=== PATIENT | male | born 1935 | race Caucasian/White ===

== ENCOUNTER → 2016-06-27 | Outpatient (CLI) | payer MEDICARE ==
[2016-06-27 11:31] LABS: Basophils # (A) 0.1 k/uL (0-0.2); Basophils % (A) 1 %; CH 31.2; CHCM 30.1; Eosinophils # (A) 0.2 k/uL (0-0.7); Eosinophils % (A) 3 %; HCT 40.5 % (39.0-53.0); HDW 2.85; HGB 12.3 gm/dL (13.0-17.5); Hypochromasia Marked; Luc # (Auto) 0.21; Luc % (Auto) 4; Lymphocytes # (A) 0.8 k/uL (1.0-4.8); Lymphocytes % (A) 15 %; MCH 31.6 pg (25.0-35.0); MCHC 30.3 g/dL (31.0-37.0); MCV 104.2 fL (80.0-100.0); Macrocytosis Moderate; Mean Platelet Volume 9.4; Monocytes # (A) 0.4 k/uL (0-1.0); Monocytes % (A) 6 %; Neutrophils % (A) 71 %; RBC 3.89 m/uL (4.30-5.90); RDW 15.4 % (11.5-15.5); WBC 5.6 k/uL (3.8-10.6); WBC (Perox) 5.96
[2016-06-27 11:51] LABS: Anion Gap 9 mmol/L; Blood Urea Nitrogen 20 mg/dL (9-20); Calcium 9.3 mg/dL (8.4-10.2); Carbon Dioxide 35 mmol/L (22-30); Chloride 103 mmol/L (98-107); Glucose 165 mg/dL (74-99); Non-African American GFR(MDRD) >60 (>60 ml/min/1.73 sqM); Potassium 4.7 mmol/L (3.5-5.1); Sodium 147 mmol/L (137-145)
== END ==
LOC: LABPAT 11:10
PROVIDERS: ATTEND Urology
DX: Z01.818 Encounter for other preprocedural examination (principal); N47.1 Phimosis; E11.9 Type 2 diabetes mellitus without complications; I48.91 Unspecified atrial fibrillation
CPT/HCPCS: 80048; 85025

== ENCOUNTER 2016-07-02 09:03 | Day surgery (SDC) | payer MEDICARE ==
[2016-06-29 10:50] VITALS: BMI 34.9
[~2016-07-02 09:03] MED LIST: DEXAMETHASONE SOD PHOSPHATE 10 MG/ML 1 ML VIAL IV ONE; HYDROmorphone 1 MG/ML 1 ML SYRINGE IVP PRN; LACTATED RINGERS 1,000 ML IV SCH; ONDANSETRON 4 MG/2 ML VIAL IVP ONE; ceFAZolin 2 GM in SODIUM CHLORIDE 0.9% 100 ML IVPB ONE
[2016-07-02 09:48] LABS: Glucose,Whole Blood 74 mg/dL (75-99)
[2016-07-02] MEDS ORDERED: LIDOCAINE 1% 20 ML VIAL (10MG/ML) FOR IV START INTRADERMA ONE (09:49)
[2016-07-02] MEDS ORDERED: MIDAZOLAM 2 MG/2 ML VIAL ONE (10:06)
[2016-07-02] MEDS ORDERED: GLYCOPYRROLATE 0.2 MG/ML 2 ML VIAL ONE (10:06)
[2016-07-02] MEDS ORDERED: fentaNYL (PF) 50 MCG/ML 2 ML AMP ONE (10:06)
[2016-07-02] MEDS ORDERED: KETAMINE 10 MG/ML 20 ML VIAL ONE (10:06)
[2016-07-02] MEDS ORDERED: LIDOCAINE 2%-EPI 1:100,000 20 ML VIAL SQ ONE (10:36)
[2016-07-02] MEDS ORDERED: BUPIVACAINE (PF) 0.5% 30 ML VIAL SQ ONE (10:36)
--- NOTE | 2016-07-02 11:27 | P.OP ---
Date of Procedure: 07/02/16 Preoperative Diagnosis: Phimosis Postoperative Diagnosis: Same Procedure(s) Performed: Circumcision Anesthesia: KIKE SOTO Surgeon: Misael Avina Estimated Blood Loss (ml): 20 IV fluids (ml): 500 Pathology: none sent Condition: stable Disposition: PACU Indications for Procedure: He is a 80-year-old male with multiple medical conditions, including diabetes mellitus. He is uncircumcised and has developed phimosis. Lotrisone cream failed to help, and he continues to be bothered by postvoid dribbling as a result of urine pooling due to the fact that the phimosis impedes urine flow. He has thus elected to undergo a circumcision. Operative Findings: Phimosis Description of Procedure: The patient was taken to the operating room and placed in the supine position. The external genitalia was prepped and draped sterilely. A 50-50 mixture of 2% lidocaine and 0.25% Marcaine was injected circumferentially at the penile base for a penile block. Because of the phimosis, the penile foreskin could not be retracted. A hemostat was used to clamp the dorsal aspect of the phimotic ring for several minutes, and scissors were then used to incise this. This was done until the foreskin could be retracted. The glans penis was cleaned with Betadine solution at this time. The scalpel was used to make a circumferential skin incision 1 cm proximal to the glans abrams. A second, more proximal circumferential skin incision was then made. The redundant foreskin was excised. Subcutaneous bleeders were controlled with electrocautery. The skin edges were reapproximated using 3-0 chromic suture in a combination of simple interrupted and running fashion. An Adaptic dressing was placed over the incision, and the penis was then snugly wrapped using a 2 inch Nathan with care taken not to constrict the penis in any way. The patient tolerated the procedure well and was taken to the recovery room in stable condition. He will be discharged home postoperatively.
[2016-07-02 11:40] LABS: Glucose,Whole Blood 98 mg/dL (75-99)
[2016-07-02 11:42] VITALS: TEMP 97.1
[2016-07-02 12:24] VITALS: RESP 16
[2016-07-02 13:05] VITALS: BP 148/85; PULSE 74
== END 2016-07-02 13:25 | disposition home or self-care (01) ==
LOC: OR 09:03
PROVIDERS: ATTEND Urology
DX: N47.1 Phimosis (principal); E11.9 Type 2 diabetes mellitus without complications; Z79.4 Long term (current) use of insulin; J44.9 Chronic obstructive pulmonary disease, unspecified; J45.909 Unspecified asthma, uncomplicated; G47.33 Obstructive sleep apnea (adult) (pediatric); N28.9 Disorder of kidney and ureter, unspecified; G62.9 Polyneuropathy, unspecified; Z79.01 Long term (current) use of anticoagulants; Z79.82 Long term (current) use of aspirin; Z79.899 Other long term (current) drug therapy; Z88.1 Allergy status to other antibiotic agents; Z88.8 Allergy status to other drugs, medicaments and biological substances
CPT/HCPCS: 54150; J2250; J1100; J0690; J2405; J3010

== ENCOUNTER → 2016-08-22 | Outpatient (CLI) | payer MEDICARE ==
[2016-08-22 08:23] LABS: Basophils # (A) 0.1 k/uL (0-0.2); Basophils % (A) 1 %; CHCM 31.5; Eosinophils # (A) 0.2 k/uL (0-0.7); Eosinophils % (A) 3 %; HCT 41.7 % (39.0-53.0); HDW 2.88; HGB 13.2 gm/dL (13.0-17.5); Hypochromasia Slight; Luc # (Auto) 0.14; Luc % (Auto) 3; Lymphocytes # (A) 0.8 k/uL (1.0-4.8); Lymphocytes % (A) 17 %; MCH 31.4 pg (25.0-35.0); MCHC 31.8 g/dL (31.0-37.0); Monocytes # (A) 0.4 k/uL (0-1.0); Monocytes % (A) 8 %; Neutrophils # (A) 3.2 k/uL (1.3-7.7); Neutrophils % (A) 68 %; RBC 4.22 m/uL (4.30-5.90); RDW 14.6 % (11.5-15.5); WBC 4.8 k/uL (3.8-10.6); WBC (Perox) 4.77
[2016-08-22 08:38] LABS: MCV 98.9 fL (80.0-100.0)
[2016-08-22 10:42] LABS: ALT 30 U/L (21-72); AST 32 U/L (17-59); Alkaline Phosphatase 132 U/L (38-126); Anion Gap 11 mmol/L; Blood Urea Nitrogen 18 mg/dL (9-20); Carbon Dioxide 36 mmol/L (22-30); Chloride 101 mmol/L (98-107); Cholesterol 116 mg/dL (<200); Creatine Kinase 37 U/L (55-170); Glucose 103 mg/dL (74-99); HDL Cholesterol 46 mg/dL (40-60); Iron 57 ug/dL (49-181); Magnesium 1.7 mg/dL (1.6-2.3); Non-African American GFR(MDRD) >60 (>60 ml/min/1.73 sqM); Phosphorous 3.4 mg/dL (2.5-4.5); Potassium 3.6 mmol/L (3.5-5.1); Sodium 148 mmol/L (137-145); Total Bilirubin 0.9 mg/dL (0.2-1.3); Total Protein 7.4 g/dL (6.3-8.2); Triglycerides 68 mg/dL (<150); Uric Acid 4.3 mg/dL (3.5-8.5)
[2016-08-22 10:51] LABS: % Iron Saturation 17.7 % (20-50); Total Iron Binding Capacity 322 ug/dL (261-462)
[2016-08-22 13:40] LABS: Hemoglobin A1C 5.9 % (4.2-6.1)
== END | disposition home or self-care (01) ==
LOC: LABWHC1 07:48
PROVIDERS: ATTEND Internal Medicine
DX: I12.9 Hypertensive chronic kidney disease with stage 1 through stage 4 chronic kidney disease, or unspecified chronic kidney disease (principal); N18.2 Chronic kidney disease, stage 2 (mild); I25.10 Atherosclerotic heart disease of native coronary artery without angina pectoris; E78.4 Other hyperlipidemia; E11.9 Type 2 diabetes mellitus without complications
CPT/HCPCS: 36415; 80053; 80061; 82306; 82550; 82728; 83036; 83540; 83550; 83735; 84100; 84439; 84443; 84550; 85025

== ENCOUNTER 2016-10-24 11:21 | Inpatient (IN) | payer MEDICARE ==
[2016-10-24] MEDS ORDERED: ALBUTEROL NEBULIZED 2.5 MG/3 ML INHALATION STA (11:42)
[2016-10-24] MEDS ORDERED: IPRATROPIUM 0.5 MG/2.5 ML NEBU INHALATION STA (11:42)
[2016-10-24] MEDS ORDERED: methylPREDNISolone SOD SUCCI 125 MG/2 ML VIAL IV STA (11:42)
[2016-10-24 11:58] LABS: Basophils % (A) 1 %; CH 31.1; CHCM 30.6; Eosinophils # (A) 0.3 k/uL (0-0.7); Eosinophils % (A) 4 %; HDW 2.85; HGB 13.4 gm/dL (13.0-17.5); Hypochromasia Moderate; Luc # (Auto) 0.12; Luc % (Auto) 2; Lymphocytes # (A) 0.7 k/uL (1.0-4.8); Lymphocytes % (A) 12 %; MCH 32.5 pg (25.0-35.0); MCHC 31.8 g/dL (31.0-37.0); MCV 102.2 fL (80.0-100.0); Macrocytosis Slight; Mean Platelet Volume 8.5; Monocytes # (A) 0.3 k/uL (0-1.0); Monocytes % (A) 6 %; Neutrophils # (A) 4.5 k/uL (1.3-7.7); Neutrophils % (A) 76 %; RBC 4.11 m/uL (4.30-5.90); RDW 15.3 % (11.5-15.5); WBC (Perox) 6.31
--- NOTE | 2016-10-24 12:04 | ED ---
General Adult HPI - General Chief complaint: Shortness of Breath Stated complaint: low O2 Time Seen by Provider: 10/24/16 11:25 Source: patient, family, RN notes reviewed Mode of arrival: wheelchair Limitations: no limitations - History of Present Illness Initial comments: This is an 81-year-old male with past medical history significant for COPD oxygen dependent and congestive heart failure. Patient states she had difficulty breathing starting 3 days ago. Patient has gotten progressively worse. Patient states she is oxygen dependent 24 hours a day. Patient states he is normal oxygenation could be in the high 80s but today was dipping down to the low 80s. Increase his oxygen and he still was very short of breath. Patient denies any chest pain or palpitations. Patient denies any fever chills or cough. Patient denies any abdominal pain patient denies nausea vomiting or diarrhea. Patient denies headache patient denies numbness weakness patient denies any lightheadedness or dizziness. - Related Data Home Medications Medication Instructions Recorded Confirmed Aspirin 81 mg PO DAILY 02/18/14 10/24/16 Gabapentin [Neurontin] 300 mg PO TID 02/18/14 10/24/16 Insulin NPH Human Isophane 10 units SQ BID 02/18/14 10/24/16 [humuLIN N] cloNIDine HCL [Catapres] 0.1 mg PO DAILY PRN 02/18/14 10/24/16 INSULIN LISPRO (humaLOG) [humaLOG See Protocol SQ ACHS PRN 05/18/15 10/24/16 (formulary)] Ipratropium Nebulized [Atrovent 0.5 mg INHALATION RT-QID PRN 05/18/15 10/24/16 Nebulized] Levalbuterol Nebulized [Xopenex 1.25 mg INHALATION RT-QID PRN 05/18/15 10/24/16 Nebulized] Cholecalciferol [Vitamin D3] 1,000 unit PO DAILY 07/29/15 10/24/16 Ferrous Sulfate [Iron (65 MG 325 mg PO BID 07/29/15 10/24/16 Elemental)] Glucosamine Sulfate 500 mg PO DAILY 07/29/15 10/24/16 Multivitamins, Thera [Multivitamin 1 tab PO DAILY 07/29/15 10/24/16 (formulary)] Niacinamide [Niacin] 500 mg PO DAILY 07/29/15 10/24/16 [place]-3 Fatty Acids/Fish Oil [Fish 1 cap PO DAILY 07/29/15 10/24/16 Oil 1,000 mg Softgel] Atenolol [Tenormin] 100 mg PO BID 08/25/15 10/24/16 Acetaminophen/Diphenhydramine 1 tab PO HS PRN 06/30/16 10/24/16 [Tylenol PM 500-25mg] Furosemide [Lasix] 20 mg PO DAILY 10/24/16 10/24/16 Losartan [Cozaar] 25 mg PO DAILY 10/24/16 10/24/16 Pravastatin Sodium [Pravachol] 80 mg PO HS 10/24/16 10/24/16 Previous Rx's Medication Instructions Recorded Apixaban [Eliquis] 2.5 mg PO BID #0 09/06/15 HYDROcodone/APAP 5-325MG [[place] 1 tab PO Q8HR PRN #90 tab 09/06/15 5-325] Allergies Allergy/AdvReac Type Severity Reaction Status Date / Time celecoxib [From Celebrex] AdvReac "hard Verified 10/24/16 12:36 muscle" ibuprofen AdvReac "bloody Verified 10/24/16 12:36 urine" levofloxacin AdvReac Itching Verified 10/24/16 12:36 Review of Systems ROS Statement: Those systems with pertinent positive or pertinent negative responses have been documented in the HPI. ROS Other: All systems not noted in ROS Statement are negative. 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, diabetes mellitus, chronic atrial fibrillation, coronary artery disease, COPD, hyperlipidemia, hypertension, Last Myocardial Infarction Date:: 27 years ago History of Any Multi-Drug Resistant Organisms: None Reported Past Surgical History: Appendectomy, Back Surgery, Cholecystectomy, Orthopedic Surgery Additional Past Surgical History / Comment(s): pilonIDAL cyst, brain anuerysm 1 clipping, right knee replacement, right shoulder replacement, LT CATARACT, SKIN GRAFT FROM RT THIGH TO RT FINGER, RASHEED 10 years ago, PFO against ASD, last colonoscopy greater than 5 years, 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 Mother Family Medical History: Cancer, Myocardial Infarction ([place]) Additional Family Medical History / Comment(s): Mother at age 62 from rectal cancer. Brother(s) Additional Family Medical History / Comment(s): Patient had 3 brothers. One in a work related accident. One after having an [place] with history of renal problems. Sister(s) Additional Family Medical History / Comment(s): Patient has 2 sisters. One is alive. One has after gallbladder ruptured. Patient has 3 boys and one girl with no major medical problems. General Exam - General Exam Comments Initial Comments: GENERAL: Patient is well-developed and well-nourished. Patient is nontoxic and well- hydrated and is in mild distress. ENT: Neck is soft and supple. No significant lymphadenopathy is noted. Oropharynx is clear. Moist mucous membranes. Neck has full range of motion without eliciting any pain. EYES: The sclera were anicteric and conjunctiva were pink and moist. Extraocular movements were intact and pupils were equal round and reactive to light. Eyelids were unremarkable. PULMONARY: Patient has diminished breath sounds throughout CARDIOVASCULAR: Patient has been irregular heartbeat. ABDOMEN: Soft and nontender with normal bowel sounds. No palpable organomegaly was noted. There is no palpable pulsatile mass. SKIN: Skin is clear with no lesions or rashes and otherwise unremarkable. NEUROLOGIC: Patient is alert and oriented x3. Cranial nerves II through XII are grossly intact. Motor and sensory are also intact. Normal speech, volume and content. Symmetrical smile. MUSCULOSKELETAL: Normal extremities with adequate strength and full range of motion. LYMPHATICS: No significant lymphadenopathy is noted PSYCHIATRIC: Normal psychiatric evaluation. Normal interpersonal interactions appears functionally intact in deals appropriately with others. No signs of depression. No signs of anxiety. Limitations: no limitations Course Vital Signs 10/24/16 10/24/16 10/24/16 11:25 12:01 12:15 Temperature 98.7 F Pulse Rate 94 83 87 Respiratory 24 Rate Blood Pressure 176/89 O2 Sat by Pulse 95 Oximetry 10/24/16 10/24/16 10/24/16 12:28 12:34 13:00 Temperature Pulse Rate 87 89 82 Respiratory 22 25 H Rate Blood Pressure 148/69 170/78 O2 Sat by Pulse 97 93 L Oximetry 10/24/16 10/24/16 10/24/16 13:41 13:43 13:47 Temperature Pulse Rate 90 115 H 123 H Respiratory 25 H 25 H 25 H Rate Blood Pressure 187/93 210/103 209/108 O2 Sat by Pulse 94 L 88 L 91 L Oximetry 10/24/16 10/24/16 10/24/16 13:52 13:57 14:02 Temperature Pulse Rate 100 109 H 112 H Respiratory 25 H 25 H 20 Rate Blood Pressure 201/103 191/96 191/96 O2 Sat by Pulse 92 L 93 L 93 L Oximetry 10/24/16 14:10 Temperature Pulse Rate 103 H Respiratory 20 Rate Blood Pressure 184/104 O2 Sat by Pulse 97 Oximetry Procedures - Chest Tube Insertion Consent Obtained: written consent Time Out Performed: Yes Side of Procedure: right Indication: Pneumothorax Placed on monitor/pulse oximetry: Yes Site Prep: Chloroprep Insertion Site: Midaxillary Scalpel: #10 Open into Pleural Space Using: Trocar Tube Size (Serbian): 28 Returns: Air, Blood Sutured in Place: Yes Type of Suture: Vicryl Dressing Applied: Petroleum Gauze Attached to Suction: No Type of Suction: Pleuravac Repeat X-ray Results: Lung Inflated Patient Tolerated Procedure: well Complications: Bleeding Medical Decision Making - Medical Decision Making EKG shows atrial fibrillation at 90 bpm QRS is 158 QT interval 392 QTC is 479. Patient's EKG shows a right bundle zofia block. When I compared this EKG to an old EKG there are no acute changes noted. Chest x-ray showed a pneumothorax on the right. After the chest tube was placed at another chest x-ray which was portable showed good reinflation of the lung however the tube was not inserted as far as I would like psych tried to readjust the tube I will repeat the portable chest x -ray. Repeat x-ray showed good placement of the tube with complete reinflation. I spoke with Dr. felder on 3 occasions about this case. Patient will be admitted to the ICU. Spoke with Dr. Gonzalez he agreed to accept the patient. I admitted the patient and I continued breathing treatments steroids and repeated cardiac enzymes as well as gave Lasix around the clock - Lab Data Result diagrams: 10/24/16 11:48 10/24/16 11:48 Lab Results 10/24/16 10/24/16 10/24/16 Range/Units 11:48 11:48 11:48 WBC 6.0 (3.8-10.6) k/uL RBC 4.11 L (4.30-5.90) m/uL Hgb 13.4 (13.0-17.5) gm/dL Hct 42.0 (39.0-53.0) % MCV 102.2 H (80.0-100.0) fL MCH 32.5 (25.0-35.0) pg MCHC 31.8 (31.0-37.0) g/dL RDW 15.3 (11.5-15.5) % Plt Count 104 L (150-450) k/uL Neutrophils % 76 % Lymphocytes % 12 % Monocytes % 6 % Eosinophils % 4 % Basophils % 1 % Neutrophils # 4.5 (1.3-7.7) k/uL Lymphocytes # 0.7 L (1.0-4.8) k/uL Monocytes # 0.3 (0-1.0) k/uL Eosinophils # 0.3 (0-0.7) k/uL Basophils # 0.0 (0-0.2) k/uL Hypochromasia Moderate Macrocytosis Slight PT (9.0-12.0) sec INR (<1.1) APTT (22.0-30.0) sec Sodium 146 H (137-145) mmol/L Potassium 4.3 (3.5-5.1) mmol/L Chloride 104 (98-107) mmol/L Carbon Dioxide 32 H (22-30) mmol/L Anion Gap 10 mmol/L BUN 30 H (9-20) mg/dL Creatinine 0.83 (0.66-1.25) mg/dL Est GFR (MDRD) Af Amer >60 (>60 ml/min/1.73 sqM) Est GFR (MDRD) Non-Af >60 (>60 ml/min/1.73 sqM) Glucose 156 H (74-99) mg/dL Calcium 9.1 (8.4-10.2) mg/dL Magnesium 1.9 (1.6-2.3) mg/dL Total Bilirubin 1.0 (0.2-1.3) mg/dL AST 32 (17-59) U/L ALT 20 L (21-72) U/L Alkaline Phosphatase 146 H (38-126) U/L Total Creatine Kinase 34 L (55-170) U/L CK-MB (CK-2) 1.9 (0.0-2.4) ng/mL CK-MB (CK-2) Rel Index 5.6 Troponin I 0.023 (0.000-0.034) ng/mL NT-Pro-B Natriuret Pep pg/mL Total Protein 7.0 (6.3-8.2) g/dL Albumin 3.8 (3.5-5.0) g/dL 10/24/16 10/24/16 Range/Units 11:48 11:48 WBC (3.8-10.6) k/uL RBC (4.30-5.90) m/uL Hgb (13.0-17.5) gm/dL Hct (39.0-53.0) % MCV (80.0-100.0) fL MCH (25.0-35.0) pg MCHC (31.0-37.0) g/dL RDW (11.5-15.5) % Plt Count (150-450) k/uL Neutrophils % % Lymphocytes % % Monocytes % % Eosinophils % % Basophils % % Neutrophils # (1.3-7.7) k/uL Lymphocytes # (1.0-4.8) k/uL Monocytes # (0-1.0) k/uL Eosinophils # (0-0.7) k/uL Basophils # (0-0.2) k/uL Hypochromasia Macrocytosis PT 13.1 H (9.0-12.0) sec INR 1.3 (<1.1) APTT 26.3 (22.0-30.0) sec Sodium (137-145) mmol/L Potassium (3.5-5.1) mmol/L Chloride (98-107) mmol/L Carbon Dioxide (22-30) mmol/L Anion Gap mmol/L BUN (9-20) mg/dL Creatinine (0.66-1.25) mg/dL Est GFR (MDRD) Af Amer (>60 ml/min/1.73 sqM) Est GFR (MDRD) Non-Af (>60 ml/min/1.73 sqM) Glucose (74-99) mg/dL Calcium (8.4-10.2) mg/dL Magnesium (1.6-2.3) mg/dL Total Bilirubin (0.2-1.3) mg/dL AST (17-59) U/L ALT (21-72) U/L Alkaline Phosphatase (38-126) U/L Total Creatine Kinase (55-170) U/L CK-MB (CK-2) (0.0-2.4) ng/mL CK-MB (CK-2) Rel Index Troponin I (0.000-0.034) ng/mL NT-Pro-B Natriuret Pep 7550 pg/mL Total Protein (6.3-8.2) g/dL Albumin (3.5-5.0) g/dL Critical Care Time Critical Care Time: Yes Total Critical Care Time: 40 Disposition Clinical Impression: Pulmonary edema, Acute exacerbation of chronic obstructive airways disease, Pneumothorax Disposition: ADMITTED IP TO THIS HOSP Referrals: Divina Batista MD [Primary Care Provider] - 1-2 days Time of Disposition: 14:36
[2016-10-24 12:14] LABS: INR 1.3 (<1.1); Partial Thromboplastin Time 26.3 sec (22.0-30.0); Prothrombin Time 13.1 sec (9.0-12.0)
[2016-10-24 12:19] LABS: ALT 20 U/L (21-72); AST 32 U/L (17-59); Alkaline Phosphatase 146 U/L (38-126); Anion Gap 10 mmol/L; Blood Urea Nitrogen 30 mg/dL (9-20); Calcium 9.1 mg/dL (8.4-10.2); Carbon Dioxide 32 mmol/L (22-30); Chloride 104 mmol/L (98-107); Glucose 156 mg/dL (74-99); Magnesium 1.9 mg/dL (1.6-2.3); Non-African American GFR(MDRD) >60 (>60 ml/min/1.73 sqM); Potassium 4.3 mmol/L (3.5-5.1); Sodium 146 mmol/L (137-145)
[2016-10-24 12:35] LABS: Creatine Kinase MB 1.9 ng/mL (0.0-2.4); Troponin I 0.023 ng/mL (0.000-0.034)
[2016-10-24] MEDS ORDERED: FUROSEMIDE 10 MG/ML 4 ML VIAL IV STA (12:56)
--- NOTE | 2016-10-24 12:58 | XR ---
EXAMINATION TYPE: XR chest 2V DATE OF EXAM: 10/24/2016 COMPARISON: 09/01/2015 HISTORY: 81-year-old male difficulty breathing TECHNIQUE: AP and lateral views FINDINGS: Heart remains mildly enlarged. Diffuse interstitial prominence. Thickening of the minor fissure. Sugg estion of small effusions with patchy bibasilar opacities. There is a right apical and right lateral pneumothorax estimated at 20%. Partially visualized right shoulder arthroplasty. Multilevel spondylit ic change within the spine. IMPRESSION: 1. Small to moderate-sized right-sided pneumothorax estimated at 20% with apical and lateral componen ts. 2. Correlate for CHF with pulmonary vascular congestion. 3. Small effusions with adjacent atelectasis and/or consolidation. Findings called to Dr. Sewell in the ER at 12:55 PM.
[2016-10-24] MEDS ORDERED: LIDOCAINE 1%-EPI 1:100,000 20 ML VIAL SQ STA (13:32)
[2016-10-24] MEDS ORDERED: ETOMIDATE 2 MG/ML 10 ML VIAL IVP STA (13:32)
[2016-10-24] MEDS ORDERED: HYDROmorphone 1 MG/ML 1 ML SYRINGE IVP STA (13:56)
--- NOTE | 2016-10-24 14:19 | XR ---
EXAMINATION TYPE: XR chest 1V portable DATE OF EXAM: 10/24/2016 Comparison: Earlier today Clinical History: 81-year-old male with pain, right-sided chest tube Findings: Hypoventilatory changes with continued interstitial opacities and patchy bibasilar opacities with sma ll effusions. Interval placement of right-sided chest tube. The chest tube side hole is right at the lateral thoracic margin. Associated subcutaneous emphysema. A trace right apical pneumothorax remains estimated at less than 5%. Impression: 1. Right-sided chest tube. Note that the chest tube sidehole is at the thoracic sidewall margin. 2. Decreased right pneumothorax. A trace less than 5% apical pneumothorax remains. 3. Hypoventilatory changes. 4. Other findings suspected to represent [id number] CHF small effusions with adjacent atelectas is and/or consolidation.
--- NOTE | 2016-10-24 14:28 | XR ---
EXAMINATION TYPE: XR chest 1V portable DATE OF EXAM: 10/24/2016 Comparison: Earlier today Clinical History: 81-year-old male with pain, readjusted chest tube. Findings: Right-sided chest tube has been further advanced. The sidehole is now satisfactory. Similar residual, less than 5% right apical pneumothorax. The background pulmonary findings are relatively similar. Impression: 1. Satisfactory further advancement of the right chest tube. Trace less than 5% right apical pneumoth orax is stable. 2. Pulmonary findings are similar, possible [id number] CHF.
[2016-10-24 15:17] LABS: Glucose,Whole Blood 170 mg/dL (75-99)
[2016-10-24] MEDS: IPRATROPIUM-ALBUTEROL 3 ML NEB INHALATION PRN ×2 (15:23→20:08)
[2016-10-24] MEDS ORDERED: cloNIDine HCL 0.1 MG TAB PO PRN (16:45)
[2016-10-24] MEDS ORDERED: LEVALBUTEROL NEB 1.25 MG/3 ML AMP INHALATION PRN (16:45)
[2016-10-24] MEDS ORDERED: IPRATROPIUM 0.5 MG/2.5 ML NEBU INHALATION PRN (16:45)
[2016-10-24] MEDS ORDERED: ACETAMINOPHEN TAB 500 MG TAB PO PRN ×2 (16:45→17:11)
[2016-10-24] MEDS ORDERED: PANTOPRAZOLE 40 MG/10 ML VIAL IVP SCH (17:00)
[2016-10-24] MEDS ORDERED: diphenhydrAMINE 25 MG CAP PO PRN (17:10)
[2016-10-24 17:20] LABS: Glucose,Whole Blood 165 mg/dL (75-99)
[2016-10-24] MEDS: FUROSEMIDE 10 MG/ML 2 ML VIAL IV SCH (17:26)
[2016-10-24] MEDS: SODIUM CHLORIDE 0.9% 1,000 ML IV SCH (17:27)
[2016-10-24] MEDS: INSULIN LISPRO (humaLOG) 300 UNIT/3 ML VIAL SQ SCH ×2 (17:32→21:19)
[2016-10-24] MEDS ORDERED: methylPREDNISolone SOD SUCCI 125 MG/2 ML VIAL IV SCH (18:00)
[2016-10-24] MEDS ORDERED: AZITHROMYCIN 500 MG TAB PO SCH (18:45)
[2016-10-24] MEDS ORDERED: BUDESONIDE 0.5 MG/2 ML NEBU INHALATION SCH (20:00)
[2016-10-24 20:48] LABS: Glucose,Whole Blood 270 mg/dL (75-99)
[2016-10-24] MEDS: ATENOLOL 50 MG TAB PO SCH (20:48)
[2016-10-24] MEDS: APIXABAN 5 MG TAB PO SCH (20:48)
[2016-10-24] MEDS: FERROUS SULFATE 325 MG TAB PO SCH (20:49)
[2016-10-24] MEDS: PRAVASTATIN SODIUM 80 MG TAB PO SCH (20:49)
[2016-10-24] MEDS: INSULIN NPH 300 UNIT/3 ML VIAL SQ SCH (21:19)
[2016-10-24] MEDS: HYDROcodone/APAP 5-325MG 1 EACH TAB PO PRN (21:34)
[2016-10-24 22:28] LABS: Glucose,Whole Blood 271 mg/dL (75-99)
[2016-10-24] MEDS: GABAPENTIN 300 MG CAP PO SCH (22:38)
[2016-10-25] MEDS ORDERED: methylPREDNISolone SOD SUCCI 40 MG/ML 1 ML VIAL IV SCH
[2016-10-25] MEDS: FUROSEMIDE 10 MG/ML 2 ML VIAL IV SCH ×4 (00:26→21:58)
[2016-10-25 00:39] LABS: Hemoglobin A1C 5.5 % (4.2-6.1)
[2016-10-25 07:27] LABS: Glucose,Whole Blood 185 mg/dL (75-99)
--- NOTE | 2016-10-25 07:49 | P.HPIM ---
History of Present Illness H&P Date: 10/24/16 Chief Complaint: Severe dyspnea and shortness of breath, right-sided more thorax , COPD exace 81-year-old male one of Dr. Batista's patient who seen Dr. Alarcon in for advance COPD on home O2, who also has multiple medical problem seeing cardiology and nephrology for as well. Patient has been having slight increased shortness of breath the last few days but on 10/24/2016 developed to have much worsening symptoms require O2 up to 4 L from his to and half later. Patient used CPAP through the night the minute he took it off in the morning his O2 sat was low and patient require more oxygen. Later on in the day with his symptoms become much worse ended up coming to the emergency department at [facility] where was seen and evaluated. Surprisingly his chest x-ray reveals 20 percentile pneumothorax of the right side. Chest tube was inserted expanded along quite bed. Patient will be seen Dr. Valdez who is on-call for pulmonary service on the weekend will continue COPD exacerbation management as well for now including steroid IV. According to patient and his did not have or felt any sudden onset of chest pain in the right side consistent with his pneumothorax so no clear cut when this exactly happened with most likely within the last 24 hours. Admission. Review of Systems Constitutional: Reports chronic pain, Reports fatigue, Reports lethargy, Reports malaise, Reports weakness, Reports weight gain, Denies as per HPI, Denies anorexia, Denies chills, Denies chronic headaches, Denies daytime sleepiness, Denies fever, Denies night sweats, Denies poor appetite, Denies sweats, Denies weight loss Eyes: denies as per HPI Ears: bilateral: decreased hearing Ears, nose, mouth and throat: Reports ant. neck pain, Reports nasal congestion, Reports nasal discharge, Reports sinus pain, Reports sinus pressure, Denies as per HPI, Denies bleeding gums, Denies dental pain, Denies dysphagia, Denies epistaxis, Denies headache, Denies hoarseness, Denies mouth pain, Denies neck fullness/pressure, Denies neck lump, Denies nose pain, Denies odynophagia, Denies post-nasal drip, Denies swelling in mouth, Denies swelling in throat, Denies sore throat, Denies vertigo, Denies voice changes Cardiovascular: Reports chest pain, Reports decreased exercise tolerance, Reports edema, Reports high blood pressure, Reports leg edema, Reports lightheadedness, Reports palpitations, Reports paroxysmal nocturnal dyspnea, Reports shortness of breath, Denies as per HPI, Denies claudication, Denies dyspnea on exertion, Denies irregular heart beat, Denies orthopnea, Denies phlebitis, Denies rapid heart beat, Denies syncope Respiratory: Reports congestion, Reports dyspnea, Reports respiratory infections , Denies as per HPI, Denies cough, Denies cough with sputum, Denies excessive sputum, Denies hemoptysis, Denies home oxygen, Denies pain, Denies pain on inspiration, Denies pleurisy, Denies sleep apnea, Denies snoring, Denies wheezing Gastrointestinal: Reports abdominal pain, Reports bloating, Reports constipation , Reports dyspepsia, Reports heartburn, Reports loss of appetite, Reports nausea , Reports vomiting, Denies as per HPI, Denies belching, Denies BRBPR, Denies change in bowel habits, Denies coffee ground emesis, Denies diarrhea, Denies early satiety, Denies excessive gas, Denies hematemesis, Denies hematochezia, Denies indigestion, Denies jaundice, Denies lactose intolerance, Denies melena Genitourinary: Reports dysuria, Reports nocturia, Reports polyuria, Reports urinary frequency, Denies as per HPI, Denies decreased libido, Denies difficulties fathering child, Denies discharge, Denies erectile dysfunction, Denies flank pain, Denies genital pain, Denies genital sores, Denies hematuria, Denies impotence, Denies incontinence, Denies kidney stones, Denies testicular lump, Denies testicular pain, Denies urinary hesitancy, Denies urinary retention Musculoskeletal: Reports low back pain, Reports myalgias, Reports neck pain, Reports neck stiffness, Denies as per HPI, Denies arm numbness/tingling, Denies atrophy, Denies fractures, Denies frequent falls, Denies gait dysfunction, Denies hot joints, Denies leg numbness/tingling, Denies limitation of motion, Denies loss of height, Denies morning stiffness, Denies muscle cramps, Denies muscle weakness, Denies prior amputations, Denies redness of joints, Denies shooting arm pain, Denies shooting leg pain Integumentary: Reports rash, Denies as per HPI, Denies acne, Denies boils, Denies brittle nails, Denies change in hair/nails, Denies color changes, Denies darkening of skin, Denies depigmentation, Denies dryness, Denies foot/leg ulcers , Denies growths, Denies hirsutism, Denies lesions, Denies onychomycosis, Denies pruritus, Denies sores, Denies striae, Denies unusual bruising, Denies wounds Neurological: Reports headaches, Reports tingling, Denies as per HPI, Denies aphasia, Denies ataxia, Denies balance difficulties, Denies burning pain, Denies change in mentation, Denies change in smell/taste, Denies change in speech, Denies confusion, Denies convulsions, Denies double vision, Denies gait dysfunction, Denies head injury, Denies hearing difficulties, Denies lack of coordination, Denies loss of vision, Denies memory loss, Denies migraines, Denies motor disturbance, Denies numbness, Denies paralysis, Denies paresthesias , Denies seizures, Denies sensory deficit, Denies spasticity, Denies syncope, Denies tic, Denies transient paralysis, Denies tremors, Denies vertigo, Denies weakness, Denies visual changes Psychiatric: Reports memory loss, Reports sadness/tearfulness, Denies as per HPI , Denies anhedonia, Denies anxiety, Denies anxiety attacks, Denies change in appetite, Denies change in libido, Denies change in sleep habits, Denies confusion, Denies depression, Denies difficulty concentrating, Denies disorientation, Denies hallucinations, Denies hopelessness, Denies hypersomnia, Denies insomnia, Denies irritability, Denies mood swings, Denies paranoia, Denies sleep disturbances, Denies suicidal ideation Endocrine: Reports cold intolerance, Reports fatigue, Reports flushing, Denies as per HPI, Denies deepening of the voice, Denies excessive sweating, Denies excessive thirst, Denies heat intolerance, Denies high blood sugars, Denies increase in ring/shoe/hat size, Denies low blood sugars, Denies nocturia, Denies palpitations, Denies polydipsia, Denies polyphagia, Denies polyuria, Denies proptosis, Denies recent glucocorticoid use, Denies thyroid mass, Denies weight change Hematologic/Lymphatic: Reports easy bruising, Denies as per HPI, Denies easy bleeding, Denies lymphadenopathy, Denies lymphedema, Denies thrombophilia Allergic/Immunologic: Reports allergic rhinitis, Denies as per HPI, Denies anaphylaxis, Denies angioedema, Denies gluten intolerance, Denies persistent infections, Denies seasonal allergies, Denies urticaria, Denies wheezing 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, diabetes mellitus, chronic atrial fibrillation, coronary artery disease, COPD, hyperlipidemia, hypertension, Last Myocardial Infarction Date:: 27 years ago History of Any Multi-Drug Resistant Organisms: None Reported Past Surgical History: Appendectomy, Back Surgery, Cholecystectomy, Orthopedic Surgery Additional Past Surgical History / Comment(s): pilonIDAL cyst, brain anuerysm 1 clipping, right knee replacement, right shoulder replacement, LT CATARACT, SKIN GRAFT FROM RT THIGH TO RT FINGER, RASHEED 10 years ago, PFO against ASD, last colonoscopy greater than 5 years, 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 Mother Family Medical History: Cancer, Myocardial Infarction (NC) Additional Family Medical History / Comment(s): Mother at age 62 from rectal cancer. Brother(s) Additional Family Medical History / Comment(s): Patient had 3 brothers. One in a work related accident. One after having an NC with history of renal problems. Sister(s) Additional Family Medical History / Comment(s): Patient has 2 sisters. One is alive. One has after gallbladder ruptured. Patient has 3 boys and one girl with no major medical problems. Medications and Allergies Home Medications Medication Instructions Recorded Confirmed Type Aspirin 81 mg PO DAILY 02/18/14 10/24/16 History Gabapentin [Neurontin] 300 mg PO TID 02/18/14 10/24/16 History Insulin NPH Human Isophane 10 units SQ BID 02/18/14 10/24/16 History [humuLIN N] cloNIDine HCL [Catapres] 0.1 mg PO DAILY PRN 02/18/14 10/24/16 History INSULIN LISPRO (humaLOG) [humaLOG See Protocol SQ ACHS PRN 05/18/15 10/24/16 History (formulary)] Ipratropium Nebulized [Atrovent 0.5 mg INHALATION RT-QID PRN 05/18/15 10/24/16 History Nebulized] Levalbuterol Nebulized [Xopenex 1.25 mg INHALATION RT-QID PRN 05/18/15 10/24/16 History Nebulized] Cholecalciferol [Vitamin D3] 1,000 unit PO DAILY 07/29/15 10/24/16 History Ferrous Sulfate [Iron (65 MG 325 mg PO BID 07/29/15 10/24/16 History Elemental)] Glucosamine Sulfate 500 mg PO DAILY 07/29/15 10/24/16 History Multivitamins, Thera [Multivitamin 1 tab PO DAILY 07/29/15 10/24/16 History (formulary)] Niacinamide [Niacin] 500 mg PO DAILY 07/29/15 10/24/16 History [place]-3 Fatty Acids/Fish Oil [Fish 1 cap PO DAILY 07/29/15 10/24/16 History Oil 1,000 mg Softgel] Atenolol [Tenormin] 100 mg PO BID 08/25/15 10/24/16 History Acetaminophen/Diphenhydramine 1 tab PO HS PRN 06/30/16 10/24/16 History [Tylenol PM 500-25mg] Furosemide [Lasix] 20 mg PO DAILY 10/24/16 10/24/16 History Losartan [Cozaar] 25 mg PO DAILY 10/24/16 10/24/16 History Pravastatin Sodium [Pravachol] 80 mg PO HS 10/24/16 10/24/16 History Allergies Allergy/AdvReac Type Severity Reaction Status Date / Time celecoxib [From Celebrex] AdvReac "hard Verified 10/24/16 12:36 muscle" ibuprofen AdvReac "bloody Verified 10/24/16 12:36 urine" levofloxacin AdvReac Itching Verified 10/24/16 12:36 Physical Exam Vitals: Vital Signs Temp Pulse Pulse Resp BP BP Pulse Ox 10/25/16 06:00 85 15 120/64 99 10/25/16 05:30 74 17 135/74 98 10/25/16 05:00 76 19 120/81 97 10/25/16 04:30 74 20 136/78 91 L 10/25/16 04:00 98.5 F 80 21 127/63 96 10/25/16 03:30 89 21 128/71 95 10/25/16 03:00 84 19 124/67 94 L 10/25/16 02:30 83 16 127/67 94 L 10/25/16 02:00 75 15 121/59 95 10/25/16 01:30 83 14 119/67 95 10/25/16 01:00 84 18 140/67 96 10/25/16 00:30 81 16 119/54 97 10/25/16 00:00 98.5 F 93 15 131/66 98 10/24/16 23:30 88 16 124/64 96 10/24/16 23:00 103 H 14 132/77 91 L 10/24/16 22:30 108 H 18 155/80 95 10/24/16 22:06 94 16 151/85 97 10/24/16 22:00 100 15 151/85 97 10/24/16 21:30 149 H 68 H 164/81 95 10/24/16 21:00 107 H 39 H 150/78 96 10/24/16 20:30 107 H 63 H 179/96 93 L 10/24/16 20:13 91 10/24/16 20:00 98.7 F 90 17 161/88 96 10/24/16 19:30 98 15 164/78 92 L 10/24/16 19:00 97 17 156/85 91 L 10/24/16 18:30 103 H 21 155/80 91 L 10/24/16 18:00 101 H 24 164/86 96 10/24/16 17:30 92 23 163/85 96 10/24/16 17:00 94 27 H 158/96 96 10/24/16 16:30 102 H 27 H 153/86 96 10/24/16 16:00 100 28 H 156/91 91 L 10/24/16 15:35 86 10/24/16 15:23 119 H 10/24/16 15:12 98.9 F 92 24 173/90 90 L 10/24/16 14:58 101 H 20 166/77 94 L 10/24/16 14:10 103 H 20 184/104 97 10/24/16 14:02 112 H 20 191/96 93 L 10/24/16 13:57 109 H 25 H 191/96 93 L 10/24/16 13:52 100 25 H 201/103 92 L 10/24/16 13:47 123 H 25 H 209/108 91 L 10/24/16 13:43 115 H 25 H 210/103 88 L 10/24/16 13:41 90 25 H 187/93 94 L 10/24/16 13:00 82 25 H 170/78 93 L 10/24/16 12:34 89 10/24/16 12:28 87 22 148/69 97 10/24/16 12:15 87 10/24/16 12:01 83 10/24/16 11:25 98.7 F 94 24 176/89 95 Intake and Output 10/24/16 10/25/16 10/25/16 22:59 06:59 14:59 Intake Total 440 160 Output Total 2445 210 Balance -2004 Intake: IV 140 160 Sodium Chloride 0.9% 1, 40 160 000 ml @ 20 mls/hr IV . Q24H DIANE Rx#:[id number] cefTRIAXone 1,000 mg In 100 Sodium Chloride 0.9% 50 ml @ 100 mls/hr IVPB Q12HR DIANE Rx#:[id number] Intake, IV Titration 60 Amount Sodium Chloride 0.9% 1, 60 000 ml @ 20 mls/hr IV . Q24H DIANE Rx#:[id number] Oral 240 Output: Chest Tube Drainage 270 210 Right Mid-Axillary Chest 270 210 Urine 2175 0 Other: Voiding Method Urinal Urinal Diaper # Voids 0 0 Weight 97.8 kg - Constitutional General appearance: no average body habitus, cooperative, disheveled, mild distress, no morbidly obese, no no acute distress, obese, no severe distress, no thin - EENT Eyes: no abnormal pupil, no anicteric sclerae, no disc margins sharp, no edentulous, no EOMI, no PERRLA, no fundus normal, no photophobia, no dentition normal, no poor dentition, no ptosis, no scleral icterus, normal appearance ENT: no hard of hearing, no hearing grossly normal, no NA/AT, normal oropharynx , no other, no pharyngeal erythema, no thrush, no tonsillar exudates, no tonsillar swelling Ears: bilateral: normal - Neck Neck: no lymphadenopathy, normal ROM, no other, no rigidity, no stridor, no thyromegaly Carotids: bilateral: upstroke normal Thyroid: bilateral: normal size - Respiratory Respiratory: right: diminished, dullness, bilateral: rales, rhonchi, wheezing, prolonged expiration - Cardiovascular Rhythm: regular Heart sounds: normal: S1, S2 Abnormal Heart Sounds: systolic murmur, S3 Gallop - Gastrointestinal General gastrointestinal: no absent bowel sounds, decreased bowel sounds, distended, no hepatomegaly, no hyperactive bowel sounds, normal bowel sounds, organomegaly, no rigid, no scaphoid, soft, no splenomegaly, no tenderness, no umbilical hernia, no ventral hernia - Genitourinary Male genitourinary: scrotal edema - Integumentary Integumentary: no calor, cellulitis, no cyanotic, no decreased turgor, no flushed, no jaundiced, no normal, no normal turgor, pale, rash, no ulcer - Neurologic Neurologic: CNII-XII intact - Musculoskeletal Musculoskeletal: no gait normal, generalized weakness, no strength equal bilaterally, no right sided weakness, no left sided weakness - Psychiatric Psychiatric: A&O x's 3, appropriate affect Results CBC & Chem 7: 10/24/16 11:48 10/24/16 11:48 Labs: Abnormal Lab Results - Last 24 Hours (Table) 10/24/16 10/24/16 10/24/16 Range/Units 11:48 11:48 11:48 RBC 4.11 L (4.30-5.90) m/uL MCV 102.2 H (80.0-100.0) fL Plt Count 104 L (150-450) k/uL Lymphocytes # 0.7 L (1.0-4.8) k/uL PT (9.0-12.0) sec Sodium 146 H (137-145) mmol/L Carbon Dioxide 32 H (22-30) mmol/L BUN 30 H (9-20) mg/dL Glucose 156 H (74-99) mg/dL POC Glucose (mg/dL) (75-99) mg/dL ALT 20 L (21-72) U/L Alkaline Phosphatase 146 H (38-126) U/L Total Creatine Kinase 34 L (55-170) U/L 10/24/16 10/24/16 10/24/16 Range/Units 11:48 15:16 17:18 RBC (4.30-5.90) m/uL MCV (80.0-100.0) fL Plt Count (150-450) k/uL Lymphocytes # (1.0-4.8) k/uL PT 13.1 H (9.0-12.0) sec Sodium (137-145) mmol/L Carbon Dioxide (22-30) mmol/L BUN (9-20) mg/dL Glucose (74-99) mg/dL POC Glucose (mg/dL) 170 H 165 H (75-99) mg/dL ALT (21-72) U/L Alkaline Phosphatase (38-126) U/L Total Creatine Kinase (55-170) U/L 10/24/16 10/24/16 10/25/16 Range/Units 20:46 22:26 07:25 RBC (4.30-5.90) m/uL MCV (80.0-100.0) fL Plt Count (150-450) k/uL Lymphocytes # (1.0-4.8) k/uL PT (9.0-12.0) sec Sodium (137-145) mmol/L Carbon Dioxide (22-30) mmol/L BUN (9-20) mg/dL Glucose (74-99) mg/dL POC Glucose (mg/dL) 270 H 271 H 185 H (75-99) mg/dL ALT (21-72) U/L Alkaline Phosphatase (38-126) U/L Total Creatine Kinase (55-170) U/L Thrombosis Risk Factor Assmnt - DVT/VTE Prophylaxis DVT/VTE Prophylaxis: Pharmacologic Prophylaxis ordered, Mechanical Prophylaxis ordered - Choose All That Apply Any of the Below Risk Factors Present?: Yes Each Factor Represents 1 point: Abnormal pulmonary function (COPD), Acute NC, Heart failure (<1month), Medical pt on bed rest, Obesity (BMI >25) Each Risk Factor Represents 2 Points: Patient confined to bed Each Risk Factor Represents 3 Points: Age 75 years or older Thrombosis Risk Factor Assessment Total Risk Factor Score: 10 Thrombosis Risk Factor Assessment Level: High Risk Assessment and Plan Plan: 1 acute respiratory failure of acute pneumothorax along with COPD exacerbation , patient had his chest tube and will continue patient on COPD exacerbation management as well with steroid IV and updraft treatment. 2 acute pneumothorax: Post chest tube, whether patient will require pleurodesis are not to be determined by pulmonary over the next 2 days. 3 COPD excessive patient: With his current symptoms continue O2 continue CPAP or BiPAP through the night will continue patient on Solu-Medrol 60 mg every 6 along with DuoNeb and Pulmicort for now. 4 chronic A. fib: On anticoagulation long-term on Tenormin and Eliquis continue both medication for now. Pulse rate remain under control. 5 chronic combined systolic and diastolic congestive heart failure: Patient to continue furosemide 20 mg daily along with losartan and atenolol. 6 diabetes: Type II on insulin along with Accu-Chek and sliding scales coverage continue medication. 7 hypertension: Continue patient on a clonidine along with losartan and Tenormin. 8 hyperlipidemia: Resume pravastatin and niacin. 9 chronic neuropathy: Continue patient on gabapentin. 10 chronic anemia: Iron deficiency continue patient on iron supplement. 11 GI prophylaxis: Continue patient on pantoprazole 40 mg daily. 12 DVT prophylaxis: Patient still on anticoagulation along with knee-high JEROMY hose and Venodyne boots. CODE STATUS: Full code. Expectation from this admission: Patient be in the hospital for more than 2 nights.
--- NOTE | 2016-10-25 07:50 | XR ---
EXAMINATION TYPE: XR chest 1V portable DATE OF EXAM: 10/25/2016 Comparison: 10/24/2016 Clinical History: 81-year-old male chest placement Findings: Hypoventilatory changes with carotid vascular markings and elevated hemidiaphragms. Lung volumes are diminished as compared to prior exam. Suggestion of small left effusion with increasing left mid and lower lung opacities. Right-sided chest tube in place. Previous mall right apical pneumothorax no gary yuriy seen. Partially visualized right shoulder arthroplasty. Continued thickening of the minor fissure . Scoliosis. Impression: 1. Right-sided chest tube remains in place. The previous tiny right apical pneumothorax is no longer seen. 2. Hypoventilatory changes limiting assessment. Suspects small effusion on the left and possible mild residual pulmonary vascular congestion. 3. Increasing left perihilar and basilar opacity could represent atelectasis. Reassess at follow-up.
[2016-10-25] MEDS: SYMBICORT 160-4.5 MCG INHALER INHALATION SCH ×2 (07:57→20:44)
[2016-10-25] MEDS: IPRATROPIUM-ALBUTEROL 3 ML NEB INHALATION PRN ×4 (07:57→20:44)
[2016-10-25 08:05] LABS: Basophils % (A) 0 %; CH 31.4; CHCM 30.4; Eosinophils % (A) 0 %; HCT 39.4 % (39.0-53.0); HDW 2.76; HGB 12.4 gm/dL (13.0-17.5); Hypochromasia Moderate; Luc # (Auto) 0.03; Luc % (Auto) 1; Lymphocytes # (A) 0.4 k/uL (1.0-4.8); Lymphocytes % (A) 9 %; MCH 32.9 pg (25.0-35.0); MCHC 31.6 g/dL (31.0-37.0); MCV 104.1 fL (80.0-100.0); Macrocytosis Moderate; Mean Platelet Volume 9.5; Monocytes # (A) 0.2 k/uL (0-1.0); Monocytes % (A) 4 %; Neutrophils # (A) 3.6 k/uL (1.3-7.7); Neutrophils % (A) 86 %; RBC 3.78 m/uL (4.30-5.90); RDW 15.4 % (11.5-15.5); WBC 4.1 k/uL (3.8-10.6); WBC (Perox) 4.43
[2016-10-25] MEDS: APIXABAN 5 MG TAB PO SCH (08:12)
[2016-10-25] MEDS: INSULIN LISPRO (humaLOG) 300 UNIT/3 ML VIAL SQ SCH ×5 (08:12→21:58)
[2016-10-25] MEDS: PANTOPRAZOLE 40 MG TABLET PO SCH (08:12)
[2016-10-25] MEDS: ASPIRIN 81 MG CHEW PO SCH (08:14)
[2016-10-25] MEDS: ATENOLOL 50 MG TAB PO SCH ×2 (08:15→21:56)
[2016-10-25] MEDS: CHOLECALCIFEROL 1,000 UNIT TAB PO SCH (08:15)
[2016-10-25] MEDS: GABAPENTIN 300 MG CAP PO SCH ×3 (08:15→21:58)
[2016-10-25 08:17] LABS: ALT 23 U/L (21-72); AST 25 U/L (17-59); Alkaline Phosphatase 128 U/L (38-126); Anion Gap 8 mmol/L; Blood Urea Nitrogen 31 mg/dL (9-20); Calcium 8.7 mg/dL (8.4-10.2); Carbon Dioxide 38 mmol/L (22-30); Chloride 101 mmol/L (98-107); Glucose 161 mg/dL (74-99); Magnesium 1.8 mg/dL (1.6-2.3); Non-African American GFR(MDRD) >60 (>60 ml/min/1.73 sqM); Phosphorous 4.9 mg/dL (2.5-4.5); Potassium 3.9 mmol/L (3.5-5.1); Sodium 147 mmol/L (137-145); Total Bilirubin 0.7 mg/dL (0.2-1.3); Total Protein 6.9 g/dL (6.3-8.2)
[2016-10-25] MEDS: INSULIN NPH 300 UNIT/3 ML VIAL SQ SCH ×2 (08:17→21:57)
[2016-10-25] MEDS: MULTIVITAMINS, THERA 1 EACH TAB PO SCH (08:18)
[2016-10-25] MEDS: methylPREDNISolone SOD SUCCI 40 MG/ML 1 ML VIAL IV SCH ×2 (08:18→21:57)
[2016-10-25] MEDS: FERROUS SULFATE 325 MG TAB PO SCH ×2 (08:19→21:57)
[2016-10-25] MEDS: NIACIN TR 500 MG CAPSULE.ER PO SCH (08:21)
[2016-10-25 08:34] LABS: Manual Review Performed
[2016-10-25] MEDS ORDERED: NON-FORMULARY DRUG (Omega-3 Fatty Acids/Fish Oil [Fish Oil 1,000 Mg Softgel] 1 CAP) PO SCH (09:00)
[2016-10-25] MEDS ORDERED: NON-FORMULARY DRUG (Glucosamine Sulfate 500 MG) PO SCH (09:00)
[2016-10-25] MEDS ORDERED: POTASSIUM CHLORIDE ER 20 MEQ TAB.ER PO SCH (09:00)
[2016-10-25] MEDS: LOSARTAN 25 MG TAB PO SCH (09:11)
[2016-10-25] MEDS: MAGNESIUM SULFATE-D5W PMX 1 GM in DEXTROSE/WATER 1 100ML.BAG IVPB SCH ×2 (09:11→11:02)
[2016-10-25] MEDS: AZITHROMYCIN 500 MG TAB PO SCH (09:11)
--- NOTE | 2016-10-25 09:30 | P.CNPUL ---
History of Present Illness Consult date: 10/25/16 Requesting physician: Reuben Gonzalez Reason for consult: dyspnea, COPD, pneumothorax Chief complaint: Shortness of breath History of present illness: This is an 81-year-old white male with history of severe COPD, O2 dependent, usually sees Dr. Alarcon for his COPD on a regular basis. No previous history of pneumothorax. Patient presented to the ER on 10/24/2016, and he was complaining of shortness of breath for the last a few days. His action has been going up to 4 L/m, normally he is at 2.5. Liters per minutes. Upon evaluation in the ER, patient was noted to have a 20% right-sided pneumothorax and significant atelectasis mostly in the left lower lobe, and there seems to be a left hemidiaphragm elevation. 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 At any rate patient had a chest tube placed by the ER physician, placed on antibiotics, bronchodilators, and admitted to the ICU. Upon my evaluation today, patient seems to be doing much better, breathing easier. Chest x-ray was reviewed, the right-sided pneumothorax has resolved. However there seems to be a significant left lower lobe atelectasis possible consolidation in the left lower lobe and left hemidiaphragm elevation which is also significant. Patient was placed already on antibiotics, bronchodilators, incentive spirometry, may or may not eventually need workup on his left hemidiaphragm to evaluate for paralysis. Clinically however the patient is noted to be improved. Presently the patient denies any cough, no wheezing, no fever, no chills, no hemoptysis, no chest pain. Review of Systems Constitutional: Chronic pain syndrome, and chronic fatigue, weakness. No fever no chills no weight loss good appetite. HEENT: Decreased hearing, denies sore throat, occasional headache, no blurred vision, no dizziness, no difficulty swallowing. Cardiac: Intermittent episodes of swelling, history of paroxysmal nocturnal dyspnea, history of palpitations and chronic atrial fibrillation. Pulmonary: As noted in the history of the present illness. GI: No melena, no hematemesis, no abdominal pain, no nausea, no vomiting, no diarrhea, no constipation. Positive symptoms of occasional GERD. Genitourinary: Positive nocturia, and urinary frequency. Neurologic: Occasional headaches, no ataxia, no blurred vision, no dizziness. Psychiatric: Denies any symptoms of active depression. Hematologic: Patient is on anticoagulation therapy, for atrial fibrillation, no clotting no bleeding or bruising. Endocrine: Reports cold intolerance. 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, diabetes mellitus, chronic atrial fibrillation, coronary artery disease, COPD, hyperlipidemia, hypertension, Last Myocardial Infarction Date:: 27 years ago History of Any Multi-Drug Resistant Organisms: None Reported Past Surgical History: Appendectomy, Back Surgery, Cholecystectomy, Orthopedic Surgery Additional Past Surgical History / Comment(s): pilonIDAL cyst, brain anuerysm 1 clipping, right knee replacement, right shoulder replacement, LT CATARACT, SKIN GRAFT FROM RT THIGH TO RT FINGER, RASHEED 10 years ago, PFO against ASD, last colonoscopy greater than 5 years, 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 Mother Family Medical History: Cancer, Myocardial Infarction ([place]) Additional Family Medical History / Comment(s): Mother at age 62 from rectal cancer. Brother(s) Additional Family Medical History / Comment(s): Patient had 3 brothers. One in a work related accident. One after having an [place] with history of renal problems. Sister(s) Additional Family Medical History / Comment(s): Patient has 2 sisters. One is alive. One has after gallbladder ruptured. Patient has 3 boys and one girl with no major medical problems. Medications and Allergies Home Medications Medication Instructions Recorded Confirmed Type Aspirin 81 mg PO DAILY 02/18/14 10/24/16 History Gabapentin [Neurontin] 300 mg PO TID 02/18/14 10/24/16 History Insulin NPH Human Isophane 10 units SQ BID 02/18/14 10/24/16 History [humuLIN N] cloNIDine HCL [Catapres] 0.1 mg PO DAILY PRN 02/18/14 10/24/16 History INSULIN LISPRO (humaLOG) [humaLOG See Protocol SQ ACHS PRN 05/18/15 10/24/16 History (formulary)] Ipratropium Nebulized [Atrovent 0.5 mg INHALATION RT-QID PRN 05/18/15 10/24/16 History Nebulized] Levalbuterol Nebulized [Xopenex 1.25 mg INHALATION RT-QID PRN 05/18/15 10/24/16 History Nebulized] Cholecalciferol [Vitamin D3] 1,000 unit PO DAILY 07/29/15 10/24/16 History Ferrous Sulfate [Iron (65 MG 325 mg PO BID 07/29/15 10/24/16 History Elemental)] Glucosamine Sulfate 500 mg PO DAILY 07/29/15 10/24/16 History Multivitamins, Thera [Multivitamin 1 tab PO DAILY 07/29/15 10/24/16 History (formulary)] Niacinamide [Niacin] 500 mg PO DAILY 07/29/15 10/24/16 History [place]-3 Fatty Acids/Fish Oil [Fish 1 cap PO DAILY 07/29/15 10/24/16 History Oil 1,000 mg Softgel] Atenolol [Tenormin] 100 mg PO BID 08/25/15 10/24/16 History Acetaminophen/Diphenhydramine 1 tab PO HS PRN 06/30/16 10/24/16 History [Tylenol PM 500-25mg] Furosemide [Lasix] 20 mg PO DAILY 10/24/16 10/24/16 History Losartan [Cozaar] 25 mg PO DAILY 10/24/16 10/24/16 History Pravastatin Sodium [Pravachol] 80 mg PO HS 10/24/16 10/24/16 History Allergies Allergy/AdvReac Type Severity Reaction Status Date / Time celecoxib [From Celebrex] AdvReac "hard Verified 10/24/16 12:36 muscle" ibuprofen AdvReac "bloody Verified 10/24/16 12:36 urine" levofloxacin AdvReac Itching Verified 10/24/16 12:36 Physical Exam Vitals: Vital Signs Temp Pulse Pulse Resp BP BP Pulse Ox 10/25/16 09:09 122/58 10/25/16 08:10 89 10/25/16 08:00 98.4 F 86 13 130/74 99 10/25/16 07:58 87 10/25/16 07:00 75 18 134/73 99 10/25/16 06:00 85 15 120/64 99 10/25/16 05:30 74 17 135/74 98 10/25/16 05:00 76 19 120/81 97 10/25/16 04:30 74 20 136/78 91 L 10/25/16 04:00 98.5 F 80 21 127/63 96 10/25/16 03:30 89 21 128/71 95 10/25/16 03:00 84 19 124/67 94 L 10/25/16 02:30 83 16 127/67 94 L 10/25/16 02:00 75 15 121/59 95 10/25/16 01:30 83 14 119/67 95 10/25/16 01:00 84 18 140/67 96 10/25/16 00:30 81 16 119/54 97 10/25/16 00:00 98.5 F 93 15 131/66 98 10/24/16 23:30 88 16 124/64 96 10/24/16 23:00 103 H 14 132/77 91 L 10/24/16 22:30 108 H 18 155/80 95 10/24/16 22:06 94 16 151/85 97 10/24/16 22:00 100 15 151/85 97 10/24/16 21:30 149 H 68 H 164/81 95 10/24/16 21:00 107 H 39 H 150/78 96 10/24/16 20:30 107 H 63 H 179/96 93 L 10/24/16 20:13 91 10/24/16 20:00 98.7 F 90 17 161/88 96 10/24/16 19:30 98 15 164/78 92 L 10/24/16 19:00 97 17 156/85 91 L 10/24/16 18:30 103 H 21 155/80 91 L 10/24/16 18:00 101 H 24 164/86 96 10/24/16 17:30 92 23 163/85 96 10/24/16 17:00 94 27 H 158/96 96 10/24/16 16:30 102 H 27 H 153/86 96 10/24/16 16:00 100 28 H 156/91 91 L 10/24/16 15:35 86 10/24/16 15:23 119 H 10/24/16 15:12 98.9 F 92 24 173/90 90 L 10/24/16 14:58 101 H 20 166/77 94 L 10/24/16 14:10 103 H 20 184/104 97 10/24/16 14:02 112 H 20 191/96 93 L 10/24/16 13:57 109 H 25 H 191/96 93 L 10/24/16 13:52 100 25 H 201/103 92 L 10/24/16 13:47 123 H 25 H 209/108 91 L 10/24/16 13:43 115 H 25 H 210/103 88 L 10/24/16 13:41 90 25 H 187/93 94 L 10/24/16 13:00 82 25 H 170/78 93 L 10/24/16 12:34 89 10/24/16 12:28 87 22 148/69 97 10/24/16 12:15 87 10/24/16 12:01 83 10/24/16 11:25 98.7 F 94 24 176/89 95 Intake and Output 10/24/16 10/25/16 10/25/16 22:59 06:59 14:59 Intake Total 440 160 40 Output Total 2445 210 300 Balance -260 Intake: IV 140 160 40 Sodium Chloride 0.9% 1, 40 160 40 000 ml @ 20 mls/hr IV . Q24H DIANE Rx#:[id number] cefTRIAXone 1,000 mg In 100 Sodium Chloride 0.9% 50 ml @ 100 mls/hr IVPB Q12HR DIANE Rx#:[id number] Intake, IV Titration 60 Amount Sodium Chloride 0.9% 1, 60 000 ml @ 20 mls/hr IV . Q24H DIANE Rx#:[id number] Oral 240 Output: Chest Tube Drainage 270 210 50 Right Mid-Axillary Chest 270 210 50 Urine 2175 0 250 Other: Voiding Method Urinal Urinal Urinal Diaper # Voids 0 0 Weight 97.8 kg Physical Exam: Revealed an 81-year-old white male slightly cushingoid, in no form of respiratory distress. HEENT:[Neck is supple.] [No neck masses.] [No thyromegaly.] [No JVD.] Chest: [Right sided chest tube was noted, diminished breath sounds at the right base, no rhonchi, no wheezes.] Cardiac Exam: [Irregular irregular rhythm Normal S1 and S2, no S3 gallop, 2/6 systolic murmur throughout the precordium] Abdomen: [Soft, nontender, no megaly, no rebound, no guarding, normal bowel sounds.] Extremities: [No clubbing, trace edema, no cyanosis.] Neurological Exam: [No focal neurologic deficit.] Results - Laboratory Findings CBC and BMP: 10/25/16 07:45 10/25/16 07:45 PT/INR, D-dimer PT 13.1 sec (9.0-12.0) H 10/24/16 11:48 INR 1.3 (<1.1) 10/24/16 11:48 Abnormal lab findings: Abnormal Labs 10/24/16 10/24/16 10/24/16 11:48 11:48 11:48 RBC 4.11 L Hgb MCV 102.2 H Plt Count 104 L Lymphocytes # 0.7 L PT Sodium 146 H Carbon Dioxide 32 H BUN 30 H Glucose 156 H POC Glucose (mg/dL) Phosphorus ALT 20 L Alkaline Phosphatase 146 H Total Creatine Kinase 34 L 10/24/16 10/24/16 10/24/16 11:48 15:16 17:18 RBC Hgb MCV Plt Count Lymphocytes # PT 13.1 H Sodium Carbon Dioxide BUN Glucose POC Glucose (mg/dL) 170 H 165 H Phosphorus ALT Alkaline Phosphatase Total Creatine Kinase 10/24/16 10/24/16 10/25/16 20:46 22:26 07:25 RBC Hgb MCV Plt Count Lymphocytes # PT Sodium Carbon Dioxide BUN Glucose POC Glucose (mg/dL) 270 H 271 H 185 H Phosphorus ALT Alkaline Phosphatase Total Creatine Kinase 10/25/16 10/25/16 07:45 07:45 RBC 3.78 L Hgb 12.4 L MCV 104.1 H Plt Count 91 L Lymphocytes # 0.4 L PT Sodium 147 H Carbon Dioxide 38 H BUN 31 H Glucose 161 H POC Glucose (mg/dL) Phosphorus 4.9 H ALT Alkaline Phosphatase 128 H Total Creatine Kinase - Diagnostic Findings Chest x-ray: image reviewed (Right-sided chest tube noted, no evidence of any residual pneumothorax, atelectasis and possible consolidation noted in the left lower lobe and in the left perihilar area. Hemidiaphragm seems to be elevated.) Assessment and Plan Plan: Impression: 1 acute on chronic hypoxic respiratory failure secondary to acute spontaneous pneumothorax, COPD exacerbation, left lower lobe atelectasis, strongly doubt underlying pneumonia. 2 status post right-sided tube thoracostomy, with complete resolution of the right-sided pneumothorax, chest tube will remain on suction and we'll address possible removal in the next 24-48 hours. 3 chronic atrial fibrillation on beta blockers and on anticoagulation therapy. 4 essential hypertension 5 chronic systolic congestive heart failure 6 type 2 diabetes with diabetic neuropathy 7 history of hypercholesterolemia 8 history of chronic anemia, iron deficiency in nature, patient is on iron supplement. Recommendation: Patient will remain on the present course of antibiotics, bronchodilators, chest tube will remain on suction, reviewed the chest x-ray early this morning, and I have recommended transferring the patient out of the ICU to a monitored bed on selective, we'll likely place the chest tube on water seal in the next 24 hours, and remove the chest tube in the next 48 hours likely. Chest x-ray, labs, meds were all reviewed. Time with Patient: Greater than 30
--- NOTE | 2016-10-25 10:02 | P.GSCN ---
<Reny Tovar - Last Filed: 10/25/16 09:46> History of Present Illness Consult date: 10/25/16 Reason for Consult: Right-sided pneumothorax POD #1 placement of right pleural chest tube Requesting physician: Justino Sewell History of present illness: This 81-year-old gentleman with multiple medical comorbidities including COPD presented to the emergency department yesterday with complaints of severe shortness of breath which had been increasing over the previous few days. He is normally on 2-1/2 L oxygen at home and was needing to increase his oxygen up to 3-4 L/m. Workup in the emergency room included a chest x-ray which revealed a 20% right-sided apical and lateral pneumothorax. He was also noted to have atelectasis as well as possibly small bilateral pleural effusions. A right pleural chest tube was placed in the emergency room with resolution of the pneumothorax. Dr. Hillman from cardiothoracic surgery was consulted for management of the chest tube as well as treatment recommendations. Review of Systems 14 point review systems was completed was negative except as noted. - Constitutional Reports fatigue - EENT Ears: bilateral: decreased hearing - Cardiovascular Reports as per HPI, Reports irregular heart beat, Reports leg edema, Reports paroxysmal nocturnal dyspnea - Respiratory Reports as per HPI - Genitourinary Reports nocturia 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, diabetes mellitus, chronic atrial fibrillation, coronary artery disease, COPD, hyperlipidemia, hypertension, Last Myocardial Infarction Date:: 27 years ago History of Any Multi-Drug Resistant Organisms: None Reported Past Surgical History: Appendectomy, Back Surgery, Cholecystectomy, Orthopedic Surgery Additional Past Surgical History / Comment(s): pilonIDAL cyst, brain anuerysm 1 clipping, right knee replacement, right shoulder replacement, LT CATARACT, SKIN GRAFT FROM RT THIGH TO RT FINGER, RASHEED 10 years ago, PFO against ASD, last colonoscopy greater than 5 years, 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 Mother Family Medical History: Cancer, Myocardial Infarction ([place]) Additional Family Medical History / Comment(s): Mother at age 62 from rectal cancer. Brother(s) Additional Family Medical History / Comment(s): Patient had 3 brothers. One in a work related accident. One after having an [place] with history of renal problems. Sister(s) Additional Family Medical History / Comment(s): Patient has 2 sisters. One is alive. One has after gallbladder ruptured. Patient has 3 boys and one girl with no major medical problems. Medications and Allergies Home Medications Medication Instructions Recorded Confirmed Type Aspirin 81 mg PO DAILY 02/18/14 10/24/16 History Gabapentin [Neurontin] 300 mg PO TID 02/18/14 10/24/16 History Insulin NPH Human Isophane 10 units SQ BID 02/18/14 10/24/16 History [humuLIN N] cloNIDine HCL [Catapres] 0.1 mg PO DAILY PRN 02/18/14 10/24/16 History INSULIN LISPRO (humaLOG) [humaLOG See Protocol SQ ACHS PRN 05/18/15 10/24/16 History (formulary)] Ipratropium Nebulized [Atrovent 0.5 mg INHALATION RT-QID PRN 05/18/15 10/24/16 History Nebulized] Levalbuterol Nebulized [Xopenex 1.25 mg INHALATION RT-QID PRN 05/18/15 10/24/16 History Nebulized] Cholecalciferol [Vitamin D3] 1,000 unit PO DAILY 07/29/15 10/24/16 History Ferrous Sulfate [Iron (65 MG 325 mg PO BID 07/29/15 10/24/16 History Elemental)] Glucosamine Sulfate 500 mg PO DAILY 07/29/15 10/24/16 History Multivitamins, Thera [Multivitamin 1 tab PO DAILY 07/29/15 10/24/16 History (formulary)] Niacinamide [Niacin] 500 mg PO DAILY 07/29/15 10/24/16 History Imperial-3 Fatty Acids/Fish Oil [Fish 1 cap PO DAILY 07/29/15 10/24/16 History Oil 1,000 mg Softgel] Atenolol [Tenormin] 100 mg PO BID 08/25/15 10/24/16 History Acetaminophen/Diphenhydramine 1 tab PO HS PRN 06/30/16 10/24/16 History [Tylenol PM 500-25mg] Furosemide [Lasix] 20 mg PO DAILY 10/24/16 10/24/16 History Losartan [Cozaar] 25 mg PO DAILY 10/24/16 10/24/16 History Pravastatin Sodium [Pravachol] 80 mg PO HS 10/24/16 10/24/16 History Allergies Allergy/AdvReac Type Severity Reaction Status Date / Time celecoxib [From Celebrex] AdvReac "hard Verified 10/24/16 12:36 muscle" ibuprofen AdvReac "bloody Verified 10/24/16 12:36 urine" levofloxacin AdvReac Itching Verified 10/24/16 12:36 Surgical - Exam Vital Signs Temp Pulse Resp BP Pulse Ox 98.7 F 94 24 176/89 95 10/24/16 11:25 10/24/16 11:25 10/24/16 11:25 10/24/16 11:25 10/24/16 11:25 - General No acute distress well developed, well nourished, no pain - Eyes PERRL, normal ocular movement - ENT decreased hearing - Neck trachea midline - Respiratory Lungs sounds diminished bilaterally. Respirations even, slightly tachypneic. Currently on 3 L with oxygen saturation in the mid to high 90s at rest, down to 88-92% when talking. Right pleural chest tube to -20 cm wall suction 550 mL serosanguineous drainage since placement, no air leak present. - Cardiovascular S1, S2 present. Irregular rate and rhythm, atrial fibrillation on telemetry. Trace bilateral lower extremity edema present. - Abdomen Abdomen: soft, non tender, bowel sounds - Genitourinary Deferred - Rectum Deferred - Integumentary no rash - Neurologic normal coordination, normal sensation - Psychiatric oriented to time, oriented to person, oriented to place, speech is normal, memory intact Results - Labs 10/25/16 07:45 07/09/17 07:45 Abnormal Lab Results - Last 24 Hours (Table) 10/24/16 10/24/16 10/24/16 Range/Units 11:48 11:48 11:48 RBC 4.11 L (4.30-5.90) m/uL Hgb (13.0-17.5) gm/dL MCV 102.2 H (80.0-100.0) fL Plt Count 104 L (150-450) k/uL Lymphocytes # 0.7 L (1.0-4.8) k/uL PT (9.0-12.0) sec Sodium 146 H (137-145) mmol/L Carbon Dioxide 32 H (22-30) mmol/L BUN 30 H (9-20) mg/dL Glucose 156 H (74-99) mg/dL POC Glucose (mg/dL) (75-99) mg/dL Phosphorus (2.5-4.5) mg/dL ALT 20 L (21-72) U/L Alkaline Phosphatase 146 H (38-126) U/L Total Creatine Kinase 34 L (55-170) U/L 10/24/16 10/24/16 10/24/16 Range/Units 11:48 15:16 17:18 RBC (4.30-5.90) m/uL Hgb (13.0-17.5) gm/dL MCV (80.0-100.0) fL Plt Count (150-450) k/uL Lymphocytes # (1.0-4.8) k/uL PT 13.1 H (9.0-12.0) sec Sodium (137-145) mmol/L Carbon Dioxide (22-30) mmol/L BUN (9-20) mg/dL Glucose (74-99) mg/dL POC Glucose (mg/dL) 170 H 165 H (75-99) mg/dL Phosphorus (2.5-4.5) mg/dL ALT (21-72) U/L Alkaline Phosphatase (38-126) U/L Total Creatine Kinase (55-170) U/L 10/24/16 10/24/16 10/25/16 Range/Units 20:46 22:26 07:25 RBC (4.30-5.90) m/uL Hgb (13.0-17.5) gm/dL MCV (80.0-100.0) fL Plt Count (150-450) k/uL Lymphocytes # (1.0-4.8) k/uL PT (9.0-12.0) sec Sodium (137-145) mmol/L Carbon Dioxide (22-30) mmol/L BUN (9-20) mg/dL Glucose (74-99) mg/dL POC Glucose (mg/dL) 270 H 271 H 185 H (75-99) mg/dL Phosphorus (2.5-4.5) mg/dL ALT (21-72) U/L Alkaline Phosphatase (38-126) U/L Total Creatine Kinase (55-170) U/L 10/25/16 10/25/16 Range/Units 07:45 07:45 RBC 3.78 L (4.30-5.90) m/uL Hgb 12.4 L (13.0-17.5) gm/dL MCV 104.1 H (80.0-100.0) fL Plt Count 91 L (150-450) k/uL Lymphocytes # 0.4 L (1.0-4.8) k/uL PT (9.0-12.0) sec Sodium 147 H (137-145) mmol/L Carbon Dioxide 38 H (22-30) mmol/L BUN 31 H (9-20) mg/dL Glucose 161 H (74-99) mg/dL POC Glucose (mg/dL) (75-99) mg/dL Phosphorus 4.9 H (2.5-4.5) mg/dL ALT (21-72) U/L Alkaline Phosphatase 128 H (38-126) U/L Total Creatine Kinase (55-170) U/L Diabetes panel 10/24/16 10/24/16 10/25/16 Range/Units 11:48 11:48 07:45 Sodium 146 H 147 H (137-145) mmol/L Potassium 4.3 3.9 (3.5-5.1) mmol/L Chloride 104 101 (98-107) mmol/L Carbon Dioxide 32 H 38 H (22-30) mmol/L BUN 30 H 31 H (9-20) mg/dL Creatinine 0.83 0.97 (0.66-1.25) mg/dL Glucose 156 H 161 H (74-99) mg/dL Hemoglobin A1c 5.5 (4.2-6.1) % Calcium 9.1 8.7 (8.4-10.2) mg/dL AST 32 25 (17-59) U/L ALT 20 L 23 (21-72) U/L Alkaline Phosphatase 146 H 128 H (38-126) U/L Total Protein 7.0 6.9 (6.3-8.2) g/dL Albumin 3.8 3.6 (3.5-5.0) g/dL Calcium panel 10/24/16 10/25/16 Range/Units 11:48 07:45 Calcium 9.1 8.7 (8.4-10.2) mg/dL Phosphorus 4.9 H (2.5-4.5) mg/dL Albumin 3.8 3.6 (3.5-5.0) g/dL Pituitary panel 10/24/16 10/25/16 Range/Units 11:48 07:45 Sodium 146 H 147 H (137-145) mmol/L Potassium 4.3 3.9 (3.5-5.1) mmol/L Chloride 104 101 (98-107) mmol/L Carbon Dioxide 32 H 38 H (22-30) mmol/L BUN 30 H 31 H (9-20) mg/dL Creatinine 0.83 0.97 (0.66-1.25) mg/dL Glucose 156 H 161 H (74-99) mg/dL Calcium 9.1 8.7 (8.4-10.2) mg/dL Adrenal panel 10/24/16 10/25/16 Range/Units 11:48 07:45 Sodium 146 H 147 H (137-145) mmol/L Potassium 4.3 3.9 (3.5-5.1) mmol/L Chloride 104 101 (98-107) mmol/L Carbon Dioxide 32 H 38 H (22-30) mmol/L BUN 30 H 31 H (9-20) mg/dL Creatinine 0.83 0.97 (0.66-1.25) mg/dL Glucose 156 H 161 H (74-99) mg/dL Calcium 9.1 8.7 (8.4-10.2) mg/dL Total Bilirubin 1.0 0.7 (0.2-1.3) mg/dL AST 32 25 (17-59) U/L ALT 20 L 23 (21-72) U/L Alkaline Phosphatase 146 H 128 H (38-126) U/L Total Protein 7.0 6.9 (6.3-8.2) g/dL Albumin 3.8 3.6 (3.5-5.0) g/dL - Imaging Chest x-ray: report reviewed, image reviewed Assessment and Plan (1) Chronic systolic heart failure Status: Acute (2) Type 2 diabetes mellitus Status: Acute (3) Acute exacerbation of chronic obstructive airways disease Status: Acute (4) Pneumothorax Status: Acute (5) Chronic a-fib Status: Acute (6) HTN (hypertension) Status: Acute (7) Hyperlipemia Status: Acute (8) Hypoxia Status: Acute (9) Status post chest tube placement Status: Acute Plan: The patient was seen and examined. Chart/diagnostics were reviewed. Continue current medical management per primary care service. Continue antibiotics, bronchodilators, and steroids per pulmonology. Will continue to monitor chest tube output and sequential x-rays and make recommendations for continued treatment. The case we discussed with Dr. Hillman. Thank you for this consult. We look forward to working with you in the care of your patient. Time with Patient: Greater than 30 <Frank Hillman - Last Filed: 10/25/16 11:08> Surgical - Exam Vital Signs Temp Pulse Resp BP Pulse Ox 98.7 F 94 24 176/89 95 10/24/16 11:25 10/24/16 11:25 10/24/16 11:25 10/24/16 11:25 10/24/16 11:25 Results - Labs 10/25/16 07:45 10/25/16 07:45 Abnormal Lab Results - Last 24 Hours (Table) 10/24/16 10/24/16 10/24/16 Range/Units 11:48 11:48 11:48 RBC 4.11 L (4.30-5.90) m/uL Hgb (13.0-17.5) gm/dL MCV 102.2 H (80.0-100.0) fL Plt Count 104 L (150-450) k/uL Lymphocytes # 0.7 L (1.0-4.8) k/uL PT (9.0-12.0) sec Sodium 146 H (137-145) mmol/L Carbon Dioxide 32 H (22-30) mmol/L BUN 30 H (9-20) mg/dL Glucose 156 H (74-99) mg/dL POC Glucose (mg/dL) (75-99) mg/dL Phosphorus (2.5-4.5) mg/dL ALT 20 L (21-72) U/L Alkaline Phosphatase 146 H (38-126) U/L Total Creatine Kinase 34 L (55-170) U/L 10/24/16 10/24/16 10/24/16 Range/Units 11:48 15:16 17:18 RBC (4.30-5.90) m/uL Hgb (13.0-17.5) gm/dL MCV (80.0-100.0) fL Plt Count (150-450) k/uL Lymphocytes # (1.0-4.8) k/uL PT 13.1 H (9.0-12.0) sec Sodium (137-145) mmol/L Carbon Dioxide (22-30) mmol/L BUN (9-20) mg/dL Glucose (74-99) mg/dL POC Glucose (mg/dL) 170 H 165 H (75-99) mg/dL Phosphorus (2.5-4.5) mg/dL ALT (21-72) U/L Alkaline Phosphatase (38-126) U/L Total Creatine Kinase (55-170) U/L 10/24/16 10/24/16 10/25/16 Range/Units 20:46 22:26 07:25 RBC (4.30-5.90) m/uL Hgb (13.0-17.5) gm/dL MCV (80.0-100.0) fL Plt Count (150-450) k/uL Lymphocytes # (1.0-4.8) k/uL PT (9.0-12.0) sec Sodium (137-145) mmol/L Carbon Dioxide (22-30) mmol/L BUN (9-20) mg/dL Glucose (74-99) mg/dL POC Glucose (mg/dL) 270 H 271 H 185 H (75-99) mg/dL Phosphorus (2.5-4.5) mg/dL ALT (21-72) U/L Alkaline Phosphatase (38-126) U/L Total Creatine Kinase (55-170) U/L 10/25/16 10/25/16 Range/Units 07:45 07:45 RBC 3.78 L (4.30-5.90) m/uL Hgb 12.4 L (13.0-17.5) gm/dL MCV 104.1 H (80.0-100.0) fL Plt Count 91 L (150-450) k/uL Lymphocytes # 0.4 L (1.0-4.8) k/uL PT (9.0-12.0) sec Sodium 147 H (137-145) mmol/L Carbon Dioxide 38 H (22-30) mmol/L BUN 31 H (9-20) mg/dL Glucose 161 H (74-99) mg/dL POC Glucose (mg/dL) (75-99) mg/dL Phosphorus 4.9 H (2.5-4.5) mg/dL ALT (21-72) U/L Alkaline Phosphatase 128 H (38-126) U/L Total Creatine Kinase (55-170) U/L Diabetes panel 10/24/16 10/24/16 10/25/16 Range/Units 11:48 11:48 07:45 Sodium 146 H 147 H (137-145) mmol/L Potassium 4.3 3.9 (3.5-5.1) mmol/L Chloride 104 101 (98-107) mmol/L Carbon Dioxide 32 H 38 H (22-30) mmol/L BUN 30 H 31 H (9-20) mg/dL Creatinine 0.83 0.97 (0.66-1.25) mg/dL Glucose 156 H 161 H (74-99) mg/dL Hemoglobin A1c 5.5 (4.2-6.1) % Calcium 9.1 8.7 (8.4-10.2) mg/dL AST 32 25 (17-59) U/L ALT 20 L 23 (21-72) U/L Alkaline Phosphatase 146 H 128 H (38-126) U/L Total Protein 7.0 6.9 (6.3-8.2) g/dL Albumin 3.8 3.6 (3.5-5.0) g/dL Calcium panel 10/24/16 10/25/16 Range/Units 11:48 07:45 Calcium 9.1 8.7 (8.4-10.2) mg/dL Phosphorus 4.9 H (2.5-4.5) mg/dL Albumin 3.8 3.6 (3.5-5.0) g/dL Pituitary panel 10/24/16 10/25/16 Range/Units 11:48 07:45 Sodium 146 H 147 H (137-145) mmol/L Potassium 4.3 3.9 (3.5-5.1) mmol/L Chloride 104 101 (98-107) mmol/L Carbon Dioxide 32 H 38 H (22-30) mmol/L BUN 30 H 31 H (9-20) mg/dL Creatinine 0.83 0.97 (0.66-1.25) mg/dL Glucose 156 H 161 H (74-99) mg/dL Calcium 9.1 8.7 (8.4-10.2) mg/dL Adrenal panel 10/24/16 10/25/16 Range/Units 11:48 07:45 Sodium 146 H 147 H (137-145) mmol/L Potassium 4.3 3.9 (3.5-5.1) mmol/L Chloride 104 101 (98-107) mmol/L Carbon Dioxide 32 H 38 H (22-30) mmol/L BUN 30 H 31 H (9-20) mg/dL Creatinine 0.83 0.97 (0.66-1.25) mg/dL Glucose 156 H 161 H (74-99) mg/dL Calcium 9.1 8.7 (8.4-10.2) mg/dL Total Bilirubin 1.0 0.7 (0.2-1.3) mg/dL AST 32 25 (17-59) U/L ALT 20 L 23 (21-72) U/L Alkaline Phosphatase 146 H 128 H (38-126) U/L Total Protein 7.0 6.9 (6.3-8.2) g/dL Albumin 3.8 3.6 (3.5-5.0) g/dL Assessment and Plan Plan: The patient is an 81-year-old male who presented to the emergency department yesterday with shortness of breath. His chest x-ray revealed a right-sided spontaneous pneumothorax. This is his first episode of pneumothorax. A chest tube was placed in the emergency department and follow-up imaging studies revealed resolution of the pneumothorax. This morning there is no evidence of air leak. We will place [facility]. We will repeat a chest x- ray in the morning.
--- NOTE | 2016-10-25 11:33 | P.PN ---
Subjective 81-year-old male one of Dr. Batista's patient who seen Dr. Alarcon in for advance COPD on home O2, who also has multiple medical problems seeing cardiology and nephrology for as well. Patient has been having slight increased shortness of breath the last few days but on 10/24/2016, developed to have much worsening symptoms require O2 up to 4 L from his 2.5 L. Patient used CPAP through the night the minute he took it off in the morning his O2 sat was low and patient require more oxygen. Later on in the day his symptoms become much worse and ended up coming to the emergency department at [facility] where was seen and evaluated. Surprisingly his chest x-ray reveals 20 percentile pneumothorax of the right side. Chest tube was inserted expanded along quite a bit. Patient will be seen Dr. Valdez who is on-call for pulmonary service on the weekend will continue COPD exacerbation management as well for now including steroid IV. According to patient and his did not have or felt any sudden onset of chest pain in the right side consistent with his pneumothorax so no clear cut when this exactly happened with most likely within the last 24 hours. Admission. 10/25: Today the patient was seen and evaluated. The patient reports that his shortness of breath has improved and is breathing much easier. Repeat chest x- ray shows right-sided chest tube, right atypical pneumothorax is no longer seen , small effusions on the left and possible mid residual pulmonary vascular congestion. Pulmonology and cardiothoracic surgery consult appreciated. The patient is to continue bronchodilators, chest tube will remain on suction with plans to place the chest tube to waterseal, and repeat chest x-ray tomorrow morning. The patient is receiving IV ceftriaxone and azithromycin. Objective - Vital Signs Vital signs: Vital Signs Temp 97.1 F L 10/25/16 10:00 Pulse 90 10/25/16 10:00 Resp 13 10/25/16 08:00 BP 114/65 10/25/16 10:00 Pulse Ox 99 10/25/16 08:00 Intake & Output 10/24/16 10/25/16 10/25/16 18:59 06:59 18:59 Intake Total 300 300 190 Output Total 1950 705 600 Balance -1650 -405 -410 Weight 106.594 kg 97.8 kg Intake: IV 300 40 Sodium Chloride 0.9% 1, 200 40 000 ml @ 20 mls/hr IV . Q24H DIANE Rx#:[id number] cefTRIAXone 1,000 mg In 100 Sodium Chloride 0.9% 50 ml @ 100 mls/hr IVPB Q12HR DIANE Rx#:[id number] Intake, IV Titration 60 150 Amount Magnesium Sulfate-D5w Pmx 100 1 gm In Dextrose/Water 1 100ml.bag @ 100 mls/hr IVPB Q1H DIANE Rx#: [id number] Sodium Chloride 0.9% 1, 60 000 ml @ 20 mls/hr IV . Q24H DIANE Rx#:[id number] cefTRIAXone 1,000 mg In 50 Sodium Chloride 0.9% 50 ml @ 100 mls/hr IVPB Q24HR DIANE Rx#:[id number] Oral 240 Output: Chest Tube Drainage 200 280 50 Right Mid-Axillary Chest 200 280 50 Urine 1750 425 550 Other: Voiding Method Urinal Urinal Urinal Diaper # Voids 0 - Exam - Constitutional General appearance: no average body habitus, cooperative, disheveled, mild distress, no morbidly obese, no no acute distress, obese, no severe distress, no thin - EENT Eyes: no abnormal pupil, no anicteric sclerae, no disc margins sharp, no edentulous, no EOMI, no PERRLA, no fundus normal, no photophobia, no dentition normal, no poor dentition, no ptosis, no scleral icterus, normal appearance ENT: no hard of hearing, no hearing grossly normal, no NA/AT, normal oropharynx , no other, no pharyngeal erythema, no thrush, no tonsillar exudates, no tonsillar swelling Ears: bilateral: normal - Neck Neck: no lymphadenopathy, normal ROM, no other, no rigidity, no stridor, no thyromegaly Carotids: bilateral: upstroke normal Thyroid: bilateral: normal size - Respiratory Respiratory: right: diminished, dullness, bilateral: rales, rhonchi, wheezing, prolonged expiration - Cardiovascular Rhythm: regular Heart sounds: normal: S1, S2 Abnormal Heart Sounds: systolic murmur, S3 Gallop - Gastrointestinal General gastrointestinal: no absent bowel sounds, decreased bowel sounds, distended, no hepatomegaly, no hyperactive bowel sounds, normal bowel sounds, organomegaly, no rigid, no scaphoid, soft, no splenomegaly, no tenderness, no umbilical hernia, no ventral hernia - Genitourinary Male genitourinary: scrotal edema - Integumentary Integumentary: no calor, cellulitis, no cyanotic, no decreased turgor, no flushed, no jaundiced, no normal, no normal turgor, pale, rash, no ulcer - Neurologic Neurologic: CNII-XII intact - Musculoskeletal Musculoskeletal: no gait normal, generalized weakness, no strength equal bilaterally, no right sided weakness, no left sided weakness - Psychiatric Psychiatric: A&O x's 3, appropriate affect - Labs CBC & Chem 7: 10/25/16 07:45 10/25/16 07:45 Labs: Abnormal Lab Results - Last 24 Hours (Table) 10/24/16 10/24/16 10/24/16 Range/Units 11:48 11:48 11:48 RBC 4.11 L (4.30-5.90) m/uL Hgb (13.0-17.5) gm/dL MCV 102.2 H (80.0-100.0) fL Plt Count 104 L (150-450) k/uL Lymphocytes # 0.7 L (1.0-4.8) k/uL PT (9.0-12.0) sec Sodium 146 H (137-145) mmol/L Carbon Dioxide 32 H (22-30) mmol/L BUN 30 H (9-20) mg/dL Glucose 156 H (74-99) mg/dL POC Glucose (mg/dL) (75-99) mg/dL Phosphorus (2.5-4.5) mg/dL ALT 20 L (21-72) U/L Alkaline Phosphatase 146 H (38-126) U/L Total Creatine Kinase 34 L (55-170) U/L 10/24/16 10/24/16 10/24/16 Range/Units 11:48 15:16 17:18 RBC (4.30-5.90) m/uL Hgb (13.0-17.5) gm/dL MCV (80.0-100.0) fL Plt Count (150-450) k/uL Lymphocytes # (1.0-4.8) k/uL PT 13.1 H (9.0-12.0) sec Sodium (137-145) mmol/L Carbon Dioxide (22-30) mmol/L BUN (9-20) mg/dL Glucose (74-99) mg/dL POC Glucose (mg/dL) 170 H 165 H (75-99) mg/dL Phosphorus (2.5-4.5) mg/dL ALT (21-72) U/L Alkaline Phosphatase (38-126) U/L Total Creatine Kinase (55-170) U/L 10/24/16 10/24/16 10/25/16 Range/Units 20:46 22:26 07:25 RBC (4.30-5.90) m/uL Hgb (13.0-17.5) gm/dL MCV (80.0-100.0) fL Plt Count (150-450) k/uL Lymphocytes # (1.0-4.8) k/uL PT (9.0-12.0) sec Sodium (137-145) mmol/L Carbon Dioxide (22-30) mmol/L BUN (9-20) mg/dL Glucose (74-99) mg/dL POC Glucose (mg/dL) 270 H 271 H 185 H (75-99) mg/dL Phosphorus (2.5-4.5) mg/dL ALT (21-72) U/L Alkaline Phosphatase (38-126) U/L Total Creatine Kinase (55-170) U/L 10/25/16 10/25/16 Range/Units 07:45 07:45 RBC 3.78 L (4.30-5.90) m/uL Hgb 12.4 L (13.0-17.5) gm/dL MCV 104.1 H (80.0-100.0) fL Plt Count 91 L (150-450) k/uL Lymphocytes # 0.4 L (1.0-4.8) k/uL PT (9.0-12.0) sec Sodium 147 H (137-145) mmol/L Carbon Dioxide 38 H (22-30) mmol/L BUN 31 H (9-20) mg/dL Glucose 161 H (74-99) mg/dL POC Glucose (mg/dL) (75-99) mg/dL Phosphorus 4.9 H (2.5-4.5) mg/dL ALT (21-72) U/L Alkaline Phosphatase 128 H (38-126) U/L Total Creatine Kinase (55-170) U/L Assessment and Plan Plan: 1 acute respiratory failure of acute pneumothorax along with COPD exacerbation, chest tube inserted, will continue patient on COPD exacerbation management as well with steroid IV and updraft treatment. Repeat x-ray shows pneumothorax resolved. 2 acute pneumothorax: Post chest tube, whether patient will require pleurodesis are not to be determined by pulmonary over the next 2 days, so far will continue to have chest tube placed to suction. 3 COPD excessive patient: With his current symptoms continue O2 continue CPAP or BiPAP through the night will continue patient on Solu-Medrol 60 mg every 6 along with DuoNeb and Pulmicort for now. 4 chronic A. fib: On anticoagulation long-term on Tenormin and Eliquis continue both medication for now. Pulse rate remain under control. 5 chronic combined systolic and diastolic congestive heart failure: Patient to continue furosemide 20 mg daily along with losartan and atenolol. 6 diabetes: Type II on insulin along with Accu-Chek and sliding scales coverage continue medication. 7 hypertension: Continue patient on a clonidine along with losartan and Tenormin. 8 hyperlipidemia: Resume pravastatin and niacin. 9 chronic neuropathy: Continue patient on gabapentin. 10 chronic anemia: Iron deficiency continue patient on iron supplement. 11 GI prophylaxis: Continue patient on pantoprazole 40 mg daily. 12 DVT prophylaxis: Patient still on anticoagulation along with knee-high JEROMY hose and Venodyne boots. CODE STATUS: Full code. The above impression and plan of care have been discussed and directed by signing physician. Geeta Sahu nurse practitioner acting as scribe for signing physician.
[2016-10-25 12:02] LABS: Glucose,Whole Blood 186 mg/dL (75-99)
[2016-10-25] MEDS: SODIUM CHLORIDE 0.9% 1,000 ML IV SCH (16:15)
[2016-10-25 16:48] LABS: Glucose,Whole Blood 262 mg/dL (75-99)
[2016-10-25 21:22] LABS: Glucose,Whole Blood 276 mg/dL (75-99)
[2016-10-25] MEDS: APIXABAN 2.5 MG TABLET PO SCH (21:57)
[2016-10-25] MEDS: PRAVASTATIN SODIUM 80 MG TAB PO SCH (21:57)
[2016-10-26 05:59] LABS: Glucose,Whole Blood 152 mg/dL (75-99)
[2016-10-26 06:32] LABS: Basophils % (A) 0 %; CH 31.4; CHCM 30.5; Eosinophils % (A) 0 %; HCT 36.1 % (39.0-53.0); HDW 2.72; HGB 11.1 gm/dL (13.0-17.5); Hypochromasia Moderate; Luc # (Auto) 0.07; Luc % (Auto) 1; Lymphocytes # (A) 0.4 k/uL (1.0-4.8); Lymphocytes % (A) 5 %; MCHC 30.9 g/dL (31.0-37.0); MCV 103.7 fL (80.0-100.0); Macrocytosis Moderate; Mean Platelet Volume 8.7; Monocytes # (A) 0.2 k/uL (0-1.0); Monocytes % (A) 3 %; Neutrophils # (A) 7.4 k/uL (1.3-7.7); Neutrophils % (A) 92 %; RBC 3.48 m/uL (4.30-5.90); RDW 15.6 % (11.5-15.5); WBC (Perox) 7.66
[2016-10-26] MEDS: PANTOPRAZOLE 40 MG TABLET PO SCH (06:41)
[2016-10-26] MEDS: INSULIN LISPRO (humaLOG) 300 UNIT/3 ML VIAL SQ SCH ×4 (06:42→21:52)
[2016-10-26 06:44] LABS: Anion Gap 11 mmol/L; Blood Urea Nitrogen 44 mg/dL (9-20); Calcium 8.7 mg/dL (8.4-10.2); Carbon Dioxide 32 mmol/L (22-30); Chloride 98 mmol/L (98-107); Glucose 153 mg/dL (74-99); Magnesium 2.2 mg/dL (1.6-2.3); Non-African American GFR(MDRD) 58 (>60 ml/min/1.73 sqM); Potassium 4.6 mmol/L (3.5-5.1); Sodium 141 mmol/L (137-145)
[2016-10-26] MEDS: FUROSEMIDE 10 MG/ML 2 ML VIAL IV SCH ×2 (07:58→18:06)
[2016-10-26] MEDS: APIXABAN 2.5 MG TABLET PO SCH ×2 (07:58→21:53)
[2016-10-26] MEDS: ATENOLOL 50 MG TAB PO SCH ×2 (07:59→21:51)
[2016-10-26] MEDS: AZITHROMYCIN 500 MG TAB PO SCH (07:59)
[2016-10-26] MEDS: ASPIRIN 81 MG CHEW PO SCH (07:59)
[2016-10-26] MEDS: FERROUS SULFATE 325 MG TAB PO SCH ×2 (07:59→21:53)
[2016-10-26] MEDS: CHOLECALCIFEROL 1,000 UNIT TAB PO SCH (08:00)
[2016-10-26] MEDS: GABAPENTIN 300 MG CAP PO SCH ×3 (08:00→21:52)
[2016-10-26] MEDS: LOSARTAN 25 MG TAB PO SCH (08:00)
[2016-10-26] MEDS: methylPREDNISolone SOD SUCCI 40 MG/ML 1 ML VIAL IV SCH ×2 (08:01→21:51)
[2016-10-26] MEDS: MULTIVITAMINS, THERA 1 EACH TAB PO SCH (08:01)
[2016-10-26] MEDS: NIACIN TR 500 MG CAPSULE.ER PO SCH (08:01)
[2016-10-26] MEDS: INSULIN NPH 300 UNIT/3 ML VIAL SQ SCH ×2 (08:03→21:52)
[2016-10-26] MEDS: SYMBICORT 160-4.5 MCG INHALER INHALATION SCH ×2 (08:26→19:20)
[2016-10-26] MEDS: IPRATROPIUM-ALBUTEROL 3 ML NEB INHALATION PRN ×3 (08:26→19:20)
--- NOTE | 2016-10-26 09:01 | XR ---
EXAMINATION TYPE: XR chest 1V portable DATE OF EXAM: 10/26/2016 CLINICAL HISTORY: Difficulty breathing progress study. TECHNIQUE: Single AP portable upright view of the chest is obtained. COMPARISON: Chest x-ray from one day earlier FINDINGS: Right-sided chest tube is retracted, side port is likely outside pleural space. There is persistent cardiomegaly. There is interval improvement in central vascular congestion. Raton nereyda left hemidiaphragm is redemonstrated. There is persistent patchy bibasilar atelectasis and/or inf iltrate. No sizable pneumothorax is seen. Small degree of subcutaneous emphysema right lateral lower chest wall is noted. Metallic hardware right humerus is partially imaged. Degenerative change left gl enohumeral joint is noted. Tracheal deviation is redemonstrated. This is unchanged from CT August 2015 w ithout obvious suspicious mass at this level. IMPRESSION: 1. Interval retraction of right-sided chest tube, tip likely still within pleural space. New subcutan eous emphysema noted. Side-port likely outside pleural space. No sizable pneumothorax. 2. Low lung volumes and cardiomegaly redemonstrated. There is redemonstration of patchy left greater than right bibasilar atelectasis and/or infiltrate felt stable. Improved central vascular congestion noted. Preliminary report for this study was provided by [employer].
[2016-10-26] MEDS: HYDROcodone/APAP 5-325MG 1 EACH TAB PO PRN ×2 (09:08→18:05)
--- NOTE | 2016-10-26 11:48 | P.PN ---
<Reny Tovar - Last Filed: 10/26/16 11:42> Subjective Principal diagnosis: Right-sided pneumothorax POD #2 placement of right pleural chest tube Patient sitting up in bed this morning in no acute distress. States he has less shortness of breath than when he came in. Objective - Vital Signs Vital signs: Vital Signs Temp 98.1 F 10/26/16 09:18 Pulse 100 10/26/16 09:37 Resp 17 10/26/16 09:37 BP 122/73 10/26/16 09:18 Pulse Ox 95 10/26/16 09:18 Intake & Output 10/25/16 10/26/16 10/26/16 18:59 06:59 18:59 Intake Total 410 80 380 Output Total 700 160 130 Balance -290 -80 250 Weight 101 kg 101 kg Intake: IV 160 80 Sodium Chloride 0.9% 1, 160 80 000 ml @ 20 mls/hr IV . Q24H DIANE Rx#:[id number] Intake, IV Titration 250 Amount Magnesium Sulfate-D5w Pmx 200 1 gm In Dextrose/Water 1 100ml.bag @ 100 mls/hr IVPB Q1H DIANE Rx#: [id number] cefTRIAXone 1,000 mg In 50 Sodium Chloride 0.9% 50 ml @ 100 mls/hr IVPB Q24HR DIANE Rx#:[id number] Oral 380 Output: Chest Tube Drainage 50 160 30 Right Mid-Axillary Chest 50 160 30 Urine 650 100 Other: Voiding Method Urinal Urinal # Voids 1 - Constitutional General appearance: Present: cooperative, no acute distress - Respiratory Details: Lungs sounds diminished bilaterally with faint expiratory wheezes heard on the right side. Currently on 3 L nasal cannula with oxygen saturation 92%. Able to achieve 1000 mL on his incentive spirometry. Right pleural chest tube to waterseal, drained 160 mL serosanguineous fluid overnight, 350 mL in 24 hours. No air leak present. No subcu emphysema present. - Cardiovascular Details: S1, S2 present. Irregular rate and rhythm, atrial fibrillation on telemetry. - Gastrointestinal Gastrointestinal Comment(s): Abdomen soft, nontender, nondistended. Active bowel sounds 4 quadrants. Tolerating diet. - Genitourinary Genitourinary Comment(s): Continues to void, is incontinent at times. - Musculoskeletal Musculoskeletal: Present: strength equal bilaterally - Psychiatric Psychiatric: Present: A&O x's 3, appropriate affect, intact judgment & insight - Allied health notes Allied health notes reviewed: nursing - Labs CBC & Chem 7: 10/26/16 05:45 10/26/16 05:45 Labs: Abnormal Lab Results - Last 24 Hours (Table) 10/25/16 10/25/16 10/25/16 Range/Units 11:58 16:38 21:11 RBC (4.30-5.90) m/uL Hgb (13.0-17.5) gm/dL Hct (39.0-53.0) % MCV (80.0-100.0) fL MCHC (31.0-37.0) g/dL RDW (11.5-15.5) % Plt Count (150-450) k/uL Lymphocytes # (1.0-4.8) k/uL Carbon Dioxide (22-30) mmol/L BUN (9-20) mg/dL Glucose (74-99) mg/dL POC Glucose (mg/dL) 186 H 262 H 276 H (75-99) mg/dL 10/26/16 10/26/16 10/26/16 Range/Units 05:45 05:45 05:58 RBC 3.48 L (4.30-5.90) m/uL Hgb 11.1 L (13.0-17.5) gm/dL Hct 36.1 L (39.0-53.0) % MCV 103.7 H (80.0-100.0) fL MCHC 30.9 L (31.0-37.0) g/dL RDW 15.6 H (11.5-15.5) % Plt Count 121 L (150-450) k/uL Lymphocytes # 0.4 L (1.0-4.8) k/uL Carbon Dioxide 32 H (22-30) mmol/L BUN 44 H (9-20) mg/dL Glucose 153 H (74-99) mg/dL POC Glucose (mg/dL) 152 H (75-99) mg/dL Microbiology - Last 24 Hours (Table) 10/24/16 11:48 Blood Culture - Preliminary Blood No Growth after 24 hours - Imaging and Cardiology Chest x-ray: image reviewed Assessment and Plan (1) Chronic systolic heart failure Status: Acute (2) Type 2 diabetes mellitus Status: Acute (3) Acute exacerbation of chronic obstructive airways disease Status: Acute (4) Pneumothorax Status: Acute (5) Chronic a-fib Status: Acute (6) HTN (hypertension) Status: Acute (7) Hyperlipemia Status: Acute (8) Hypoxia Status: Acute (9) Status post chest tube placement Status: Acute Plan: 1. Medical management per primary care service. 2. Chest tube placed to waterseal yesterday. Will monitor drainage and potentially discontinue tomorrow. 3. Pain control per her ordered pain medication. 4. Chest x-ray in the morning. 5. More recommendations as patient progresses. Time with Patient: Greater than 30 <Frank Hillman - Last Filed: 10/26/16 15:25> Objective - Vital Signs Vital signs: Vital Signs Temp 96.9 F L 10/26/16 12:39 Pulse 94 10/26/16 15:19 Resp 16 10/26/16 12:39 BP 134/76 10/26/16 12:39 Pulse Ox 96 10/26/16 12:39 Intake & Output 10/25/16 10/26/16 10/26/16 18:59 06:59 18:59 Intake Total 410 80 640 Output Total 700 160 210 Balance -290 -80 430 Weight 101 kg 101 kg Intake: IV 160 80 Sodium Chloride 0.9% 1, 160 80 000 ml @ 20 mls/hr IV . Q24H DIANE Rx#:[id number] Intake, IV Titration 250 Amount Magnesium Sulfate-D5w Pmx 200 1 gm In Dextrose/Water 1 100ml.bag @ 100 mls/hr IVPB Q1H DIANE Rx#: [id number] cefTRIAXone 1,000 mg In 50 Sodium Chloride 0.9% 50 ml @ 100 mls/hr IVPB Q24HR DIANE Rx#:[id number] Oral 640 Output: Chest Tube Drainage 50 160 110 Right Mid-Axillary Chest 50 160 110 Urine 650 100 Other: Voiding Method Urinal Urinal # Voids 1 - Labs CBC & Chem 7: 10/26/16 05:45 10/26/16 05:45 Labs: Abnormal Lab Results - Last 24 Hours (Table) 10/25/16 10/25/16 10/26/16 Range/Units 16:38 21:11 05:45 RBC (4.30-5.90) m/uL Hgb (13.0-17.5) gm/dL Hct (39.0-53.0) % MCV (80.0-100.0) fL MCHC (31.0-37.0) g/dL RDW (11.5-15.5) % Plt Count (150-450) k/uL Lymphocytes # (1.0-4.8) k/uL Carbon Dioxide 32 H (22-30) mmol/L BUN 44 H (9-20) mg/dL Glucose 153 H (74-99) mg/dL POC Glucose (mg/dL) 262 H 276 H (75-99) mg/dL 10/26/16 10/26/16 10/26/16 Range/Units 05:45 05:58 11:52 RBC 3.48 L (4.30-5.90) m/uL Hgb 11.1 L (13.0-17.5) gm/dL Hct 36.1 L (39.0-53.0) % MCV 103.7 H (80.0-100.0) fL MCHC 30.9 L (31.0-37.0) g/dL RDW 15.6 H (11.5-15.5) % Plt Count 121 L (150-450) k/uL Lymphocytes # 0.4 L (1.0-4.8) k/uL Carbon Dioxide (22-30) mmol/L BUN (9-20) mg/dL Glucose (74-99) mg/dL POC Glucose (mg/dL) 152 H 203 H (75-99) mg/dL Microbiology - Last 24 Hours (Table) 10/24/16 11:48 Blood Culture - Preliminary Blood No Growth after 48 hours Assessment and Plan Plan: The patient was seen and examined. I agree with the above assessment and plan. His chest x-ray today reveals no obvious pneumothorax though the chest tube may have migrated out into the subcutaneous tissue. He still had over 300 mL of fluid drained over the last 24 hours. His chest tube is currently on waterseal without evidence of air leak. We will obtain a follow up x-ray in the morning with further recommendations to follow.
[2016-10-26 11:54] LABS: Glucose,Whole Blood 203 mg/dL (75-99)
--- NOTE | 2016-10-26 12:05 | P.PN ---
Subjective This is an 81-year-old white male with history of severe COPD, O2 dependent, usually sees Dr. Alarcon for his COPD on a regular basis. No previous history of pneumothorax. Patient presented to the ER on 10/24/2016, and he was complaining of shortness of breath for the last a few days. His action has been going up to 4 L/m, normally he is at 2.5. Liters per minutes. Upon evaluation in the ER, patient was noted to have a 20% right-sided pneumothorax and significant atelectasis mostly in the left lower lobe, and there seems to be a left hemidiaphragm elevation. 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 At any rate patient had a chest tube placed by the ER physician, placed on antibiotics, bronchodilators, and admitted to the ICU. Upon my evaluation today, patient seems to be doing much better, breathing easier. Chest x-ray was reviewed, the right-sided pneumothorax has resolved. However there seems to be a significant left lower lobe atelectasis possible consolidation in the left lower lobe and left hemidiaphragm elevation which is also significant. Patient was placed already on antibiotics, bronchodilators, incentive spirometry, may or may not eventually need workup on his left hemidiaphragm to evaluate for paralysis. Clinically however the patient is noted to be improved. Presently the patient denies any cough, no wheezing, no fever, no chills, no hemoptysis, no chest pain. The patient is seen again today 10/26/2016 in follow-up on the selective care unit. He is awake and alert in no acute distress. Today's chest x-ray does show some retraction of the right-sided chest tube most likely still in the pleural space. There is no subcutaneous emphysema noted. Questionable possible side-port outside the pleural cavity. No sizable pneumothorax. There is a patchy left greater than right bibasilar atelectasis. He is maintaining O2 saturations in the 90s on 3 L/m per nasal cannula. Objective - Vital Signs Vital signs: Vital Signs Temp 98.1 F 10/26/16 09:18 Pulse 100 10/26/16 09:37 Resp 17 10/26/16 09:37 BP 122/73 10/26/16 09:18 Pulse Ox 95 10/26/16 09:18 Intake & Output 10/25/16 10/26/1610/26/17 18:59 06:59 18:59 Intake Total 410 80 380 Output Total 700 160 130 Balance -290 -80 250 Weight 101 kg 101 kg Intake: IV 160 80 Sodium Chloride 0.9% 1, 160 80 000 ml @ 20 mls/hr IV . Q24H DIANE Rx#:[id number] Intake, IV Titration 250 Amount Magnesium Sulfate-D5w Pmx 200 1 gm In Dextrose/Water 1 100ml.bag @ 100 mls/hr IVPB Q1H DIANE Rx#: [id number] cefTRIAXone 1,000 mg In 50 Sodium Chloride 0.9% 50 ml @ 100 mls/hr IVPB Q24HR DIANE Rx#:[id number] Oral 380 Output: Chest Tube Drainage 50 160 30 Right Mid-Axillary Chest 50 160 30 Urine 650 100 Other: Voiding Method Urinal Urinal # Voids 1 - Exam Physical Exam: Revealed an 81-year-old white male slightly cushingoid, in no form of respiratory distress. HEENT:[Neck is supple.] [No neck masses.] [No thyromegaly.] [No JVD.] Chest: [Right sided chest tube was noted, diminished breath sounds at the right base, no rhonchi, no wheezes.] Cardiac Exam: [Irregular irregular rhythm Normal S1 and S2, no S3 gallop, 2/6 systolic murmur throughout the precordium] Abdomen: [Soft, nontender, no megaly, no rebound, no guarding, normal bowel sounds.] Extremities: [No clubbing, trace edema, no cyanosis.] Neurological Exam: [No focal neurologic deficit.] - Labs CBC & Chem 7: 10/26/16 05:45 10/26/16 05:45 Labs: Abnormal Lab Results - Last 24 Hours (Table) 10/25/16 10/25/16 10/25/16 Range/Units 11:58 16:38 21:11 RBC (4.30-5.90) m/uL Hgb (13.0-17.5) gm/dL Hct (39.0-53.0) % MCV (80.0-100.0) fL MCHC (31.0-37.0) g/dL RDW (11.5-15.5) % Plt Count (150-450) k/uL Lymphocytes # (1.0-4.8) k/uL Carbon Dioxide (22-30) mmol/L BUN (9-20) mg/dL Glucose (74-99) mg/dL POC Glucose (mg/dL) 186 H 262 H 276 H (75-99) mg/dL 10/26/16 10/26/16 10/26/16 Range/Units 05:45 05:45 05:58 RBC 3.48 L (4.30-5.90) m/uL Hgb 11.1 L (13.0-17.5) gm/dL Hct 36.1 L (39.0-53.0) % MCV 103.7 H (80.0-100.0) fL MCHC 30.9 L (31.0-37.0) g/dL RDW 15.6 H (11.5-15.5) % Plt Count 121 L (150-450) k/uL Lymphocytes # 0.4 L (1.0-4.8) k/uL Carbon Dioxide 32 H (22-30) mmol/L BUN 44 H (9-20) mg/dL Glucose 153 H (74-99) mg/dL POC Glucose (mg/dL) 152 H (75-99) mg/dL 10/26/16 Range/Units 11:52 RBC (4.30-5.90) m/uL Hgb (13.0-17.5) gm/dL Hct (39.0-53.0) % MCV (80.0-100.0) fL MCHC (31.0-37.0) g/dL RDW (11.5-15.5) % Plt Count (150-450) k/uL Lymphocytes # (1.0-4.8) k/uL Carbon Dioxide (22-30) mmol/L BUN (9-20) mg/dL Glucose (74-99) mg/dL POC Glucose (mg/dL) 203 H (75-99) mg/dL Microbiology - Last 24 Hours (Table) 10/24/16 11:48 Blood Culture - Preliminary Blood No Growth after 24 hours Assessment and Plan Plan: Impression: 1 acute on chronic hypoxic respiratory failure secondary to acute spontaneous pneumothorax, COPD exacerbation, left lower lobe atelectasis, strongly doubt underlying pneumonia. 2 status post right-sided tube thoracostomy, with complete resolution of the right-sided pneumothorax, chest tube will remain on suction and we'll address possible removal in the next 24-48 hours. 3 chronic atrial fibrillation on beta blockers and on anticoagulation therapy. 4 essential hypertension 5 chronic systolic congestive heart failure 6 type 2 diabetes with diabetic neuropathy 7 history of hypercholesterolemia 8 history of chronic anemia, iron deficiency in nature, patient is on iron supplement. Recommendation: The patient was seen and evaluated by Dr. Lyon. The chest tube was placed to waterseal yesterday. The plan is for possible discontinuation tomorrow per thoracic services. We'll continue with the patient's current medications. We will increase his activity as tolerated. We'll continue to follow. We will sure he has a appointment with Dr. Alarcon in the office regarding his CPAP settings and possibly decrease the pressure from 14.
--- NOTE | 2016-10-26 13:27 | P.PN ---
Subjective 81-year-old male one of Dr. Batista's patient who seen Dr. Alarcon in for advance COPD on home O2, who also has multiple medical problems seeing cardiology and nephrology for as well. Patient has been having slight increased shortness of breath the last few days but on 10/24/2016, developed to have much worsening symptoms require O2 up to 4 L from his 2.5 L. Patient used CPAP through the night the minute he took it off in the morning his O2 sat was low and patient require more oxygen. Later on in the day his symptoms become much worse and ended up coming to the emergency department at [facility] where was seen and evaluated. Surprisingly his chest x-ray reveals 20 percentile pneumothorax of the right side. Chest tube was inserted expanded along quite a bit. Patient will be seen Dr. Valdez who is on-call for pulmonary service on the weekend will continue COPD exacerbation management as well for now including steroid IV. According to patient and his did not have or felt any sudden onset of chest pain in the right side consistent with his pneumothorax so no clear cut when this exactly happened with most likely within the last 24 hours. Admission. 10/25: Today the patient was seen and evaluated. The patient reports that his shortness of breath has improved and is breathing much easier. Repeat chest x- ray shows right-sided chest tube, right atypical pneumothorax is no longer seen , small effusions on the left and possible mid residual pulmonary vascular congestion. Pulmonology and cardiothoracic surgery consult appreciated. The patient is to continue bronchodilators, chest tube will remain on suction with plans to place the chest tube to waterseal, and repeat chest x-ray tomorrow morning. The patient is receiving IV ceftriaxone and azithromycin. 10/26: Patient continues with chest tube in place with serosanguineous drainage. I asked that at 1000 mL. Patient is less short of breath today. Cardio thoracic chart surgeon planning for possible discontinuation of chest tube for tomorrow. Repeat chest x-ray is scheduled. Solu-Medrol is currently at 40 mg IV every 12 hours. Objective - Vital Signs Vital signs: Vital Signs Temp 98.1 F 10/26/16 09:18 Pulse 100 10/26/16 09:37 Resp 17 10/26/16 09:37 BP 122/73 10/26/16 09:18 Pulse Ox 95 10/26/16 09:18 Intake & Output 10/25/16 10/26/16 10/26/16 18:59 06:59 18:59 Intake Total 410 80 380 Output Total 700 160 130 Balance -290 -80 250 Weight 101 kg 101 kg Intake: IV 160 80 Sodium Chloride 0.9% 1, 160 80 000 ml @ 20 mls/hr IV . Q24H DIANE Rx#:[id number] Intake, IV Titration 250 Amount Magnesium Sulfate-D5w Pmx 200 1 gm In Dextrose/Water 1 100ml.bag @ 100 mls/hr IVPB Q1H DIANE Rx#: [id number] cefTRIAXone 1,000 mg In 50 Sodium Chloride 0.9% 50 ml @ 100 mls/hr IVPB Q24HR DIANE Rx#:[id number] Oral 380 Output: Chest Tube Drainage 50 160 30 Right Mid-Axillary Chest 50 160 30 Urine 650 100 Other: Voiding Method Urinal Urinal # Voids 1 - Exam General appearance: no average body habitus, cooperative, disheveled, mild distress, no morbidly obese, no no acute distress, obese, no severe distress, no thin - EENT Eyes: no abnormal pupil, no anicteric sclerae, no disc margins sharp, no edentulous, no EOMI, no PERRLA, no fundus normal, no photophobia, no dentition normal, no poor dentition, no ptosis, no scleral icterus, normal appearance ENT: no hard of hearing, no hearing grossly normal, no NA/AT, normal oropharynx , no other, no pharyngeal erythema, no thrush, no tonsillar exudates, no tonsillar swelling Ears: bilateral: normal - Neck Neck: no lymphadenopathy, normal ROM, no other, no rigidity, no stridor, no thyromegaly Carotids: bilateral: upstroke normal Thyroid: bilateral: normal size - Respiratory Respiratory: right: diminished, dullness, bilateral: rales, rhonchi, wheezing, prolonged expiration - Cardiovascular Rhythm: regular Heart sounds: normal: S1, S2 Abnormal Heart Sounds: systolic murmur, S3 Gallop - Gastrointestinal General gastrointestinal: no absent bowel sounds, decreased bowel sounds, distended, no hepatomegaly, no hyperactive bowel sounds, normal bowel sounds, organomegaly, no rigid, no scaphoid, soft, no splenomegaly, no tenderness, no umbilical hernia, no ventral hernia - Genitourinary Male genitourinary: scrotal edema - Integumentary Integumentary: no calor, cellulitis, no cyanotic, no decreased turgor, no flushed, no jaundiced, no normal, no normal turgor, pale, rash, no ulcer - Neurologic Neurologic: CNII-XII intact - Musculoskeletal Musculoskeletal: no gait normal, generalized weakness, no strength equal bilaterally, no right sided weakness, no left sided weakness - Psychiatric Psychiatric: A&O x's 3, appropriate affect - Labs CBC & Chem 7: 10/26/16 05:45 10/26/16 05:45 Labs: Abnormal Lab Results - Last 24 Hours (Table) 10/25/16 10/25/16 10/25/16 Range/Units 11:58 16:38 21:11 RBC (4.30-5.90) m/uL Hgb (13.0-17.5) gm/dL Hct (39.0-53.0) % MCV (80.0-100.0) fL MCHC (31.0-37.0) g/dL RDW (11.5-15.5) % Plt Count (150-450) k/uL Lymphocytes # (1.0-4.8) k/uL Carbon Dioxide (22-30) mmol/L BUN (9-20) mg/dL Glucose (74-99) mg/dL POC Glucose (mg/dL) 186 H 262 H 276 H (75-99) mg/dL 10/26/16 10/26/16 10/26/16 Range/Units 05:45 05:45 05:58 RBC 3.48 L (4.30-5.90) m/uL Hgb 11.1 L (13.0-17.5) gm/dL Hct 36.1 L (39.0-53.0) % MCV 103.7 H (80.0-100.0) fL MCHC 30.9 L (31.0-37.0) g/dL RDW 15.6 H (11.5-15.5) % Plt Count 121 L (150-450) k/uL Lymphocytes # 0.4 L (1.0-4.8) k/uL Carbon Dioxide 32 H (22-30) mmol/L BUN 44 H (9-20) mg/dL Glucose 153 H (74-99) mg/dL POC Glucose (mg/dL) 152 H (75-99) mg/dL Microbiology - Last 24 Hours (Table) 10/24/16 11:48 Blood Culture - Preliminary Blood No Growth after 24 hours Assessment and Plan Plan: 1 acute hypoxic respiratory failure due to acute pneumothorax along with COPD exacerbation requiring BiPAP, chest tube inserted, will continue patient on COPD exacerbation management as well with steroid IV and updraft treatment. Repeat x-ray shows pneumothorax resolved. 2 acute pneumothorax: Post chest tube. 3 COPD exacerbation: With his current symptoms continue O2 continue CPAP or BiPAP through the night will continue patient on Solu-Medrol 40 mg every 12 along with DuoNeb and Pulmicort for now. 4 chronic A. fib: On anticoagulation long-term on Tenormin and Eliquis continue both medication for now. Pulse rate remain under control. 5 chronic combined systolic and diastolic congestive heart failure: Patient to continue furosemide 20 mg daily along with losartan and atenolol. 6 diabetes: Type II on insulin along with Accu-Chek and sliding scales coverage continue medication. 7 hypertension: Continue patient on a clonidine along with losartan and Tenormin. 8 hyperlipidemia: Resume pravastatin and niacin. 9 chronic neuropathy: Continue patient on gabapentin. 10 chronic anemia: Iron deficiency continue patient on iron supplement. 11 GI prophylaxis: Continue patient on pantoprazole 40 mg daily. 12 DVT prophylaxis: Patient still on anticoagulation along with knee-high JEROMY hose and Venodyne boots. 13 chronic hypoxic respiratory failure on home O2 CODE STATUS: Full code. Discharge plan: Return home with [facility] Impression and plan of care have been directed as dictated by the signing physician. Malu Cordova nurse practitioner acting as scribe for signing physician.
[2016-10-26 16:44] LABS: Glucose,Whole Blood 229 mg/dL (75-99)
[2016-10-26] MEDS: SODIUM CHLORIDE 0.9% 1,000 ML IV SCH (18:06)
[2016-10-26 20:48] LABS: Glucose,Whole Blood 217 mg/dL (75-99)
[2016-10-26] MEDS: PRAVASTATIN SODIUM 80 MG TAB PO SCH (21:51)
[2016-10-27] MEDS: FUROSEMIDE 10 MG/ML 2 ML VIAL IV SCH ×4 (00:39→23:34)
[2016-10-27 05:57] LABS: Glucose,Whole Blood 220 mg/dL (75-99)
[2016-10-27 06:38] LABS: Basophils % (A) 0 %; CHCM 30.1; Eosinophils % (A) 0 %; HCT 33.7 % (39.0-53.0); HDW 2.74; HGB 10.7 gm/dL (13.0-17.5); Hypochromasia Marked; Luc # (Auto) 0.03; Luc % (Auto) 1; Lymphocytes # (A) 0.3 k/uL (1.0-4.8); Lymphocytes % (A) 5 %; MCH 32.8 pg (25.0-35.0); MCHC 31.7 g/dL (31.0-37.0); MCV 103.5 fL (80.0-100.0); Macrocytosis Moderate; Mean Platelet Volume 8.7; Monocytes # (A) 0.2 k/uL (0-1.0); Monocytes % (A) 3 %; Neutrophils # (A) 5.5 k/uL (1.3-7.7); Neutrophils % (A) 91 %; RBC 3.26 m/uL (4.30-5.90); RDW 15.6 % (11.5-15.5); WBC (Perox) 6.18
[2016-10-27 06:51] LABS: Calcium 8.6 mg/dL (8.4-10.2); Potassium 4.8 mmol/L (3.5-5.1); Total Bilirubin 0.4 mg/dL (0.2-1.3); Total Protein 6.1 g/dL (6.3-8.2)
[2016-10-27] MEDS: PANTOPRAZOLE 40 MG TABLET PO SCH (06:52)
[2016-10-27] MEDS: INSULIN LISPRO (humaLOG) 300 UNIT/3 ML VIAL SQ SCH ×4 (06:52→21:08)
--- NOTE | 2016-10-27 08:16 | XR ---
EXAMINATION TYPE: XR chest 1V portable DATE OF EXAM: 10/27/2016 Comparison: 10/26/2016 Clinical History: 81-year-old male with pneumothorax Findings: Low lung volumes. Heart is borderline to mildly enlarged. Continued elevation of the left hemidiaphra gm with increasing patchy retrocardiac and left basilar opacity. Mild diffuse interstitial prominence is also present. There may be trace left effusion. No appreciable pneumothorax on the right with viral st tube in place. The chest tube sidehole is just at the pleural margin. Impression: 1. Right chest tube sidehole just at the pleural margin. No appreciable pneumothorax. 2. Continued hypoventilatory changes with findings suggesting CHF and pulmonary vascular congestion. 3. Increasing left basilar opacity could represent atelectasis and/or consolidation. Trace left effus ion suspected.
[2016-10-27] MEDS: IPRATROPIUM-ALBUTEROL 3 ML NEB INHALATION PRN (08:52)
[2016-10-27] MEDS: SYMBICORT 160-4.5 MCG INHALER INHALATION SCH ×2 (08:52→21:15)
[2016-10-27] MEDS: APIXABAN 2.5 MG TABLET PO SCH ×2 (09:20→21:07)
[2016-10-27] MEDS: INSULIN NPH 300 UNIT/3 ML VIAL SQ SCH ×2 (09:21→21:07)
[2016-10-27] MEDS: FERROUS SULFATE 325 MG TAB PO SCH ×2 (09:21→21:08)
[2016-10-27] MEDS: ASPIRIN 81 MG CHEW PO SCH (09:21)
[2016-10-27] MEDS: GABAPENTIN 300 MG CAP PO SCH ×3 (09:21→21:07)
[2016-10-27] MEDS: LOSARTAN 25 MG TAB PO SCH (09:22)
[2016-10-27] MEDS: CHOLECALCIFEROL 1,000 UNIT TAB PO SCH (09:22)
[2016-10-27] MEDS: NIACIN TR 500 MG CAPSULE.ER PO SCH (09:26)
[2016-10-27] MEDS: methylPREDNISolone SOD SUCCI 40 MG/ML 1 ML VIAL IV SCH ×2 (09:26→21:07)
[2016-10-27] MEDS: MULTIVITAMINS, THERA 1 EACH TAB PO SCH (09:26)
[2016-10-27] MEDS: ATENOLOL 50 MG TAB PO SCH ×2 (09:26→21:08)
[2016-10-27] MEDS: AZITHROMYCIN 500 MG TAB PO SCH (09:27)
--- NOTE | 2016-10-27 11:04 | P.PN ---
Subjective Principal diagnosis: Right-sided pneumothorax POD #3 placement of right pleural chest tube Patient currently sitting up in bed in no acute distress. States he's feeling better everyday. Chest tube placed to waterseal greater than 24 hours. Objective - Vital Signs Vital signs: Vital Signs Temp 97.9 F 10/27/16 10:15 Pulse 94 10/27/16 10:15 Resp 16 10/27/16 10:15 BP 129/69 10/27/16 10:15 Pulse Ox 95 10/27/16 10:15 Intake & Output 10/26/16 10/27/16 10/27/16 18:59 06:59 18:59 Intake Total 960 Output Total 250 130 100 Balance 710 -130 -100 Weight 101 kg 101 kg 101 kg Intake: Oral 960 Output: Chest Tube Drainage 150 130 Right Mid-Axillary Chest 150 130 Urine 100 100 Other: Voiding Method Urinal Urinal # Voids 1 1 1 - Constitutional General appearance: Present: cooperative, no acute distress - Respiratory Details: Lungs sounds diminished bilaterally. Respirations even, nonlabored. Currently on 3 L nasal cannula with oxygen saturation 94%. Able to achieve 750-1000 mL on his incentive spirometry. Right pleural chest tube to waterseal, draining to 70 mL overnight, 350 mL last 24 hours. No air leak present. Clamped this morning. - Cardiovascular Details: S1, S2 present. Irregular rate, rhythm, atrial fibrillation on telemetry. - Gastrointestinal Gastrointestinal Comment(s): Abdomen soft, nontender, nondistended. Active bowel sounds 4 quadrants. Tolerating diet. - Genitourinary Genitourinary Comment(s): Continues to void clear, yellow urine. - Musculoskeletal Musculoskeletal: Present: strength equal bilaterally - Psychiatric Psychiatric: Present: A&O x's 3, appropriate affect, intact judgment & insight - Allied health notes Allied health notes reviewed: nursing - Labs CBC & Chem 7: 10/27/16 06:13 10/27/16 06:13 Labs: Abnormal Lab Results - Last 24 Hours (Table) 10/26/16 10/26/16 10/26/16 Range/Units 11:52 16:43 20:47 RBC (4.30-5.90) m/uL Hgb (13.0-17.5) gm/dL Hct (39.0-53.0) % MCV (80.0-100.0) fL RDW (11.5-15.5) % Plt Count (150-450) k/uL Lymphocytes # (1.0-4.8) k/uL Chloride (98-107) mmol/L Carbon Dioxide (22-30) mmol/L BUN (9-20) mg/dL Creatinine (0.66-1.25) mg/dL Glucose (74-99) mg/dL POC Glucose (mg/dL) 203 H 229 H 217 H (75-99) mg/dL Total Protein (6.3-8.2) g/dL Albumin (3.5-5.0) g/dL 10/27/16 10/27/16 10/27/16 Range/Units 05:47 06:13 06:13 RBC 3.26 L (4.30-5.90) m/uL Hgb 10.7 L (13.0-17.5) gm/dL Hct 33.7 L (39.0-53.0) % MCV 103.5 H (80.0-100.0) fL RDW 15.6 H (11.5-15.5) % Plt Count 104 L (150-450) k/uL Lymphocytes # 0.3 L (1.0-4.8) k/uL Chloride 97 L (98-107) mmol/L Carbon Dioxide 33 H (22-30) mmol/L BUN 53 H (9-20) mg/dL Creatinine 1.40 H (0.66-1.25) mg/dL Glucose 214 H (74-99) mg/dL POC Glucose (mg/dL) 220 H (75-99) mg/dL Total Protein 6.1 L (6.3-8.2) g/dL Albumin 3.3 L (3.5-5.0) g/dL Microbiology - Last 24 Hours (Table) 10/24/16 11:48 Blood Culture - Preliminary Blood No Growth after 48 hours - Imaging and Cardiology Chest x-ray: image reviewed Assessment and Plan (1) Chronic systolic heart failure Status: Acute (2) Type 2 diabetes mellitus Status: Acute (3) Acute exacerbation of chronic obstructive airways disease Status: Acute (4) Pneumothorax Status: Acute (5) Chronic a-fib Status: Acute (6) HTN (hypertension) Status: Acute (7) Hyperlipemia Status: Acute (8) Hypoxia Status: Acute (9) Status post chest tube placement Status: Acute Plan: 1. Medical management per primary care service. 2. Chest tube clamped this morning. Will unclamp, if no air leak will discontinue chest tube. 3. Pain control per her ordered pain medication. 4. Chest x-ray in the morning. 5. More recommendations as patient progresses. Time with Patient: Greater than 30
--- NOTE | 2016-10-27 11:54 | P.PN ---
Subjective 81-year-old male one of Dr. Batista's patient who seen Dr. Alarcon in for advance COPD on home O2, who also has multiple medical problems seeing cardiology and nephrology for as well. Patient has been having slight increased shortness of breath the last few days but on 10/24/2016, developed to have much worsening symptoms require O2 up to 4 L from his 2.5 L. Patient used CPAP through the night the minute he took it off in the morning his O2 sat was low and patient require more oxygen. Later on in the day his symptoms become much worse and ended up coming to the emergency department at [facility] where was seen and evaluated. Surprisingly his chest x-ray reveals 20 percentile pneumothorax of the right side. Chest tube was inserted expanded along quite a bit. Patient will be seen Dr. Valdez who is on-call for pulmonary service on the weekend will continue COPD exacerbation management as well for now including steroid IV. According to patient and his did not have or felt any sudden onset of chest pain in the right side consistent with his pneumothorax so no clear cut when this exactly happened with most likely within the last 24 hours. Admission. 10/25: Today the patient was seen and evaluated. The patient reports that his shortness of breath has improved and is breathing much easier. Repeat chest x- ray shows right-sided chest tube, right atypical pneumothorax is no longer seen , small effusions on the left and possible mid residual pulmonary vascular congestion. Pulmonology and cardiothoracic surgery consult appreciated. The patient is to continue bronchodilators, chest tube will remain on suction with plans to place the chest tube to waterseal, and repeat chest x-ray tomorrow morning. The patient is receiving IV ceftriaxone and azithromycin. 10/26: Patient continues with chest tube in place with serosanguineous drainage. I asked that at 1000 mL. Patient is less short of breath today. Cardio thoracic chart surgeon planning for possible discontinuation of chest tube for tomorrow. Repeat chest x-ray is scheduled. Solu-Medrol is currently at 40 mg IV every 12 hours. 10/27: Patient denies any shortness of breath and is in very good spirits today. BUN 53 and creatinine 1.4. Pulse ox is running 94-96% on 3 L nasal cannula. Chest tube was clamped this morning, if no air leak, chest tube will be discontinued per cardiothoracic surgeon. Repeat chest x-ray has been ordered for tomorrow. Objective - Vital Signs Vital signs: Vital Signs Temp 97.3 F L 10/27/16 04:00 Pulse 98 10/27/16 09:03 Resp 18 10/27/16 04:00 BP 118/54 10/27/16 04:00 Pulse Ox 96 10/27/16 08:54 Intake & Output 10/26/16 10/27/16 10/27/16 18:59 06:59 18:59 Intake Total 960 Output Total 250 130 Balance 710 -130 Weight 101 kg 101 kg Intake: Oral 960 Output: Chest Tube Drainage 150 130 Right Mid-Axillary Chest 150 130 Urine 100 Other: Voiding Method Urinal # Voids 1 1 - Exam General appearance: no average body habitus, cooperative, disheveled, mild distress, no morbidly obese, no no acute distress, obese, no severe distress, no thin - EENT Eyes: no abnormal pupil, no anicteric sclerae, no disc margins sharp, no edentulous, no EOMI, no PERRLA, no fundus normal, no photophobia, no dentition normal, no poor dentition, no ptosis, no scleral icterus, normal appearance ENT: no hard of hearing, no hearing grossly normal, no NA/AT, normal oropharynx , no other, no pharyngeal erythema, no thrush, no tonsillar exudates, no tonsillar swelling Ears: bilateral: normal - Neck Neck: no lymphadenopathy, normal ROM, no other, no rigidity, no stridor, no thyromegaly Carotids: bilateral: upstroke normal Thyroid: bilateral: normal size - Respiratory Respiratory: right: diminished, dullness, bilateral: rales, rhonchi, wheezing, prolonged expiration - Cardiovascular Rhythm: regular Heart sounds: normal: S1, S2 Abnormal Heart Sounds: systolic murmur, S3 Gallop - Gastrointestinal General gastrointestinal: no absent bowel sounds, decreased bowel sounds, distended, no hepatomegaly, no hyperactive bowel sounds, normal bowel sounds, organomegaly, no rigid, no scaphoid, soft, no splenomegaly, no tenderness, no umbilical hernia, no ventral hernia - Genitourinary Male genitourinary: scrotal edema - Integumentary Integumentary: no calor, cellulitis, no cyanotic, no decreased turgor, no flushed, no jaundiced, no normal, no normal turgor, pale, rash, no ulcer - Neurologic Neurologic: CNII-XII intact - Musculoskeletal Musculoskeletal: no gait normal, generalized weakness, no strength equal bilaterally, no right sided weakness, no left sided weakness - Psychiatric Psychiatric: A&O x's 3, appropriate affect - Labs CBC & Chem 7: 10/27/16 06:13 10/27/16 06:13 Labs: Abnormal Lab Results - Last 24 Hours (Table) 10/26/16 10/26/16 10/26/16 Range/Units 11:52 16:43 20:47 RBC (4.30-5.90) m/uL Hgb (13.0-17.5) gm/dL Hct (39.0-53.0) % MCV (80.0-100.0) fL RDW (11.5-15.5) % Plt Count (150-450) k/uL Lymphocytes # (1.0-4.8) k/uL Chloride (98-107) mmol/L Carbon Dioxide (22-30) mmol/L BUN (9-20) mg/dL Creatinine (0.66-1.25) mg/dL Glucose (74-99) mg/dL POC Glucose (mg/dL) 203 H 229 H 217 H (75-99) mg/dL Total Protein (6.3-8.2) g/dL Albumin (3.5-5.0) g/dL 10/27/16 10/27/16 10/27/16 Range/Units 05:47 06:13 06:13 RBC 3.26 L (4.30-5.90) m/uL Hgb 10.7 L (13.0-17.5) gm/dL Hct 33.7 L (39.0-53.0) % MCV 103.5 H (80.0-100.0) fL RDW 15.6 H (11.5-15.5) % Plt Count 104 L (150-450) k/uL Lymphocytes # 0.3 L (1.0-4.8) k/uL Chloride 97 L (98-107) mmol/L Carbon Dioxide 33 H (22-30) mmol/L BUN 53 H (9-20) mg/dL Creatinine 1.40 H (0.66-1.25) mg/dL Glucose 214 H (74-99) mg/dL POC Glucose (mg/dL) 220 H (75-99) mg/dL Total Protein 6.1 L (6.3-8.2) g/dL Albumin 3.3 L (3.5-5.0) g/dL Microbiology - Last 24 Hours (Table) 10/24/16 11:48 Blood Culture - Preliminary Blood No Growth after 48 hours Assessment and Plan Plan: 1 acute on chronic hypoxic respiratory failure due to acute pneumothorax along with COPD exacerbation requiring BiPAP, chest tube inserted, will continue patient on COPD exacerbation management as well with steroid IV and updraft treatment. Repeat x-ray shows pneumothorax resolved. Chest tube clamped. 2 acute pneumothorax: Post chest tube. 3 COPD exacerbation: With his current symptoms continue O2 continue CPAP or BiPAP through the night will continue patient on Solu-Medrol 40 mg every 12 along with DuoNeb and Pulmicort for now. 4 chronic A. fib: On anticoagulation long-term on Tenormin and Eliquis continue both medication for now. Pulse rate remain under control. 5 chronic combined systolic and diastolic congestive heart failure: Patient to continue furosemide 20 mg daily along with losartan and atenolol. 6 diabetes: Type II on insulin along with Accu-Chek and sliding scales coverage continue medication. 7 hypertension: Continue patient on a clonidine along with losartan and Tenormin. 8 hyperlipidemia: Resume pravastatin and niacin. 9 chronic neuropathy: Continue patient on gabapentin. 10 chronic anemia: Iron deficiency continue patient on iron supplement. 11 GI prophylaxis: Continue patient on pantoprazole 40 mg daily. 12 DVT prophylaxis: Patient still on anticoagulation along with knee-high JEROMY hose and Venodyne boots. 13 chronic hypoxic respiratory failure on home O2 CODE STATUS: Full code. Discharge plan: Return home with [facility] Impression and plan of care have been directed as dictated by the signing physician. Malu Cordova nurse practitioner acting as scribe for signing physician.
[2016-10-27 12:22] LABS: Glucose,Whole Blood 221 mg/dL (75-99)
--- NOTE | 2016-10-27 12:52 | P.PN ---
Subjective This is an 81-year-old white male with history of severe COPD, O2 dependent, usually sees Dr. Alarcon for his COPD on a regular basis. No previous history of pneumothorax. Patient presented to the ER on 10/24/2016, and he was complaining of shortness of breath for the last a few days. His action has been going up to 4 L/m, normally he is at 2.5. Liters per minutes. Upon evaluation in the ER, patient was noted to have a 20% right-sided pneumothorax and significant atelectasis mostly in the left lower lobe, and there seems to be a left hemidiaphragm elevation. 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 At any rate patient had a chest tube placed by the ER physician, placed on antibiotics, bronchodilators, and admitted to the ICU. Upon my evaluation today, patient seems to be doing much better, breathing easier. Chest x-ray was reviewed, the right-sided pneumothorax has resolved. However there seems to be a significant left lower lobe atelectasis possible consolidation in the left lower lobe and left hemidiaphragm elevation which is also significant. Patient was placed already on antibiotics, bronchodilators, incentive spirometry, may or may not eventually need workup on his left hemidiaphragm to evaluate for paralysis. Clinically however the patient is noted to be improved. Presently the patient denies any cough, no wheezing, no fever, no chills, no hemoptysis, no chest pain. The patient is seen again today 10/26/2016 in follow-up on the selective care unit. He is awake and alert in no acute distress. Today's chest x-ray does show some retraction of the right-sided chest tube most likely still in the pleural space. There is no subcutaneous emphysema noted. Questionable possible side-port outside the pleural cavity. No sizable pneumothorax. There is a patchy left greater than right bibasilar atelectasis. He is maintaining O2 saturations in the 90s on 3 L/m per nasal cannula. The patient is seen again today 10/27/2016 in follow-up on the selective care unit. He is resting quite comfortably in bed. He denies any worsening shortness of breath, cough or congestion. His right-sided chest tube shows a tiny air leak. Thoracic services are on the case and may pull the tube later today. The chest x-ray does not show any appreciable pneumothorax. He does remain night left basilar opacity. He remains on ceftriaxone and azithromycin. He is afebrile. No leukocytosis. He is maintaining good O2 saturations in the mid 90s on 3 L/m per nasal cannula. Objective - Vital Signs Vital signs: Vital Signs Temp 97.9 F 10/27/16 10:15 Pulse 94 10/27/16 10:15 Resp 16 10/27/16 10:15 BP 129/69 10/27/16 10:15 Pulse Ox 95 10/27/16 10:15 Intake & Output 10/26/16 10/27/16 10/27/16 18:59 06:59 18:59 Intake Total 960 Output Total 250 130 100 Balance 710 -130 -100 Weight 101 kg 101 kg 101 kg Intake: Oral 960 Output: Chest Tube Drainage 150 130 Right Mid-Axillary Chest 150 130 Urine 100 100 Other: Voiding Method Urinal Urinal # Voids 1 1 1 - Exam Physical Exam: Revealed an 81-year-old white male slightly cushingoid, in no form of respiratory distress. HEENT:[Neck is supple.] [No neck masses.] [No thyromegaly.] [No JVD.] Chest: [Right sided chest tube was noted, diminished breath sounds at the right base, no rhonchi, no wheezes.] Cardiac Exam: [Irregular irregular rhythm Normal S1 and S2, no S3 gallop, 2/6 systolic murmur throughout the precordium] Abdomen: [Soft, nontender, no megaly, no rebound, no guarding, normal bowel sounds.] Extremities: [No clubbing, trace edema, no cyanosis.] Neurological Exam: [No focal neurologic deficit.] - Labs CBC & Chem 7: 10/27/16 06:13 10/27/16 06:13 Labs: Abnormal Lab Results - Last 24 Hours (Table) 10/26/16 10/26/16 10/27/16 Range/Units 16:43 20:47 05:47 RBC (4.30-5.90) m/uL Hgb (13.0-17.5) gm/dL Hct (39.0-53.0) % MCV (80.0-100.0) fL RDW (11.5-15.5) % Plt Count (150-450) k/uL Lymphocytes # (1.0-4.8) k/uL Chloride (98-107) mmol/L Carbon Dioxide (22-30) mmol/L BUN (9-20) mg/dL Creatinine (0.66-1.25) mg/dL Glucose (74-99) mg/dL POC Glucose (mg/dL) 229 H 217 H 220 H (75-99) mg/dL Total Protein (6.3-8.2) g/dL Albumin (3.5-5.0) g/dL 10/27/16 10/27/16 10/27/16 Range/Units 06:13 06:13 12:11 RBC 3.26 L (4.30-5.90) m/uL Hgb 10.7 L (13.0-17.5) gm/dL Hct 33.7 L (39.0-53.0) % MCV 103.5 H (80.0-100.0) fL RDW 15.6 H (11.5-15.5) % Plt Count 104 L (150-450) k/uL Lymphocytes # 0.3 L (1.0-4.8) k/uL Chloride 97 L (98-107) mmol/L Carbon Dioxide 33 H (22-30) mmol/L BUN 53 H (9-20) mg/dL Creatinine 1.40 H (0.66-1.25) mg/dL Glucose 214 H (74-99) mg/dL POC Glucose (mg/dL) 221 H (75-99) mg/dL Total Protein 6.1 L (6.3-8.2) g/dL Albumin 3.3 L (3.5-5.0) g/dL Microbiology - Last 24 Hours (Table) 10/24/16 11:48 Blood Culture - Preliminary Blood No Growth after 48 hours Assessment and Plan Plan: Impression: 1 acute on chronic hypoxic respiratory failure secondary to acute spontaneous pneumothorax, COPD exacerbation, left lower lobe atelectasis, strongly doubt underlying pneumonia. 2 status post right-sided tube thoracostomy, with complete resolution of the right-sided pneumothorax, chest tube will remain on suction and we'll address possible removal in the next 24-48 hours. 3 chronic atrial fibrillation on beta blockers and on anticoagulation therapy. 4 essential hypertension 5 chronic systolic congestive heart failure 6 type 2 diabetes with diabetic neuropathy 7 history of hypercholesterolemia 8 history of chronic anemia, iron deficiency in nature, patient is on iron supplement. Recommendation: The patient was seen and evaluated by Dr. Lyon. We'll continue with the patient's current medications. We will increase his activity as tolerated. We' ll continue to follow. His is planning to bring his CPAP machine in and we will evaluate it for possible decrease in pressures.
[2016-10-27 15:36] VITALS: RESP 18
[2016-10-27] MEDS: SODIUM CHLORIDE 0.9% 1,000 ML IV SCH (17:23)
[2016-10-27 17:29] LABS: Glucose,Whole Blood 212 mg/dL (75-99)
[2016-10-27 20:34] LABS: Glucose,Whole Blood 211 mg/dL (75-99)
[2016-10-27] MEDS: PRAVASTATIN SODIUM 80 MG TAB PO SCH (21:07)
[2016-10-27] MEDS: HYDROcodone/APAP 5-325MG 1 EACH TAB PO PRN (21:12)
[2016-10-28 06:09] LABS: Glucose,Whole Blood 142 mg/dL (75-99)
[2016-10-28] MEDS: INSULIN LISPRO (humaLOG) 300 UNIT/3 ML VIAL SQ SCH ×2 (06:32→12:14)
[2016-10-28] MEDS: PANTOPRAZOLE 40 MG TABLET PO SCH (06:32)
[2016-10-28 06:42] LABS: ALT 33 U/L (21-72); AST 25 U/L (17-59); Alkaline Phosphatase 100 U/L (38-126); Anion Gap 8 mmol/L; Blood Urea Nitrogen 53 mg/dL (9-20); Calcium 8.7 mg/dL (8.4-10.2); Carbon Dioxide 33 mmol/L (22-30); Chloride 99 mmol/L (98-107); Glucose 140 mg/dL (74-99); Non-African American GFR(MDRD) 58 (>60 ml/min/1.73 sqM); Potassium 4.8 mmol/L (3.5-5.1); Sodium 140 mmol/L (137-145); Total Bilirubin 0.4 mg/dL (0.2-1.3); Total Protein 6.2 g/dL (6.3-8.2)
[2016-10-28 06:55] LABS: Basophils % (A) 0 %; CH 30.9; CHCM 30.5; Eosinophils % (A) 0 %; HCT 34.1 % (39.0-53.0); HDW 2.74; HGB 10.8 gm/dL (13.0-17.5); Hypochromasia Moderate; Luc # (Auto) 0.02; Luc % (Auto) 0; Lymphocytes # (A) 0.3 k/uL (1.0-4.8); Lymphocytes % (A) 5 %; MCH 32.4 pg (25.0-35.0); MCHC 31.7 g/dL (31.0-37.0); MCV 101.9 fL (80.0-100.0); Macrocytosis Slight; Mean Platelet Volume 8.7; Monocytes # (A) 0.2 k/uL (0-1.0); Monocytes % (A) 4 %; Neutrophils % (A) 90 %; RBC 3.34 m/uL (4.30-5.90); RDW 15.2 % (11.5-15.5); WBC 5.5 k/uL (3.8-10.6)
[2016-10-28] MEDS: IPRATROPIUM-ALBUTEROL 3 ML NEB INHALATION PRN ×2 (07:02→11:13)
[2016-10-28] MEDS: SYMBICORT 160-4.5 MCG INHALER INHALATION SCH (07:02)
--- NOTE | 2016-10-28 08:16 | XR ---
EXAMINATION TYPE: XR chest 1V portable DATE OF EXAM: 10/28/2016 COMPARISON: Prior chest x-ray 10/27/2016 HISTORY: Pneumothorax, status post chest tube removal TECHNIQUE: Single frontal view of the chest is obtained. FINDINGS: Interval removal of the right-sided chest tube. No significant residual pneumothorax is ev ident. Lung volumes are low and the patient is rotated. Patchy basilar density persists. Postop robin e noted to the right shoulder. Heart size is enlarged. IMPRESSION: No evident complication status post chest tube removal. Basilar atelectasis versus edema , correlate to exclude pneumonia. Cardiomegaly, rotated expiratory exam, follow-up recommended.
[2016-10-28] MEDS: FUROSEMIDE 10 MG/ML 2 ML VIAL IV SCH ×2 (09:15→15:52)
[2016-10-28] MEDS: ATENOLOL 50 MG TAB PO SCH (09:15)
[2016-10-28] MEDS: ASPIRIN 81 MG CHEW PO SCH (09:15)
[2016-10-28] MEDS: APIXABAN 2.5 MG TABLET PO SCH (09:15)
[2016-10-28] MEDS: AZITHROMYCIN 500 MG TAB PO SCH (09:16)
[2016-10-28] MEDS: CHOLECALCIFEROL 1,000 UNIT TAB PO SCH (09:16)
[2016-10-28] MEDS: GABAPENTIN 300 MG CAP PO SCH ×2 (09:16→15:53)
[2016-10-28] MEDS: INSULIN NPH 300 UNIT/3 ML VIAL SQ SCH (09:16)
[2016-10-28] MEDS: FERROUS SULFATE 325 MG TAB PO SCH (09:16)
[2016-10-28] MEDS: LOSARTAN 25 MG TAB PO SCH (09:17)
[2016-10-28] MEDS: MULTIVITAMINS, THERA 1 EACH TAB PO SCH (09:17)
[2016-10-28] MEDS: NIACIN TR 500 MG CAPSULE.ER PO SCH (09:17)
[2016-10-28] MEDS: methylPREDNISolone SOD SUCCI 40 MG/ML 1 ML VIAL IV SCH (09:17)
--- NOTE | 2016-10-28 10:39 | P.PN ---
Subjective Principal diagnosis: Right-sided pneumothorax POD #4 placement of right pleural chest tube, removed yesterday. Patient currently sitting up in bed in no acute distress. States he's feeling better everyday. Chest tube discontinued yesterday. Objective - Vital Signs Vital signs: Vital Signs Temp 97.3 F L 10/28/16 04:00 Pulse 98 10/28/16 07:14 Resp 18 10/28/16 04:00 BP 118/80 10/28/16 04:00 Pulse Ox 95 10/28/16 04:00 Intake & Output 10/27/16 10/28/16 10/28/16 18:59 06:59 18:59 Intake Total 520 430 Output Total 100 Balance 420 430 Weight 101 kg 99 kg Intake: IV 240 200 Sodium Chloride 0.9% 1, 240 200 000 ml @ 20 mls/hr IV . Q24H DIANE Rx#:[id number] Oral 280 230 Output: Urine 100 Other: Voiding Method Urinal # Voids 3 2 - Constitutional General appearance: Present: cooperative, no acute distress - Respiratory Details: Lungs sounds was bilaterally. Respirations even, nonlabored. Currently on 3 L nasal cannula with oxygen saturation 95%. Able to achieve 1000 mL on his incentive spirometry. - Cardiovascular Details: S1, S2 present. Irregular rate, rhythm, atrial fibrillation on telemetry. - Gastrointestinal Gastrointestinal Comment(s): Abdomen soft, nontender, nondistended. Active bowel sounds 4 quadrants. Tolerating diet. - Genitourinary Genitourinary Comment(s): Continues to void clear, yellow urine. - Integumentary Integumentary Comment(s): Right lateral chest wall incision covered with dry intact dressing. - Musculoskeletal Musculoskeletal: Present: strength equal bilaterally - Psychiatric Psychiatric: Present: A&O x's 3, appropriate affect, intact judgment & insight - Allied health notes Allied health notes reviewed: nursing - Labs CBC & Chem 7: 10/28/16 06:11 10/28/16 06:11 Labs: Abnormal Lab Results - Last 24 Hours (Table) 10/27/16 10/27/16 10/27/16 Range/Units 12:11 17:17 20:32 RBC (4.30-5.90) m/uL Hgb (13.0-17.5) gm/dL Hct (39.0-53.0) % MCV (80.0-100.0) fL Plt Count (150-450) k/uL Lymphocytes # (1.0-4.8) k/uL Carbon Dioxide (22-30) mmol/L BUN (9-20) mg/dL Glucose (74-99) mg/dL POC Glucose (mg/dL) 221 H 212 H 211 H (75-99) mg/dL Total Protein (6.3-8.2) g/dL Albumin (3.5-5.0) g/dL 10/28/16 10/28/16 10/28/16 Range/Units 05:50 06:11 06:11 RBC 3.34 L (4.30-5.90) m/uL Hgb 10.8 L (13.0-17.5) gm/dL Hct 34.1 L (39.0-53.0) % MCV 101.9 H (80.0-100.0) fL Plt Count 111 L (150-450) k/uL Lymphocytes # 0.3 L (1.0-4.8) k/uL Carbon Dioxide 33 H (22-30) mmol/L BUN 53 H (9-20) mg/dL Glucose 140 H (74-99) mg/dL POC Glucose (mg/dL) 142 H (75-99) mg/dL Total Protein 6.2 L (6.3-8.2) g/dL Albumin 3.3 L (3.5-5.0) g/dL Microbiology - Last 24 Hours (Table) 10/24/16 11:48 Blood Culture - Preliminary Blood No Growth after 72 hours - Imaging and Cardiology Chest x-ray: report reviewed, image reviewed Assessment and Plan (1) Chronic systolic heart failure Status: Acute (2) Type 2 diabetes mellitus Status: Acute (3) Acute exacerbation of chronic obstructive airways disease Status: Acute (4) Pneumothorax Status: Acute (5) Chronic a-fib Status: Acute (6) HTN (hypertension) Status: Acute (7) Hyperlipemia Status: Acute (8) Hypoxia Status: Acute (9) Status post chest tube placement Status: Acute Plan: 1. Medical management per primary care service. 2. Chest tube discontinued yesterday. Chest x-ray this morning reviewed. May remove dressing tomorrow 10/29/2016. 3. Pain control per her ordered pain medication. 4. Will sign off. Please do not hesitate to call with any questions. Time with Patient: Less than 30
[2016-10-28 11:33] LABS: Glucose,Whole Blood 190 mg/dL (75-99)
[2016-10-28 13:37] VITALS: BP 116/82; PULSE 102; TEMP 98
--- NOTE | 2016-10-28 13:55 | P.PN ---
Subjective This is an 81-year-old white male with history of severe COPD, O2 dependent, usually sees Dr. Alarcon for his COPD on a regular basis. No previous history of pneumothorax. Patient presented to the ER on 10/24/2016, and he was complaining of shortness of breath for the last a few days. His action has been going up to 4 L/m, normally he is at 2.5. Liters per minutes. Upon evaluation in the ER, patient was noted to have a 20% right-sided pneumothorax and significant atelectasis mostly in the left lower lobe, and there seems to be a left hemidiaphragm elevation. 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 At any rate patient had a chest tube placed by the ER physician, placed on antibiotics, bronchodilators, and admitted to the ICU. Upon my evaluation today, patient seems to be doing much better, breathing easier. Chest x-ray was reviewed, the right-sided pneumothorax has resolved. However there seems to be a significant left lower lobe atelectasis possible consolidation in the left lower lobe and left hemidiaphragm elevation which is also significant. Patient was placed already on antibiotics, bronchodilators, incentive spirometry, may or may not eventually need workup on his left hemidiaphragm to evaluate for paralysis. Clinically however the patient is noted to be improved. Presently the patient denies any cough, no wheezing, no fever, no chills, no hemoptysis, no chest pain. The patient is seen again today 10/26/2016 in follow-up on the selective care unit. He is awake and alert in no acute distress. Today's chest x-ray does show some retraction of the right-sided chest tube most likely still in the pleural space. There is no subcutaneous emphysema noted. Questionable possible side-port outside the pleural cavity. No sizable pneumothorax. There is a patchy left greater than right bibasilar atelectasis. He is maintaining O2 saturations in the 90s on 3 L/m per nasal cannula. The patient is seen again today 10/27/2016 in follow-up on the selective care unit. He is resting quite comfortably in bed. He denies any worsening shortness of breath, cough or congestion. His right-sided chest tube shows a tiny air leak. Thoracic services are on the case and may pull the tube later today. The chest x-ray does not show any appreciable pneumothorax. He does remain night left basilar opacity. He remains on ceftriaxone and azithromycin. He is afebrile. No leukocytosis. He is maintaining good O2 saturations in the mid 90s on 3 L/m per nasal cannula. The patient is seen again today 10/28/2016 in follow-up on the selective care unit. He is awake and alert in no acute distress. He is breathing is back to his baseline. His chest x-ray did not reveal any residual pneumothorax. His chest tube has been removed. He continues to maintain good O2 saturations in the mid to upper 90s on 3 L/m per nasal cannula. He is afebrile. No leukocytosis. Objective - Vital Signs Vital signs: Vital Signs Temp 98 F 10/28/16 12:00 Pulse 102 H 10/28/16 12:00 Resp 18 10/28/16 12:00 BP 116/82 10/28/16 12:00 Pulse Ox 95 10/28/16 12:00 Intake & Output 10/27/16 10/28/16 10/28/16 18:59 06:59 18:59 Intake Total 520 430 480 Output Total 100 Balance 420 430 480 Weight 101 kg 99 kg Intake: IV 240 200 Sodium Chloride 0.9% 1, 240 200 000 ml @ 20 mls/hr IV . Q24H [facility] Rx#:[id number] Oral 280 230 480 Output: Urine 100 Other: Voiding Method Urinal Urinal # Voids 3 2 1 # Bowel Movements 0 - Exam Physical Exam: Revealed an 81-year-old white male slightly cushingoid, in no form of respiratory distress. HEENT:[Neck is supple.] [No neck masses.] [No thyromegaly.] [No JVD.] Chest: [Diminished breath sounds, no rhonchi, no wheezes.] Cardiac Exam: [Irregular irregular rhythm Normal S1 and S2, no S3 gallop, 2/6 systolic murmur throughout the precordium] Abdomen: [Soft, nontender, no megaly, no rebound, no guarding, normal bowel sounds.] Extremities: [No clubbing, trace edema, no cyanosis.] Neurological Exam: [No focal neurologic deficit.] - Labs CBC & Chem 7: 10/28/16 06:11 10/28/16 06:11 Labs: Abnormal Lab Results - Last 24 Hours (Table) 07/11/17 07/11/17 07/12/17 Range/Units 17:17 20:32 05:50 RBC (4.30-5.90) m/uL Hgb (13.0-17.5) gm/dL Hct (39.0-53.0) % MCV (80.0-100.0) fL Plt Count (150-450) k/uL Lymphocytes # (1.0-4.8) k/uL Carbon Dioxide (22-30) mmol/L BUN (9-20) mg/dL Glucose (74-99) mg/dL POC Glucose (mg/dL) 212 H 211 H 142 H (75-99) mg/dL Total Protein (6.3-8.2) g/dL Albumin (3.5-5.0) g/dL 10/28/16 10/28/16 10/28/16 Range/Units 06:11 06:11 11:28 RBC 3.34 L (4.30-5.90) m/uL Hgb 10.8 L (13.0-17.5) gm/dL Hct 34.1 L (39.0-53.0) % MCV 101.9 H (80.0-100.0) fL Plt Count 111 L (150-450) k/uL Lymphocytes # 0.3 L (1.0-4.8) k/uL Carbon Dioxide 33 H (22-30) mmol/L BUN 53 H (9-20) mg/dL Glucose 140 H (74-99) mg/dL POC Glucose (mg/dL) 190 H (75-99) mg/dL Total Protein 6.2 L (6.3-8.2) g/dL Albumin 3.3 L (3.5-5.0) g/dL Microbiology - Last 24 Hours (Table) 10/24/16 11:48 Blood Culture - Preliminary Blood No Growth after 72 hours Assessment and Plan Plan: Impression: 1 acute on chronic hypoxic respiratory failure secondary to acute spontaneous pneumothorax, COPD exacerbation, left lower lobe atelectasis, strongly doubt underlying pneumonia. 2 status post right-sided tube thoracostomy, with complete resolution of the right-sided pneumothorax, chest tube removed. 3 chronic atrial fibrillation on beta blockers and on anticoagulation therapy. 4 essential hypertension 5 chronic systolic congestive heart failure 6 type 2 diabetes with diabetic neuropathy 7 history of hypercholesterolemia 8 history of chronic anemia, iron deficiency in nature, patient is on iron supplement. Recommendation: The patient was seen and evaluated by Dr. Lyon. The patient is cleared for discharge from the pulmonary standpoint. His CPAP machine was changed from 14 cm of water to auto pressures by Dr. Alarcon. He'll have a follow-up office visit in 1-2 weeks' time. We'll repeat a chest x-ray then. He is however encouraged to call sooner if any recurrence of symptoms or other questions or concerns.
== END 2016-10-28 16:33 | disposition home or self-care (01) | DRG 199 ==
LOC: EC 11:21 → 6ICU 14:36 → 6SEL 10-25 09:34
PROVIDERS: ADMIT Internal Medicine Geriatric Medicine; ATTEND Internal Medicine Geriatric Medicine
PROC: 0W9930Z Drainage of Right Pleural Cavity with Drainage Device, Percutaneous Approach (ICD-10-PCS; principal; 2016-10-24)
DX: J93.83 Other pneumothorax (principal); J96.21 Acute and chronic respiratory failure with hypoxia; I50.42 Chronic combined systolic (congestive) and diastolic (congestive) heart failure; I11.0 Hypertensive heart disease with heart failure; J44.1 Chronic obstructive pulmonary disease with (acute) exacerbation; J98.11 Atelectasis; E11.40 Type 2 diabetes mellitus with diabetic neuropathy, unspecified; D50.9 Iron deficiency anemia, unspecified; E78.00 Pure hypercholesterolemia, unspecified; E78.5 Hyperlipidemia, unspecified; G47.33 Obstructive sleep apnea (adult) (pediatric); Z96.651 Presence of right artificial knee joint; Z96.611 Presence of right artificial shoulder joint; I25.10 Atherosclerotic heart disease of native coronary artery without angina pectoris; I25.2 Old myocardial infarction; I48.2 Chronic atrial fibrillation; Z79.01 Long term (current) use of anticoagulants; Z79.4 Long term (current) use of insulin; Z79.82 Long term (current) use of aspirin; Z79.899 Other long term (current) drug therapy; Z80.0 Family history of malignant neoplasm of digestive organs; Z82.49 Family history of ischemic heart disease and other diseases of the circulatory system; Z83.3 Family history of diabetes mellitus; Z87.891 Personal history of nicotine dependence; Z89.429 Acquired absence of other toe(s), unspecified side; Z99.81 Dependence on supplemental oxygen
CPT/HCPCS: 32551; 36415; 71010; 71020; 80048; 80053; 82550; 82553; 83036; 83735; 83880; 84100; 84484; 85025; 85610; 85730; 87040; 93005; 94640; 94644; 94660; 94760; 96374; 96375; 99152; 99291

== ENCOUNTER 2016-11-26 09:42 | Inpatient (IN) | payer MEDICARE ==
[2016-11-26] MEDS ORDERED: IPRATROPIUM 0.5 MG/2.5 ML NEBU INHALATION STA (10:10)
[2016-11-26] MEDS ORDERED: FUROSEMIDE 10 MG/ML 4 ML VIAL IV STA ×2 (10:10→11:45)
--- NOTE | 2016-11-26 10:13 | ED ---
General Adult HPI - General Chief complaint: Shortness of Breath Stated complaint: LOW OXYGEN LEVEL Time Seen by Provider: 11/26/16 09:45 Source: patient, RN notes reviewed Mode of arrival: wheelchair Limitations: no limitations - History of Present Illness Initial comments: This is an 81-year-old male who presents emergency department with past medical history significant for COPD and congestive heart failure. Patient recently had a pneumothorax and was released from the hospital proximal one month ago. Patient states over the last 6-7 days he's been having more difficulty breathing especially with exertion. Patient states the edema in his legs and abdomen of gotten slightly worse according to his . Patient denies any recent fever chills or cough. Patient denies any chest pain or pain anywhere. Patient denies headache patient denies lightheadedness dizziness or near syncopal episode. Patient denies any abdominal pain. Patient denies nausea vomiting or diarrhea. - Related Data Home Medications Medication Instructions Recorded Confirmed Aspirin 81 mg PO DAILY 02/18/14 11/26/16 Gabapentin [Neurontin] 300 mg PO TID 02/18/14 11/26/16 cloNIDine HCL [Catapres] 0.1 mg PO DAILY PRN 02/18/14 11/26/16 INSULIN LISPRO (humaLOG) [humaLOG See Protocol SQ ACHS PRN 05/18/15 11/26/16 (formulary)] Ipratropium Nebulized [Atrovent 0.5 mg INHALATION RT-QID PRN 05/18/15 11/26/16 Nebulized] Levalbuterol Nebulized [Xopenex 1.25 mg INHALATION RT-QID PRN 05/18/15 11/26/16 Nebulized] Cholecalciferol [Vitamin D3] 1,000 unit PO DAILY 07/29/15 11/26/16 Ferrous Sulfate [Iron (65 MG 325 mg PO BID 07/29/15 11/26/16 Elemental)] Glucosamine Sulfate 500 mg PO DAILY 07/29/15 11/26/16 Multivitamins, Thera [Multivitamin 1 tab PO DAILY 07/29/15 11/26/16 (formulary)] Niacinamide [Niacin] 500 mg PO DAILY 07/29/15 11/26/16 [place]-3 Fatty Acids/Fish Oil [Fish 1 cap PO DAILY 07/29/15 11/26/16 Oil 1,000 mg Softgel] Atenolol [Tenormin] 100 mg PO BID 08/25/15 11/26/16 Acetaminophen/Diphenhydramine 1 tab PO HS PRN 06/30/16 11/26/16 [Tylenol PM 500-25mg] Furosemide [Lasix] 20 mg PO DAILY 10/24/16 11/26/16 Losartan [Cozaar] 25 mg PO DAILY 10/24/16 11/26/16 Pravastatin Sodium [Pravachol] 80 mg PO HS 10/24/16 11/26/16 Previous Rx's Medication Instructions Recorded Apixaban [Eliquis] 2.5 mg PO BID #0 09/06/15 HYDROcodone/APAP 5-325MG [Chualar 1 tab PO Q8HR PRN #90 tab 09/06/15 5-325] Budesonide-Formot 160-4.5 Mcg 2 puff INHALATION RT-BID #60 puff 10/28/16 [Symbicort 160-4.5 Mcg Inhaler] Insulin NPH Human Isophane 12 units SQ BID #0 10/28/16 [humuLIN N] Allergies Allergy/AdvReac Type Severity Reaction Status Date / Time celecoxib [From Celebrex] AdvReac "hard Verified 11/26/16 10:21 muscle" ibuprofen AdvReac "bloody Verified 11/26/16 10:21 urine" levofloxacin AdvReac Itching Verified 11/26/16 10:21 Review of Systems ROS Statement: Those systems with pertinent positive or pertinent negative responses have been documented in the HPI. ROS Other: All systems not noted in ROS Statement are negative. 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, diabetes mellitus, chronic atrial fibrillation, coronary artery disease, COPD, hyperlipidemia, hypertension, Last Myocardial Infarction Date:: 27 years ago History of Any Multi-Drug Resistant Organisms: None Reported Past Surgical History: Appendectomy, Back Surgery, Cholecystectomy, Orthopedic Surgery Additional Past Surgical History / Comment(s): pilonIDAL cyst, brain anuerysm 1 clipping, right knee replacement, right shoulder replacement, LT CATARACT, SKIN GRAFT FROM RT THIGH TO RT FINGER, RASHEED 10 years ago, PFO against ASD, last colonoscopy greater than 5 years, 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 Mother Family Medical History: Cancer, Myocardial Infarction ([place]) Additional Family Medical History / Comment(s): Mother at age 62 from rectal cancer. Brother(s) Additional Family Medical History / Comment(s): Patient had 3 brothers. One in a work related accident. One after having an AK with history of renal problems. Sister(s) Additional Family Medical History / Comment(s): Patient has 2 sisters. One is alive. One has after gallbladder ruptured. Patient has 3 boys and one girl with no major medical problems. General Exam - General Exam Comments Initial Comments: GENERAL: Patient is well-developed and well-nourished. Patient is nontoxic and well- hydrated and is in moderate distress. ENT: Neck is soft and supple. No significant lymphadenopathy is noted. Oropharynx is clear. Moist mucous membranes. Neck has full range of motion without eliciting any pain. EYES: The sclera were anicteric and conjunctiva were pink and moist. Extraocular movements were intact and pupils were equal round and reactive to light. Eyelids were unremarkable. PULMONARY: Decreased breath sounds bilaterally CARDIOVASCULAR: There is a regular rate and rhythm without any murmurs gallops or rubs. ABDOMEN: Soft and nontender with normal bowel sounds. No palpable organomegaly was noted. There is no palpable pulsatile mass. SKIN: Skin is clear with no lesions or rashes and otherwise unremarkable. NEUROLOGIC: Patient is alert and oriented x3. Cranial nerves II through XII are grossly intact. Motor and sensory are also intact. Normal speech, volume and content. Symmetrical smile. MUSCULOSKELETAL: Normal extremities with adequate strength and full range of motion. 2+ edema all the way up to the thigh. LYMPHATICS: No significant lymphadenopathy is noted PSYCHIATRIC: Normal psychiatric evaluation. Normal interpersonal interactions appears functionally intact in deals appropriately with others. No signs of depression. No signs of anxiety. Limitations: no limitations Course Vital Signs 11/26/16 11/26/16 11/26/16 09:43 10:24 10:31 Temperature 96.9 F L Pulse Rate 85 86 78 Respiratory 24 Rate Blood Pressure 143/68 O2 Sat by Pulse 95 Oximetry 11/26/16 11/26/16 10:33 12:09 Temperature Pulse Rate 78 83 Respiratory 20 18 Rate Blood Pressure 137/63 123/59 O2 Sat by Pulse 99 98 Oximetry Medical Decision Making - Medical Decision Making Patient's chest x-ray shows congestive heart failure. Patient was given Lasix in the emergency department. EKG shows atrial fibrillation at 82 bpm QRS is 166 QT intervals 412 QTC is 41. Patient's EKG shows a right bundle zofia block. Dr. Batista saw the patient in the emergency department. Patient was reevaluated I started the patient on BiPAP in the emergency department. Patient seemed much more comfortable on the BiPAP. - Lab Data Result diagrams: 11/26/16 10:23 11/26/16 10:23 Lab Results 11/26/16 11/26/16 11/26/16 Range/Units 10:23 10:23 10:23 WBC 4.7 (3.8-10.6) k/uL RBC 3.47 L (4.30-5.90) m/uL Hgb 11.0 L (13.0-17.5) gm/dL Hct 36.4 L (39.0-53.0) % MCV 104.9 H (80.0-100.0) fL MCH 31.9 (25.0-35.0) pg MCHC 30.4 L (31.0-37.0) g/dL RDW 15.7 H (11.5-15.5) % Plt Count 140 L (150-450) k/uL Neutrophils % 68 % Lymphocytes % 14 % Monocytes % 9 % Eosinophils % 5 % Basophils % 1 % Neutrophils # 3.2 (1.3-7.7) k/uL Lymphocytes # 0.7 L (1.0-4.8) k/uL Monocytes # 0.4 (0-1.0) k/uL Eosinophils # 0.2 (0-0.7) k/uL Basophils # 0.1 (0-0.2) k/uL Hypochromasia Marked Macrocytosis Moderate APTT (22.0-30.0) sec Sodium 147 H (137-145) mmol/L Potassium 4.4 (3.5-5.1) mmol/L Chloride 104 (98-107) mmol/L Carbon Dioxide 35 H (22-30) mmol/L Anion Gap 8 mmol/L BUN 30 H (9-20) mg/dL Creatinine 1.12 (0.66-1.25) mg/dL Est GFR (MDRD) Af Amer >60 (>60 ml/min/1.73 sqM) Est GFR (MDRD) Non-Af >60 (>60 ml/min/1.73 sqM) Glucose 66 L (74-99) mg/dL Calcium 8.8 (8.4-10.2) mg/dL Magnesium 2.1 (1.6-2.3) mg/dL Total Bilirubin 0.6 (0.2-1.3) mg/dL AST 35 (17-59) U/L ALT 28 (21-72) U/L Alkaline Phosphatase 126 (38-126) U/L Total Creatine Kinase 41 L (55-170) U/L CK-MB (CK-2) 2.1 (0.0-2.4) ng/mL CK-MB (CK-2) Rel Index 5.1 NT-Pro-B Natriuret Pep pg/mL Total Protein 6.5 (6.3-8.2) g/dL Albumin 3.6 (3.5-5.0) g/dL 11/26/16 11/26/16 Range/Units 10:23 10:23 WBC (3.8-10.6) k/uL RBC (4.30-5.90) m/uL Hgb (13.0-17.5) gm/dL Hct (39.0-53.0) % MCV (80.0-100.0) fL MCH (25.0-35.0) pg MCHC (31.0-37.0) g/dL RDW (11.5-15.5) % Plt Count (150-450) k/uL Neutrophils % % Lymphocytes % % Monocytes % % Eosinophils % % Basophils % % Neutrophils # (1.3-7.7) k/uL Lymphocytes # (1.0-4.8) k/uL Monocytes # (0-1.0) k/uL Eosinophils # (0-0.7) k/uL Basophils # (0-0.2) k/uL Hypochromasia Macrocytosis APTT 28.3 (22.0-30.0) sec Sodium (137-145) mmol/L Potassium (3.5-5.1) mmol/L Chloride (98-107) mmol/L Carbon Dioxide (22-30) mmol/L Anion Gap mmol/L BUN (9-20) mg/dL Creatinine (0.66-1.25) mg/dL Est GFR (MDRD) Af Amer (>60 ml/min/1.73 sqM) Est GFR (MDRD) Non-Af (>60 ml/min/1.73 sqM) Glucose (74-99) mg/dL Calcium (8.4-10.2) mg/dL Magnesium (1.6-2.3) mg/dL Total Bilirubin (0.2-1.3) mg/dL AST (17-59) U/L ALT (21-72) U/L Alkaline Phosphatase (38-126) U/L Total Creatine Kinase (55-170) U/L CK-MB (CK-2) (0.0-2.4) ng/mL CK-MB (CK-2) Rel Index NT-Pro-B Natriuret Pep 5970 pg/mL Total Protein (6.3-8.2) g/dL Albumin (3.5-5.0) g/dL Critical Care Time Critical Care Time: Yes Total Critical Care Time: 35 Disposition Clinical Impression: Acute pulmonary edema Disposition: ADMITTED IP TO THIS [facility] Time of Disposition: 12:04
[2016-11-26 10:46] LABS: Basophils # (A) 0.1 k/uL (0-0.2); Basophils % (A) 1 %; CH 30.7; CHCM 29.5; Eosinophils # (A) 0.2 k/uL (0-0.7); Eosinophils % (A) 5 %; HCT 36.4 % (39.0-53.0); HDW 3.25; Hypochromasia Marked; Luc # (Auto) 0.16; Luc % (Auto) 4; Lymphocytes # (A) 0.7 k/uL (1.0-4.8); Lymphocytes % (A) 14 %; MCH 31.9 pg (25.0-35.0); MCHC 30.4 g/dL (31.0-37.0); MCV 104.9 fL (80.0-100.0); Macrocytosis Moderate; Mean Platelet Volume 8.5; Monocytes # (A) 0.4 k/uL (0-1.0); Monocytes % (A) 9 %; Neutrophils # (A) 3.2 k/uL (1.3-7.7); Neutrophils % (A) 68 %; RBC 3.47 m/uL (4.30-5.90); RDW 15.7 % (11.5-15.5); WBC 4.7 k/uL (3.8-10.6)
[2016-11-26 10:54] LABS: ALT 28 U/L (21-72); AST 35 U/L (17-59); Alkaline Phosphatase 126 U/L (38-126); Anion Gap 8 mmol/L; Blood Urea Nitrogen 30 mg/dL (9-20); Calcium 8.8 mg/dL (8.4-10.2); Carbon Dioxide 35 mmol/L (22-30); Chloride 104 mmol/L (98-107); Glucose 66 mg/dL (74-99); Magnesium 2.1 mg/dL (1.6-2.3); Non-African American GFR(MDRD) >60 (>60 ml/min/1.73 sqM); Potassium 4.4 mmol/L (3.5-5.1); Sodium 147 mmol/L (137-145); Total Bilirubin 0.6 mg/dL (0.2-1.3); Total Protein 6.5 g/dL (6.3-8.2)
--- NOTE | 2016-11-26 11:05 | XR ---
EXAMINATION TYPE: XR chest 2V DATE OF EXAM: 11/26/2016 COMPARISON: Chest x-ray October 28, 2016 HISTORY: History of atrial fibrillation with shortness of breath. TECHNIQUE: Frontal and lateral views of the chest are obtained. FINDINGS: There is persistent cardiomegaly with bibasilar opacity felt to reflect moderate-sized katerin ateral pleural effusions and associated bibasilar compressive atelectasis. There is mild to moderate central vascular congestion. The osseous structures are demineralized. There is partial visualizatio n of surgical change in the right shoulder. IMPRESSION: Persistent CHF exacerbation as there is cardiomegaly with central vascular congestion an d moderate-sized bilateral pleural effusions all redemonstrated similar to prior.
[2016-11-26 11:14] LABS: Creatine Kinase MB 2.1 ng/mL (0.0-2.4)
[2016-11-26] MEDS ORDERED: ACETAMINOPHEN TAB 500 MG TAB PO PRN (11:32)
[2016-11-26] MEDS ORDERED: cloNIDine HCL 0.1 MG TAB PO PRN (11:32)
--- NOTE | 2016-11-26 12:43 | P.HPIM ---
History of Present Illness H&P Date: 11/26/16 Chief Complaint: acute diastolic heart failure with bilateral pleural effusion. This is an 81-year-old male one of my patient with history of advanced COPD with chronic hypoxic respiratory failureon home O2, hypertension and hypertensive cardio vascular disease with left ventricular hypertrophy, chronic atrial fibrillation on chronic anticoagulation therapy in the form of NOAC, hyperlipidemia, diabetes mellitus type 2 with diabetic neuropathy, PAD post left big toe amputation, chronic kidney disease stage II, obesity with obstructive sleep apnea currently on a CPAP, patient was seen in my office about a week ago on and he was complaining of increased shortness of breath associated with increased swelling both lower extremities at that time we have increased his Lasix to 40 mg orally twice every day Wednesday and Wednesday once a day the rest of the week, however the patient did not notice any improvement in the swelling and he started to get more short of breath and I received a call from the home care nurse yesterday stating that his oxygenation is dropping into the low 70s at that time instructed to double up his Lasix and increase his oxygen to 4 L nasal cannula and the patient continued to have extreme shortness of breath ended up going to the office today he was seen by the mid care provider, and his oxygen was quite low, she ended up sending the patient to the emergency department at [facility] he was found to have significant bilateral pleural effusion with cardiomegaly and pulmonary venous congestion, patient was given Lasix 80 mg IV push in the ER he was placed on a BiPAP, and he was started on oxygen 4 L nasal cannula, he would be admitted to the hospital for acute diastolic heart failure as well as acute COPD exacerbation, cardiology consultation as well as pulmonary consultation will be obtained. Patient was recently hospitalized at [facility] because of severe shortness of breath he was found to have a 20% right-sided pneumothorax for was he had a chest tube placement and removal and at the same time was treated for acute exacerbation of COPD along with chronic bronchitis and he was released home. Review of Systems Constitutional: Reports malaise, Reports weakness, Reports weight gain, Denies anorexia, Denies chronic headaches, Denies lethargy Eyes: denies blurred vision, denies bulging eye, denies decreased vision Ears: bilateral: decreased hearing Ears, nose, mouth and throat: Denies dysphagia, Denies neck lump, Denies sore throat, Denies vertigo Cardiovascular: Reports decreased exercise tolerance, Reports dyspnea on exertion, Reports high blood pressure, Reports irregular heart beat, Reports leg edema, Reports rapid heart beat, Reports shortness of breath, Denies chest pain, Denies syncope Respiratory: Reports congestion, Reports cough, Reports cough with sputum, Reports dyspnea, Reports home oxygen, Reports sleep apnea, Reports snoring, Reports wheezing Gastrointestinal: Reports nausea, Denies abdominal pain, Denies bloating, Denies BRBPR, Denies change in bowel habits, Denies coffee ground emesis, Denies heartburn, Denies melena, Denies vomiting Genitourinary: Reports nocturia, Denies dysuria, Denies polyuria Musculoskeletal: Reports gait dysfunction, Reports low back pain, Reports myalgias Musculoskeletal: bilateral: ankle swelling, foot pain, foot stiffness, foot swelling, absent: ankle pain, ankle stiffness, elbow pain, elbow stiffness, elbow swelling, hand pain, hand stiffness, hand swelling, hip pain, hip stiffness, hip swelling, knee pain, knee stiffness, knee swelling, shoulder pain , shoulder stiffness, shoulder swelling, wrist pain, wrist stiffness, wrist swelling Integumentary: Reports sores (left mccollum stage II ulcer [id number] cm.) Neurological: Reports burning pain, Reports gait dysfunction, Reports numbness, Reports paresthesias, Reports sensory deficit, Reports weakness Psychiatric: Denies anxiety, Denies depression Endocrine: Denies fatigue, Denies weight change 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, diabetes mellitus, chronic atrial fibrillation, coronary artery disease, COPD, hyperlipidemia, hypertension, Last Myocardial Infarction Date:: 27 years ago History of Any Multi-Drug Resistant Organisms: None Reported Past Surgical History: Appendectomy, Back Surgery, Cholecystectomy, Orthopedic Surgery Additional Past Surgical History / Comment(s): pilonIDAL cyst, brain anuerysm 1 clipping, right knee replacement, right shoulder replacement, LT CATARACT, SKIN GRAFT FROM RT THIGH TO RT FINGER, RASHEED 10 years ago, PFO against ASD, last colonoscopy greater than 5 years, left great toe amputation july 2015, PICC line placement and removal for Pseudomonas bacteremia, PICC line placement for osteomyelitis Past Anesthesia/Blood Transfusion Reactions: No Reported Reaction Past Psychological History: No Psychological Hx Reported Smoking Status: Former smoker - Past Family History Father Family Medical History: Diabetes Mellitus, Myocardial Infarction ([place]) Additional Family Medical History / Comment(s): Father at age 55 with history of diabetes and alcoholism. Mother Family Medical History: Cancer, Myocardial Infarction ([place]) Additional Family Medical History / Comment(s): Mother at age 62 from rectal cancer. Brother(s) Additional Family Medical History / Comment(s): Patient had 3 brothers. One in a work related accident. One after having an [place] with history of renal problems. Sister(s) Additional Family Medical History / Comment(s): Patient has 2 sisters. One is alive. One has after gallbladder ruptured. Patient has 3 boys and one girl with no major medical problems. Medications and Allergies Home Medications Medication Instructions Recorded Confirmed Type Aspirin 81 mg PO DAILY 02/18/14 11/26/16 History Gabapentin [Neurontin] 300 mg PO TID 02/18/14 11/26/16 History cloNIDine HCL [Catapres] 0.1 mg PO DAILY PRN 02/18/14 11/26/16 History INSULIN LISPRO (humaLOG) [humaLOG See Protocol SQ ACHS PRN 05/18/15 11/26/16 History (formulary)] Ipratropium Nebulized [Atrovent 0.5 mg INHALATION RT-QID PRN 05/18/15 11/26/16 History Nebulized] Levalbuterol Nebulized [Xopenex 1.25 mg INHALATION RT-QID PRN 05/18/15 11/26/16 History Nebulized] Cholecalciferol [Vitamin D3] 1,000 unit PO DAILY 07/29/15 11/26/16 History Ferrous Sulfate [Iron (65 MG 325 mg PO BID 07/29/15 11/26/16 History Elemental)] Glucosamine Sulfate 500 mg PO DAILY 07/29/15 11/26/16 History Multivitamins, Thera [Multivitamin 1 tab PO DAILY 07/29/15 11/26/16 History (formulary)] Niacinamide [Niacin] 500 mg PO DAILY 07/29/15 11/26/16 History [place]-3 Fatty Acids/Fish Oil [Fish 1 cap PO DAILY 07/29/15 11/26/16 History Oil 1,000 mg Softgel] Atenolol [Tenormin] 100 mg PO BID 08/25/15 11/26/16 History Acetaminophen/Diphenhydramine 1 tab PO HS PRN 06/30/16 11/26/16 History [Tylenol PM 500-25mg] Furosemide [Lasix] 20 mg PO DAILY 10/24/16 11/26/16 History Losartan [Cozaar] 25 mg PO DAILY 10/24/16 11/26/16 History Pravastatin Sodium [Pravachol] 80 mg PO HS 10/24/16 11/26/16 History Allergies Allergy/AdvReac Type Severity Reaction Status Date / Time celecoxib [From Celebrex] AdvReac "hard Verified 11/26/16 10:21 muscle" ibuprofen AdvReac "bloody Verified 11/26/16 10:21 urine" levofloxacin AdvReac Itching Verified 11/26/16 10:21 Physical Exam Vitals: Vital Signs Temp Pulse Resp BP Pulse Ox 11/26/16 10:33 78 20 137/63 99 11/26/16 10:31 78 11/26/16 10:24 86 11/26/16 09:43 96.9 F L 85 24 143/68 95 Intake and Output 11/25/16 11/26/16 11/26/16 22:59 06:59 14:59 Other: Weight 108.862 kg Patient Weight 11/27/16 06:59 Weight 108.862 kg - Constitutional General appearance: mild distress, obese - EENT Eyes: anicteric sclerae, EOMI, PERRLA, no ptosis, no scleral icterus, normal appearance ENT: hard of hearing, NA/AT, normal oropharynx, no thrush Ears: bilateral: normal - Neck Neck: no lymphadenopathy, normal ROM, no rigidity, no stridor, no thyromegaly Carotids: bilateral: upstroke delayed Thyroid: bilateral: normal size - Respiratory Respiratory: bilateral: diminished, dullness, rales, wheezing, prolonged expiration, negative: rhonchi - Cardiovascular Rhythm: irregularly irregular Heart sounds: normal: S1, S2 Abnormal Heart Sounds: systolic murmur, no rub, no click - Gastrointestinal General gastrointestinal: normal bowel sounds, soft, no splenomegaly, no tenderness, no umbilical hernia, no ventral hernia - Integumentary Integumentary: normal, normal turgor - Neurologic Neurologic: CNII-XII intact, focal deficits (bilateral lower extremity weakness. ) - Musculoskeletal Musculoskeletal: no gait normal, generalized weakness - Psychiatric Psychiatric: A&O x's 3, appropriate affect, intact judgment & insight Results CBC & Chem 7: 11/26/16 10:23 11/26/16 10:23 Labs: Abnormal Lab Results - Last 24 Hours (Table) 11/26/16 11/26/16 11/26/16 Range/Units 10:23 10:23 10:23 RBC 3.47 L (4.30-5.90) m/uL Hgb 11.0 L (13.0-17.5) gm/dL Hct 36.4 L (39.0-53.0) % MCV 104.9 H (80.0-100.0) fL MCHC 30.4 L (31.0-37.0) g/dL RDW 15.7 H (11.5-15.5) % Plt Count 140 L (150-450) k/uL Lymphocytes # 0.7 L (1.0-4.8) k/uL Sodium 147 H (137-145) mmol/L Carbon Dioxide 35 H (22-30) mmol/L BUN 30 H (9-20) mg/dL Glucose 66 L (74-99) mg/dL Total Creatine Kinase 41 L (55-170) U/L Thrombosis Risk Factor Assmnt - DVT/VTE Prophylaxis DVT/VTE Prophylaxis: Pharmacologic Prophylaxis ordered, Mechanical Prophylaxis ordered Assessment and Plan Plan: Assessment and plan: 1. Acute hypoxemic respiratory failure due to acute diastolic heart failure with bilateral perfusion as well as acute exacerbation of COPD. Lasix 80 mg IV push every 12 hours, Xopenex 1.25 mg and 1 unit dose of Atrovent 4 times a day, oxygen 4 L cannula, BiPAP and keep oxygen saturation greater than or equal to 92 -93% all the time, Solu-Medrol 60 mg IV push every 8 hours, pulmonary consultation Dr. Alarcon, cardiology consultation, echocardiogram for evaluation of LV function. 2. Bilateral pleural effusion due to diastolic heart failure. Check LV function with echocardiogram continue IV diuretics, hopefully no need for thoracentesis. 3. Recent right-sided pneumothorax post chest tube placement and removal. Resolved. No evidence of any Pneumovax and a chest x-ray. 4. Hypertension and hypertensive cardiovascular disease. Continue patient on losartan 25 mg orally once every day, atenolol 100 mg orally twice every day. 5. Chronic atrial fibrillation. Continue Eliquis 2.5 mg orally twice every day , atenolol 100 mg orally twice every day. 6. Hyperlipemia. Continue low-cholesterol diet as well as pravastatin 80 mg at bedtime. 7. Diabetes mellitus type 2. Continue Humalin and as well as Humalog, monitor blood glucose before each meal and at bedtime. 8. Left mccollum ulcer stage II. Continue Medihoney 3 times a week. 9. Chronic venous stasis with stasis dermatitis. Stable at this time. 10. Bilateral lower extremity neuropathy. Continue gabapentin 300 mg orally twice every day. 11. PAD post left big toe amputation. 12. Moderate to severe COPD continue treatment as in paragraph #1, continue oxygen support. 13. Obesity with obstructive sleep apnea. Continue patient on CPAP. 14. Chronic kidney disease stage II. Stable at this time. 15. Anemia of chronic renal disease. Continue iron 325 mg orally twice every day. 16. DVT prophylaxis. Continue Eliquis 2.5 mg orally twice every day. 17. GI prophylaxis. Continue patient on Protonix 40 mg IV push every 24 hours. 18. Full code. 19. Admit to inpatient. Estimate a length of stay 2 midnights.
[2016-11-26 13:19] LABS: INR 1.3 (<1.2)
[2016-11-26] MEDS: INSULIN LISPRO (humaLOG) 300 UNIT/3 ML VIAL SQ SCH ×3 (14:26→20:43)
[2016-11-26] MEDS: IPRATROPIUM 0.5 MG/2.5 ML NEBU INHALATION PRN ×2 (15:53→19:49)
[2016-11-26] MEDS: LEVALBUTEROL NEB (CONC) 1.25 MG/0.5 ML AMP INHALATION PRN ×2 (15:53→19:49)
[2016-11-26 16:41] LABS: Glucose,Whole Blood 89 mg/dL (75-99)
[2016-11-26] MEDS: methylPREDNISolone SOD SUCCI 125 MG/2 ML VIAL IV SCH (17:22)
[2016-11-26] MEDS: GABAPENTIN 300 MG CAP PO SCH ×2 (17:22→20:36)
[2016-11-26] MEDS: SYMBICORT 160-4.5 MCG INHALER INHALATION SCH (19:48)
[2016-11-26] MEDS: FERROUS SULFATE 325 MG TAB PO SCH (20:36)
[2016-11-26] MEDS: ATENOLOL 50 MG TAB PO SCH (20:36)
[2016-11-26] MEDS: APIXABAN 2.5 MG TABLET PO SCH (20:36)
[2016-11-26] MEDS: PRAVASTATIN SODIUM 80 MG TAB PO SCH (20:36)
[2016-11-26] MEDS: FUROSEMIDE 10 MG/ML 10 ML VIAL IV SCH (20:42)
[2016-11-26] MEDS: INSULIN NPH 300 UNIT/3 ML VIAL SQ SCH (20:44)
[2016-11-26] MEDS ORDERED: diphenhydrAMINE 25 MG CAP PO PRN (21:00)
[2016-11-26 21:11] LABS: Glucose,Whole Blood 151 mg/dL (75-99)
[2016-11-27] MEDS: methylPREDNISolone SOD SUCCI 125 MG/2 ML VIAL IV SCH ×3 (00:11→20:44)
[2016-11-27 06:31] LABS: Glucose,Whole Blood 146 mg/dL (75-99)
[2016-11-27 06:39] LABS: Basophils % (A) 1 %; CH 30.9; CHCM 29.6; Eosinophils % (A) 0 %; HCT 33.8 % (39.0-53.0); HDW 3.14; HGB 10.2 gm/dL (13.0-17.5); Hypochromasia Marked; Luc # (Auto) 0.02; Luc % (Auto) 1; Lymphocytes # (A) 0.3 k/uL (1.0-4.8); Lymphocytes % (A) 12 %; MCH 31.8 pg (25.0-35.0); MCHC 30.1 g/dL (31.0-37.0); MCV 105.4 fL (80.0-100.0); Macrocytosis Moderate; Mean Platelet Volume 9.4; Monocytes # (A) 0.1 k/uL (0-1.0); Monocytes % (A) 3 %; Neutrophils # (A) 1.9 k/uL (1.3-7.7); Neutrophils % (A) 84 %; RBC 3.21 m/uL (4.30-5.90); RDW 15.6 % (11.5-15.5); WBC 2.3 k/uL (3.8-10.6); WBC (Perox) 2.33
[2016-11-27] MEDS: INSULIN LISPRO (humaLOG) 300 UNIT/3 ML VIAL SQ SCH ×4 (06:47→20:55)
[2016-11-27 07:04] LABS: ALT 29 U/L (21-72); AST 26 U/L (17-59); Alkaline Phosphatase 115 U/L (38-126); Anion Gap 9 mmol/L; Blood Urea Nitrogen 31 mg/dL (9-20); Calcium 8.6 mg/dL (8.4-10.2); Carbon Dioxide 35 mmol/L (22-30); Chloride 100 mmol/L (98-107); Glucose 150 mg/dL (74-99); Magnesium 1.9 mg/dL (1.6-2.3); Non-African American GFR(MDRD) >60 (>60 ml/min/1.73 sqM); Potassium 4.2 mmol/L (3.5-5.1); Sodium 144 mmol/L (137-145); Total Bilirubin 0.6 mg/dL (0.2-1.3); Total Protein 5.6 g/dL (6.3-8.2)
[2016-11-27] MEDS: LEVALBUTEROL NEB (CONC) 1.25 MG/0.5 ML AMP INHALATION PRN (08:17)
[2016-11-27] MEDS: SYMBICORT 160-4.5 MCG INHALER INHALATION SCH ×2 (08:18→20:12)
[2016-11-27] MEDS: IPRATROPIUM 0.5 MG/2.5 ML NEBU INHALATION PRN (08:18)
[2016-11-27] MEDS ORDERED: NON-FORMULARY DRUG (Omega-3 Fatty Acids/Fish Oil [Fish Oil 1,000 Mg Softgel] 1 CAP) PO SCH (09:00)
[2016-11-27] MEDS: FUROSEMIDE 10 MG/ML 10 ML VIAL IV SCH ×2 (09:15→20:44)
[2016-11-27] MEDS: PANTOPRAZOLE 40 MG/10 ML VIAL IVP SCH (09:15)
[2016-11-27] MEDS: FERROUS SULFATE 325 MG TAB PO SCH ×2 (09:16→20:44)
[2016-11-27] MEDS: CHOLECALCIFEROL 1,000 UNIT TAB PO SCH (09:16)
[2016-11-27] MEDS: ATENOLOL 50 MG TAB PO SCH ×2 (09:16→20:43)
[2016-11-27] MEDS: NIACIN TR 500 MG CAPSULE.ER PO SCH (09:16)
[2016-11-27] MEDS: LOSARTAN 25 MG TAB PO SCH (09:16)
[2016-11-27] MEDS: MULTIVITAMINS, THERA 1 EACH TAB PO SCH (09:16)
[2016-11-27] MEDS: GABAPENTIN 300 MG CAP PO SCH ×3 (09:16→20:45)
[2016-11-27] MEDS: ASPIRIN 81 MG CHEW PO SCH (09:16)
[2016-11-27] MEDS: APIXABAN 2.5 MG TABLET PO SCH ×2 (09:16→20:43)
--- NOTE | 2016-11-27 11:31 | P.PN ---
Subjective This is an 81-year-old male one of my patient with history of advanced COPD with chronic hypoxic respiratory failureon home O2, hypertension and hypertensive cardio vascular disease with left ventricular hypertrophy, chronic atrial fibrillation on chronic anticoagulation therapy in the form of NOAC, hyperlipidemia, diabetes mellitus type 2 with diabetic neuropathy, PAD post left big toe amputation, chronic kidney disease stage II, obesity with obstructive sleep apnea currently on a CPAP, patient was seen in my office about a week ago on and he was complaining of increased shortness of breath associated with increased swelling both lower extremities at that time we have increased his Lasix to 40 mg orally twice every day Wednesday and Wednesday once a day the rest of the week, however the patient did not notice any improvement in the swelling and he started to get more short of breath and I received a call from the home care nurse yesterday stating that his oxygenation is dropping into the low 70s at that time instructed to double up his Lasix and increase his oxygen to 4 L nasal cannula and the patient continued to have extreme shortness of breath ended up going to the office today he was seen by the mid care provider, and his oxygen was quite low, she ended up sending the patient to the emergency department at [facility] he was found to have significant bilateral pleural effusion with cardiomegaly and pulmonary venous congestion, patient was given Lasix 80 mg IV push in the ER he was placed on a BiPAP, and he was started on oxygen 4 L nasal cannula, he would be admitted to the hospital for acute diastolic heart failure as well as acute COPD exacerbation, cardiology consultation as well as pulmonary consultation will be obtained. Patient was recently hospitalized at [facility] because of severe shortness of breath he was found to have a 20% right-sided pneumothorax for was he had a chest tube placement and removal and at the same time was treated for acute exacerbation of COPD along with chronic bronchitis and he was released home. 11/27: Patient's lung sounds are improved from yesterday. Solu-Medrol will be decreased to 60 mg every 12 hours. He will be continued on Lasix 80 mg twice daily. Patient was on BiPAP during the night with improvement of his breathing. Requesting a lactose-free diet which will be changed. He states he did have 2 bowel movements after none for 4 days. During the lower extremity cellulitis, Silvadene wraps will be added and continue medihoney to the left pretibial wound. Objective - Vital Signs Vital signs: Vital Signs Temp 97.5 F L 11/27/16 08:00 Pulse 96 11/27/16 08:30 Resp 16 11/27/16 08:00 BP 113/61 11/27/16 08:00 Pulse Ox 96 11/27/16 08:00 Intake & Output 11/26/16 11/27/16 11/27/16 18:59 06:59 18:59 Intake Total 360 Output Total 650 Balance -290 Weight 108.862 kg 107.1 kg Intake: Oral 360 Output: Urine 650 Other: Voiding Method Diaper # Voids 1 - Exam General appearance: mild distress, obese - EENT Eyes: anicteric sclerae, EOMI, PERRLA, no ptosis, no scleral icterus, normal appearance ENT: hard of hearing, NA/AT, normal oropharynx, no thrush Ears: bilateral: normal - Neck Neck: no lymphadenopathy, normal ROM, no rigidity, no stridor, no thyromegaly Carotids: bilateral: upstroke delayed Thyroid: bilateral: normal size - Respiratory Respiratory: bilateral: diminished, dullness, rales, wheezing, prolonged expiration, negative: rhonchi - Cardiovascular Rhythm: irregularly irregular Heart sounds: normal: S1, S2 Abnormal Heart Sounds: systolic murmur, no rub, no click - Gastrointestinal General gastrointestinal: normal bowel sounds, soft, no splenomegaly, no tenderness, no umbilical hernia, no ventral hernia - Integumentary Integumentary: normal, normal turgor - Neurologic Neurologic: CNII-XII intact, focal deficits (bilateral lower extremity weakness. ) - Musculoskeletal Musculoskeletal: no gait normal, generalized weakness - Psychiatric Psychiatric: A&O x's 3, appropriate affect, intact judgment & insight - Labs CBC & Chem 7: 11/27/16 06:17 11/27/16 06:17 Labs: Abnormal Lab Results - Last 24 Hours (Table) 11/26/16 11/26/16 11/26/16 Range/Units 10:23 10:23 10:23 WBC (3.8-10.6) k/uL RBC 3.47 L (4.30-5.90) m/uL Hgb 11.0 L (13.0-17.5) gm/dL Hct 36.4 L (39.0-53.0) % MCV 104.9 H (80.0-100.0) fL MCHC 30.4 L (31.0-37.0) g/dL RDW 15.7 H (11.5-15.5) % Plt Count 140 L (150-450) k/uL Lymphocytes # 0.7 L (1.0-4.8) k/uL PT (9.0-12.0) sec INR (<1.2) Sodium 147 H (137-145) mmol/L Carbon Dioxide 35 H (22-30) mmol/L BUN 30 H (9-20) mg/dL Glucose 66 L (74-99) mg/dL POC Glucose (mg/dL) (75-99) mg/dL Total Creatine Kinase 41 L (55-170) U/L Total Protein (6.3-8.2) g/dL Albumin (3.5-5.0) g/dL 11/26/16 11/26/16 11/27/16 Range/Units 10:23 20:28 06:17 WBC 2.3 L (3.8-10.6) k/uL RBC 3.21 L (4.30-5.90) m/uL Hgb 10.2 L (13.0-17.5) gm/dL Hct 33.8 L (39.0-53.0) % MCV 105.4 H (80.0-100.0) fL MCHC 30.1 L (31.0-37.0) g/dL RDW 15.6 H (11.5-15.5) % Plt Count 111 L (150-450) k/uL Lymphocytes # 0.3 L (1.0-4.8) k/uL PT 13.0 H (9.0-12.0) sec INR 1.3 H (<1.2) Sodium (137-145) mmol/L Carbon Dioxide (22-30) mmol/L BUN (9-20) mg/dL Glucose (74-99) mg/dL POC Glucose (mg/dL) 151 H (75-99) mg/dL Total Creatine Kinase (55-170) U/L Total Protein (6.3-8.2) g/dL Albumin (3.5-5.0) g/dL 11/27/16 11/27/16 Range/Units 06:17 06:27 WBC (3.8-10.6) k/uL RBC (4.30-5.90) m/uL Hgb (13.0-17.5) gm/dL Hct (39.0-53.0) % MCV (80.0-100.0) fL MCHC (31.0-37.0) g/dL RDW (11.5-15.5) % Plt Count (150-450) k/uL Lymphocytes # (1.0-4.8) k/uL PT (9.0-12.0) sec INR (<1.2) Sodium (137-145) mmol/L Carbon Dioxide 35 H (22-30) mmol/L BUN 31 H (9-20) mg/dL Glucose 150 H (74-99) mg/dL POC Glucose (mg/dL) 146 H (75-99) mg/dL Total Creatine Kinase (55-170) U/L Total Protein 5.6 L (6.3-8.2) g/dL Albumin 3.2 L (3.5-5.0) g/dL Assessment and Plan Plan: 1. Acute on chronic hypoxemic respiratory failure due to acute diastolic heart failure with bilateral effusion as well as acute exacerbation of COPD. Lasix 80 mg IV push every 12 hours, Xopenex 1.25 mg and 1 unit dose of Atrovent 4 times a day, oxygen 4 L cannula, BiPAP and keep oxygen saturation greater than or equal to 92-93% all the time, Solu-Medrol 60 mg IV push every 8 hours, pulmonary consultation Dr. Alarcon, cardiology consultation, echocardiogram for evaluation of LV function. 2. Bilateral pleural effusion due to diastolic heart failure. Check LV function with echocardiogram continue IV diuretics, hopefully no need for thoracentesis. 3. Recent right-sided pneumothorax post chest tube placement and removal. Resolved. No evidence of any Pneumovax and a chest x-ray. 4. Hypertension and hypertensive cardiovascular disease. Continue patient on losartan 25 mg orally once every day, atenolol 100 mg orally twice every day. 5. Chronic atrial fibrillation. Continue Eliquis 2.5 mg orally twice every day , atenolol 100 mg orally twice every day. 6. Hyperlipemia. Continue low-cholesterol diet as well as pravastatin 80 mg at bedtime. 7. Diabetes mellitus type 2. Continue Humalin and as well as Humalog, monitor blood glucose before each meal and at bedtime. 8. Left mccollum ulcer stage II. Continue Medihoney 3 times a week and silvadene wraps, elevation. 9. Chronic venous stasis with stasis dermatitis. Stable at this time. 10. Bilateral lower extremity neuropathy. Continue gabapentin 300 mg orally twice every day. 11. PAD post left big toe amputation. 12. Moderate to severe COPD continue treatment as in paragraph #1, continue oxygen support. 13. Obesity with obstructive sleep apnea. Continue patient on CPAP. 14. Chronic kidney disease stage II. Stable at this time. 15. Anemia of chronic renal disease. Continue iron 325 mg orally twice every day. 16. DVT prophylaxis. Continue Eliquis 2.5 mg orally twice every day. 17. GI prophylaxis. Continue patient on Protonix 40 mg IV push every 24 hours. 18. Full code. 19. Admit to inpatient. Estimate a length of stay 2 midnights. Discharge plan: subacute rehab, PT, social work following Impression and plan of care have been directed as dictated by the signing physician. Malu Cordova nurse practitioner acting as scribe for signing physician.
--- NOTE | 2016-11-27 11:39 | ECHOF ---
Referral Reason:CHF MEASUREMENTS -------- HEIGHT: 172.7 cm WEIGHT: 108.9 kg BP: 123/59 RVIDd: 3.7 cm (< 3.3) IVSd: 1.7 cm (0.6 - 1.1) LVIDd: 3.5 cm (3.9 - 5.3) LVPWd: 1.2 cm (0.6 - 1.1) IVSs: 2.0 cm LVIDs: 3.2 cm LVPWs: 1.3 cm LA Diam: 5.2 cm (2.7 - 3.8) LAESV Index (A-L): 66.51 ml/m Ao Diam: 3.9 cm (2.0 - 3.7) AV Cusp: 1.6 cm (1.5 - 2.6) LA Diam: 5.0 cm (2.7 - 3.8) MV EXCURSION: 18.547 mm (> 18.000) MV EF SLOPE: 95 mm/s (70 - 150) EPSS: 0.1 cm MV E Toribio: 1.12 m/s MV DecT: 151 ms MV A Toribio: 0.23 m/s MV E/A Ratio: 4.85 AV maxP.22 mmHg AV meanP.22 mmHg RAP: 15.00 mmHg RVSP: 82.24 mmHg FINDINGS -------- Undetermined rhythm. This was a technically adequate study. There is mild concentric left ventricular hypertrophy. Overall left ventricular systolic function is mildly impaired with, an EF between 45 - 50 %. The right ventricle is severely enlarged. The right ventricular septal wall is flattened in diastole and systole which is consistent with right ventricular volume and pressure overload. LA is severely dilated >40 ml/m2 The right atrial size is normal. There is mild aortic stenosis present. Peak/mean gradient across the Aortic Valve is 11.22mmHg / 5.22mmHg. Mild mitral annular calcification present. Mild mitral regurgitation is present. Moderate tricuspid regurgitation present. There is moderate to severe pulmonary hypertension. The right ventricular systolic pressure, as measured by Doppler, is 82.24mmHg. Trace/mild (physiologic) pulmonic regurgitation. Moderate Pleural Effusion. CONCLUSIONS -------- 1. There is mild concentric left ventricular hypertrophy. 2. Moderate tricuspid regurgitation present. 3. There is moderate to severe pulmonary hypertension. 4. The right ventricular systolic pressure, as measured by Doppler, is 82.24mmHg. 5. Trace/mild (physiologic) pulmonic regurgitation. 6. Moderate Pleural Effusion. 7. Overall left ventricular systolic function is mildly impaired with, an EF between 45 - 50 %. 8. The right ventricle is severely enlarged. 9. The right ventricular septal wall is flattened in diastole and systole which is consistent with right ventricular volume and pressure overload. 10. LA is severely dilated >40 ml/m2 11. There is mild aortic stenosis present. 12. Peak/mean gradient across the Aortic Valve is 11.22mmHg / 5.22mmHg. 13. Mild mitral annular calcification present. 14. Mild mitral regurgitation is present. [employer] MACHINIST 2ND SHIFT: Delilah Maciel RDCS
[2016-11-27] MEDS: LEVALBUTEROL NEB (CONC) 1.25 MG/0.5 ML AMP INHALATION SCH ×3 (11:52→20:12)
[2016-11-27] MEDS: IPRATROPIUM 0.5 MG/2.5 ML NEBU INHALATION SCH ×3 (11:52→20:12)
[2016-11-27 12:19] VITALS: BMI 35.9
[2016-11-27 12:27] LABS: Glucose,Whole Blood 239 mg/dL (75-99)
[2016-11-27] MEDS: INSULIN NPH 300 UNIT/3 ML VIAL SQ SCH ×2 (12:32→20:51)
--- NOTE | 2016-11-27 13:53 | P.CNPUL ---
History of Present Illness Consult date: 11/27/16 Reason for consult: dyspnea, COPD, pleural effusion History of present illness: 81-year-old male patient with advanced oxygen-dependent COPD, who was recently in the hospital for right-sided pneumothorax for which she required a chest tube insertion and he achieved successful expansion of the right lung. Following his discharge, the patient started developing progressive swelling in his lower extremity and progressive dyspnea. He was compliant his medication. He was having exertional dyspnea and orthopnea and paroxysmal nocturnal dyspnea. Legs were extensively swollen time of admission. He was taken Lasix 40 mg by mouth twice a day 3 times a week and he did not see any significant improvement. Based on that he decided to come into the hospital. The patient was noted at home to have significant hypoxemia with a pulse ox of 70% while being on oxygen at 4 L/m nasal cannula. He denied having any chest pain. No angina. No pleurisy. No hemoptysis. Chest x-ray shows small lung volumes. There is significant bilateral pleural effusion. ProBNP level was slightly elevated. Cardiac enzymes were negative. No previous history of DVT or pulmonary embolism. No change in mental status. No palpitations or arrhythmias. Echocardiogram from last year showed preserved LV function without any significant pulmonary hypertension or valvular disruption. A follow -up echocardiogram was ordered and a cardiology consultation was also requested. Meanwhile, the patient is put juicing adequate amount of urine output while being on Lasix 80 mg IV push every 12 hours. His renal function shows a creatinine of 1.1. Rest of the electrodes are within normal and the patient has a mild component of metabolic alkalosis secondary to chronic hypercapnic respiratory failure. Review of Systems Constitutional: Reports daytime sleepiness, Reports poor appetite, Reports weight gain Eyes: denies blurred vision, denies bulging eye, denies decreased vision Ears: deny: decreased hearing, ear discharge, earache, tinnitus Ears, nose, mouth and throat: Denies headache, Denies sore throat Cardiovascular: Reports decreased exercise tolerance, Reports edema, Reports leg edema, Reports orthopnea, Reports paroxysmal nocturnal dyspnea, Reports shortness of breath Respiratory: Reports dyspnea, Reports sleep apnea Gastrointestinal: Denies abdominal pain, Denies diarrhea, Denies nausea, Denies vomiting Genitourinary: Reports as per HPI Musculoskeletal: Reports low back pain, Denies myalgias Musculoskeletal: bilateral: ankle swelling, absent: ankle pain, ankle stiffness Integumentary: Reports sores Neurological: Denies numbness, Denies weakness Psychiatric: Denies anxiety, Denies depression Endocrine: Denies fatigue, Denies weight change 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, diabetes mellitus, chronic atrial fibrillation, coronary artery disease, COPD, hyperlipidemia, hypertension, recent hospitalization in October 2016 for a right-sided pneumothorax requiring chest tube insertion, left lower extremity wound/stasis ulcers Last Myocardial Infarction Date:: 27 years ago History of Any Multi-Drug Resistant Organisms: None Reported Past Surgical History: Appendectomy, Back Surgery, Cholecystectomy, Orthopedic Surgery Additional Past Surgical History / Comment(s): pilonidal cyst, brain anuerysm 1 clipping, right knee replacement, right shoulder replacement, LT CATARACT, SKIN GRAFT FROM RT THIGH TO RT FINGER, RASHEED 10 years ago, PFO against ASD, last colonoscopy greater than 5 years, 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 Past Anesthesia/Blood Transfusion Reactions: No Reported Reaction Smoking Status: Former smoker - Past Family History Father Family Medical History: Diabetes Mellitus, Myocardial Infarction (LA) Additional Family Medical History / Comment(s): Father at age 55 with history of diabetes and alcoholism. Mother Family Medical History: Cancer, Myocardial Infarction (LA) Additional Family Medical History / Comment(s): Mother at age 62 from rectal cancer. Brother(s) Additional Family Medical History / Comment(s): Patient had 3 brothers. One in a work related accident. One after having an LA with history of renal problems. Sister(s) Additional Family Medical History / Comment(s): Patient has 2 sisters. One is alive. One has after gallbladder ruptured. Patient has 3 boys and one girl with no major medical problems. Medications and Allergies Home Medications Medication Instructions Recorded Confirmed Type Aspirin 81 mg PO DAILY 02/18/14 11/26/16 History Gabapentin [Neurontin] 300 mg PO TID 02/18/14 11/26/16 History cloNIDine HCL [Catapres] 0.1 mg PO DAILY PRN 02/18/14 11/26/16 History INSULIN LISPRO (humaLOG) [humaLOG See Protocol SQ ACHS PRN 05/18/15 11/26/16 History (formulary)] Ipratropium Nebulized [Atrovent 0.5 mg INHALATION RT-QID PRN 05/18/15 11/26/16 History Nebulized] Levalbuterol Nebulized [Xopenex 1.25 mg INHALATION RT-QID PRN 05/18/15 11/26/16 History Nebulized] Cholecalciferol [Vitamin D3] 1,000 unit PO DAILY 07/29/15 11/26/16 History Ferrous Sulfate [Iron (65 MG 325 mg PO BID 07/29/15 11/26/16 History Elemental)] Glucosamine Sulfate 500 mg PO DAILY 07/29/15 11/26/16 History Multivitamins, Thera [Multivitamin 1 tab PO DAILY 07/29/15 11/26/16 History (formulary)] Niacinamide [Niacin] 500 mg PO DAILY 07/29/15 11/26/16 History Canadian-3 Fatty Acids/Fish Oil [Fish 1 cap PO DAILY 07/29/15 11/26/16 History Oil 1,000 mg Softgel] Atenolol [Tenormin] 100 mg PO BID 08/25/15 11/26/16 History Acetaminophen/Diphenhydramine 1 tab PO HS PRN 06/30/16 11/26/16 History [Tylenol PM 500-25mg] Furosemide [Lasix] 20 mg PO DAILY 10/24/16 11/26/16 History Losartan [Cozaar] 25 mg PO DAILY 10/24/16 11/26/16 History Pravastatin Sodium [Pravachol] 80 mg PO HS 10/24/16 11/26/16 History Allergies Allergy/AdvReac Type Severity Reaction Status Date / Time celecoxib [From Celebrex] AdvReac "hard Verified 11/26/16 10:21 muscle" ibuprofen AdvReac "bloody Verified 11/26/16 10:21 urine" levofloxacin AdvReac Itching Verified 11/26/16 10:21 Physical Exam Vitals: Vital Signs Temp Pulse Pulse Resp BP Pulse Ox 11/27/16 12:08 96 11/27/16 12:00 97 F L 98 18 129/60 97 11/27/16 11:55 92 11/27/16 08:30 96 11/27/16 08:20 88 11/27/16 08:00 97.5 F L 87 16 113/61 96 11/27/16 03:31 97.6 F 92 20 135/71 94 L 11/27/16 00:00 97.2 F L 88 19 122/69 93 L 11/26/16 20:02 96 11/26/16 20:00 97.9 F 94 20 135/83 92 L 11/26/16 19:53 93 11/26/16 16:00 97.1 F L 80 80 18 140/72 93 L 11/26/16 15:55 76 Intake and Output 11/26/16 11/27/16 11/27/16 22:59 06:59 14:59 Intake Total 360 Output Total 650 Balance -290 Intake: Oral 360 Output: Urine 650 Other: Voiding Method Diaper # Voids 2 1 Weight 108.862 kg 107.1 kg 107.1 kg Patient Weight 11/28/16 06:59 Weight 107.1 kg Head exam was generally normal. There was no scleral icterus or corneal arcus. Mucous membranes were moist.Neck was supple and without jugular venous distension, thyromegaly, or carotid bruits. Carotids were easily palpable bilaterally. There was no adenopathy. Lung sounds are markedly diminished in lung bases bilaterally along with some bibasilar crackles. No wheezes or rhonchi. Heart sounds are regular, there is accentuation of the second heart sounds, overall heart sounds are distant, no cervical murmurs appreciated. Abdomen is slightly distended soft. No direct tenderness or rebound tensile guarding. Extremities show +2-3 pitting edema. A stasis ulcers seen in the left lower extremity anterior aspect which is dry and there is no drainage or pus. Pulses are diminished in lower oximetry is bilaterally. No cyanosis or clubbing. Results - Laboratory Findings CBC and BMP: 11/27/16 06:17 11/27/16 06:17 PT/INR, D-dimer PT 13.0 sec (9.0-12.0) H 11/26/16 10:23 INR 1.3 (<1.2) H 11/26/16 10:23 Abnormal lab findings: Abnormal Labs 11/26/16 11/26/16 11/26/16 10:23 10:23 10:23 WBC RBC 3.47 L Hgb 11.0 L Hct 36.4 L MCV 104.9 H MCHC 30.4 L RDW 15.7 H Plt Count 140 L Lymphocytes # 0.7 L PT INR Sodium 147 H Carbon Dioxide 35 H BUN 30 H Glucose 66 L POC Glucose (mg/dL) Total Creatine Kinase 41 L Total Protein Albumin 11/26/16 11/26/16 11/27/16 10:23 20:28 06:17 WBC 2.3 L RBC 3.21 L Hgb 10.2 L Hct 33.8 L MCV 105.4 H MCHC 30.1 L RDW 15.6 H Plt Count 111 L Lymphocytes # 0.3 L PT 13.0 H INR 1.3 H Sodium Carbon Dioxide BUN Glucose POC Glucose (mg/dL) 151 H Total Creatine Kinase Total Protein Albumin 11/27/16 11/27/16 11/27/16 06:17 06:27 12:01 WBC RBC Hgb Hct MCV MCHC RDW Plt Count Lymphocytes # PT INR Sodium Carbon Dioxide 35 H BUN 31 H Glucose 150 H POC Glucose (mg/dL) 146 H 239 H Total Creatine Kinase Total Protein 5.6 L Albumin 3.2 L - Diagnostic Findings Chest x-ray: image reviewed Assessment and Plan Plan: Assessment 1 acute on chronic hypoxic respiratory failure due to massive fluid overload, possibly secondary to underlying CHF in addition. 2 bilateral pleural effusion secondary to above 3 extensive lower extremity edema 4 right-sided pneumothorax, recovered, October 2016 5 advanced COPD with chronic hypoxic arrest 30 failure 6 hypertension 7 chronic atrial fibrillation maintained on long-term and to coagulation with Eliquis 8 stage II stasis ulcer involving the left lower extremity/mccollum 9 diabetes mellitus 10 hyperlipidemia 11. Vascular disease with previous amputation 12 obesity 13 obstructive sleep apnea maintained on an auto CPAP unit with a minimum pressure of 4 and maximum pressure of 20 on outpatient basis. Utilizing an Airfit F10 mask. 14 chronic stage II kidney disease 15 peripheral neuropathy. Plan Fluid and salt restriction. Echocardiogram to assess LV function/valvular function/pulmonary hypertension. IV Lasix 80 mg every 12 hours. Monitor urine output. Monitor electrolytes. BiPAP settings will be adjusted and the patient be given a BiPAP at a pressure of 14/5 cm of water with FiO2 being adjusted to maintain a saturation above 90%. Resumed outpatient medications. We'll continue to follow. Dense patent improvement in his breathing with improvement in the volume status and diuresis. We'll follow.
[2016-11-27 16:33] LABS: Glucose,Whole Blood 267 mg/dL (75-99)
[2016-11-27] MEDS: PRAVASTATIN SODIUM 80 MG TAB PO SCH (20:45)
[2016-11-27 20:50] LABS: Glucose,Whole Blood 291 mg/dL (75-99)
[2016-11-28 02:14] LABS: Glucose,Whole Blood 146 mg/dL (75-99)
[2016-11-28 07:38] LABS: Glucose,Whole Blood 155 mg/dL (75-99)
[2016-11-28] MEDS: INSULIN NPH 300 UNIT/3 ML VIAL SQ SCH ×2 (08:05→21:01)
[2016-11-28] MEDS: PANTOPRAZOLE 40 MG/10 ML VIAL IVP SCH (08:05)
[2016-11-28] MEDS: NIACIN TR 500 MG CAPSULE.ER PO SCH (08:07)
[2016-11-28] MEDS: GABAPENTIN 300 MG CAP PO SCH ×3 (08:07→21:01)
[2016-11-28] MEDS: ATENOLOL 50 MG TAB PO SCH ×2 (08:07→19:59)
[2016-11-28] MEDS: LOSARTAN 25 MG TAB PO SCH (08:07)
[2016-11-28] MEDS: APIXABAN 2.5 MG TABLET PO SCH ×2 (08:08→20:01)
[2016-11-28] MEDS: methylPREDNISolone SOD SUCCI 125 MG/2 ML VIAL IV SCH (08:08)
[2016-11-28] MEDS: CHOLECALCIFEROL 1,000 UNIT TAB PO SCH (08:08)
[2016-11-28] MEDS: FERROUS SULFATE 325 MG TAB PO SCH ×2 (08:08→20:00)
[2016-11-28] MEDS: ASPIRIN 81 MG CHEW PO SCH (08:08)
[2016-11-28] MEDS: INSULIN LISPRO (humaLOG) 300 UNIT/3 ML VIAL SQ SCH ×4 (08:10→21:02)
[2016-11-28] MEDS: SYMBICORT 160-4.5 MCG INHALER INHALATION SCH ×2 (08:20→22:13)
[2016-11-28] MEDS: IPRATROPIUM 0.5 MG/2.5 ML NEBU INHALATION SCH ×4 (08:20→22:13)
[2016-11-28] MEDS: LEVALBUTEROL NEB (CONC) 1.25 MG/0.5 ML AMP INHALATION SCH ×4 (08:20→22:12)
[2016-11-28] MEDS: FUROSEMIDE 10 MG/ML 10 ML VIAL IV SCH ×2 (09:15→20:03)
[2016-11-28 12:11] LABS: Glucose,Whole Blood 173 mg/dL (75-99)
[2016-11-28] MEDS: MULTIVITAMINS, THERA 1 EACH TAB PO SCH (12:28)
--- NOTE | 2016-11-28 14:10 | P.PN ---
Subjective 81-year-old male patient with advanced oxygen-dependent COPD, who was recently in the hospital for right-sided pneumothorax for which she required a chest tube insertion and he achieved successful expansion of the right lung. Following his discharge, the patient started developing progressive swelling in his lower extremity and progressive dyspnea. He was compliant his medication. He was having exertional dyspnea and orthopnea and paroxysmal nocturnal dyspnea. Legs were extensively swollen time of admission. He was taken Lasix 40 mg by mouth twice a day 3 times a week and he did not see any significant improvement. Based on that he decided to come into the hospital. The patient was noted at home to have significant hypoxemia with a pulse ox of 70% while being on oxygen at 4 L/m nasal cannula. He denied having any chest pain. No angina. No pleurisy. No hemoptysis. Chest x-ray shows small lung volumes. There is significant bilateral pleural effusion. ProBNP level was slightly elevated. Cardiac enzymes were negative. No previous history of DVT or pulmonary embolism. No change in mental status. No palpitations or arrhythmias. Echocardiogram from last year showed preserved LV function without any significant pulmonary hypertension or valvular disruption. A follow -up echocardiogram was ordered and a cardiology consultation was also requested. Meanwhile, the patient is put juicing adequate amount of urine output while being on Lasix 80 mg IV push every 12 hours. His renal function shows a creatinine of 1.1. Rest of the electrodes are within normal and the patient has a mild component of metabolic alkalosis secondary to chronic hypercapnic respiratory failure. The patient is seen again today in 11/28/2016 in follow-up on the regular medical floor. He is currently sitting up in bed. He is awake and alert in no acute distress. He did utilized BiPAP last night. He is currently maintaining good O2 saturations in the mid 90s on 3 L/m per nasal cannula. He states he is breathing easier today as compared to yesterday. His urine output is not accurately measured. He is being diuresed with Lasix 80 mg IV twice a day. Objective - Vital Signs Vital signs: Vital Signs Temp 97.7 F 11/28/16 07:00 Pulse 92 11/28/16 11:58 Resp 20 11/28/16 07:00 BP 133/77 11/28/16 07:00 Pulse Ox 95 11/28/16 08:24 Intake & Output 11/27/16 11/28/1617 18:59 06:59 18:59 Intake Total 600 Output Total 100 Balance 600 -100 Weight 107.1 kg Intake: Oral 600 Output: Urine 100 Other: Voiding Method Diaper Toilet # Voids 2 1 # Bowel Movements 1 - Exam Head exam was generally normal. There was no scleral icterus or corneal arcus. Mucous membranes were moist.Neck was supple and without jugular venous distension, thyromegaly, or carotid bruits. Carotids were easily palpable bilaterally. There was no adenopathy. Lung sounds are markedly diminished in lung bases bilaterally along with some bibasilar crackles. No wheezes or rhonchi. Heart sounds are regular, there is accentuation of the second heart sounds, overall heart sounds are distant, no cervical murmurs appreciated. Abdomen is slightly distended soft. No direct tenderness or rebound tensile guarding. Extremities show +2-3 pitting edema. A stasis ulcers seen in the left lower extremity anterior aspect which is dry and there is no drainage or pus. Pulses are diminished in lower oximetry is bilaterally. No cyanosis or clubbing. - Labs CBC & Chem 7: 11/27/16 06:17 11/27/16 06:17 Labs: Abnormal Lab Results - Last 24 Hours (Table) 11/27/16 11/27/16 11/28/16 Range/Units 16:17 20:47 02:04 POC Glucose (mg/dL) 267 H 291 H 146 H (75-99) mg/dL 11/28/16 11/28/16 Range/Units 07:07 12:07 POC Glucose (mg/dL) 155 H 173 H (75-99) mg/dL Assessment and Plan Plan: Assessment 1 acute on chronic hypoxic respiratory failure due to massive fluid overload, possibly secondary to underlying CHF in addition. 2 bilateral pleural effusion secondary to above 3 extensive lower extremity edema 4 right-sided pneumothorax, recovered, October 2016 5 advanced COPD with chronic hypoxic arrest 30 failure 6 hypertension 7 chronic atrial fibrillation maintained on long-term and to coagulation with Eliquis 8 stage II stasis ulcer involving the left lower extremity/mccollum 9 diabetes mellitus 10 hyperlipidemia 11. Vascular disease with previous amputation 12 obesity 13 obstructive sleep apnea maintained on an auto CPAP unit with a minimum pressure of 4 and maximum pressure of 20 on outpatient basis. Utilizing an Airfit F10 mask. 14 chronic stage II kidney disease 15 peripheral neuropathy. Plan The patient was seen and evaluated by Dr. Alarcon. He is improved today as compared to yesterday. We'll continue to diurese the patient. He'll continue to utilize the BiPAP throughout the evenings and during the day while napping. We'll repeat a chest x-ray in the a.m. We'll continue to follow.
--- NOTE | 2016-11-28 16:19 | P.PN ---
Subjective This is an 81-year-old male one of my patient with history of advanced COPD with chronic hypoxic respiratory failureon home O2, hypertension and hypertensive cardio vascular disease with left ventricular hypertrophy, chronic atrial fibrillation on chronic anticoagulation therapy in the form of NOAC, hyperlipidemia, diabetes mellitus type 2 with diabetic neuropathy, PAD post left big toe amputation, chronic kidney disease stage II, obesity with obstructive sleep apnea currently on a CPAP, patient was seen in my office about a week ago on and he was complaining of increased shortness of breath associated with increased swelling both lower extremities at that time we have increased his Lasix to 40 mg orally twice every day Wednesday and Wednesday once a day the rest of the week, however the patient did not notice any improvement in the swelling and he started to get more short of breath and I received a call from the home care nurse yesterday stating that his oxygenation is dropping into the low 70s at that time instructed to double up his Lasix and increase his oxygen to 4 L nasal cannula and the patient continued to have extreme shortness of breath ended up going to the office today he was seen by the mid care provider, and his oxygen was quite low, she ended up sending the patient to the emergency department at [facility] he was found to have significant bilateral pleural effusion with cardiomegaly and pulmonary venous congestion, patient was given Lasix 80 mg IV push in the ER he was placed on a BiPAP, and he was started on oxygen 4 L nasal cannula, he would be admitted to the hospital for acute diastolic heart failure as well as acute COPD exacerbation, cardiology consultation as well as pulmonary consultation will be obtained. Patient was recently hospitalized at [facility] because of severe shortness of breath he was found to have a 20% right-sided pneumothorax for was he had a chest tube placement and removal and at the same time was treated for acute exacerbation of COPD along with chronic bronchitis and he was released home. 11/27: Patient's lung sounds are improved from yesterday. Solu-Medrol will be decreased to 60 mg every 12 hours. He will be continued on Lasix 80 mg twice daily. Patient was on BiPAP during the night with improvement of his breathing. Requesting a lactose-free diet which will be changed. He states he did have 2 bowel movements after none for 4 days. During the lower extremity cellulitis, Silvadene wraps will be added and continue medihoney to the left pretibial wound. 11/28: Patient's clinically doing better, IV Solu-Medrol 60 every 12 hours, IV Lasix 80 mg twice a day IV, he is clinically better, needs has been dressed early this morning with medihoney on leg left leg small leg ulcer,, required BiPAP treatments last night, maintaining O2 sats between mid 90s, 2 L nasal cannula, patient denies any aspirate events, creatinine are 1.13 we would transition down to 40 mg 3 times a day oral Lasix in the morning, patient still has anasarca and lower extremities mainly patient might need low dose Zaroxolyn on a Wednesday schedule, the patient lost approximately 1.9 kg while in the hospital Objective - Vital Signs Vital signs: Vital Signs Temp 97.4 F L 11/28/16 15:00 Pulse 94 11/28/16 15:00 Resp 18 11/28/16 15:00 BP 136/81 11/28/16 15:00 Pulse Ox 95 11/28/16 15:00 Intake & Output 11/27/16 11/28/16 11/28/16 18:59 06:59 18:59 Intake Total 600 Output Total 100 Balance 600 -100 Weight 107.1 kg Intake: Oral 600 Output: Urine 100 Other: Voiding Method Diaper Toilet # Voids 2 3 # Bowel Movements 1 1 - Constitutional General appearance: Present: cooperative, no acute distress, obese - EENT Eyes: Present: anicteric sclerae, EOMI, dentition normal, normal appearance ENT: Present: hard of hearing, NA/AT, normal oropharynx - Neck Neck: Present: normal ROM - Respiratory Respiratory: bilateral: CTA, negative: dullness, rales, rhonchi - Cardiovascular Rhythm: regular Heart sounds: normal: S1, S2 - Gastrointestinal General gastrointestinal: Present: normal bowel sounds, soft - Integumentary Integumentary: Present: decreased turgor, normal - Neurologic Neurologic: Present: CNII-XII intact - Musculoskeletal Musculoskeletal: Present: generalized weakness, strength equal bilaterally - Psychiatric Psychiatric: Present: A&O x's 3, appropriate affect, intact judgment & insight - Labs CBC & Chem 7: 11/27/16 06:17 11/27/16 06:17 Labs: Abnormal Lab Results - Last 24 Hours (Table) 11/27/16 11/27/16 11/28/16 Range/Units 16:17 20:47 02:04 POC Glucose (mg/dL) 267 H 291 H 146 H (75-99) mg/dL 11/28/16 11/28/16 Range/Units 07:07 12:07 POC Glucose (mg/dL) 155 H 173 H (75-99) mg/dL Assessment and Plan Plan: 1. Acute on chronic hypoxemic respiratory failure due to acute diastolic heart failure with bilateral effusion as well as acute exacerbation of COPD. Lasix 80 mg IV push every 12 hours, Xopenex 1.25 mg and 1 unit dose of Atrovent 4 times a day, oxygen 4 L cannula, BiPAP and keep oxygen saturation greater than or equal to 92-93% all the time, Solu-Medrol 40 mg IV push every 8 hours, pulmonary consultation Dr. Alarcon, we'll add Zaroxolyn 2.5 mg on tomorrow and then Wednesday schedule echocardiogram for evaluation of LV function EF 45-50%, severe pulmonary hypertension, moderately pleural effusion moderate tricuspid regurgitation and mild aortic stenosis 2. Bilateral pleural effusion due to diastolic heart failure. Check LV function with echocardiogram continue IV diuretics, hopefully no need for thoracentesis. 3. Recent right-sided pneumothorax post chest tube placement and removal. Resolved. No evidence of any Pneumovax and a chest x-ray. 4. Hypertension and hypertensive cardiovascular disease. Continue patient on losartan 25 mg orally once every day, atenolol 100 mg orally twice every day. 5. Chronic atrial fibrillation. Continue Eliquis 2.5 mg orally twice every day , atenolol 100 mg orally twice every day. 6. Hyperlipemia. Continue low-cholesterol diet as well as pravastatin 80 mg at bedtime. 7. Diabetes mellitus type 2. Continue Humalin and as well as Humalog, monitor blood glucose before each meal and at bedtime. 8. Left mccollum ulcer stage II. Continue Medihoney 3 times a week and silvadene wraps, elevation. 9. Chronic venous stasis with stasis dermatitis. Stable at this time. 10. Bilateral lower extremity neuropathy. Continue gabapentin 300 mg orally twice every day. 11. PAD post left big toe amputation. 12. Moderate to severe COPD continue treatment as in paragraph #1, continue oxygen support. 13. Obesity with obstructive sleep apnea. Continue patient on CPAP. 14. Chronic kidney disease stage II. Stable at this time. 15. Anemia of chronic renal disease. Continue iron 325 mg orally twice every day. 16. DVT prophylaxis. Continue Eliquis 2.5 mg orally twice every day. 17. GI prophylaxis. Continue patient on Protonix 40 mg IV push every 24 hours. 18. Full code. 19. Admit to inpatient. Estimate a length of stay 2 midnights. Discharge plan: subacute rehab, PT, social work following
[2016-11-28 17:28] LABS: Glucose,Whole Blood 204 mg/dL (75-99)
[2016-11-28] MEDS: PRAVASTATIN SODIUM 80 MG TAB PO SCH (20:00)
[2016-11-28] MEDS: methylPREDNISolone SOD SUCCI 40 MG/ML 1 ML VIAL IV SCH (20:03)
[2016-11-28 20:58] LABS: Glucose,Whole Blood 209 mg/dL (75-99)
[2016-11-29 02:16] LABS: Glucose,Whole Blood 232 mg/dL (75-99)
[2016-11-29] MEDS: LEVALBUTEROL NEB (CONC) 1.25 MG/0.5 ML AMP INHALATION SCH ×4 (07:37→19:20)
[2016-11-29] MEDS: IPRATROPIUM 0.5 MG/2.5 ML NEBU INHALATION SCH ×4 (07:37→19:21)
[2016-11-29] MEDS: SYMBICORT 160-4.5 MCG INHALER INHALATION SCH ×2 (07:37→19:21)
[2016-11-29] MEDS: ATENOLOL 50 MG TAB PO SCH ×2 (07:53→21:00)
[2016-11-29] MEDS: APIXABAN 2.5 MG TABLET PO SCH ×2 (07:54→20:59)
[2016-11-29] MEDS: FERROUS SULFATE 325 MG TAB PO SCH ×2 (07:54→21:00)
[2016-11-29] MEDS: CHOLECALCIFEROL 1,000 UNIT TAB PO SCH (07:54)
[2016-11-29] MEDS: GABAPENTIN 300 MG CAP PO SCH ×3 (07:54→20:59)
[2016-11-29] MEDS: NIACIN TR 500 MG CAPSULE.ER PO SCH (07:54)
[2016-11-29] MEDS: LOSARTAN 25 MG TAB PO SCH (07:54)
[2016-11-29] MEDS: ASPIRIN 81 MG CHEW PO SCH (07:54)
[2016-11-29] MEDS: FUROSEMIDE 40 MG TAB PO SCH ×3 (07:54→20:59)
[2016-11-29] MEDS: POTASSIUM CHLORIDE ER 20 MEQ TAB.ER PO SCH (07:54)
[2016-11-29 07:55] LABS: Glucose,Whole Blood 183 mg/dL (75-99)
[2016-11-29] MEDS: PANTOPRAZOLE 40 MG TABLET PO SCH (07:55)
[2016-11-29] MEDS: INSULIN NPH 300 UNIT/3 ML VIAL SQ SCH ×2 (07:55→21:01)
[2016-11-29] MEDS: methylPREDNISolone SOD SUCCI 40 MG/ML 1 ML VIAL IV SCH ×2 (07:55→21:02)
[2016-11-29] MEDS: INSULIN LISPRO (humaLOG) 300 UNIT/3 ML VIAL SQ SCH ×4 (08:27→21:01)
--- NOTE | 2016-11-29 08:40 | XR ---
EXAMINATION TYPE: XR chest 1V portable DATE OF EXAM: 11/29/2016 Comparison: 11/26/2016 Clinical History: 81-year-old male CHF Findings: Lordotic positioning limiting visualization of the lung bases. Heart appears similarly enlarged. Lung volumes may be low. Diffuse interstitial prominence persists but may be slightly improved. Small eff usions with bibasilar opacities. Impression: 1. Limited lordotic exam which obscures much of the lung bases. 2. Suspect hypoventilatory changes and CHF with improving, residual mild pulmonary vascular congestio n. 3. Small effusions with adjacent atelectasis and/or consolidation.
[2016-11-29] MEDS ORDERED: METOLAZONE 2.5 MG TAB PO ONE (09:00)
[2016-11-29 12:16] LABS: Glucose,Whole Blood 142 mg/dL (75-99)
[2016-11-29] MEDS: MULTIVITAMINS, THERA 1 EACH TAB PO SCH (12:18)
--- NOTE | 2016-11-29 14:03 | P.PN ---
Subjective 81-year-old male patient with advanced oxygen-dependent COPD, who was recently in the hospital for right-sided pneumothorax for which she required a chest tube insertion and he achieved successful expansion of the right lung. Following his discharge, the patient started developing progressive swelling in his lower extremity and progressive dyspnea. He was compliant his medication. He was having exertional dyspnea and orthopnea and paroxysmal nocturnal dyspnea. Legs were extensively swollen time of admission. He was taken Lasix 40 mg by mouth twice a day 3 times a week and he did not see any significant improvement. Based on that he decided to come into the hospital. The patient was noted at home to have significant hypoxemia with a pulse ox of 70% while being on oxygen at 4 L/m nasal cannula. He denied having any chest pain. No angina. No pleurisy. No hemoptysis. Chest x-ray shows small lung volumes. There is significant bilateral pleural effusion. ProBNP level was slightly elevated. Cardiac enzymes were negative. No previous history of DVT or pulmonary embolism. No change in mental status. No palpitations or arrhythmias. Echocardiogram from last year showed preserved LV function without any significant pulmonary hypertension or valvular disruption. A follow -up echocardiogram was ordered and a cardiology consultation was also requested. Meanwhile, the patient is put juicing adequate amount of urine output while being on Lasix 80 mg IV push every 12 hours. His renal function shows a creatinine of 1.1. Rest of the electrodes are within normal and the patient has a mild component of metabolic alkalosis secondary to chronic hypercapnic respiratory failure. The patient is seen again today in 11/28/2016 in follow-up on the regular medical floor. He is currently sitting up in bed. He is awake and alert in no acute distress. He did utilized BiPAP last night. He is currently maintaining good O2 saturations in the mid 90s on 3 L/m per nasal cannula. He states he is breathing easier today as compared to yesterday. His urine output is not accurately measured. He is being diuresed with Lasix 80 mg IV twice a day. 2016 I'm seeing this patient in follow-up. The patient is diuresing with IV Lasix and there is significant improvement in lower extremity edema. No chest pain. No shortness of breath above and beyond her baseline. No cough or sputum production. Renal function and electrolytes are all stable. The patient is a negative fluid balance. An accurate input/ output was not measured as the patient does not have a Harper catheter this point. However clinically is responding. Objective - Vital Signs Vital signs: Vital Signs Temp 96.9 F L 11/29/16 07:00 Pulse 100 11/29/16 11:27 Resp 22 11/29/16 07:00 BP 149/74 11/29/16 07:00 Pulse Ox 93 L 11/29/16 07:00 Intake & Output 11/28/16 11/29/16 11/29/16 18:59 06:59 18:59 Intake Total 1000 Output Total 100 Balance -100 1000 Intake: Oral 1000 Output: Urine 100 Other: Voiding Method Incontinent Urinal Urinal Incontinent # Voids 2 3 # Bowel Movements 1 - Exam Head exam was generally normal. There was no scleral icterus or corneal arcus. Mucous membranes were moist.Neck was supple and without jugular venous distension, thyromegaly, or carotid bruits. Carotids were easily palpable bilaterally. There was no adenopathy. Lung sounds are markedly diminished in lung bases bilaterally along with some bibasilar crackles. No wheezes or rhonchi. Heart sounds are regular, there is accentuation of the second heart sounds, overall heart sounds are distant, no cervical murmurs appreciated. Abdomen is slightly distended soft. No direct tenderness or rebound tensile guarding. Extremities show +2-3 pitting edema. A stasis ulcers seen in the left lower extremity anterior aspect which is dry and there is no drainage or pus. Pulses are diminished in lower oximetry is bilaterally. No cyanosis or clubbing. - Labs CBC & Chem 7: 11/27/16 06:17 11/27/16 06:17 Labs: Abnormal Lab Results - Last 24 Hours (Table) 11/28/16 11/28/16 11/29/16 Range/Units 17:27 20:44 02:12 POC Glucose (mg/dL) 204 H 209 H 232 H (75-99) mg/dL 11/29/16 11/29/16 Range/Units 07:25 12:13 POC Glucose (mg/dL) 183 H 142 H (75-99) mg/dL Assessment and Plan Plan: Assessment 1 acute on chronic hypoxic respiratory failure due to massive fluid overload, possibly secondary to underlying CHF in addition. The patient has right-sided heart failure/cor pulmonale secondary to his chronic lung disease. PA pressures around 82. Mother the pleural effusion was also seen on the echocardiogram. 2 bilateral pleural effusion secondary to above 3 extensive lower extremity edema, improving 4 right-sided pneumothorax, recovered, October 2016 5 advanced COPD with chronic hypoxic respiratory failure 6 hypertension 7 chronic atrial fibrillation maintained on long-term and to coagulation with Eliquis 8 stage II stasis ulcer involving the left lower extremity/mccollum 9 diabetes mellitus 10 hyperlipidemia 11. Peripheral Vascular disease with previous amputation 12 obesity 13 obstructive sleep apnea maintained on an auto CPAP unit with a minimum pressure of 4 and maximum pressure of 20 on outpatient basis. Utilizing an Airfit F10 mask. 14 chronic stage II kidney disease 15 peripheral neuropathy. Plan Fluid and salt restriction. Echocardiogram was noted and the patient has an ejection fraction of 45-50% and the right ventricular is severely enlarged and there is evidence of severe pulmonary hypertension with a PA pressure of 82. This is most likely related to his chronic lung disease. The patient presented with right-sided heart failure with extensive. He is on oral Lasix 40 mg 3 times a day/every 8 hours.. Monitor urine output. Monitor electrolytes. BiPAP settings will be adjusted and the patient be given a BiPAP at a pressure of 14/5 cm of water with FiO2 being adjusted to maintain a saturation above 90% . Monitor the electrolytes. We'll continue to follow.
[2016-11-29 17:09] LABS: Glucose,Whole Blood 134 mg/dL (75-99)
--- NOTE | 2016-11-29 17:51 | P.PN ---
Subjective This is an 81-year-old male one of my patient with history of advanced COPD with chronic hypoxic respiratory failureon home O2, hypertension and hypertensive cardio vascular disease with left ventricular hypertrophy, chronic atrial fibrillation on chronic anticoagulation therapy in the form of NOAC, hyperlipidemia, diabetes mellitus type 2 with diabetic neuropathy, PAD post left big toe amputation, chronic kidney disease stage II, obesity with obstructive sleep apnea currently on a CPAP, patient was seen in my office about a week ago on and he was complaining of increased shortness of breath associated with increased swelling both lower extremities at that time we have increased his Lasix to 40 mg orally twice every day Wednesday and Wednesday once a day the rest of the week, however the patient did not notice any improvement in the swelling and he started to get more short of breath and I received a call from the home care nurse yesterday stating that his oxygenation is dropping into the low 70s at that time instructed to double up his Lasix and increase his oxygen to 4 L nasal cannula and the patient continued to have extreme shortness of breath ended up going to the office today he was seen by the mid care provider, and his oxygen was quite low, she ended up sending the patient to the emergency department at [facility] he was found to have significant bilateral pleural effusion with cardiomegaly and pulmonary venous congestion, patient was given Lasix 80 mg IV push in the ER he was placed on a BiPAP, and he was started on oxygen 4 L nasal cannula, he would be admitted to the hospital for acute diastolic heart failure as well as acute COPD exacerbation, cardiology consultation as well as pulmonary consultation will be obtained. Patient was recently hospitalized at [facility] because of severe shortness of breath he was found to have a 20% right-sided pneumothorax for was he had a chest tube placement and removal and at the same time was treated for acute exacerbation of COPD along with chronic bronchitis and he was released home. 11/27: Patient's lung sounds are improved from yesterday. Solu-Medrol will be decreased to 60 mg every 12 hours. He will be continued on Lasix 80 mg twice daily. Patient was on BiPAP during the night with improvement of his breathing. Requesting a lactose-free diet which will be changed. He states he did have 2 bowel movements after none for 4 days. During the lower extremity cellulitis, Silvadene wraps will be added and continue medihoney to the left pretibial wound. 11/28: Patient's clinically doing better, IV Solu-Medrol 60 every 12 hours, IV Lasix 80 mg twice a day IV, he is clinically better, needs has been dressed early this morning with medihoney on leg left leg small leg ulcer,, required BiPAP treatments last night, maintaining O2 sats between mid 90s, 2 L nasal cannula, patient denies any aspirate events, creatinine are 1.13 we would transition down to 40 mg 3 times a day oral Lasix in the morning, patient still has anasarca and lower extremities mainly patient might need low dose Zaroxolyn on a Wednesday schedule, the patient lost approximately 1.9 kg while in the hospital 11/29: Patient continued to improve without any decompensation, tapering Solu- Medrol to oral prednisone the morning, patient currently is on oral Lasix a day along with Zaroxolyn, possible discharge in the next 24-48 hours to skilled ECF or chest x-ray follow-up reviewed improving CHF with residual changes for CHF, small pleural effusion Objective - Vital Signs Vital signs: Vital Signs Temp 97.4 F L 11/29/16 14:59 Pulse 96 11/29/16 15:57 Resp 20 11/29/16 14:59 BP 137/85 11/29/16 14:59 Pulse Ox 99 11/29/16 14:59 Intake & Output 11/28/16 11/29/16 11/29/16 18:59 06:59 18:59 Intake Total 1000 Output Total 100 800 Balance -100 1000 -800 Intake: Oral 1000 Output: Urine 100 800 Other: Voiding Method Incontinent Urinal Urinal Incontinent # Voids 2 3 # Bowel Movements 1 - Constitutional General appearance: Present: cooperative, no acute distress - EENT Eyes: Present: anicteric sclerae, PERRLA, dentition normal, normal appearance ENT: Present: NA/AT, normal oropharynx - Neck Neck: Present: normal ROM. Absent: lymphadenopathy, other, rigidity, stridor, thyromegaly - Respiratory Respiratory: bilateral: CTA, negative: diminished, dullness, rales, rhonchi, wheezing - Cardiovascular Rhythm: regular Heart sounds: normal: S1, S2 - Gastrointestinal General gastrointestinal: Present: normal bowel sounds, soft - Integumentary Integumentary: Present: normal - Neurologic Neurologic: Present: CNII-XII intact - Musculoskeletal Musculoskeletal: Present: generalized weakness, strength equal bilaterally - Psychiatric Psychiatric: Present: A&O x's 3, appropriate affect - Labs CBC & Chem 7: 11/27/16 06:17 11/27/16 06:17 Labs: Abnormal Lab Results - Last 24 Hours (Table) 11/28/16 11/29/16 11/29/16 Range/Units 20:44 02:12 07:25 POC Glucose (mg/dL) 209 H 232 H 183 H (75-99) mg/dL 11/29/16 11/29/16 Range/Units 12:13 16:57 POC Glucose (mg/dL) 142 H 134 H (75-99) mg/dL Assessment and Plan Plan: 1. Acute on chronic hypoxemic respiratory failure due to acute diastolic heart failure with bilateral effusion as well as acute exacerbation of COPD. Lasix 80 mg IV push every 12 hours, Xopenex 1.25 mg and 1 unit dose of Atrovent 4 times a day, oxygen 4 L cannula, BiPAP and keep oxygen saturation greater than or equal to 92-93% all the time, Solu-Medrol 40 mg IV push every 8 hours, pulmonary consultation Dr. Alarcon, we'll add Zaroxolyn 2.5 mg today and then Wednesday schedule echocardiogram for evaluation of LV function EF 45-50%, severe pulmonary hypertension, moderately pleural effusion moderate tricuspid regurgitation and mild aortic stenosis 2. Bilateral pleural effusion due to diastolic heart failure. Check LV function with echocardiogram continue IV diuretics, hopefully no need for thoracentesis. 3. Recent right-sided pneumothorax post chest tube placement and removal. Resolved. No evidence of any Pneumovax and a chest x-ray. 4. Hypertension and hypertensive cardiovascular disease. Continue patient on losartan 25 mg orally once every day, atenolol 100 mg orally twice every day. 5. Chronic atrial fibrillation. Continue Eliquis 2.5 mg orally twice every day , atenolol 100 mg orally twice every day. 6. Hyperlipemia. Continue low-cholesterol diet as well as pravastatin 80 mg at bedtime. 7. Diabetes mellitus type 2. Continue Humalin and as well as Humalog, monitor blood glucose before each meal and at bedtime. 8. Left mccollum ulcer stage II. Continue Medihoney 3 times a week and silvadene wraps, elevation. 9. Chronic venous stasis with stasis dermatitis. Stable at this time. 10. Bilateral lower extremity neuropathy. Continue gabapentin 300 mg orally twice every day. 11. PAD post left big toe amputation. 12. Moderate to severe COPD continue treatment as in paragraph #1, continue oxygen support. 13. Obesity with obstructive sleep apnea. Continue patient on CPAP. 14. Chronic kidney disease stage II. Stable at this time. 15. Anemia of chronic renal disease. Continue iron 325 mg orally twice every day. 16. DVT prophylaxis. Continue Eliquis 2.5 mg orally twice every day. 17. GI prophylaxis. Continue patient on Protonix 40 mg IV push every 24 hours. 18. Full code. 19. Admit to inpatient. Estimate a length of stay 2 midnights. Discharge plan: subacute rehab, PT, social work following
[2016-11-29 20:58] LABS: Glucose,Whole Blood 222 mg/dL (75-99)
[2016-11-29] MEDS: PRAVASTATIN SODIUM 80 MG TAB PO SCH (20:59)
[2016-11-29] MEDS: HYDROcodone/APAP 5-325MG 1 EACH TAB PO PRN (21:00)
[2016-11-30 02:40] LABS: Glucose,Whole Blood 265 mg/dL (75-99)
[2016-11-30] MEDS: IPRATROPIUM 0.5 MG/2.5 ML NEBU INHALATION SCH ×4 (07:29→20:00)
[2016-11-30] MEDS: LEVALBUTEROL NEB (CONC) 1.25 MG/0.5 ML AMP INHALATION SCH ×4 (07:29→20:00)
[2016-11-30] MEDS: SYMBICORT 160-4.5 MCG INHALER INHALATION SCH ×2 (07:32→20:02)
[2016-11-30 07:46] LABS: Glucose,Whole Blood 235 mg/dL (75-99)
[2016-11-30] MEDS: INSULIN NPH 300 UNIT/3 ML VIAL SQ SCH ×2 (07:58→21:39)
[2016-11-30] MEDS: INSULIN LISPRO (humaLOG) 300 UNIT/3 ML VIAL SQ SCH ×4 (07:59→21:40)
[2016-11-30] MEDS: GABAPENTIN 300 MG CAP PO SCH ×3 (08:00→21:38)
[2016-11-30] MEDS: APIXABAN 2.5 MG TABLET PO SCH ×2 (08:00→21:38)
[2016-11-30] MEDS: FUROSEMIDE 40 MG TAB PO SCH ×3 (08:00→21:38)
[2016-11-30] MEDS: FERROUS SULFATE 325 MG TAB PO SCH ×2 (08:01→21:38)
[2016-11-30] MEDS: ASPIRIN 81 MG CHEW PO SCH (08:01)
[2016-11-30] MEDS: CHOLECALCIFEROL 1,000 UNIT TAB PO SCH (08:01)
[2016-11-30] MEDS: ATENOLOL 50 MG TAB PO SCH ×2 (08:01→21:38)
[2016-11-30] MEDS: PANTOPRAZOLE 40 MG TABLET PO SCH (08:01)
[2016-11-30] MEDS: POTASSIUM CHLORIDE ER 20 MEQ TAB.ER PO SCH (08:02)
[2016-11-30] MEDS: predniSONE 20 MG TAB PO SCH (08:02)
[2016-11-30] MEDS: LOSARTAN 25 MG TAB PO SCH (08:02)
[2016-11-30] MEDS: NIACIN TR 500 MG CAPSULE.ER PO SCH (08:02)
[2016-11-30 09:06] LABS: ALT 29 U/L (21-72); AST 33 U/L (17-59); Alkaline Phosphatase 110 U/L (38-126); Blood Urea Nitrogen 41 mg/dL (9-20); Calcium 8.6 mg/dL (8.4-10.2); Chloride 88 mmol/L (98-107); Glucose 323 mg/dL (74-99); Non-African American GFR(MDRD) >60 (>60 ml/min/1.73 sqM); Potassium 4.3 mmol/L (3.5-5.1); Sodium 138 mmol/L (137-145); Total Bilirubin 0.7 mg/dL (0.2-1.3); Total Protein 6.2 g/dL (6.3-8.2)
[2016-11-30 09:13] LABS: Anion Gap 11 mmol/L
[2016-11-30 09:16] LABS: Carbon Dioxide 39 mmol/L (22-30)
[2016-11-30 10:15] LABS: Basophils % (A) 0 %; CH 30.8; CHCM 30.1; Eosinophils % (A) 0 %; HCT 37.7 % (39.0-53.0); HDW 3.05; HGB 11.7 gm/dL (13.0-17.5); Hypochromasia Marked; Luc # (Auto) 0.02; Luc % (Auto) 1; Lymphocytes # (A) 0.3 k/uL (1.0-4.8); Lymphocytes % (A) 7 %; MCH 32.1 pg (25.0-35.0); MCHC 31.1 g/dL (31.0-37.0); Macrocytosis Slight; Mean Platelet Volume 8.8; Monocytes # (A) 0.2 k/uL (0-1.0); Monocytes % (A) 6 %; Neutrophils # (A) 3.4 k/uL (1.3-7.7); Neutrophils % (A) 86 %; RBC 3.66 m/uL (4.30-5.90); RDW 15.2 % (11.5-15.5); WBC (Perox) 4.08
[2016-11-30 11:35] LABS: Glucose,Whole Blood 276 mg/dL (75-99)
--- NOTE | 2016-11-30 11:49 | P.PN ---
Subjective 81-year-old male patient with advanced oxygen-dependent COPD, who was recently in the hospital for right-sided pneumothorax for which she required a chest tube insertion and he achieved successful expansion of the right lung. Following his discharge, the patient started developing progressive swelling in his lower extremity and progressive dyspnea. He was compliant his medication. He was having exertional dyspnea and orthopnea and paroxysmal nocturnal dyspnea. Legs were extensively swollen time of admission. He was taken Lasix 40 mg by mouth twice a day 3 times a week and he did not see any significant improvement. Based on that he decided to come into the hospital. The patient was noted at home to have significant hypoxemia with a pulse ox of 70% while being on oxygen at 4 L/m nasal cannula. He denied having any chest pain. No angina. No pleurisy. No hemoptysis. Chest x-ray shows small lung volumes. There is significant bilateral pleural effusion. ProBNP level was slightly elevated. Cardiac enzymes were negative. No previous history of DVT or pulmonary embolism. No change in mental status. No palpitations or arrhythmias. Echocardiogram from last year showed preserved LV function without any significant pulmonary hypertension or valvular disruption. A follow -up echocardiogram was ordered and a cardiology consultation was also requested. Meanwhile, the patient is put juicing adequate amount of urine output while being on Lasix 80 mg IV push every 12 hours. His renal function shows a creatinine of 1.1. Rest of the electrodes are within normal and the patient has a mild component of metabolic alkalosis secondary to chronic hypercapnic respiratory failure. The patient is seen again today in 11/28/2016 in follow-up on the regular medical floor. He is currently sitting up in bed. He is awake and alert in no acute distress. He did utilized BiPAP last night. He is currently maintaining good O2 saturations in the mid 90s on 3 L/m per nasal cannula. He states he is breathing easier today as compared to yesterday. His urine output is not accurately measured. He is being diuresed with Lasix 80 mg IV twice a day. November 29 2016 I'm seeing this patient in follow-up. The patient is diuresing with IV Lasix and there is significant improvement in lower extremity edema. No chest pain. No shortness of breath above and beyond her baseline. No cough or sputum production. Renal function and electrolytes are all stable. The patient is a negative fluid balance. An accurate input/ output was not measured as the patient does not have a Harper catheter this point. However clinically is responding. The patient is seen again today 11/30/2016 in follow-up on the regular medical floor. He is awake and alert in no acute distress. His breathing is improved today as compared to yesterday. He continues to diurese well. Lower extremity edema is improved. He is maintaining good O2 saturations in the mid 90s on 4 L/ m per nasal cannula. He is on Lasix 40 mg by mouth 3 times a day along with Zaroxolyn. His recent chest x-ray did reveal improvement in the CHF. Objective - Vital Signs Vital signs: Vital Signs Temp 97.6 F 11/30/16 07:00 Pulse 84 11/30/16 07:45 Resp 18 11/30/16 08:00 BP 141/86 11/30/16 07:00 Pulse Ox 95 11/30/16 07:32 Intake & Output 11/29/16 11/30/16 11/30/16 18:59 06:59 18:59 Intake Total 240 Output Total 1350 1050 Balance -1350 -810 Intake: Oral 240 Output: Urine 1350 1050 Other: Voiding Method Urinal Urinal Urinal Incontinent Diaper Diaper Incontinent Incontinent # Voids 3 3 # Bowel Movements 0 - Exam Head exam was generally normal. There was no scleral icterus or corneal arcus. Mucous membranes were moist.Neck was supple and without jugular venous distension, thyromegaly, or carotid bruits. Carotids were easily palpable bilaterally. There was no adenopathy. Lung sounds are markedly diminished in lung bases bilaterally along with some bibasilar crackles. No wheezes or rhonchi. Heart sounds are regular, there is accentuation of the second heart sounds, overall heart sounds are distant, no cervical murmurs appreciated. Abdomen is slightly distended soft. No direct tenderness or rebound tensile guarding. Extremities show +2-3 pitting edema. A stasis ulcers seen in the left lower extremity anterior aspect which is dry and there is no drainage or pus. Pulses are diminished in lower oximetry is bilaterally. No cyanosis or clubbing. - Labs CBC & Chem 7: 11/30/16 08:20 11/30/16 08:17 Labs: Abnormal Lab Results - Last 24 Hours (Table) 11/29/16 11/29/1611/29/17 Range/Units 12:13 16:57 20:53 RBC (4.30-5.90) m/uL Hgb (13.0-17.5) gm/dL Hct (39.0-53.0) % MCV (80.0-100.0) fL Plt Count (150-450) k/uL Lymphocytes # (1.0-4.8) k/uL Chloride (98-107) mmol/L Carbon Dioxide (22-30) mmol/L BUN (9-20) mg/dL Glucose (74-99) mg/dL POC Glucose (mg/dL) 142 H 134 H 222 H (75-99) mg/dL Total Protein (6.3-8.2) g/dL 11/30/16 11/30/16 11/30/16 Range/Units 02:37 07:36 08:17 RBC (4.30-5.90) m/uL Hgb (13.0-17.5) gm/dL Hct (39.0-53.0) % MCV (80.0-100.0) fL Plt Count (150-450) k/uL Lymphocytes # (1.0-4.8) k/uL Chloride 88 L (98-107) mmol/L Carbon Dioxide 39 H (22-30) mmol/L BUN 41 H (9-20) mg/dL Glucose 323 H (74-99) mg/dL POC Glucose (mg/dL) 265 H 235 H (75-99) mg/dL Total Protein 6.2 L (6.3-8.2) g/dL 11/30/16 11/30/16 Range/Units 08:20 11:34 RBC 3.66 L (4.30-5.90) m/uL Hgb 11.7 L (13.0-17.5) gm/dL Hct 37.7 L (39.0-53.0) % MCV 103.0 H (80.0-100.0) fL Plt Count 127 L (150-450) k/uL Lymphocytes # 0.3 L (1.0-4.8) k/uL Chloride (98-107) mmol/L Carbon Dioxide (22-30) mmol/L BUN (9-20) mg/dL Glucose (74-99) mg/dL POC Glucose (mg/dL) 276 H (75-99) mg/dL Total Protein (6.3-8.2) g/dL Assessment and Plan Plan: Assessment 1 acute on chronic hypoxic respiratory failure due to massive fluid overload, possibly secondary to underlying CHF in addition. 2 bilateral pleural effusion secondary to above 3 extensive lower extremity edema 4 right-sided pneumothorax, recovered, October 2016 5 advanced COPD with chronic hypoxic arrest 30 failure 6 hypertension 7 chronic atrial fibrillation maintained on long-term and to coagulation with Eliquis 8 stage II stasis ulcer involving the left lower extremity/mccollum 9 diabetes mellitus 10 hyperlipidemia 11 vascular disease with previous amputation 12 obesity 13 obstructive sleep apnea maintained on an auto CPAP unit with a minimum pressure of 4 and maximum pressure of 20 on outpatient basis. Utilizing an Airfit F10 mask. 14 chronic stage II kidney disease 15 peripheral neuropathy. Plan The patient was seen and evaluated by Dr. Valdez. He is improved today as compared to yesterday. We'll continue to diurese the patient. He'll continue to utilize the BiPAP throughout the evenings and during the day while napping. We'll continue to follow.
--- NOTE | 2016-11-30 12:30 | P.DS ---
Providers Date of admission: 11/26/16 12:08 Expected date of discharge: 11/30/16 Attending physician: Divina Batista Consults: 11/26/16 11:32 Consult Physician Routine Consulting Provider: Ángel Alarcon Consult Reason/Comments: copd, hypoxia Do you want consulting provider notified?: Yes Primary care physician: Divina Batista [facility] Course: This is an 81-year-old male one of my patient with history of advanced COPD with chronic hypoxic respiratory failureon home O2, hypertension and hypertensive cardio vascular disease with left ventricular hypertrophy, chronic atrial fibrillation on chronic anticoagulation therapy in the form of NOAC, hyperlipidemia, diabetes mellitus type 2 with diabetic neuropathy, PAD post left big toe amputation, chronic kidney disease stage II, obesity with obstructive sleep apnea currently on a CPAP, patient was seen in my office about a week ago on and he was complaining of increased shortness of breath associated with increased swelling both lower extremities at that time we have increased his Lasix to 40 mg orally twice every day Wednesday and Wednesday once a day the rest of the week, however the patient did not notice any improvement in the swelling and he started to get more short of breath and I received a call from the home care nurse yesterday stating that his oxygenation is dropping into the low 70s at that time instructed to double up his Lasix and increase his oxygen to 4 L nasal cannula and the patient continued to have extreme shortness of breath ended up going to the office today he was seen by the mid care provider, and his oxygen was quite low, she ended up sending the patient to the emergency department at [facility] he was found to have significant bilateral pleural effusion with cardiomegaly and pulmonary venous congestion, patient was given Lasix 80 mg IV push in the ER he was placed on a BiPAP, and he was started on oxygen 4 L nasal cannula, he would be admitted to the hospital for acute diastolic heart failure as well as acute COPD exacerbation, cardiology consultation as well as pulmonary consultation will be obtained. Patient was recently hospitalized at [facility] because of severe shortness of breath he was found to have a 20% right-sided pneumothorax for was he had a chest tube placement and removal and at the same time was treated for acute exacerbation of COPD along with chronic bronchitis and he was released home. 11/27: Patient's lung sounds are improved from yesterday. Solu-Medrol will be decreased to 60 mg every 12 hours. He will be continued on Lasix 80 mg twice daily. Patient was on BiPAP during the night with improvement of his breathing. Requesting a lactose-free diet which will be changed. He states he did have 2 bowel movements after none for 4 days. During the lower extremity cellulitis, Silvadene wraps will be added and continue medihoney to the left pretibial wound. 11/28: Patient's clinically doing better, IV Solu-Medrol 60 every 12 hours, IV Lasix 80 mg twice a day IV, he is clinically better, needs has been dressed early this morning with medihoney on leg left leg small leg ulcer,, required BiPAP treatments last night, maintaining O2 sats between mid 90s, 2 L nasal cannula, patient denies any aspirate events, creatinine are 1.13 we would transition down to 40 mg 3 times a day oral Lasix in the morning, patient still has anasarca and lower extremities mainly patient might need low dose Zaroxolyn on a Wednesday schedule, the patient lost approximately 1.9 kg while in the hospital 11/29: Patient continued to improve without any decompensation, tapering Solu- Medrol to oral prednisone the morning, patient currently is on oral Lasix a day along with Zaroxolyn, possible discharge in the next 24-48 hours to skilled ECF or chest x-ray follow-up reviewed improving CHF with residual changes for CHF, small pleural effusion 11/30: Patient's breathing status today is stable. Patient will be discharged to [facility] today in stable condition. We are waiting for insurance authorization. Patient placed on Duricef due to left mccollum diabetic and venous stasis ulcer. Echocardiogram for evaluation of LV function EF 45-50%, severe pulmonary hypertension, moderately pleural effusion moderate tricuspid regurgitation and mild aortic stenosis Discharge Diagnoses: 1. Acute on chronic hypoxemic respiratory failure due to acute diastolic heart failure with bilateral effusion as well as acute exacerbation of COPD. 2. Bilateral pleural effusion due to diastolic heart failure. 3. Recent right-sided pneumothorax post chest tube placement and removal. Resolved. No evidence of any Pneumovax on this admission. 4. Hypertension and hypertensive cardiovascular disease. 5. Chronic atrial fibrillation. 6. Hyperlipemia. 7. Diabetes mellitus type 2. 8. 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 9. Chronic venous stasis with stasis dermatitis. 10. Bilateral lower extremity neuropathy. 11. PAD post left big toe amputation. 12. Moderate to severe COPD. 13. Obesity with obstructive sleep apnea. 14. Chronic kidney disease stage II. Stable at this time. 15. Anemia of chronic renal disease. Discharge plan: [facility] Impression and plan of care have been directed as dictated by the signing physician. Malu Cordova nurse practitioner acting as scribe for signing physician. Patient Condition at Discharge: Good Plan - Discharge Summary New Discharge Prescriptions: New Metolazone [Zaroxolyn] 2.5 mg PO MOWEFR tab Potassium Chloride ER [K-Dur 20] 20 meq PO DAILY tab predniSONE 0 mg PO DIRECTED #30 tab SILVER sulfADIAZINE CREAM [Silvadene Cream] 1 applic TOPICAL DAILY dose Cefadroxil [Duricef] 500 mg PO Q12HR #20 cap Continue Gabapentin [Neurontin] 300 mg PO TID cloNIDine HCL [Catapres] 0.1 mg PO DAILY PRN PRN Reason: Blood Pressure Aspirin 81 mg PO DAILY Ipratropium Nebulized [Atrovent Nebulized] 0.5 mg INHALATION RT-QID PRN PRN Reason: Shortness Of Breath Levalbuterol Nebulized [Xopenex Nebulized] 1.25 mg INHALATION RT-QID PRN PRN Reason: Shortness Of Breath INSULIN LISPRO (humaLOG) [humaLOG (formulary)] See Protocol SQ ACHS PRN PRN Reason: HIGH SUGAR [place]-3 Fatty Acids/Fish Oil [Fish Oil 1,000 mg Softgel] 1 cap PO DAILY Niacinamide [Niacin] 500 mg PO DAILY Multivitamins, Thera [Multivitamin (formulary)] 1 tab PO DAILY Glucosamine Sulfate 500 mg PO DAILY Ferrous Sulfate [Iron (65 MG Elemental)] 325 mg PO BID Cholecalciferol [Vitamin D3] 1,000 unit PO DAILY Atenolol [Tenormin] 100 mg PO BID Apixaban [Eliquis] 2.5 mg PO BID #0 Acetaminophen/Diphenhydramine [Tylenol PM 500-25mg] 1 tab PO HS PRN PRN Reason: sleep Pravastatin Sodium [Pravachol] 80 mg PO HS Losartan [Cozaar] 25 mg PO DAILY Budesonide-Formot 160-4.5 Mcg [Symbicort 160-4.5 Mcg Inhaler] 2 puff INHALATION RT-BID #60 puff Insulin NPH Human Isophane [humuLIN N] 12 units SQ BID #0 HYDROcodone/APAP 5-325MG [[place] 5-325] 1 tab PO Q8HR PRN #90 tab PRN Reason: Pain Changed Furosemide [Lasix] 20 mg PO BID #0 Discharge Medication List Aspirin 81 mg PO DAILY 02/18/14 [History] Gabapentin [Neurontin] 300 mg PO TID 02/18/14 [History] cloNIDine HCL [Catapres] 0.1 mg PO DAILY PRN 02/18/14 [History] INSULIN LISPRO (humaLOG) [humaLOG (formulary)] See Protocol SQ ACHS PRN [History] Ipratropium Nebulized [Atrovent Nebulized] 0.5 mg INHALATION RT-QID PRN [History] Levalbuterol Nebulized [Xopenex Nebulized] 1.25 mg INHALATION RT-QID PRN [History] Cholecalciferol [Vitamin D3] 1,000 unit PO DAILY 07/29/15 [History] Ferrous Sulfate [Iron (65 MG Elemental)] 325 mg PO BID 07/29/15 [History] Glucosamine Sulfate 500 mg PO DAILY 07/29/15 [History] Multivitamins, Thera [Multivitamin (formulary)] 1 tab PO DAILY 07/29/15 [History ] Niacinamide [Niacin] 500 mg PO DAILY 07/29/15 [History] [place]-3 Fatty Acids/Fish Oil [Fish Oil 1,000 mg Softgel] 1 cap PO DAILY [History] Atenolol [Tenormin] 100 mg PO BID 08/25/15 [History] Apixaban [Eliquis] 2.5 mg PO BID #0 09/06/15 [Rx] Acetaminophen/Diphenhydramine [Tylenol PM 500-25mg] 1 tab PO HS PRN 06/30/16 [ History] Losartan [Cozaar] 25 mg PO DAILY 10/24/16 [History] Pravastatin Sodium [Pravachol] 80 mg PO HS 10/24/16 [History] Budesonide-Formot 160-4.5 Mcg [Symbicort 160-4.5 Mcg Inhaler] 2 puff INHALATION RT-BID #60 puff 10/28/16 [Rx] Insulin NPH Human Isophane [humuLIN N] 12 units SQ BID #0 10/28/16 [Rx] Cefadroxil [Duricef] 500 mg PO Q12HR #20 cap 11/30/16 [Rx] Furosemide [Lasix] 20 mg PO BID #0 11/30/16 [Rx] HYDROcodone/APAP 5-325MG [[place] 5-325] 1 tab PO Q8HR PRN #90 tab 11/30/16 [Rx] Metolazone [Zaroxolyn] 2.5 mg PO MOWEFR tab 11/30/16 [Rx] Potassium Chloride ER [K-Dur 20] 20 meq PO DAILY tab 11/30/16 [Rx] SILVER sulfADIAZINE CREAM [Silvadene Cream] 1 applic TOPICAL DAILY dose [Rx] predniSONE 0 mg PO DIRECTED #30 tab 11/30/16 [Rx] Follow up Appointment(s)/Referral(s): Divina Batista MD [Primary Care Provider] - 1 Week Ángel Alarcon MD [STAFF PHYSICIAN] - 1 Week Patient Instructions/Handouts: Heart Failure (DC), Type 2 Diabetes in Adults ( DC) Discharge Disposition: TRANSFER TO SNF/ECF
[2016-11-30] MEDS: MULTIVITAMINS, THERA 1 EACH TAB PO SCH (13:15)
[2016-11-30] MEDS ORDERED: METOLAZONE 5 MG TAB PO SCH (16:21)
[2016-11-30 17:04] LABS: Glucose,Whole Blood 266 mg/dL (75-99)
[2016-11-30 20:21] LABS: Glucose,Whole Blood 268 mg/dL (75-99)
[2016-11-30] MEDS: PRAVASTATIN SODIUM 80 MG TAB PO SCH (21:38)
[2016-11-30 21:53] VITALS: RESP 16
[2016-12-01] MEDS: SYMBICORT 160-4.5 MCG INHALER INHALATION SCH (07:19)
[2016-12-01] MEDS: IPRATROPIUM 0.5 MG/2.5 ML NEBU INHALATION SCH ×2 (07:19→11:36)
[2016-12-01] MEDS: LEVALBUTEROL NEB (CONC) 1.25 MG/0.5 ML AMP INHALATION SCH ×2 (07:19→11:36)
[2016-12-01 07:34] LABS: Glucose,Whole Blood 115 mg/dL (75-99)
[2016-12-01] MEDS: INSULIN LISPRO (humaLOG) 300 UNIT/3 ML VIAL SQ SCH ×2 (07:48→12:10)
[2016-12-01 07:52] VITALS: BP 149/74; TEMP 97.7
[2016-12-01] MEDS: PANTOPRAZOLE 40 MG TABLET PO SCH (07:55)
[2016-12-01] MEDS: POTASSIUM CHLORIDE ER 20 MEQ TAB.ER PO SCH (08:38)
[2016-12-01] MEDS: LOSARTAN 25 MG TAB PO SCH (08:38)
[2016-12-01] MEDS: predniSONE 20 MG TAB PO SCH (08:38)
[2016-12-01] MEDS: GABAPENTIN 300 MG CAP PO SCH (08:39)
[2016-12-01] MEDS: ASPIRIN 81 MG CHEW PO SCH (08:39)
[2016-12-01] MEDS: FERROUS SULFATE 325 MG TAB PO SCH (08:39)
[2016-12-01] MEDS: NIACIN TR 500 MG CAPSULE.ER PO SCH (08:39)
[2016-12-01] MEDS: CHOLECALCIFEROL 1,000 UNIT TAB PO SCH (08:39)
[2016-12-01] MEDS: INSULIN NPH 300 UNIT/3 ML VIAL SQ SCH (08:39)
[2016-12-01] MEDS: ATENOLOL 50 MG TAB PO SCH (08:39)
[2016-12-01] MEDS: APIXABAN 2.5 MG TABLET PO SCH (08:39)
[2016-12-01] MEDS: FUROSEMIDE 40 MG TAB PO SCH (08:39)
[2016-12-01 09:07] LABS: Basophils % (A) 0 %; CHCM 30.5; Eosinophils % (A) 1 %; HCT 37.3 % (39.0-53.0); HDW 3.07; HGB 11.5 gm/dL (13.0-17.5); Hypochromasia Marked; Luc # (Auto) 0.08; Luc % (Auto) 2; Lymphocytes # (A) 0.8 k/uL (1.0-4.8); Lymphocytes % (A) 17 %; MCH 31.7 pg (25.0-35.0); MCHC 30.9 g/dL (31.0-37.0); MCV 102.5 fL (80.0-100.0); Macrocytosis Slight; Mean Platelet Volume 8.5; Monocytes # (A) 0.4 k/uL (0-1.0); Monocytes % (A) 8 %; Neutrophils # (A) 3.6 k/uL (1.3-7.7); Neutrophils % (A) 73 %; RBC 3.64 m/uL (4.30-5.90); RDW 15.1 % (11.5-15.5); WBC 4.9 k/uL (3.8-10.6)
[2016-12-01 09:18] LABS: ALT 33 U/L (21-72); AST 34 U/L (17-59); Alkaline Phosphatase 95 U/L (38-126); Blood Urea Nitrogen 39 mg/dL (9-20); Chloride 84 mmol/L (98-107); Glucose 132 mg/dL (74-99); Non-African American GFR(MDRD) 59 (>60 ml/min/1.73 sqM); Potassium 3.5 mmol/L (3.5-5.1); Sodium 140 mmol/L (137-145); Total Bilirubin 0.6 mg/dL (0.2-1.3)
[2016-12-01 09:24] LABS: Anion Gap 8 mmol/L
[2016-12-01 09:26] LABS: Carbon Dioxide 48 mmol/L (22-30)
[2016-12-01] MEDS: HYDROcodone/APAP 5-325MG 1 EACH TAB PO PRN (09:51)
[2016-12-01 11:43] VITALS: PULSE 92
[2016-12-01 11:45] LABS: Glucose,Whole Blood 128 mg/dL (75-99)
[2016-12-01] MEDS: MULTIVITAMINS, THERA 1 EACH TAB PO SCH (12:11)
--- NOTE | 2016-12-01 13:51 | P.PN ---
Subjective 81-year-old male patient with advanced oxygen-dependent COPD, who was recently in the hospital for right-sided pneumothorax for which she required a chest tube insertion and he achieved successful expansion of the right lung. Following his discharge, the patient started developing progressive swelling in his lower extremity and progressive dyspnea. He was compliant his medication. He was having exertional dyspnea and orthopnea and paroxysmal nocturnal dyspnea. Legs were extensively swollen time of admission. He was taken Lasix 40 mg by mouth twice a day 3 times a week and he did not see any significant improvement. Based on that he decided to come into the hospital. The patient was noted at home to have significant hypoxemia with a pulse ox of 70% while being on oxygen at 4 L/m nasal cannula. He denied having any chest pain. No angina. No pleurisy. No hemoptysis. Chest x-ray shows small lung volumes. There is significant bilateral pleural effusion. ProBNP level was slightly elevated. Cardiac enzymes were negative. No previous history of DVT or pulmonary embolism. No change in mental status. No palpitations or arrhythmias. Echocardiogram from last year showed preserved LV function without any significant pulmonary hypertension or valvular disruption. A follow -up echocardiogram was ordered and a cardiology consultation was also requested. Meanwhile, the patient is put juicing adequate amount of urine output while being on Lasix 80 mg IV push every 12 hours. His renal function shows a creatinine of 1.1. Rest of the electrodes are within normal and the patient has a mild component of metabolic alkalosis secondary to chronic hypercapnic respiratory failure. The patient is seen again today in 11/28/2016 in follow-up on the regular medical floor. He is currently sitting up in bed. He is awake and alert in no acute distress. He did utilized BiPAP last night. He is currently maintaining good O2 saturations in the mid 90s on 3 L/m per nasal cannula. He states he is breathing easier today as compared to yesterday. His urine output is not accurately measured. He is being diuresed with Lasix 80 mg IV twice a day. November 29 2016 I'm seeing this patient in follow-up. The patient is diuresing with IV Lasix and there is significant improvement in lower extremity edema. No chest pain. No shortness of breath above and beyond her baseline. No cough or sputum production. Renal function and electrolytes are all stable. The patient is a negative fluid balance. An accurate input/ output was not measured as the patient does not have a Harper catheter this point. However clinically is responding. The patient is seen again today 11/30/2016 in follow-up on the regular medical floor. He is awake and alert in no acute distress. His breathing is improved today as compared to yesterday. He continues to diurese well. Lower extremity edema is improved. He is maintaining good O2 saturations in the mid 90s on 4 L/ m per nasal cannula. He is on Lasix 40 mg by mouth 3 times a day along with Zaroxolyn. His recent chest x-ray did reveal improvement in the CHF. The patient was seen again today in follow-up 12/01/2016 on the regular medical floor. He is awake and alert in no acute distress. He states he is nearly back to his baseline. He denies any worsening shortness of breath, cough or congestion. He is maintaining good O2 saturations up to 100% on 4 L/m per nasal cannula. Prior to his admission his saturations were in the 70s on 4 L. Objective - Vital Signs Vital signs: Vital Signs Temp 97.7 F 12/01/16 07:00 Pulse 92 12/01/16 11:49 Resp 16 12/01/16 08:00 BP 149/74 12/01/16 07:00 Pulse Ox 100 12/01/16 07:19 Intake & Output 11/30/16 12/01/16 12/01/16 18:59 06:59 18:59 Intake Total 350 350 360 Output Total 2200 1750 350 Balance -1850 -1400 10 Weight 107.1 kg 107.1 kg Intake: Oral 350 350 360 Output: Urine 2200 1750 350 Other: Voiding Method Urinal Urinal Urinal Diaper Diaper Diaper Incontinent Incontinent Incontinent # Voids 2 2 # Bowel Movements 0 - Exam Head exam was generally normal. There was no scleral icterus or corneal arcus. Mucous membranes were moist.Neck was supple and without jugular venous distension, thyromegaly, or carotid bruits. Carotids were easily palpable bilaterally. There was no adenopathy. Lung sounds are markedly diminished in lung bases bilaterally along with some bibasilar crackles. No wheezes or rhonchi. Heart sounds are regular, there is accentuation of the second heart sounds, overall heart sounds are distant, no cervical murmurs appreciated. Abdomen is slightly distended soft. No direct tenderness or rebound tensile guarding. Extremities show +2-3 pitting edema. A stasis ulcers seen in the left lower extremity anterior aspect which is dry and there is no drainage or pus. Pulses are diminished in lower oximetry is bilaterally. No cyanosis or clubbing. - Labs CBC & Chem 7: 12/01/16 08:24 12/01/16 08:24 Labs: Abnormal Lab Results - Last 24 Hours (Table) 11/30/16 11/30/16 12/01/16 Range/Units 17:00 20:20 07:29 RBC (4.30-5.90) m/uL Hgb (13.0-17.5) gm/dL Hct (39.0-53.0) % MCV (80.0-100.0) fL MCHC (31.0-37.0) g/dL Plt Count (150-450) k/uL Lymphocytes # (1.0-4.8) k/uL Chloride (98-107) mmol/L Carbon Dioxide (22-30) mmol/L BUN (9-20) mg/dL Glucose (74-99) mg/dL POC Glucose (mg/dL) 266 H 268 H 115 H (75-99) mg/dL Total Protein (6.3-8.2) g/dL Albumin (3.5-5.0) g/dL 12/01/16 12/01/16 12/01/16 Range/Units 08:24 08:24 11:40 RBC 3.64 L (4.30-5.90) m/uL Hgb 11.5 L (13.0-17.5) gm/dL Hct 37.3 L (39.0-53.0) % MCV 102.5 H (80.0-100.0) fL MCHC 30.9 L (31.0-37.0) g/dL Plt Count 123 L (150-450) k/uL Lymphocytes # 0.8 L (1.0-4.8) k/uL Chloride 84 L (98-107) mmol/L Carbon Dioxide 48 H* (22-30) mmol/L BUN 39 H (9-20) mg/dL Glucose 132 H (74-99) mg/dL POC Glucose (mg/dL) 128 H (75-99) mg/dL Total Protein 6.0 L (6.3-8.2) g/dL Albumin 3.3 L (3.5-5.0) g/dL Assessment and Plan Plan: Assessment 1 acute on chronic hypoxic respiratory failure due to massive fluid overload, secondary to underlying 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 2 bilateral pleural effusion secondary to above 3 extensive lower extremity edema 4 right-sided pneumothorax, recovered, October 2016 5 advanced COPD with chronic hypoxic arrest 30 failure 6 hypertension 7 chronic atrial fibrillation maintained on long-term and to coagulation with Eliquis 8 stage II stasis ulcer involving the left lower extremity/mccollum 9 diabetes mellitus 10 hyperlipidemia 11 vascular disease with previous amputation 12 obesity 13 obstructive sleep apnea maintained on an auto CPAP unit with a minimum pressure of 4 and maximum pressure of 20 on outpatient basis. Utilizing an Airfit F10 mask. 14 chronic stage II kidney disease 15 peripheral neuropathy. Plan The patient was seen and evaluated by Dr. Valdez. He is improved today as compared to yesterday. He is cleared for discharge from the pulmonary standpoint. He'll continue with his home oxygen and BiPAP. He'll follow-up in our office in 1-2 weeks' time. He is however encouraged to call sooner with any recurrence of symptoms or other questions or concerns.
[2016-12-02] MEDS ORDERED: METOLAZONE 2.5 MG TAB PO SCH (09:00)
== END 2016-12-01 15:45 | DRG 291 ==
LOC: EC 09:42 → 6SEL 12:08 → 4MS4W 11-28 01:12 → 5MS5E 11-30 11:04
PROVIDERS: ADMIT Internal Medicine; ATTEND Internal Medicine
DX: I13.0 Hypertensive heart and chronic kidney disease with heart failure and stage 1 through stage 4 chronic kidney disease, or unspecified chronic kidney disease (principal); I50.33 Acute on chronic diastolic (congestive) heart failure; J96.21 Acute and chronic respiratory failure with hypoxia; J96.22 Acute and chronic respiratory failure with hypercapnia; E87.3 Alkalosis; L97.829 Non-pressure chronic ulcer of other part of left lower leg with unspecified severity; L03.116 Cellulitis of left lower limb; J44.1 Chronic obstructive pulmonary disease with (acute) exacerbation; E11.22 Type 2 diabetes mellitus with diabetic chronic kidney disease; I27.81 Cor pulmonale (chronic); E11.40 Type 2 diabetes mellitus with diabetic neuropathy, unspecified; D63.1 Anemia in chronic kidney disease; I25.10 Atherosclerotic heart disease of native coronary artery without angina pectoris; E11.622 Type 2 diabetes mellitus with other skin ulcer; E66.9 Obesity, unspecified; E78.5 Hyperlipidemia, unspecified; G47.33 Obstructive sleep apnea (adult) (pediatric); I25.2 Old myocardial infarction; I48.2 Chronic atrial fibrillation; K21.9 Gastro-esophageal reflux disease without esophagitis; N18.2 Chronic kidney disease, stage 2 (mild); I87.8 Other specified disorders of veins; I87.2 Venous insufficiency (chronic) (peripheral); E11.51 Type 2 diabetes mellitus with diabetic peripheral angiopathy without gangrene; E11.42 Type 2 diabetes mellitus with diabetic polyneuropathy; M19.90 Unspecified osteoarthritis, unspecified site; N42.9 Disorder of prostate, unspecified; R32 Unspecified urinary incontinence; Z79.01 Long term (current) use of anticoagulants; Z79.4 Long term (current) use of insulin; Z79.82 Long term (current) use of aspirin; Z79.899 Other long term (current) drug therapy; Z99.81 Dependence on supplemental oxygen; Z96.651 Presence of right artificial knee joint; Z96.611 Presence of right artificial shoulder joint; Z87.891 Personal history of nicotine dependence; Z91.09 Other allergy status, other than to drugs and biological substances; Z89.412 Acquired absence of left great toe; Z82.49 Family history of ischemic heart disease and other diseases of the circulatory system
CPT/HCPCS: 36415; 71010; 71020; 80053; 82550; 82553; 83735; 83880; 84484; 85025; 85610; 85730; 93005; 93306; 94640; 94660; 94760; 96374; 96376; 99291

== ENCOUNTER 2018-03-30 09:01 | Inpatient (IN) | payer MEDICARE ==
[2018-03-30] MEDS ORDERED: IPRATROPIUM-ALBUTEROL 3 ML NEB INHALATION STA (09:28)
--- NOTE | 2018-03-30 09:34 | ED ---
General Adult HPI - General Chief complaint: Shortness of Breath Stated complaint: Low O2 Time Seen by Provider: 03/30/18 09:21 Source: patient, family, RN notes reviewed Mode of arrival: ambulatory Limitations: no limitations - History of Present Illness Initial comments: Patient is a pleasant 82-year-old male presenting to the emergency department with difficulty in breathing. Onset of symptoms was last day or 2. Patient does have history of similar symptoms previously associated with COPD. Patient has some leg swelling which has been intermittently chronic. Patient had a low oxygen in the 50s prior to arrival. Patient did feel a little bit shaky at that time as well. No significant cough. No chest pain. No fevers. - Related Data Home Medications Medication Instructions Recorded Confirmed Aspirin 81 mg PO DAILY 02/18/14 03/30/18 Gabapentin [Neurontin] 300 mg PO TID 02/18/14 03/30/18 INSULIN LISPRO (humaLOG) [humaLOG] See Protocol SQ ACHS PRN 05/18/15 03/30/18 Ipratropium Nebulized [Atrovent 0.5 mg INHALATION RT-QID PRN 05/18/15 03/30/18 Nebulized] Levalbuterol Nebulized [Xopenex 1.25 mg INHALATION RT-QID PRN 05/18/15 03/30/18 Nebulized] Cholecalciferol [Vitamin D3] 5,000 unit PO DAILY 07/29/15 03/30/18 Ferrous Sulfate [Iron (65 MG 325 mg PO DAILY 07/29/15 03/30/18 Elemental)] Glucosamine Sulfate 500 mg PO DAILY 07/29/15 03/30/18 Multivitamins, Thera [Multivitamin 1 tab PO DAILY 07/29/15 03/30/18 (formulary)] Niacinamide [Niacin] 500 mg PO DAILY 07/29/15 03/30/18 Bryan-3 Fatty Acids/Fish Oil [Fish 1 cap PO DAILY 07/29/15 03/30/18 Oil 1,000 mg Softgel] Atenolol [Tenormin] 100 mg PO BID 08/25/15 03/30/18 Losartan [Cozaar] 25 mg PO DAILY 10/24/16 03/30/18 Pravastatin Sodium [Pravachol] 80 mg PO HS 10/24/16 03/30/18 Bisoprol/Hydrochlorothiazide 1 tab PO DAILY 03/30/18 03/30/18 [Bisoprolol-Hctz 5-6.25 mg Tab] Calcium Carbonate [Calcium] 600 mg PO DAILY 03/30/18 03/30/18 Cetirizine HCl [Zyrtec] 10 mg PO DAILY 03/30/18 03/30/18 Cyanocobalamin (Vitamin B-12) 1,000 mcg PO DAILY 03/30/18 03/30/18 [Vitamin B-12] Escitalopram [Lexapro] 10 mg PO DAILY 03/30/18 03/30/18 Folic Acid 0.8 mg PO DAILY 03/30/18 03/30/18 Furosemide [Lasix] 20 mg PO DAILY 03/30/18 03/30/18 Loperamide HCl [Imodium A-D] 2 mg PO Q6H 03/30/18 03/30/18 Lysine [l-Lysine] 500 mg PO DAILY 03/30/18 03/30/18 Meloxicam [Mobic] 15 mg PO DAILY 03/30/18 03/30/18 Oxybutynin Chloride [Ditropan] 5 mg PO BID 03/30/18 03/30/18 Potassium 595mg 595 mg PO DAILY 03/30/18 03/30/18 Ranitidine HCl [Zantac] 150 mg PO BID 03/30/18 03/30/18 Sennosides-Docusate Sodium 1 tab PO DAILY 03/30/18 03/30/18 [Senokot-S] Simvastatin [Zocor] 40 mg PO HS 03/30/18 03/30/18 Turmeric Root Extract [Turmeric] 500 mg PO DAILY 03/30/18 03/30/18 Vitamin E 1,000 unit PO DAILY 03/30/18 03/30/18 traMADol HCL [Ultram] 50 mg PO Q6H PRN 03/30/18 03/30/18 Previous Rx's Medication Instructions Recorded Apixaban [Eliquis] 2.5 mg PO BID #0 09/06/15 Insulin NPH Human Isophane 12 units SQ BID #0 10/28/16 [humuLIN N] HYDROcodone/APAP 5-325MG [[place] 1 tab PO Q8HR PRN #90 tab 11/30/16 5-325] Allergies Allergy/AdvReac Type Severity Reaction Status Date / Time celecoxib [From Celebrex] AdvReac "hard Verified 03/30/18 09:40 muscle" ibuprofen AdvReac "bloody Verified 03/30/18 09:40 urine" levofloxacin AdvReac Itching Verified 03/30/18 09:40 Review of Systems ROS Statement: Those systems with pertinent positive or pertinent negative responses have been documented in the HPI. ROS Other: All systems not noted in ROS Statement are negative. Constitutional: Denies: fever Eyes: Denies: eye pain ENT: Denies: ear pain Respiratory: Reports: dyspnea. Denies: cough Cardiovascular: Denies: chest pain Endocrine: Reports: fatigue Gastrointestinal: Denies: abdominal pain Genitourinary: Denies: dysuria Musculoskeletal: Denies: back pain Skin: Denies: rash Neurological: Denies: weakness 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, diabetes mellitus, chronic atrial fibrillation, coronary artery disease, COPD, hyperlipidemia, hypertension, recent hospitalization in October 2016 for a right-sided pneumothorax requiring chest tube insertion, left lower extremity wound/stasis ulcers Last Myocardial Infarction Date:: 27 years ago History of Any Multi-Drug Resistant Organisms: None Reported Past Surgical History: Appendectomy, Back Surgery, Cholecystectomy, Orthopedic Surgery Additional Past Surgical History / Comment(s): pilonidal cyst, brain anuerysm 1 clipping, right knee replacement, right shoulder replacement, LT CATARACT, SKIN GRAFT FROM RT THIGH TO RT FINGER, RASHEED 10 years ago, PFO against ASD, last colonoscopy greater than 5 years, 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 Past Anesthesia/Blood Transfusion Reactions: No Reported Reaction Past Psychological History: No Psychological Hx Reported Smoking Status: Former smoker Past Alcohol Use History: None Reported Past Drug Use History: None Reported - Past Family History Father Family Medical History: Diabetes Mellitus, Myocardial Infarction (AR) Additional Family Medical History / Comment(s): Father at age 55 with history of diabetes and alcoholism. Mother Family Medical History: Cancer, Myocardial Infarction (AR) Additional Family Medical History / Comment(s): Mother at age 62 from rectal cancer. Brother(s) Additional Family Medical History / Comment(s): Patient had 3 brothers. One in a work related accident. One after having an AR with history of renal problems. Sister(s) Additional Family Medical History / Comment(s): Patient has 2 sisters. One is alive. One has after gallbladder ruptured. Patient has 3 boys and one girl with no major medical problems. General Exam Limitations: no limitations General appearance: alert, in no apparent distress Head exam: Present: atraumatic Eye exam: Present: normal appearance, PERRL ENT exam: Present: normal oropharynx Neck exam: Present: normal inspection Respiratory exam: Present: decreased breath sounds Cardiovascular Exam: Present: regular rate, irregular rhythm GI/Abdominal exam: Present: soft. Absent: tenderness Extremities exam: Present: pedal edema. Absent: calf tenderness Neurological exam: Present: alert Psychiatric exam: Present: normal affect, normal mood Skin exam: Present: normal color Course Vital Signs 03/30/18 03/30/18 03/30/18 09:10 09:33 09:39 Temperature 98.1 F Pulse Rate 86 88 Respiratory 20 18 22 Rate Blood Pressure 106/84 O2 Sat by Pulse 90 L 94 L Oximetry 03/30/18 03/30/18 03/30/18 09:58 10:08 10:53 Temperature Pulse Rate 83 89 90 Respiratory 18 Rate Blood Pressure 101/69 O2 Sat by Pulse 85 L Oximetry EKG Findings - EKG Comments: EKG Findings:: A. fib with rate of 88. QRS 154. QT 408. QTC 493. Right axis. Right bundle-branch block. T-wave inversion anterior and inferior. Medical Decision Making - Medical Decision Making Patient reevaluated and resting comfortably at bedside. Pulse ox 88-91% on 4 L. Patient states he normally runs at on 2 L. Patient and family are updated. Case was discussed in detail with Dr. Batista, who will admit his patient with consult with Dr. Alarcon was previously seen this patient. Patient does not meet sepsis criteria. - Lab Data Result diagrams: 03/30/18 09:33 03/30/18 09:33 Lab Results 03/30/18 03/30/18 03/30/18 Range/Units 09:33 09:33 09:33 WBC 5.0 (3.8-10.6) k/uL RBC 3.48 L (4.30-5.90) m/uL Hgb 11.3 L (13.0-17.5) gm/dL Hct 35.9 L (39.0-53.0) % MCV 103.2 H (80.0-100.0) fL MCH 32.6 (25.0-35.0) pg MCHC 31.6 (31.0-37.0) g/dL RDW 14.5 (11.5-15.5) % Plt Count 92 L (150-450) k/uL Neutrophils % 74 % Lymphocytes % 11 % Monocytes % 9 % Eosinophils % 3 % Basophils % 1 % Neutrophils # 3.7 (1.3-7.7) k/uL Lymphocytes # 0.5 L (1.0-4.8) k/uL Monocytes # 0.5 (0-1.0) k/uL Eosinophils # 0.2 (0-0.7) k/uL Basophils # 0.1 (0-0.2) k/uL Manual Slide Review Performed Large Platelets Present Hypochromasia Marked Macrocytosis Slight Sodium 145 (137-145) mmol/L Potassium 4.6 (3.5-5.1) mmol/L Chloride 100 (98-107) mmol/L Carbon Dioxide 39 H (22-30) mmol/L Anion Gap 6 mmol/L BUN 63 H (9-20) mg/dL Creatinine 1.56 H (0.66-1.25) mg/dL Est GFR (CKD-EPI)AfAm 48 (>60 ml/min/1.73 sqM) Est GFR (CKD-EPI)NonAf 41 (>60 ml/min/1.73 sqM) Glucose 166 H (74-99) mg/dL Calcium 8.5 (8.4-10.2) mg/dL Total Bilirubin 0.4 (0.2-1.3) mg/dL AST 18 (17-59) U/L ALT 20 L (21-72) U/L Alkaline Phosphatase 84 (38-126) U/L Total Creatine Kinase 43 L (55-170) U/L CK-MB (CK-2) 1.8 (0.0-2.4) ng/mL CK-MB (CK-2) Rel Index 4.2 Troponin I 0.071 H* (0.000-0.034) ng/mL NT-Pro-B Natriuret Pep pg/mL Total Protein 6.4 (6.3-8.2) g/dL Albumin 3.6 (3.5-5.0) g/dL 03/30/18 Range/Units 09:33 WBC (3.8-10.6) k/uL RBC (4.30-5.90) m/uL Hgb (13.0-17.5) gm/dL Hct (39.0-53.0) % MCV (80.0-100.0) fL MCH (25.0-35.0) pg MCHC (31.0-37.0) g/dL RDW (11.5-15.5) % Plt Count (150-450) k/uL Neutrophils % % Lymphocytes % % Monocytes % % Eosinophils % % Basophils % % Neutrophils # (1.3-7.7) k/uL Lymphocytes # (1.0-4.8) k/uL Monocytes # (0-1.0) k/uL Eosinophils # (0-0.7) k/uL Basophils # (0-0.2) k/uL Manual Slide Review Large Platelets Hypochromasia Macrocytosis Sodium (137-145) mmol/L Potassium (3.5-5.1) mmol/L Chloride (98-107) mmol/L Carbon Dioxide (22-30) mmol/L Anion Gap mmol/L BUN (9-20) mg/dL Creatinine (0.66-1.25) mg/dL Est GFR (CKD-EPI)AfAm (>60 ml/min/1.73 sqM) Est GFR (CKD-EPI)NonAf (>60 ml/min/1.73 sqM) Glucose (74-99) mg/dL Calcium (8.4-10.2) mg/dL Total Bilirubin (0.2-1.3) mg/dL AST (17-59) U/L ALT (21-72) U/L Alkaline Phosphatase (38-126) U/L Total Creatine Kinase (55-170) U/L CK-MB (CK-2) (0.0-2.4) ng/mL CK-MB (CK-2) Rel Index Troponin I (0.000-0.034) ng/mL NT-Pro-B Natriuret Pep 6200 pg/mL Total Protein (6.3-8.2) g/dL Albumin (3.5-5.0) g/dL - Radiology Data Radiology results: image reviewed (Chest x-ray shows right mid lung patchy opacity likely atelectasis although early developing pneumonia is possible.) Disposition Clinical Impression: Acute exacerbation of chronic obstructive airways disease Disposition: ADMITTED IP TO THIS HOSP Is patient prescribed a controlled substance at d/c from ED?: No Referrals: Divina Batista MD [Primary Care Provider] - 1-2 days Decision Time: 11:29
--- NOTE | 2018-03-30 09:51 | XR ---
EXAMINATION TYPE: XR chest 2V DATE OF EXAM: 03/30/2018 COMPARISON: 02/03/2018 HISTORY: Difficult breathing TECHNIQUE: Frontal and lateral views of the chest are obtained. FINDINGS: Bibasilar patchy opacity similar to the prior. New right midlung opacities favored to repr esent atelectasis however early developing pneumonia is possible. Trace right pleural effusion is not ed. Overall there are low lung volumes accentuating the pulmonary vasculature. Postsurgical changes o f the right humerus are noted. Cardiac silhouette is partially secure but enlarged. Degenerative dimas ges of the thoracic spine are again noted. IMPRESSION: New right midlung patchy opacity appears linear and is favored to represent atelectasis although early developing pneumonia is possible. Persistent trace right pleural effusion and bibasila r atelectasis are similar to the prior.
[2018-03-30 10:27] LABS: Basophils # (A) 0.1 k/uL (0-0.2); Basophils % (A) 1 %; Eosinophils # (A) 0.2 k/uL (0-0.7); Eosinophils % (A) 3 %; HCT 35.9 % (39.0-53.0); HGB 11.3 gm/dL (13.0-17.5); Hypochromasia Marked; Lymphocytes # (A) 0.5 k/uL (1.0-4.8); Lymphocytes % (A) 11 %; MCH 32.6 pg (25.0-35.0); MCHC 31.6 g/dL (31.0-37.0); MCV 103.2 fL (80.0-100.0); Macrocytosis Slight; Mean Platelet Volume 8.6; Monocytes # (A) 0.5 k/uL (0-1.0); Monocytes % (A) 9 %; Neutrophils # (A) 3.7 k/uL (1.3-7.7); Neutrophils % (A) 74 %; RBC 3.48 m/uL (4.30-5.90); RDW 14.5 % (11.5-15.5)
[2018-03-30 10:33] LABS: Platelet Count 92 k/uL (150-450)
[2018-03-30 10:40] LABS: Albumin 3.6 g/dL (3.5-5.0); Calcium 8.5 mg/dL (8.4-10.2); Potassium 4.6 mmol/L (3.5-5.1); Total Bilirubin 0.4 mg/dL (0.2-1.3); Total Protein 6.4 g/dL (6.3-8.2)
[2018-03-30 10:55] LABS: Creatine Kinase MB 1.8 ng/mL (0.0-2.4)
[2018-03-30 10:58] LABS: Troponin I 0.071 ng/mL (0.000-0.034)
[2018-03-30 11:03] LABS: Large Platelets Present
[2018-03-30] MEDS ORDERED: methylPREDNISolone SOD SUCCI 125 MG/2 ML VIAL IV STA (11:29)
[2018-03-30] MEDS ORDERED: IPRATROPIUM-ALBUTEROL 3 ML NEB INHALATION PRN (11:29)
[2018-03-30 11:40] LABS: INR 1.1 (<1.2); Partial Thromboplastin Time 25.3 sec (22.0-30.0); Prothrombin Time 11.6 sec (9.0-12.0)
--- NOTE | 2018-03-30 12:43 | P.HPIM ---
History of Present Illness H&P Date: 03/30/18 Chief Complaint: acute respiratory failure due to acute COPD exacerbation. This is an 82-year-old male one of my patient with history of advanced COPD with chronic hypoxic respiratory failureon home O2, hypertension and hypertensive cardio vascular disease with left ventricular hypertrophy, chronic atrial fibrillation on chronic anticoagulation therapy in the form of NOAC, hyperlipidemia, diabetes mellitus type 2 with diabetic neuropathy, PAD post left big toe amputation, chronic kidney disease stage II, obesity with obstructive sleep apnea currently on a CPAP patient has been doing fine until recently when he noticed increased jerking movement in both upper and lower extremities specially in the upper extremities that has, and more frequent over the last few days, he went to the office because of his fullness in the stomach and he was prescribed a PPI and [facility] morning he had forgot his cell phone his received a call come and 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 her has the patient was having significant issues with the breathing and with increased jerking movement on patient checked his oxygen level was around 55% and the patient was driven to the emergency department at [facility] by his and he was found to have an acute kidney injury and top of chronic kidney disease as well as chest x-ray showed possible right middle lobe atelectasis versus infiltrate with a trace right-sided pleural effusion patient was admitted to the hospital for acute exacerbation of chronic obstructive pulmonary disease as well as acute kidney injury would be started on IV antibiotic in the form of Zosyn 3.375 g IV piggyback every 8 hours, DuoNeb 3 mg nebulization 4 times every day as well as pulmonary consultation. Review of Systems Constitutional: Reports fatigue, Reports weakness, Denies anorexia, Denies chronic headaches Eyes: denies blurred vision, denies bulging eye, denies decreased vision Ears, nose, mouth and throat: Denies dysphagia, Denies neck lump, Denies sore throat Cardiovascular: Reports decreased exercise tolerance, Reports dyspnea on exertion, Reports high blood pressure, Reports shortness of breath, Denies chest pain, Denies paroxysmal nocturnal dyspnea, Denies phlebitis, Denies rapid heart beat Respiratory: Reports cough, Reports home oxygen, Reports sleep apnea, Reports wheezing, Denies congestion, Denies cough with sputum, Denies snoring Gastrointestinal: Reports bloating, Reports early satiety, Reports excessive gas , Denies abdominal pain, Denies BRBPR, Denies change in bowel habits, Denies heartburn, Denies loss of appetite, Denies melena, Denies nausea, Denies vomiting Genitourinary: Reports nocturia, Denies dysuria Musculoskeletal: Reports gait dysfunction, Reports muscle weakness, Denies myalgias Musculoskeletal: bilateral: ankle swelling, absent: ankle pain, ankle stiffness , elbow pain, elbow stiffness, elbow swelling, foot pain, foot stiffness, foot swelling, hand pain, hand stiffness, hand swelling, hip pain, hip stiffness, hip swelling, knee pain, knee stiffness, knee swelling, shoulder pain, shoulder stiffness, shoulder swelling, wrist pain, wrist stiffness, wrist swelling Integumentary: Denies pruritus, Denies rash Neurological: Reports balance difficulties, Reports burning pain, Reports gait dysfunction, Reports numbness, Reports weakness Psychiatric: Denies anxiety, Denies depression Endocrine: Denies fatigue, Denies weight change 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, diabetes mellitus, chronic atrial fibrillation, coronary artery disease, COPD, hyperlipidemia, hypertension, recent hospitalization in October 2016 for a right-sided pneumothorax requiring chest tube insertion, left lower extremity wound/stasis ulcers Last Myocardial Infarction Date:: 27 years ago History of Any Multi-Drug Resistant Organisms: None Reported Past Surgical History: Appendectomy, Back Surgery, Cholecystectomy, Orthopedic Surgery Additional Past Surgical History / Comment(s): pilonidal cyst, brain anuerysm 1 clipping, right knee replacement, right shoulder replacement, LT CATARACT, SKIN GRAFT FROM RT THIGH TO RT FINGER, RASHEED 10 years ago, PFO against ASD, last colonoscopy greater than 5 years, 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 Past Anesthesia/Blood Transfusion Reactions: No Reported Reaction Past Psychological History: No Psychological Hx Reported Smoking Status: Former smoker Past Alcohol Use History: None Reported Past Drug Use History: None Reported - Past Family History Father Family Medical History: Diabetes Mellitus, Myocardial Infarction (VT) Additional Family Medical History / Comment(s): Father at age 55 with history of diabetes and alcoholism. Mother Family Medical History: Cancer, Myocardial Infarction (VT) Additional Family Medical History / Comment(s): Mother at age 62 from rectal cancer. Brother(s) Additional Family Medical History / Comment(s): Patient had 3 brothers. One in a work related accident. One after having an VT with history of renal problems. Sister(s) Additional Family Medical History / Comment(s): Patient has 2 sisters. One is alive. One has after gallbladder ruptured. Patient has 3 boys and one girl with no major medical problems. Medications and Allergies Home Medications Medication Instructions Recorded Confirmed Type Aspirin 81 mg PO DAILY 02/18/14 03/30/18 History Gabapentin [Neurontin] 300 mg PO TID 02/18/14 03/30/18 History INSULIN LISPRO (humaLOG) [humaLOG] See Protocol SQ ACHS PRN 05/18/15 03/30/18 History Ipratropium Nebulized [Atrovent 0.5 mg INHALATION RT-QID PRN 05/18/15 03/30/18 History Nebulized] Levalbuterol Nebulized [Xopenex 1.25 mg INHALATION RT-QID PRN 05/18/15 03/30/18 History Nebulized] Cholecalciferol [Vitamin D3] 5,000 unit PO DAILY 07/29/15 03/30/18 History Ferrous Sulfate [Iron (65 MG 325 mg PO DAILY 07/29/15 03/30/18 History Elemental)] Glucosamine Sulfate 500 mg PO DAILY 07/29/15 03/30/18 History Multivitamins, Thera [Multivitamin 1 tab PO DAILY 07/29/15 03/30/18 History (formulary)] Niacinamide [Niacin] 500 mg PO DAILY 07/29/15 03/30/18 History [place]-3 Fatty Acids/Fish Oil [Fish 1 cap PO DAILY 07/29/15 03/30/18 History Oil 1,000 mg Softgel] Atenolol [Tenormin] 100 mg PO BID 08/25/15 03/30/18 History Apixaban [Eliquis] 2.5 mg PO BID #0 09/06/15 03/30/18 Rx Losartan [Cozaar] 25 mg PO DAILY 10/24/16 03/30/18 History Pravastatin Sodium [Pravachol] 80 mg PO HS 10/24/16 03/30/18 History Insulin NPH Human Isophane 12 units SQ BID #0 10/28/16 03/30/18 Rx [humuLIN N] HYDROcodone/APAP 5-325MG [[place] 1 tab PO Q8HR PRN #90 tab 11/30/16 03/30/18 Rx 5-325] Bisoprol/Hydrochlorothiazide 1 tab PO DAILY 03/30/18 03/30/18 History [Bisoprolol-Hctz 5-6.25 mg Tab] Calcium Carbonate [Calcium] 600 mg PO DAILY 03/30/18 03/30/18 History Cetirizine HCl [Zyrtec] 10 mg PO DAILY 03/30/18 03/30/18 History Cyanocobalamin (Vitamin B-12) 1,000 mcg PO DAILY 03/30/18 03/30/18 History [Vitamin B-12] Escitalopram [Lexapro] 10 mg PO DAILY 03/30/18 03/30/18 History Folic Acid 0.8 mg PO DAILY 03/30/18 03/30/18 History Furosemide [Lasix] 20 mg PO DAILY 03/30/18 03/30/18 History Loperamide HCl [Imodium A-D] 2 mg PO Q6H 03/30/18 03/30/18 History Lysine [l-Lysine] 500 mg PO DAILY 03/30/18 03/30/18 History Meloxicam [Mobic] 15 mg PO DAILY 03/30/18 03/30/18 History Oxybutynin Chloride [Ditropan] 5 mg PO BID 03/30/18 03/30/18 History Potassium 595mg 595 mg PO DAILY 03/30/18 03/30/18 History Ranitidine HCl [Zantac] 150 mg PO BID 03/30/18 03/30/18 History Sennosides-Docusate Sodium 1 tab PO DAILY 03/30/18 03/30/18 History [Senokot-S] Simvastatin [Zocor] 40 mg PO HS 03/30/18 03/30/18 History Turmeric Root Extract [Turmeric] 500 mg PO DAILY 03/30/18 03/30/18 History Vitamin E 1,000 unit PO DAILY 03/30/18 03/30/18 History traMADol HCL [Ultram] 50 mg PO Q6H PRN 03/30/18 03/30/18 History Allergies Allergy/AdvReac Type Severity Reaction Status Date / Time celecoxib [From Celebrex] AdvReac "hard Verified 03/30/18 09:40 muscle" ibuprofen AdvReac "bloody Verified 03/30/18 09:40 urine" levofloxacin AdvReac Itching Verified 03/30/18 09:40 Physical Exam Vitals: Vital Signs Temp Pulse Resp BP Pulse Ox 03/30/18 11:00 75 94 H 101/69 03/30/18 10:53 90 18 101/69 85 L 03/30/18 10:08 89 03/30/18 09:58 83 03/30/18 09:39 22 03/30/18 09:33 88 18 106/84 94 L 03/30/18 09:10 98.1 F 86 20 90 L Intake and Output 03/29/18 03/30/18 03/30/18 22:59 06:59 14:59 Other: Weight 104.326 kg - Constitutional General appearance: mild distress, obese - EENT Eyes: anicteric sclerae, EOMI, PERRLA, no ptosis, no scleral icterus, normal appearance ENT: hearing grossly normal, NA/AT, normal oropharynx, no thrush Ears: bilateral: normal - Neck Neck: no lymphadenopathy, normal ROM, no rigidity, no stridor, no thyromegaly Carotids: bilateral: upstroke delayed Thyroid: bilateral: normal size - Respiratory Respiratory: bilateral: diminished, wheezing, prolonged expiration, negative: dullness, rales, rhonchi - Cardiovascular Rhythm: irregularly irregular Heart sounds: normal: S1, S2 Abnormal Heart Sounds: systolic murmur - Gastrointestinal General gastrointestinal: normal bowel sounds, soft, no tenderness - Integumentary Integumentary: normal, normal turgor - Neurologic Neurologic: CNII-XII intact - Musculoskeletal Musculoskeletal: no gait normal, generalized weakness, strength equal bilaterally - Psychiatric Psychiatric: A&O x's 3, appropriate affect, intact judgment & insight (left big toe amputation.) Results CBC & Chem 7: 03/30/18 09:33 03/30/18 09:33 Labs: Abnormal Lab Results - Last 24 Hours (Table) 03/30/18 03/30/18 03/30/18 Range/Units 09:33 09:33 09:33 RBC 3.48 L (4.30-5.90) m/uL Hgb 11.3 L (13.0-17.5) gm/dL Hct 35.9 L (39.0-53.0) % MCV 103.2 H (80.0-100.0) fL Plt Count 92 L (150-450) k/uL Lymphocytes # 0.5 L (1.0-4.8) k/uL Carbon Dioxide 39 H (22-30) mmol/L BUN 63 H (9-20) mg/dL Creatinine 1.56 H (0.66-1.25) mg/dL Glucose 166 H (74-99) mg/dL ALT 20 L (21-72) U/L Total Creatine Kinase 43 L (55-170) U/L Troponin I 0.071 H* (0.000-0.034) ng/mL Thrombosis Risk Factor Assmnt - DVT/VTE Prophylaxis DVT/VTE Prophylaxis: Pharmacologic Prophylaxis ordered, Mechanical Prophylaxis ordered Assessment and Plan Assessment: Assessment and plan: 1. Acute hypoxemic respiratory failure due to acute exacerbation of COPD with possible right lobe pneumonia. Start the patient on Zosyn 3.375 g IV piggyback every 8 hours, DuoNeb 3 mL nebulization 4 times every day, Pulmicort 4 mg nebulization twice every day, oxygen support, pulmonary consultation, sputum culture, blood culture. 2. Acute kidney injury on top of chronic kidney disease stage II. Patient will be receiving IV fluid resuscitation the form of normal saline 75 mL an hour. Repeat CMP magnesium in the morning 3. Involuntary jerking movements of both upper extremities thought to be due to acute kidney injury with the use of gabapentin we will decrease the dose to 300 mg at bedtime. 4. Hypertension and hypertensive cardiovascular disease. Continue patient on losartan 25 mg orally once every day, atenolol 100 mg orally twice every day. 5. Chronic atrial fibrillation. Continue Eliquis 2.5 mg orally twice every day , atenolol 100 mg orally twice every day. 6. Hyperlipemia. Continue low-cholesterol diet as well as pravastatin 80 mg at bedtime. 7. Diabetes mellitus type 2. Continue Humulin 12 units subcutaneously twice every day and as well as Humalog, monitor blood glucose before each meal and at bedtime. 8. Chronic venous stasis with stasis dermatitis. Stable at this time. 11. Bilateral lower extremity neuropathy. Continue gabapentin 300 mg orally at bedtime. 12. PAD post left big toe amputation. 13. Obesity with obstructive sleep apnea. Continue patient on CPAP. 14. Chronic kidney disease stage II. Stable at this time. 15. Anemia of chronic renal disease. Continue iron 325 mg orally twice every day. 16. DVT prophylaxis. Continue Eliquis 2.5 mg orally twice every day. 17. GI prophylaxis. Continue patient on Protonix 40 mg IV push every 24 hours. 18. Full code. 19. Admit to inpatient. Estimate a length of stay 2 midnights.
[2018-03-30] MEDS ORDERED: BUDESONIDE 1 MG/2 ML NEBU INHALATION STA (12:44)
[2018-03-30] MEDS ORDERED: HYDROcodone/APAP 5-325MG 1 EACH TAB PO PRN (12:45)
[2018-03-30] MEDS ORDERED: IPRATROPIUM 0.5 MG/2.5 ML NEBU INHALATION PRN (12:45)
[2018-03-30] MEDS ORDERED: ALBUTEROL NEBULIZED 2.5 MG/3 ML INHALATION PRN (12:45)
[2018-03-30 13:34] VITALS: BMI 34.9
[2018-03-30] MEDS: IPRATROPIUM-ALBUTEROL 3 ML NEB INHALATION SCH ×3 (14:43→20:24)
--- NOTE | 2018-03-30 16:27 | P.CNPUL ---
History of Present Illness Consult date: 03/30/18 Requesting physician: Divina Batista Reason for consult: dyspnea, COPD, hypoxemia Chief complaint: Shortness of breath, hypoxemia History of present illness: This is a 82-year-old white male patient of Dr. Batista, past medical history of advanced oxygen-dependent COPD, diabetes mellitus, coronary artery disease, hypertension, hyperlipidemia, sleep apnea on CPAP therapy, atrial fibrillation, history of right-sided pneumothorax, and into the emergency department on 2017 for evaluation of difficulty breathing, hypoxemia. Patient was at the [facility] working out, usually goes 3 times a week, he says portable oxygen. His received a call today from the [facility] stating that her is having increased difficulty breathing, his pulse ox was noted to be around 55%. Patient denies any fever or chills, with some increased swelling in his lower extremities, abdominal distention. A little shaky but denied any significant cough, chest congestion chest pain. Follows with Dr. Alarcon in the pulmonary clinic, his last outpatient PFT from 2012 showed a FEV1 of 60% and FVC of 55%. She is on nebulized treatments at home, used to be on Breo-Ellipta. Chest x- ray was taken and showed a new right midlung patchy opacity for developing pneumonia, does trace right pleural effusion and bibasilar atelectasis. Labs showed WBC of 5.0, hemoglobin 11.3, BUN was 63, creatinine was 1.56, there was a mild troponin elevation of 0.071, and proBNP was elevated at 6200. Patient has a history of right diaphragmatic paralysis and secondary pulmonary hypertension. We seen this patient in evaluation for increased shortness of breath, acute on chronic hypoxemic respiratory failure secondary to acute exacerbation of congestive heart failure, COPD exacerbation, and possibility of right lung pneumonia could not be totally excluded, and an area of of atelectasis or developing pneumonia on the left Review of Systems All systems: negative Constitutional: Denies chills, Denies fever Eyes: denies blurred vision, denies pain Ears, nose, mouth and throat: Denies headache, Denies sore throat Cardiovascular: Denies chest pain, Denies shortness of breath Respiratory: Reports dyspnea, Reports home oxygen, Reports sleep apnea, Denies cough Gastrointestinal: Denies abdominal pain, Denies diarrhea, Denies nausea, Denies vomiting Musculoskeletal: Denies myalgias Integumentary: Denies pruritus, Denies rash Neurological: Denies numbness, Denies weakness Psychiatric: Denies anxiety, Denies depression Endocrine: Denies fatigue, Denies weight change 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, diabetes mellitus, chronic atrial fibrillation, coronary artery disease, COPD, hyperlipidemia, hypertension, recent hospitalization in October 2016 for a right-sided pneumothorax requiring chest tube insertion, left lower extremity wound/stasis ulcers Last Myocardial Infarction Date:: 27 years ago History of Any Multi-Drug Resistant Organisms: None Reported Past Surgical History: Appendectomy, Back Surgery, Cholecystectomy, Orthopedic Surgery Additional Past Surgical History / Comment(s): pilonidal cyst, brain anuerysm 1 clipping, right knee replacement, right shoulder replacement, LT CATARACT, SKIN GRAFT FROM RT THIGH TO RT FINGER, RASHEED 10 years ago, PFO against ASD, last colonoscopy greater than 5 years, 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 Past Anesthesia/Blood Transfusion Reactions: No Reported Reaction Past Psychological History: No Psychological Hx Reported Additional Psychological History / Comment(s): Pt resides with his spouse. He is receiving [facility] care. He has not really ambulated since last February -physical therapy was able to ambulate him 4 steps with a walker last week. He does not drive. He gets to [employer] by his spouse or uses [employer] bus. Smoking Status: Former smoker Past Alcohol Use History: None Reported Additional Past Alcohol Use History / Comment(s): STARTED SMOKING 1963 1PPD, QUIT 1970. He denies any alcohol use. 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 Past Drug Use History: None Reported - Past Family History Father Family Medical History: Diabetes Mellitus, Myocardial Infarction (MD) Additional Family Medical History / Comment(s): Father at age 55 with history of diabetes and alcoholism. Mother Family Medical History: Cancer, Myocardial Infarction (MD) Additional Family Medical History / Comment(s): Mother at age 62 from rectal cancer. Brother(s) Additional Family Medical History / Comment(s): Patient had 3 brothers. One in a work related accident. One after having an MD with history of renal problems. Sister(s) Additional Family Medical History / Comment(s): Patient has 2 sisters. One is alive. One has after gallbladder ruptured. Patient has 3 boys and one girl with no major medical problems. Medications and Allergies Home Medications Medication Instructions Recorded Confirmed Type Aspirin 81 mg PO DAILY 02/18/14 03/30/18 History Gabapentin [Neurontin] 300 mg PO TID 02/18/14 03/30/18 History INSULIN LISPRO (humaLOG) [humaLOG] See Protocol SQ ACHS PRN 05/18/15 03/30/18 History Ipratropium Nebulized [Atrovent 0.5 mg INHALATION RT-QID PRN 05/18/15 03/30/18 History Nebulized] Levalbuterol Nebulized [Xopenex 1.25 mg INHALATION RT-QID PRN 05/18/15 03/30/18 History Nebulized] Cholecalciferol [Vitamin D3] 5,000 unit PO DAILY 07/29/15 03/30/18 History Ferrous Sulfate [Iron (65 MG 325 mg PO DAILY 07/29/15 03/30/18 History Elemental)] Glucosamine Sulfate 500 mg PO DAILY 07/29/15 03/30/18 History Multivitamins, Thera [Multivitamin 1 tab PO DAILY 07/29/15 03/30/18 History (formulary)] Niacinamide [Niacin] 500 mg PO DAILY 07/29/15 03/30/18 History Cla[place]on-3 Fatty Acids/Fish Oil [Fish 1 cap PO DAILY 07/29/15 03/30/18 History Oil 1,000 mg Softgel] Atenolol [Tenormin] 100 mg PO BID 08/25/15 03/30/18 History Apixaban [Eliquis] 2.5 mg PO BID #0 09/06/15 03/30/18 Rx Losartan [Cozaar] 25 mg PO DAILY 10/24/16 03/30/18 History Pravastatin Sodium [Pravachol] 80 mg PO HS 10/24/16 03/30/18 History Insulin NPH Human Isophane 12 units SQ BID #0 10/28/16 03/30/18 Rx [humuLIN N] HYDROcodone/APAP 5-325MG [Fleming 1 tab PO Q8HR PRN #90 tab 11/30/16 03/30/18 Rx 5-325] Bisoprol/Hydrochlorothiazide 1 tab PO DAILY 03/30/18 03/30/18 History [Bisoprolol-Hctz 5-6.25 mg Tab] Calcium Carbonate [Calcium] 600 mg PO DAILY 03/30/18 03/30/18 History Cetirizine HCl [Zyrtec] 10 mg PO DAILY 03/30/18 03/30/18 History Cyanocobalamin (Vitamin B-12) 1,000 mcg PO DAILY 03/30/18 03/30/18 History [Vitamin B-12] Escitalopram [Lexapro] 10 mg PO DAILY 03/30/18 03/30/18 History Folic Acid 0.8 mg PO DAILY 03/30/18 03/30/18 History Furosemide [Lasix] 20 mg PO DAILY 03/30/18 03/30/18 History Loperamide HCl [Imodium A-D] 2 mg PO Q6H 03/30/18 03/30/18 History Lysine [l-Lysine] 500 mg PO DAILY 03/30/18 03/30/18 History Meloxicam [Mobic] 15 mg PO DAILY 03/30/18 03/30/18 History Oxybutynin Chloride [Ditropan] 5 mg PO BID 03/30/18 03/30/18 History Potassium 595mg 595 mg PO DAILY 03/30/18 03/30/18 History Ranitidine HCl [Zantac] 150 mg PO BID 03/30/18 03/30/18 History Sennosides-Docusate Sodium 1 tab PO DAILY 03/30/18 03/30/18 History [Senokot-S] Simvastatin [Zocor] 40 mg PO HS 03/30/18 03/30/18 History Turmeric Root Extract [Turmeric] 500 mg PO DAILY 03/30/18 03/30/18 History Vitamin E 1,000 unit PO DAILY 03/30/18 03/30/18 History traMADol HCL [Ultram] 50 mg PO Q6H PRN 03/30/18 03/30/18 History Allergies Allergy/AdvReac Type Severity Reaction Status Date / Time celecoxib [From Celebrex] AdvReac "hard Verified 03/30/18 09:40 muscle" ibuprofen AdvReac "bloody Verified 03/30/18 09:40 urine" levofloxacin AdvReac Itching Verified 03/30/18 09:40 Physical Exam Vitals: Vital Signs Temp Pulse Pulse Resp BP BP Pulse Ox 03/30/18 14:52 83 03/30/18 14:43 73 03/30/18 14:33 98.4 F 78 18 122/63 93 L 03/30/18 13:01 18 101/69 93 L 03/30/18 13:00 83 16 101/69 90 L 03/30/18 11:00 75 94 H 101/69 03/30/18 10:53 90 18 101/69 85 L 03/30/18 10:08 89 03/30/18 09:58 83 03/30/18 09:39 22 03/30/18 09:33 88 18 106/84 94 L 03/30/18 09:10 98.1 F 86 20 90 L Intake and Output 03/30/18 03/30/18 03/30/18 06:59 14:59 22:59 Other: Weight 104.326 kg GENERAL EXAM: Alert, active, comfortable in no apparent distress. HEAD: Normocephalic/atraumatic. EYES: Normal reaction of pupils, equal size. Conjunctiva pink, sclera white. NOSE: Clear with pink turbinates. THROAT: No erythema or exudates. NECK: No masses, no JVD, no thyroid enlargement, no adenopathy. CHEST: No chest wall deformity. Symmetrical expansion. LUNGS: diminished Breath sounds bilaterally with crackles at the bases CVS: Regular rate and rhythm, normal S1 and S2, no gallops, no murmurs, no rubs ABDOMEN: Soft, nontender. No hepatosplenomegaly, normal bowel sounds, no guarding or rigidity. EXTREMITIES: No clubbing, no cyanosis, 2+ pulses and upper and lower extremities. 1+ bilateral extremity edema worse on the right, with chronic venous stasis changes MUSCULOSKELETAL: Muscle strength and tone normal. SPINE: No scoliosis or deformity SKIN: No rashes CENTRAL NERVOUS SYSTEM: Alert and oriented -3. No focal deficits, tone is normal in all 4 extremities. PSYCHIATRIC: Alert and oriented -3. Appropriate affect. Intact judgment and insight. Results - Laboratory Findings CBC and BMP: 03/30/18 09:33 03/30/18 09:33 PT/INR, D-dimer PT 11.6 sec (9.0-12.0) 03/30/18 09:33 INR 1.1 (<1.2) 03/30/18 09:33 Abnormal lab findings: Abnormal Labs 03/30/18 03/30/18 03/30/18 09:33 09:33 09:33 RBC 3.48 L Hgb 11.3 L Hct 35.9 L MCV 103.2 H Plt Count 92 L Lymphocytes # 0.5 L Carbon Dioxide 39 H BUN 63 H Creatinine 1.56 H Glucose 166 H ALT 20 L Total Creatine Kinase 43 L Troponin I 0.071 H* - Diagnostic Findings Chest x-ray: report reviewed, image reviewed Additional studies: EKG reviewed Assessment and Plan Plan: Assessment: #1. Acute on chronic hypoxemic respiratory failure secondary to acute exacerbation of chronic congestive heart failure and systolic function #2. Suspect pneumonia in the right midlung, could not entirely exclude developing pneumonia in the left lower lobe, community-acquired #3. Severe advanced oxygen-dependent COPD, chronic hypercapnic respiratory failure, secondary pulmonary hypertension #4. Obstructive sleep apnea on CPAP therapy #5. Mild troponin elevation #6. Acute kidney injury #7. History of chronic right hemidiaphragmatic paralysis #8. Chronic atrial fibrillation on Eliquis #9. Diabetes mellitus type 2 diabetic neuropathy, hypertension, hyperlipidemia #10. PAD status post left big toe amputation #11. Chronic kidney disease stage II #12. Previous history of pneumothorax requiring chest tube insertion Plan: Continue bronchodilators, IV steroids, Zosyn. We'll collect a sputum culture. Continue to monitor the renal function, electrolytes. He denies any acute distress, appears to be fairly comfortable at rest, does have some swelling his lower extremities, and some mild abdominal distention, no acuHe dyspnea, he is maintaining oxygenation on 4 L per nasal cannula. We'll follow. I performed a history & physical examination of the patient and discussed their management with my nurse practitioner, Gricel Perkins. I reviewed the nurse practitioner's note and agree with the documented findings and plan of care. Lung sounds are diminished with bibasilar crackles. The findings and the impression was discussed with the patient. I attest to the documentation by the nurse practitioner. Time with Patient: Greater than 30
[2018-03-30 17:11] LABS: Glucose,Whole Blood 221 mg/dL (75-99)
[2018-03-30] MEDS: INSULIN ASPART 100 UNIT/ML 1 ML 10 ML VIAL SQ SCH ×2 (17:20→22:31)
[2018-03-30] MEDS: methylPREDNISolone SOD SUCCI 125 MG/2 ML VIAL IV SCH ×2 (17:20→23:14)
[2018-03-30] MEDS: PIPERACILLIN-TAZOBACTAM 3.375 GM in SODIUM CHLORIDE 0.9% 100 ML IVPB SCH ×2 (17:20→23:14)
[2018-03-30] MEDS: ATENOLOL 50 MG TAB PO SCH (20:32)
[2018-03-30] MEDS: GABAPENTIN 300 MG CAP PO SCH (20:32)
[2018-03-30] MEDS: APIXABAN 2.5 MG TABLET PO SCH (20:32)
[2018-03-30] MEDS: OXYBUTYNIN CHLORIDE 5 MG TAB PO SCH (20:33)
[2018-03-30] MEDS: PRAVASTATIN SODIUM 80 MG TAB PO SCH (20:33)
[2018-03-30] MEDS ORDERED: CEFDINIR 300 MG CAP PO SCH (21:00)
[2018-03-30 21:08] LABS: Glucose,Whole Blood 205 mg/dL (75-99)
[2018-03-30] MEDS: INSULIN NPH 300 UNIT/3 ML VIAL SQ SCH (22:31)
[2018-03-30 22:42] LABS: Glucose,Whole Blood 207 mg/dL (75-99)
[2018-03-31] MEDS: methylPREDNISolone SOD SUCCI 125 MG/2 ML VIAL IV SCH (05:39)
[2018-03-31 05:43] LABS: Glucose,Whole Blood 193 mg/dL (75-99)
[2018-03-31] MEDS: INSULIN ASPART 100 UNIT/ML 1 ML 10 ML VIAL SQ SCH ×3 (06:26→17:34)
[2018-03-31 06:30] LABS: Basophils % (A) 0 %; Eosinophils % (A) 1 %; HCT 36.2 % (39.0-53.0); HGB 10.9 gm/dL (13.0-17.5); Hypochromasia Marked; Lymphocytes # (A) 0.3 k/uL (1.0-4.8); Lymphocytes % (A) 12 %; MCH 31.4 pg (25.0-35.0); MCV 104.7 fL (80.0-100.0); Macrocytosis Moderate; Mean Platelet Volume 8.4; Monocytes % (A) 2 %; Neutrophils # (A) 2.2 k/uL (1.3-7.7); Neutrophils % (A) 85 %; RBC 3.46 m/uL (4.30-5.90); RDW 14.5 % (11.5-15.5); WBC 2.6 k/uL (3.8-10.6)
[2018-03-31 06:39] LABS: Platelet Count 76 k/uL (150-450)
[2018-03-31] MEDS: IPRATROPIUM-ALBUTEROL 3 ML NEB INHALATION SCH ×4 (07:03→22:30)
[2018-03-31 07:57] LABS: Albumin 3.7 g/dL (3.5-5.0); Calcium 8.7 mg/dL (8.4-10.2); Potassium 4.9 mmol/L (3.5-5.1); Total Bilirubin 0.6 mg/dL (0.2-1.3); Total Protein 6.6 g/dL (6.3-8.2)
[2018-03-31] MEDS: PIPERACILLIN-TAZOBACTAM 3.375 GM in SODIUM CHLORIDE 0.9% 100 ML IVPB SCH ×3 (08:52→23:04)
[2018-03-31] MEDS: ESCITALOPRAM 10 MG TAB PO SCH (08:52)
[2018-03-31] MEDS: ASPIRIN 81 MG PO SCH (08:53)
[2018-03-31] MEDS: OXYBUTYNIN CHLORIDE 5 MG TAB PO SCH ×2 (08:53→19:38)
[2018-03-31] MEDS: NIACIN TR 500 MG CAPSULE.ER PO SCH (08:53)
[2018-03-31] MEDS: APIXABAN 2.5 MG TABLET PO SCH ×2 (08:53→19:37)
[2018-03-31] MEDS: ATENOLOL 50 MG TAB PO SCH ×2 (08:53→19:38)
[2018-03-31] MEDS: LORATADINE 10 MG TAB PO SCH (08:53)
[2018-03-31] MEDS: LOSARTAN 25 MG TAB PO SCH (08:53)
[2018-03-31] MEDS: INSULIN NPH 300 UNIT/3 ML VIAL SQ SCH (08:54)
[2018-03-31] MEDS ORDERED: NON-FORMULARY DRUG (Omega-3 Fatty Acids/Fish Oil [Fish Oil 1,000 Mg Softgel] 1 CAP) PO SCH (09:00)
[2018-03-31] MEDS ORDERED: PANTOPRAZOLE 40 MG/10 ML VIAL IVP SCH (09:00)
[2018-03-31] MEDS ORDERED: SENNOSIDES-DOCUSATE SODIUM 1 EACH TAB PO SCH (09:00)
[2018-03-31] MEDS ORDERED: LYSINE 500 MG PO SCH (09:00)
[2018-03-31 11:35] LABS: Glucose,Whole Blood 240 mg/dL (75-99)
[2018-03-31] MEDS: FOLIC ACID 1 MG TAB PO SCH (12:26)
[2018-03-31] MEDS: CHOLECALCIFEROL 1,000 UNIT TAB PO SCH (12:26)
[2018-03-31] MEDS: CALCIUM CARBONATE 500 MG CHEWABLE PO SCH (12:26)
[2018-03-31] MEDS: CYANOCOBALAMIN 500 MCG TAB PO SCH (12:26)
[2018-03-31] MEDS: AZITHROMYCIN 500 MG TAB PO SCH (12:26)
[2018-03-31] MEDS: MULTIVITAMINS, THERA 1 EACH TAB PO SCH (12:27)
[2018-03-31] MEDS: FERROUS SULFATE 325 MG TAB PO SCH (12:36)
--- NOTE | 2018-03-31 14:42 | P.PN ---
Subjective Progress Note Date: 03/31/18 Principal diagnosis: Acute on chronic hypoxemic respiratory failure secondary to acute exacerbation of chronic congestive heart failure with systolic dysfunction This is a 82-year-old white male patient of Dr. Batista, past medical history of advanced oxygen-dependent COPD, diabetes mellitus, coronary artery disease, hypertension, hyperlipidemia, sleep apnea on CPAP therapy, atrial fibrillation, history of right-sided pneumothorax, and into the emergency department on 2017 for evaluation of difficulty breathing, hypoxemia. Patient was at the [facility] working out, usually goes 3 times a week, he says portable oxygen. His received a call today from the [facility] stating that her is having increased difficulty breathing, his pulse ox was noted to be around 55%. Patient denies any fever or chills, with some increased swelling in his lower extremities, abdominal distention. A little shaky but denied any significant cough, chest congestion chest pain. Follows with Dr. Alarcon in the pulmonary clinic, his last outpatient PFT from 2012 showed a FEV1 of 60% and FVC of 55%. She is on nebulized treatments at home, used to be on Breo-Ellipta. Chest x- ray was taken and showed a new right midlung patchy opacity for developing pneumonia, does trace right pleural effusion and bibasilar atelectasis. Labs showed WBC of 5.0, hemoglobin 11.3, BUN was 63, creatinine was 1.56, there was a mild troponin elevation of 0.071, and proBNP was elevated at 6200. Patient has a history of right diaphragmatic paralysis and secondary pulmonary hypertension. We seen this patient in evaluation for increased shortness of breath, acute on chronic hypoxemic respiratory failure secondary to acute exacerbation of congestive heart failure, COPD exacerbation, and possibility of right lung pneumonia could not be totally excluded, and an area of of atelectasis or developing pneumonia on the left On 03/31/2018 patient seen in follow-up on selective care unit, sitting up in the recliner, in no acute distress, denies any worsening dyspnea, he is currently on 3 L per nasal cannula with a pulse ox of 97%, afebrile, hemodynamically stable, lung sounds are markedly diminished bilaterally with a few bibasilar crackles. The cultures remain negative thus far. Today's blood work has been reviewed, WBC is 2.6, hemoglobin is 10.9, sodium is 145, potassium is 4.9, chloride is 103, CO2 is 34, BUN is 60 and creatinine 1.3. on empiric antibiotics combination of oral Zithromax, and Rocephin, nebulized bronchodilators, steroids, he is breathing easier Objective - Vital Signs Vital signs: Vital Signs Temp 97.9 F 03/31/18 04:00 Pulse 84 03/31/18 11:38 Resp 18 03/31/18 04:00 BP 126/72 03/31/18 04:00 Pulse Ox 97 03/31/18 04:00 Intake & Output 03/30/18 03/31/18 03/31/18 18:59 06:59 18:59 Intake Total 480 804 Output Total 260 Balance 480 544 Weight 104.326 kg 104.3 kg Intake: Oral 480 804 Output: Urine 260 Other: Voiding Method Urinal - Exam GENERAL EXAM: Alert, active, comfortable in no apparent distress. HEAD: Normocephalic/atraumatic. EYES: Normal reaction of pupils, equal size. Conjunctiva pink, sclera white. NOSE: Clear with pink turbinates. THROAT: No erythema or exudates. NECK: No masses, no JVD, no thyroid enlargement, no adenopathy. CHEST: No chest wall deformity. Symmetrical expansion. LUNGS: diminished Breath sounds bilaterally with crackles at the bases CVS: Regular rate and rhythm, normal S1 and S2, no gallops, no murmurs, no rubs ABDOMEN: Soft, nontender. No hepatosplenomegaly, normal bowel sounds, no guarding or rigidity. EXTREMITIES: No clubbing, no cyanosis, 2+ pulses and upper and lower extremities. 1+ bilateral extremity edema worse on the right, with chronic venous stasis changes MUSCULOSKELETAL: Muscle strength and tone normal. SPINE: No scoliosis or deformity SKIN: No rashes CENTRAL NERVOUS SYSTEM: Alert and oriented -3. No focal deficits, tone is normal in all 4 extremities. PSYCHIATRIC: Alert and oriented -3. Appropriate affect. Intact judgment and insight. - Labs CBC & Chem 7: 03/31/18 05:39 03/31/18 05:39 Labs: Abnormal Lab Results - Last 24 Hours (Table) 03/30/18 03/30/18 03/30/18 Range/Units 16:41 21:06 22:30 WBC (3.8-10.6) k/uL RBC (4.30-5.90) m/uL Hgb (13.0-17.5) gm/dL Hct (39.0-53.0) % MCV (80.0-100.0) fL MCHC (31.0-37.0) g/dL Plt Count (150-450) k/uL Lymphocytes # (1.0-4.8) k/uL Carbon Dioxide (22-30) mmol/L BUN (9-20) mg/dL Creatinine (0.66-1.25) mg/dL Glucose (74-99) mg/dL POC Glucose (mg/dL) 221 H 205 H 207 H (75-99) mg/dL Magnesium (1.6-2.3) mg/dL 03/31/18 03/31/18 03/31/18 Range/Units 05:39 05:39 05:39 WBC 2.6 L (3.8-10.6) k/uL RBC 3.46 L (4.30-5.90) m/uL Hgb 10.9 L (13.0-17.5) gm/dL Hct 36.2 L (39.0-53.0) % MCV 104.7 H (80.0-100.0) fL MCHC 30.0 L (31.0-37.0) g/dL Plt Count 76 L (150-450) k/uL Lymphocytes # 0.3 L (1.0-4.8) k/uL Carbon Dioxide 34 H (22-30) mmol/L BUN 60 H (9-20) mg/dL Creatinine 1.32 H (0.66-1.25) mg/dL Glucose 197 H (74-99) mg/dL POC Glucose (mg/dL) (75-99) mg/dL Magnesium 2.7 H (1.6-2.3) mg/dL 03/31/18 03/31/18 Range/Units 05:41 11:33 WBC (3.8-10.6) k/uL RBC (4.30-5.90) m/uL Hgb (13.0-17.5) gm/dL Hct (39.0-53.0) % MCV (80.0-100.0) fL MCHC (31.0-37.0) g/dL Plt Count (150-450) k/uL Lymphocytes # (1.0-4.8) k/uL Carbon Dioxide (22-30) mmol/L BUN (9-20) mg/dL Creatinine (0.66-1.25) mg/dL Glucose (74-99) mg/dL POC Glucose (mg/dL) 193 H 240 H (75-99) mg/dL Magnesium (1.6-2.3) mg/dL Microbiology - Last 24 Hours (Table) 03/30/18 13:02 Blood Culture Gram Stain - Preliminary Blood 03/30/18 13:02 Blood Culture - Final Blood Assessment and Plan Plan: Assessment: #1. Acute on chronic hypoxemic respiratory failure secondary to acute exacerbation of chronic congestive heart failure and systolic function #2. Suspect pneumonia in the right midlung, could not entirely exclude developing pneumonia in the left lower lobe, community-acquired #3. Severe advanced oxygen-dependent COPD, chronic hypercapnic respiratory failure, secondary pulmonary hypertension #4. Obstructive sleep apnea on CPAP therapy #5. Mild troponin elevation #6. Acute kidney injury #7. History of chronic right hemidiaphragmatic paralysis #8. Chronic atrial fibrillation on Eliquis #9. Diabetes mellitus type 2 diabetic neuropathy, hypertension, hyperlipidemia #10. PAD status post left big toe amputation #11. Chronic kidney disease stage II #12. Previous history of pneumothorax requiring chest tube insertion Plan: Continue with current plan of care, continue with nebulized bronchodilators IV steroids. Profile is improving, patient denies any worsening pulmonary symptoms , no fever or chills, no cough or congestion, no worsening dyspnea. Could be considered for discharge home in the next 24-48 hours of antibiotics provided there is no worsening of his condition. I performed a history & physical examination of the patient and discussed their management with my nurse practitioner, Gricel Perkins. I reviewed the nurse practitioner's note and agree with the documented findings and plan of care. Lung sounds are diminished with bibasilar crackles. The findings and the impression was discussed with the patient. I attest to the documentation by the nurse practitioner. Time with Patient: Less than 30
--- NOTE | 2018-03-31 14:46 | P.PN ---
Subjective Progress Note Date: 03/31/18 This is an 82-year-old male one of my patient with history of advanced COPD with chronic hypoxic respiratory failureon home O2, hypertension and hypertensive cardio vascular disease with left ventricular hypertrophy, chronic atrial fibrillation on chronic anticoagulation therapy in the form of NOAC, hyperlipidemia, diabetes mellitus type 2 with diabetic neuropathy, PAD post left big toe amputation, chronic kidney disease stage II, obesity with obstructive sleep apnea currently on a CPAP patient has been doing fine until recently when he noticed increased jerking movement in both upper and lower extremities specially in the upper extremities that has, and more frequent over the last few days, he went to the office because of his fullness in the stomach and he was prescribed a PPI and [facility] the [facility] he had forgot his cell phone his received a call come and 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 her has the patient was having significant issues with the breathing and with increased jerking movement on patient checked his oxygen level was around 55% and the patient was driven to the emergency department at [facility] by his and he was found to have an acute kidney injury and top of chronic kidney disease as well as chest x-ray showed possible right middle lobe atelectasis versus infiltrate with a trace right-sided pleural effusion patient was admitted to the hospital for acute exacerbation of chronic obstructive pulmonary disease as well as acute kidney injury would be started on IV antibiotic in the form of Zosyn 3.375 g IV piggyback every 8 hours, DuoNeb 3 mg nebulization 4 times every day as well as pulmonary consultation. 03/31: The patient is feeling much and improved today. He is quite talkative. His blood culture came back positive and repeat are in progress. Solu-Medrol will be decreased to 40 mg every 8 hours. Azithromycin will be added. Patient is seen and followed by pulmonary medicine. Patient has been seen by physical therapy with recommendations for home with home care or subacute rehab. Review of Systems Constitutional: Reports fatigue, Reports weakness, Denies anorexia, Denies chronic headaches Eyes: denies blurred vision, denies bulging eye, denies decreased vision Ears, nose, mouth and throat: Denies dysphagia, Denies neck lump, Denies sore throat Cardiovascular: Reports decreased exercise tolerance, Reports dyspnea on exertion, Reports high blood pressure, Reports shortness of breath, Denies chest pain, Denies paroxysmal nocturnal dyspnea, Denies phlebitis, Denies rapid heart beat Respiratory: Reports cough, Reports home oxygen, Reports sleep apnea, Reports wheezing, Denies congestion, Denies cough with sputum, Denies snoring Gastrointestinal: Reports bloating, Reports early satiety, Reports excessive gas , Denies abdominal pain, Denies BRBPR, Denies change in bowel habits, Denies heartburn, Denies loss of appetite, Denies melena, Denies nausea, Denies vomiting Genitourinary: Reports nocturia, Denies dysuria Musculoskeletal: Reports gait dysfunction, Reports muscle weakness, Denies myalgias Musculoskeletal: bilateral: ankle swelling, absent: ankle pain, ankle stiffness , elbow pain, elbow stiffness, elbow swelling, foot pain, foot stiffness, foot swelling, hand pain, hand stiffness, hand swelling, hip pain, hip stiffness, hip swelling, knee pain, knee stiffness, knee swelling, shoulder pain, shoulder stiffness, shoulder swelling, wrist pain, wrist stiffness, wrist swelling Integumentary: Denies pruritus, Denies rash Neurological: Reports balance difficulties, Reports burning pain, Reports gait dysfunction, Reports numbness, Reports weakness Psychiatric: Denies anxiety, Denies depression Endocrine: Denies fatigue, Denies weight change, denies weight gain Objective - Vital Signs Vital signs: Vital Signs Temp 98.4 F 03/30/18 14:33 Pulse 83 03/30/18 14:52 Resp 18 03/30/18 14:33 BP 122/63 03/30/18 14:33 Pulse Ox 93 L 03/30/18 14:33 Intake & Output 03/29/18 03/30/18 03/30/18 18:59 06:59 18:59 Weight 104.326 kg - Exam General appearance: no distress, obese - EENT Eyes: anicteric sclerae, EOMI, PERRLA, no ptosis, no scleral icterus, normal appearance ENT: hearing grossly normal, NA/AT, normal oropharynx, no thrush Ears: bilateral: normal - Neck Neck: no lymphadenopathy, normal ROM, no rigidity, no stridor, no thyromegaly Carotids: bilateral: upstroke delayed Thyroid: bilateral: normal size - Respiratory Respiratory: bilateral: diminished, wheezing, prolonged expiration, negative: dullness, rales, rhonchi - Cardiovascular Rhythm: irregularly irregular Heart sounds: normal: S1, S2 Abnormal Heart Sounds: systolic murmur - Gastrointestinal General gastrointestinal: normal bowel sounds, soft, no tenderness - Integumentary Integumentary: normal, normal turgor - Neurologic Neurologic: CNII-XII intact - Musculoskeletal Musculoskeletal: no gait normal, generalized weakness, strength equal bilaterally (left big toe amputation.) - Psychiatric Psychiatric: A&O x's 3, appropriate affect, intact judgment & insight - Labs CBC & Chem 7: 03/31/18 05:39 03/31/18 05:39 Labs: Abnormal Lab Results - Last 24 Hours (Table) 03/30/18 03/30/18 03/30/18 Range/Units 09:33 09:33 09:33 RBC 3.48 L (4.30-5.90) m/uL Hgb 11.3 L (13.0-17.5) gm/dL Hct 35.9 L (39.0-53.0) % MCV 103.2 H (80.0-100.0) fL Plt Count 92 L (150-450) k/uL Lymphocytes # 0.5 L (1.0-4.8) k/uL Carbon Dioxide 39 H (22-30) mmol/L BUN 63 H (9-20) mg/dL Creatinine 1.56 H (0.66-1.25) mg/dL Glucose 166 H (74-99) mg/dL ALT 20 L (21-72) U/L Total Creatine Kinase 43 L (55-170) U/L Troponin I 0.071 H* (0.000-0.034) ng/mL Assessment and Plan Plan: 1. Acute hypoxemic respiratory failure due to acute exacerbation of COPD with possible right lobe pneumonia. Start the patient on Zosyn 3.375 g IV piggyback every 8 hours, azithromycin, DuoNeb 3 mL nebulization 4 times every day, Pulmicort 1 mg nebulization twice every day, oxygen support, pulmonary consultation appreciated, sputum culture, blood culture. Solu-Medrol decreased to 40 mg IV every 8 hours. 2. Acute kidney injury on top of chronic kidney disease stage II. Patient will be receiving IV fluid resuscitation and transition to saline lock. Repeat CMP magnesium in the morning 3. Involuntary jerking movements of both upper extremities thought to be due to acute kidney injury with the use of gabapentin we will decrease the dose to 300 mg at bedtime. 4. Hypertension and hypertensive cardiovascular disease. Continue patient on losartan 25 mg orally once every day, atenolol 100 mg orally twice every day. 5. Chronic atrial fibrillation. Continue Eliquis 2.5 mg orally twice every day , atenolol 100 mg orally twice every day. 6. Hyperlipemia. Continue low-cholesterol diet as well as pravastatin 80 mg at bedtime. 7. Diabetes mellitus type 2. Continue Humulin 12 units subcutaneously twice every day and as well as Humalog, monitor blood glucose before each meal and at bedtime. 8. Chronic venous stasis with stasis dermatitis. Stable at this time. 11. Bilateral lower extremity neuropathy. Continue gabapentin 300 mg orally at bedtime. 12. PAD post left big toe amputation. 13. Obesity with obstructive sleep apnea. Continue patient on CPAP. 14. Chronic kidney disease stage II. Stable at this time. 15. Anemia of chronic renal disease. Continue iron 325 mg orally twice every day. 16. DVT prophylaxis. Continue Eliquis 2.5 mg orally twice every day. 17. GI prophylaxis. Continue patient on Protonix 40 mg IV push every 24 hours. 18. Full code. Discharge plan: To be determined Impression and plan of care have been directed as dictated by the signing physician. Malu Cordova nurse practitioner acting as scribe for signing physician.
[2018-03-31 14:59] LABS: Albumin 3.7 g/dL (3.5-5.0); Calcium 8.6 mg/dL (8.4-10.2); Potassium 4.4 mmol/L (3.5-5.1); Total Bilirubin 0.6 mg/dL (0.2-1.3); Total Protein 6.4 g/dL (6.3-8.2)
[2018-03-31] MEDS: methylPREDNISolone SOD SUCCI 40 MG/ML 1 ML VIAL IV SCH ×2 (15:53→23:04)
[2018-03-31 16:47] LABS: Glucose,Whole Blood 310 mg/dL (75-99)
[2018-03-31] MEDS ORDERED: INSULIN REGULAR 100 UNIT in SODIUM CHLORIDE 0.9% 100 ML IV SCH (17:45)
[2018-03-31 19:05] LABS: Glucose,Whole Blood 221 mg/dL (75-99)
[2018-03-31] MEDS: GABAPENTIN 300 MG CAP PO SCH (19:38)
[2018-03-31] MEDS: PRAVASTATIN SODIUM 80 MG TAB PO SCH (19:39)
[2018-03-31 21:06] LABS: Glucose,Whole Blood 140 mg/dL (75-99)
[2018-03-31] MEDS: BUDESONIDE 1 MG/2 ML NEBU INHALATION SCH (22:30)
[2018-03-31 23:02] LABS: Glucose,Whole Blood 160 mg/dL (75-99)
[2018-04-01 01:05] LABS: Glucose,Whole Blood 131 mg/dL (75-99)
[2018-04-01 03:16] LABS: Glucose,Whole Blood 146 mg/dL (75-99)
[2018-04-01 03:51] LABS: Hemoglobin A1C 6.3 % (4.0-6.0)
[2018-04-01 05:12] LABS: Glucose,Whole Blood 125 mg/dL (75-99)
[2018-04-01] MEDS: PANTOPRAZOLE 40 MG TABLET PO SCH (05:50)
[2018-04-01 06:16] LABS: Glucose,Whole Blood 137 mg/dL (75-99)
[2018-04-01 06:33] LABS: Basophils % (A) 0 %; Eosinophils % (A) 0 %; HCT 35.9 % (39.0-53.0); HGB 11.1 gm/dL (13.0-17.5); Hypochromasia Moderate; Lymphocytes # (A) 0.3 k/uL (1.0-4.8); Lymphocytes % (A) 6 %; MCH 31.7 pg (25.0-35.0); MCHC 30.8 g/dL (31.0-37.0); MCV 102.8 fL (80.0-100.0); Macrocytosis Slight; Mean Platelet Volume 8.5; Monocytes # (A) 0.2 k/uL (0-1.0); Monocytes % (A) 5 %; Neutrophils # (A) 4.6 k/uL (1.3-7.7); Neutrophils % (A) 88 %; RBC 3.49 m/uL (4.30-5.90); RDW 14.7 % (11.5-15.5); WBC 5.2 k/uL (3.8-10.6)
[2018-04-01 06:45] LABS: Platelet Count 87 k/uL (150-450)
[2018-04-01] MEDS ORDERED: INSULIN ASPART 100 UNIT/ML 1 ML 10 ML VIAL SQ SCH (07:30)
[2018-04-01 08:15] LABS: Glucose,Whole Blood 203 mg/dL (75-99)
[2018-04-01] MEDS: PIPERACILLIN-TAZOBACTAM 3.375 GM in SODIUM CHLORIDE 0.9% 100 ML IVPB SCH ×2 (08:21→16:30)
[2018-04-01] MEDS: LOSARTAN 25 MG TAB PO SCH (08:22)
[2018-04-01] MEDS: APIXABAN 2.5 MG TABLET PO SCH ×2 (08:22→21:20)
[2018-04-01] MEDS: ATENOLOL 50 MG TAB PO SCH ×2 (08:22→21:20)
[2018-04-01] MEDS: methylPREDNISolone SOD SUCCI 40 MG/ML 1 ML VIAL IV SCH (08:22)
[2018-04-01] MEDS: ESCITALOPRAM 10 MG TAB PO SCH (08:22)
[2018-04-01] MEDS: ASPIRIN 81 MG PO SCH (08:22)
[2018-04-01] MEDS: AZITHROMYCIN 500 MG TAB PO SCH (08:22)
[2018-04-01] MEDS: OXYBUTYNIN CHLORIDE 5 MG TAB PO SCH ×2 (08:22→21:20)
[2018-04-01] MEDS: NIACIN TR 500 MG CAPSULE.ER PO SCH (08:22)
[2018-04-01] MEDS: LORATADINE 10 MG TAB PO SCH (08:37)
[2018-04-01] MEDS: BUDESONIDE 1 MG/2 ML NEBU INHALATION SCH ×2 (08:49→19:54)
[2018-04-01] MEDS: IPRATROPIUM-ALBUTEROL 3 ML NEB INHALATION SCH ×4 (08:49→19:54)
[2018-04-01 09:20] LABS: Potassium 4.6 mmol/L (3.5-5.1)
[2018-04-01 10:05] LABS: Glucose,Whole Blood 161 mg/dL (75-99)
--- NOTE | 2018-04-01 10:45 | XR ---
EXAMINATION TYPE: XR chest 2V DATE OF EXAM: 04/01/2018 COMPARISON: Prior chest x-ray 03/30/2018 HISTORY: Follow-up shortness of breath TECHNIQUE: Frontal and lateral views of the chest are obtained. FINDINGS: Findings are similar, lung volumes are low and the heart is enlarged. There is some improv ement in aeration in the perihilar regions. No pneumothorax. There are overlying cardiac leads. IMPRESSION: Findings suggest improvement in patient's volume status, aeration. There may be small ef fusion, follow-up recommended.
[2018-04-01 11:58] LABS: Glucose,Whole Blood 117 mg/dL (75-99)
[2018-04-01] MEDS: INSULIN NPH 300 UNIT/3 ML VIAL SQ SCH ×2 (12:36→21:21)
[2018-04-01] MEDS: FERROUS SULFATE 325 MG TAB PO SCH (12:37)
[2018-04-01] MEDS: MULTIVITAMINS, THERA 1 EACH TAB PO SCH (12:37)
[2018-04-01] MEDS: FOLIC ACID 1 MG TAB PO SCH (12:37)
[2018-04-01] MEDS: CALCIUM CARBONATE 500 MG CHEWABLE PO SCH (12:37)
[2018-04-01] MEDS: CYANOCOBALAMIN 500 MCG TAB PO SCH (12:37)
[2018-04-01] MEDS: CHOLECALCIFEROL 1,000 UNIT TAB PO SCH (12:37)
[2018-04-01] MEDS: INSULIN ASPART 100 UNIT/ML 1 ML 10 ML VIAL SQ SCH ×5 (12:38→21:20)
--- NOTE | 2018-04-01 12:58 | P.PN ---
Subjective Progress Note Date: 04/01/18 Principal diagnosis: Acute on chronic hypoxemic respiratory failure secondary to acute exacerbation of chronic congestive heart failure with systolic dysfunction This is a 82-year-old white male patient of Dr. Batista, past medical history of advanced oxygen-dependent COPD, diabetes mellitus, coronary artery disease, hypertension, hyperlipidemia, sleep apnea on CPAP therapy, atrial fibrillation, history of right-sided pneumothorax, and into the emergency department on 2017 for evaluation of difficulty breathing, hypoxemia. Patient was at the [facility] working out, usually goes 3 times a week, he says portable oxygen. His received a call today from the [facility] stating that her is having increased difficulty breathing, his pulse ox was noted to be around 55%. Patient denies any fever or chills, with some increased swelling in his lower extremities, abdominal distention. A little shaky but denied any significant cough, chest congestion chest pain. Follows with Dr. Alarcon in the pulmonary clinic, his last outpatient PFT from 2012 showed a FEV1 of 60% and FVC of 55%. She is on nebulized treatments at home, used to be on Breo-Ellipta. Chest x- ray was taken and showed a new right midlung patchy opacity for developing pneumonia, does trace right pleural effusion and bibasilar atelectasis. Labs showed WBC of 5.0, hemoglobin 11.3, BUN was 63, creatinine was 1.56, there was a mild troponin elevation of 0.071, and proBNP was elevated at 6200. Patient has a history of right diaphragmatic paralysis and secondary pulmonary hypertension. We seen this patient in evaluation for increased shortness of breath, acute on chronic hypoxemic respiratory failure secondary to acute exacerbation of congestive heart failure, COPD exacerbation, and possibility of right lung pneumonia could not be totally excluded, and an area of of atelectasis or developing pneumonia on the left On 03/31/2018 patient seen in follow-up on selective care unit, sitting up in the recliner, in no acute distress, denies any worsening dyspnea, he is currently on 3 L per nasal cannula with a pulse ox of 97%, afebrile, hemodynamically stable, lung sounds are markedly diminished bilaterally with a few bibasilar crackles. The cultures remain negative thus far. Today's blood work has been reviewed, WBC is 2.6, hemoglobin is 10.9, sodium is 145, potassium is 4.9, chloride is 103, CO2 is 34, BUN is 60 and creatinine 1.3. on empiric antibiotics combination of oral Zithromax, and Rocephin, nebulized bronchodilators, steroids, he is breathing easier On 04/01/2018 patient seen in follow-up on selective care unit. Denies any specific complaints, no worsening shortness of breath. he is on 3 L per nasal cannula his pulse ox of 90%, he is afebrile, hemodynamically stable, lung sounds are not significantly changed from previous exams, are markedly diminished to auscultation bilaterally, but no rhonchi or wheezes. There is some improvement in the appearance of bilateral lower extremity swelling, and has chronic venous stasis changes present to his skin and chronic discoloration. Today's chest x-ray was reviewed, and showed improvement in patient's volume status and aeration. His labs have been reviewed, showed a PVC of 5.2, hemoglobin is 11.1, electrolytes were unremarkable, with the exception of CO2 which is chronically elevated suggesting chronic hypercapnic respiratory failure. Renal profile is stable, with a BUN of 60 and creatinine of 1.3. Echo biology has been reviewed, there was a single blood culture from 03/30/2018 showing alphahemolytic streptococcus and diphtheroid species. Other blood culture from the same day showed no growth. Patient has had no fever or chills, clinically he is improving. Obtain follow-up blood cultures today, patient has been covered with a combination of Zithromax and Zosyn. Objective - Vital Signs Vital signs: Vital Signs Temp 98.2 F 04/01/18 08:00 Pulse 80 04/01/18 12:15 Resp 18 04/01/18 08:00 BP 127/73 04/01/18 08:00 Pulse Ox 90 L 04/01/18 08:00 Intake & Output 03/31/18 04/01/18 04/01/18 18:59 06:59 18:59 Intake Total 1026 29.271 548.483 Output Total 1060 Balance -34 29.271 548.483 Weight 104.3 kg Intake: Intake, IV Titration 29.271 108.483 Amount Insulin Regular 100 unit 29.271 8.483 In Sodium Chloride 0.9% 100 ml @ Titrate IV .Q0M [facility] Rx#:[id number] Piperacillin-Tazobactam 3 100 .375 gm In Sodium Chloride 0.9% 100 ml @ 25 mls/hr IVPB Q8HR [facility] Rx# :[id number] Oral 1026 440 Output: Urine 1060 Other: Voiding Method Urinal Urinal Urinal Diaper Diaper Incontinent Incontinent # Voids 1 1 # Bowel Movements 1 - Exam GENERAL EXAM: Alert, active, comfortable in no apparent distress. HEAD: Normocephalic/atraumatic. EYES: Normal reaction of pupils, equal size. Conjunctiva pink, sclera white. NOSE: Clear with pink turbinates. THROAT: No erythema or exudates. NECK: No masses, no JVD, no thyroid enlargement, no adenopathy. CHEST: No chest wall deformity. Symmetrical expansion. LUNGS: diminished Breath sounds bilaterally CVS: Regular rate and rhythm, normal S1 and S2, no gallops, no murmurs, no rubs ABDOMEN: Soft, nontender. No hepatosplenomegaly, normal bowel sounds, no guarding or rigidity. EXTREMITIES: No clubbing, no cyanosis, 2+ pulses and upper and lower extremities. 1+ bilateral extremity edema worse on the right, with chronic venous stasis changes MUSCULOSKELETAL: Muscle strength and tone normal. SPINE: No scoliosis or deformity SKIN: No rashes CENTRAL NERVOUS SYSTEM: Alert and oriented -3. No focal deficits, tone is normal in all 4 extremities. PSYCHIATRIC: Alert and oriented -3. Appropriate affect. Intact judgment and insight. - Labs CBC & Chem 7: 04/01/18 05:33 04/01/18 05:33 Labs: Abnormal Lab Results - Last 24 Hours (Table) 03/31/18 03/31/18 03/31/18 Range/Units 05:39 14:23 16:45 RBC (4.30-5.90) m/uL Hgb (13.0-17.5) gm/dL Hct (39.0-53.0) % MCV (80.0-100.0) fL MCHC (31.0-37.0) g/dL Plt Count (150-450) k/uL Lymphocytes # (1.0-4.8) k/uL Carbon Dioxide 32 H (22-30) mmol/L BUN 59 H (9-20) mg/dL Creatinine 1.36 H (0.66-1.25) mg/dL Glucose 243 H (74-99) mg/dL POC Glucose (mg/dL) 310 H (75-99) mg/dL Hemoglobin A1c 6.3 H (4.0-6.0) % Magnesium (1.6-2.3) mg/dL ALT 20 L (21-72) U/L 03/31/18 03/31/18 03/31/18 Range/Units 18:55 21:04 22:59 RBC (4.30-5.90) m/uL Hgb (13.0-17.5) gm/dL Hct (39.0-53.0) % MCV (80.0-100.0) fL MCHC (31.0-37.0) g/dL Plt Count (150-450) k/uL Lymphocytes # (1.0-4.8) k/uL Carbon Dioxide (22-30) mmol/L BUN (9-20) mg/dL Creatinine (0.66-1.25) mg/dL Glucose (74-99) mg/dL POC Glucose (mg/dL) 221 H 140 H 160 H (75-99) mg/dL Hemoglobin A1c (4.0-6.0) % Magnesium (1.6-2.3) mg/dL ALT (21-72) U/L 04/01/18 04/01/18 04/01/18 Range/Units 01:03 03:15 05:10 RBC (4.30-5.90) m/uL Hgb (13.0-17.5) gm/dL Hct (39.0-53.0) % MCV (80.0-100.0) fL MCHC (31.0-37.0) g/dL Plt Count (150-450) k/uL Lymphocytes # (1.0-4.8) k/uL Carbon Dioxide (22-30) mmol/L BUN (9-20) mg/dL Creatinine (0.66-1.25) mg/dL Glucose (74-99) mg/dL POC Glucose (mg/dL) 131 H 146 H 125 H (75-99) mg/dL Hemoglobin A1c (4.0-6.0) % Magnesium (1.6-2.3) mg/dL ALT (21-72) U/L 04/01/18 04/01/18 04/01/18 Range/Units 05:33 05:33 05:33 RBC 3.49 L (4.30-5.90) m/uL Hgb 11.1 L (13.0-17.5) gm/dL Hct 35.9 L (39.0-53.0) % MCV 102.8 H (80.0-100.0) fL MCHC 30.8 L (31.0-37.0) g/dL Plt Count 87 L (150-450) k/uL Lymphocytes # 0.3 L (1.0-4.8) k/uL Carbon Dioxide 33 H (22-30) mmol/L BUN 60 H (9-20) mg/dL Creatinine 1.30 H (0.66-1.25) mg/dL Glucose 123 H (74-99) mg/dL POC Glucose (mg/dL) (75-99) mg/dL Hemoglobin A1c (4.0-6.0) % Magnesium 2.7 H (1.6-2.3) mg/dL ALT (21-72) U/L 04/01/18 04/01/18 04/01/18 Range/Units 06:15 08:10 10:02 RBC (4.30-5.90) m/uL Hgb (13.0-17.5) gm/dL Hct (39.0-53.0) % MCV (80.0-100.0) fL MCHC (31.0-37.0) g/dL Plt Count (150-450) k/uL Lymphocytes # (1.0-4.8) k/uL Carbon Dioxide (22-30) mmol/L BUN (9-20) mg/dL Creatinine (0.66-1.25) mg/dL Glucose (74-99) mg/dL POC Glucose (mg/dL) 137 H 203 H 161 H (75-99) mg/dL Hemoglobin A1c (4.0-6.0) % Magnesium (1.6-2.3) mg/dL ALT (21-72) U/L 04/01/18 Range/Units 11:49 RBC (4.30-5.90) m/uL Hgb (13.0-17.5) gm/dL Hct (39.0-53.0) % MCV (80.0-100.0) fL MCHC (31.0-37.0) g/dL Plt Count (150-450) k/uL Lymphocytes # (1.0-4.8) k/uL Carbon Dioxide (22-30) mmol/L BUN (9-20) mg/dL Creatinine (0.66-1.25) mg/dL Glucose (74-99) mg/dL POC Glucose (mg/dL) 117 H (75-99) mg/dL Hemoglobin A1c (4.0-6.0) % Magnesium (1.6-2.3) mg/dL ALT (21-72) U/L Microbiology - Last 24 Hours (Table) 03/30/18 13:02 Blood Culture Gram Stain - Preliminary Blood Blood Culture - Preliminary Alpha Hemolytic Streptococcus Diphtheroid species 03/30/18 15:00 Blood Culture - Preliminary Blood No Growth after 24 hours Assessment and Plan Plan: Assessment: #1. Acute on chronic hypoxemic respiratory failure secondary to acute exacerbation of chronic congestive heart failure and systolic function #2. Suspect pneumonia in the right midlung, could not entirely exclude developing pneumonia in the left lower lobe, community-acquired #3. Severe advanced oxygen-dependent COPD, chronic hypercapnic respiratory failure, secondary pulmonary hypertension #4. Single blood culture positive for alphahemolytic streptococcus and diphtheroid species #5. Obstructive sleep apnea on CPAP therapy #6. Mild troponin elevation #7. Acute kidney injury #8. History of chronic right hemidiaphragmatic paralysis #9. Chronic atrial fibrillation on Eliquis #10. Diabetes mellitus type 2 diabetic neuropathy, hypertension, hyperlipidemia #11. PAD status post left big toe amputation #12. Chronic kidney disease stage II #13. Previous history of pneumothorax requiring chest tube insertion Plan: Clinically patient is improving, chest x-ray shows improvement in the volume status no fever or chills, no worsening dyspnea, patient is stable. A single blood culture from 03/30/2018 showed alphahemolytic streptococcus and diphtheroid species. Will order follow-up blood cultures. We'll continue current antibiotic coverage, will follow I performed a history & physical examination of the patient and discussed their management with my nurse practitioner, Gricel Perkins. I reviewed the nurse practitioner's note and agree with the documented findings and plan of care. Lung sounds are diminished with bibasilar crackles. The findings and the impression was discussed with the patient. I attest to the documentation by the nurse practitioner. Time with Patient: Less than 30
--- NOTE | 2018-04-01 13:50 | P.CONS ---
History of Present Illness - Reason for Consult Consult date: 04/01/18 Positive blood cultures - History of Present Illness This is an 82-year-old male who is well known to Infectious Disease services as he has been seen previously for Pseudomonas bacteremia in 2016. [facility]omyel[facility] of the first metatarsal status post left great toe amputation and removal of the head of the metatarsal bone by Dr. Jacobson and also treated for MSSA and pseudomonas infection to the right great toe with osteomyelitis. Patient came into [facility] emergency center after being at the [facility] and developed significant shortness of breath with increased jerking movement on patient . His oxygen level was checked and was around 55% and the patient was driven to the emergency department at [facility] by his and he was found to have an acute kidney injury and top of chronic kidney disease as well as chest x -ray showed possible right middle lobe atelectasis versus infiltrate with a trace right-sided pleural effusion. He was admitted to the hospital for acute exacerbation of chronic obstructive pulmonary disease as well as acute kidney injury he is currently on IV Zosyn and oral azithromycin. He is followed by pulmonary medicine. Blood culture came back positive for alphahemolytic streptococcus and diphtheroid species. Subsequent blood cultures showing no growth after 24 hours. Review of Systems All systems: negative Constitutional: Reports fatigue, Reports weakness, Denies chills, Denies fever, Denies poor appetite Eyes: denies blurred vision, denies pain Ears, nose, mouth and throat: Denies dysphagia, Denies headache, Denies mouth pain, Denies sore throat Cardiovascular: Reports decreased exercise tolerance, Reports dyspnea on exertion, Reports shortness of breath, Denies chest pain, Denies paroxysmal nocturnal dyspnea, Denies rapid heart beat Respiratory: Reports cough, Reports dyspnea, Reports home oxygen, Reports sleep apnea, Reports wheezing, Denies cough with sputum Gastrointestinal: Reports early satiety, Reports excessive gas, Denies abdominal pain, Denies diarrhea, Denies nausea, Denies vomiting Genitourinary: Denies dysuria Musculoskeletal: Denies myalgias Integumentary: Denies pruritus, Denies rash Neurological: Denies numbness, Denies weakness Psychiatric: Denies anxiety, Denies depression Endocrine: Denies fatigue, Denies weight change 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, diabetes mellitus, chronic atrial fibrillation, coronary artery disease, COPD, hyperlipidemia, hypertension, recent hospitalization in October 2016 for a right-sided pneumothorax requiring chest tube insertion, left lower extremity wound/stasis ulcers Last Myocardial Infarction Date:: 27 years ago History of Any Multi-Drug Resistant Organisms: None Reported Past Surgical History: Appendectomy, Back Surgery, Cholecystectomy, Orthopedic Surgery Additional Past Surgical History / Comment(s): pilonidal cyst, brain anuerysm 1 clipping, right knee replacement, right shoulder replacement, LT CATARACT, SKIN GRAFT FROM RT THIGH TO RT FINGER, RASHEED 10 years ago, PFO against ASD, last colonoscopy greater than 5 years, 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 Past Anesthesia/Blood Transfusion Reactions: No Reported Reaction Past Psychological History: No Psychological Hx Reported Additional Psychological History / Comment(s): Pt resides with his spouse. He is receiving [facility] care. He has not really ambulated since last February -physical therapy was able to ambulate him 4 steps with a walker last week. He does not drive. He gets to [facility] [place] by his spouse or uses [employer] bus. Smoking Status: Former smoker Past Alcohol Use History: None Reported Additional Past Alcohol Use History / Comment(s): STARTED SMOKING 1963 1PPD, QUIT 1970. He denies any alcohol use. 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 Past Drug Use History: None Reported - Past Family History Father Family Medical History: Diabetes Mellitus, Myocardial Infarction ([place]) Additional Family Medical History / Comment(s): Father at age 55 with history of diabetes and alcoholism. Mother Family Medical History: Cancer, Myocardial Infarction ([place]) Additional Family Medical History / Comment(s): Mother at age 62 from rectal cancer. Brother(s) Additional Family Medical History / Comment(s): Patient had 3 brothers. One in a work related accident. One after having an [place] with history of renal problems. Sister(s) Additional Family Medical History / Comment(s): Patient has 2 sisters. One is alive. One has after gallbladder ruptured. Patient has 3 boys and one girl with no major medical problems. Medications and Allergies Home Medications Medication Instructions Recorded Confirmed Type Aspirin 81 mg PO DAILY 02/18/14 03/30/18 History Gabapentin [Neurontin] 300 mg PO TID 02/18/14 03/30/18 History INSULIN LISPRO (humaLOG) [humaLOG] See Protocol SQ ACHS PRN 05/18/15 03/30/18 History Ipratropium Nebulized [Atrovent 0.5 mg INHALATION RT-QID PRN 05/18/15 03/30/18 History Nebulized] Levalbuterol Nebulized [Xopenex 1.25 mg INHALATION RT-QID PRN 05/18/15 03/30/18 History Nebulized] Cholecalciferol [Vitamin D3] 5,000 unit PO DAILY 07/29/15 03/30/18 History Ferrous Sulfate [Iron (65 MG 325 mg PO DAILY 07/29/15 03/30/18 History Elemental)] Glucosamine Sulfate 500 mg PO DAILY 07/29/15 03/30/18 History Multivitamins, Thera [Multivitamin 1 tab PO DAILY 07/29/15 03/30/18 History (formulary)] Niacinamide [Niacin] 500 mg PO DAILY 07/29/15 03/30/18 History [place]-3 Fatty Acids/Fish Oil [Fish 1 cap PO DAILY 07/29/15 03/30/18 History Oil 1,000 mg Softgel] Atenolol [Tenormin] 100 mg PO BID 08/25/15 03/30/18 History Apixaban [Eliquis] 2.5 mg PO BID #0 09/06/15 03/30/18 Rx Losartan [Cozaar] 25 mg PO DAILY 10/24/16 03/30/18 History Pravastatin Sodium [Pravachol] 80 mg PO HS 10/24/16 03/30/18 History Insulin NPH Human Isophane 12 units SQ BID #0 10/28/16 03/30/18 Rx [humuLIN N] HYDROcodone/APAP 5-325MG [[place] 1 tab PO Q8HR PRN #90 tab 11/30/16 03/30/18 Rx 5-325] Bisoprol/Hydrochlorothiazide 1 tab PO DAILY 03/30/18 03/30/18 History [Bisoprolol-Hctz 5-6.25 mg Tab] Calcium Carbonate [Calcium] 600 mg PO DAILY 03/30/18 03/30/18 History Cetirizine HCl [Zyrtec] 10 mg PO DAILY 03/30/18 03/30/18 History Cyanocobalamin (Vitamin B-12) 1,000 mcg PO DAILY 03/30/18 03/30/18 History [Vitamin B-12] Escitalopram [Lexapro] 10 mg PO DAILY 03/30/18 03/30/18 History Folic Acid 0.8 mg PO DAILY 03/30/18 03/30/18 History Furosemide [Lasix] 20 mg PO DAILY 03/30/18 03/30/18 History Loperamide HCl [Imodium A-D] 2 mg PO Q6H 03/30/18 03/30/18 History Lysine [l-Lysine] 500 mg PO DAILY 03/30/18 03/30/18 History Meloxicam [Mobic] 15 mg PO DAILY 03/30/18 03/30/18 History Oxybutynin Chloride [Ditropan] 5 mg PO BID 03/30/18 03/30/18 History Potassium 595mg 595 mg PO DAILY 03/30/18 03/30/18 History Ranitidine HCl [Zantac] 150 mg PO BID 03/30/18 03/30/18 History Sennosides-Docusate Sodium 1 tab PO DAILY 03/30/18 03/30/18 History [Senokot-S] Simvastatin [Zocor] 40 mg PO HS 03/30/18 03/30/18 History Turmeric Root Extract [Turmeric] 500 mg PO DAILY 03/30/18 03/30/18 History Vitamin E 1,000 unit PO DAILY 03/30/18 03/30/18 History traMADol HCL [Ultram] 50 mg PO Q6H PRN 03/30/18 03/30/18 History Allergies Allergy/AdvReac Type Severity Reaction Status Date / Time celecoxib [From Celebrex] AdvReac "hard Verified 03/30/18 09:40 muscle" ibuprofen AdvReac "bloody Verified 03/30/18 09:40 urine" levofloxacin AdvReac Itching Verified 03/30/18 09:40 Physical Exam Vitals: Vital Signs Temp Pulse Pulse Resp BP Pulse Ox 04/01/18 12:15 80 04/01/18 12:06 76 04/01/18 09:15 82 04/01/18 08:49 80 04/01/18 08:00 98.2 F 97 18 127/73 90 L 04/01/18 03:43 98.0 F 88 19 134/69 91 L 03/31/18 23:47 97.8 F 101 H 18 124/63 95 03/31/18 21:35 85 03/31/18 21:23 82 03/31/18 19:46 91 18 03/31/18 19:45 98.0 F 91 18 142/79 93 L 03/31/18 16:01 79 03/31/18 15:48 78 89 L 03/31/18 15:45 97.8 F 64 18 117/58 96 Intake and Output 03/31/18 04/01/18 04/01/18 22:59 06:59 14:59 Intake Total 233.783 17.488 788.483 Output Total 800 Balance -566.217 17.488 788.483 Intake: Intake, IV Titration 11.783 17.488 108.483 Amount Insulin Regular 100 unit 11.783 17.488 8.483 In Sodium Chloride 0.9% 100 ml @ Titrate IV .Q0M DIANE Rx#:[id number] Piperacillin-Tazobactam 3 100 .375 gm In Sodium Chloride 0.9% 100 ml @ 25 mls/hr IVPB Q8HR DIANE Rx# :[id number] Oral 222 680 Output: Urine 800 Other: Voiding Method Urinal Urinal Urinal Diaper Diaper Diaper Incontinent Incontinent Incontinent # Voids 1 1 # Bowel Movements 1 1 Weight 104.3 kg General appearance: no distress, obese, patient sitting up in a chair at the bedside and appears to be comfortable and in no acute distress. No respiratory distress noted. - EENT Eyes: anicteric sclerae, EOMI, PERRLA, no ptosis, no scleral icterus, normal appearance ENT: hearing grossly normal, NA/AT, normal oropharynx, no thrush Ears: bilateral: normal - Neck Neck: no lymphadenopathy, normal ROM, no rigidity, no stridor, no thyromegaly Carotids: bilateral: upstroke delayed Thyroid: bilateral: normal size - Respiratory Respiratory: bilateral: diminished, wheezing, prolonged expiration, negative: dullness, rales, rhonchi - Cardiovascular Rhythm: irregularly irregular Heart sounds: normal: S1, S2 Abnormal Heart Sounds: systolic murmur - Gastrointestinal General gastrointestinal: normal bowel sounds, soft, no tenderness - Integumentary Integumentary: normal, normal turgor - Neurologic Neurologic: CNII-XII intact - Musculoskeletal Musculoskeletal: no gait normal, generalized weakness, strength equal bilaterally (left big toe amputation.) - Psychiatric Psychiatric: A&O x's 3, appropriate affect, intact judgment & insight Results Results: Laboratory Results WBC 5.2 k/uL (3.8-10.6) 04/01/18 05:33 RBC 3.49 m/uL (4.30-5.90) L 04/01/18 05:33 Hgb 11.1 gm/dL (13.0-17.5) L 04/01/18 05:33 Hct 35.9 % (39.0-53.0) L 04/01/18 05:33 MCV 102.8 fL (80.0-100.0) H 04/01/18 05:33 MCH 31.7 pg (25.0-35.0) 04/01/18 05:33 MCHC 30.8 g/dL (31.0-37.0) L 04/01/18 05:33 RDW 14.7 % (11.5-15.5) 04/01/18 05:33 Plt Count 87 k/uL (150-450) L 04/01/18 05:33 Neutrophils % 88 % 04/01/18 05:33 Lymphocytes % 6 % 04/01/18 05:33 Monocytes % 5 % 04/01/18 05:33 Eosinophils % 0 % 04/01/18 05:33 Basophils % 0 % 04/01/18 05:33 Neutrophils # 4.6 k/uL (1.3-7.7) 04/01/18 05:33 Lymphocytes # 0.3 k/uL (1.0-4.8) L 04/01/18 05:33 Monocytes # 0.2 k/uL (0-1.0) 04/01/18 05:33 Eosinophils # 0.0 k/uL (0-0.7) 04/01/18 05:33 Basophils # 0.0 k/uL (0-0.2) 04/01/18 05:33 Manual Slide Review Performed 03/30/18 09:33 Large Platelets Present 03/30/18 09:33 Hypochromasia Moderate 04/01/18 05:33 Macrocytosis Slight 04/01/18 05:33 PT 11.6 sec (9.0-12.0) 03/30/18 09:33 INR 1.1 (<1.2) 03/30/18 09:33 APTT 25.3 sec (22.0-30.0) 03/30/18 09:33 Sodium 143 mmol/L (137-145) 04/01/18 05:33 Potassium 4.6 mmol/L (3.5-5.1) 04/01/18 05:33 Chloride 103 mmol/L (98-107) 04/01/18 05:33 Carbon Dioxide 33 mmol/L (22-30) H 04/01/18 05:33 Anion Gap 7 mmol/L 04/01/18 05:33 BUN 60 mg/dL (9-20) H 04/01/18 05:33 Creatinine 1.30 mg/dL (0.66-1.25) H 04/01/18 05:33 Est GFR (CKD-EPI)AfAm 59 (>60 ml/min/1.73 sqM) 04/01/18 05:33 Est GFR (CKD-EPI)NonAf 51 (>60 ml/min/1.73 sqM) 04/01/18 05:33 Glucose 123 mg/dL (74-99) H 04/01/18 05:33 POC Glucose (mg/dL) 117 mg/dL (75-99) H 04/01/18 11:49 POC Glu Hand Slitter ALBINA Marni Rebolledo 04/01/18 11:[address] Glu mg/dL 134 03/31/18 05:39 Hemoglobin A1c 6.3 % (4.0-6.0) H 03/31/18 05:39 Calcium 9.0 mg/dL (8.4-10.2) 04/01/18 05:33 Magnesium 2.7 mg/dL (1.6-2.3) H 04/01/18 05:33 Total Bilirubin 0.6 mg/dL (0.2-1.3) 03/31/18 14:23 AST 18 U/L (17-59) 03/31/18 14:23 ALT 20 U/L (21-72) L 03/31/18 14:23 Alkaline Phosphatase 76 U/L (38-126) 03/31/18 14:23 Total Creatine Kinase 43 U/L (55-170) L 03/30/18 09:33 CK-MB (CK-2) 1.8 ng/mL (0.0-2.4) 03/30/18 09:33 CK-MB (CK-2) Rel Index 4.2 03/30/18 09:33 Troponin I 0.071 ng/mL (0.000-0.034) H* 03/30/18 09:33 NT-Pro-B Natriuret Pep 6200 pg/mL 03/30/18 09:33 Total Protein 6.4 g/dL (6.3-8.2) 03/31/18 14:23 Albumin 3.7 g/dL (3.5-5.0) 03/31/18 14:23 CBC & Chem 7: 04/01/18 05:33 04/01/18 05:33 Labs: Abnormal Lab Results - Last 24 Hours (Table) 03/31/18 03/31/18 03/31/18 Range/Units 05:39 14:23 16:45 RBC (4.30-5.90) m/uL Hgb (13.0-17.5) gm/dL Hct (39.0-53.0) % MCV (80.0-100.0) fL MCHC (31.0-37.0) g/dL Plt Count (150-450) k/uL Lymphocytes # (1.0-4.8) k/uL Carbon Dioxide 32 H (22-30) mmol/L BUN 59 H (9-20) mg/dL Creatinine 1.36 H (0.66-1.25) mg/dL Glucose 243 H (74-99) mg/dL POC Glucose (mg/dL) 310 H (75-99) mg/dL Hemoglobin A1c 6.3 H (4.0-6.0) % Magnesium (1.6-2.3) mg/dL ALT 20 L (21-72) U/L 03/31/18 03/31/18 03/31/18 Range/Units 18:55 21:04 22:59 RBC (4.30-5.90) m/uL Hgb (13.0-17.5) gm/dL Hct (39.0-53.0) % MCV (80.0-100.0) fL MCHC (31.0-37.0) g/dL Plt Count (150-450) k/uL Lymphocytes # (1.0-4.8) k/uL Carbon Dioxide (22-30) mmol/L BUN (9-20) mg/dL Creatinine (0.66-1.25) mg/dL Glucose (74-99) mg/dL POC Glucose (mg/dL) 221 H 140 H 160 H (75-99) mg/dL Hemoglobin A1c (4.0-6.0) % Magnesium (1.6-2.3) mg/dL ALT (21-72) U/L 04/01/18 04/01/18 04/01/18 Range/Units 01:03 03:15 05:10 RBC (4.30-5.90) m/uL Hgb (13.0-17.5) gm/dL Hct (39.0-53.0) % MCV (80.0-100.0) fL MCHC (31.0-37.0) g/dL Plt Count (150-450) k/uL Lymphocytes # (1.0-4.8) k/uL Carbon Dioxide (22-30) mmol/L BUN (9-20) mg/dL Creatinine (0.66-1.25) mg/dL Glucose (74-99) mg/dL POC Glucose (mg/dL) 131 H 146 H 125 H (75-99) mg/dL Hemoglobin A1c (4.0-6.0) % Magnesium (1.6-2.3) mg/dL ALT (21-72) U/L 04/01/18 04/01/18 04/01/18 Range/Units 05:33 05:33 05:33 RBC 3.49 L (4.30-5.90) m/uL Hgb 11.1 L (13.0-17.5) gm/dL Hct 35.9 L (39.0-53.0) % MCV 102.8 H (80.0-100.0) fL MCHC 30.8 L (31.0-37.0) g/dL Plt Count 87 L (150-450) k/uL Lymphocytes # 0.3 L (1.0-4.8) k/uL Carbon Dioxide 33 H (22-30) mmol/L BUN 60 H (9-20) mg/dL Creatinine 1.30 H (0.66-1.25) mg/dL Glucose 123 H (74-99) mg/dL POC Glucose (mg/dL) (75-99) mg/dL Hemoglobin A1c (4.0-6.0) % Magnesium 2.7 H (1.6-2.3) mg/dL ALT (21-72) U/L 04/01/18 04/01/18 04/01/18 Range/Units 06:15 08:10 10:02 RBC (4.30-5.90) m/uL Hgb (13.0-17.5) gm/dL Hct (39.0-53.0) % MCV (80.0-100.0) fL MCHC (31.0-37.0) g/dL Plt Count (150-450) k/uL Lymphocytes # (1.0-4.8) k/uL Carbon Dioxide (22-30) mmol/L BUN (9-20) mg/dL Creatinine (0.66-1.25) mg/dL Glucose (74-99) mg/dL POC Glucose (mg/dL) 137 H 203 H 161 H (75-99) mg/dL Hemoglobin A1c (4.0-6.0) % Magnesium (1.6-2.3) mg/dL ALT (21-72) U/L 04/01/18 Range/Units 11:49 RBC (4.30-5.90) m/uL Hgb (13.0-17.5) gm/dL Hct (39.0-53.0) % MCV (80.0-100.0) fL MCHC (31.0-37.0) g/dL Plt Count (150-450) k/uL Lymphocytes # (1.0-4.8) k/uL Carbon Dioxide (22-30) mmol/L BUN (9-20) mg/dL Creatinine (0.66-1.25) mg/dL Glucose (74-99) mg/dL POC Glucose (mg/dL) 117 H (75-99) mg/dL Hemoglobin A1c (4.0-6.0) % Magnesium (1.6-2.3) mg/dL ALT (21-72) U/L Microbiology - Last 24 Hours (Table) 03/30/18 13:02 Blood Culture Gram Stain - Preliminary Blood Blood Culture - Preliminary Alpha Hemolytic Streptococcus Diphtheroid species 03/30/18 15:00 Blood Culture - Preliminary Blood No Growth after 24 hours Assessment and Plan Plan: Is an 82-year-old male who presented to hospital with acute hypoxic respiratory failure secondary to acute exacerbation of COPD with possible right lobe pneumonia along with acute kidney injury. Initial blood culture showing alphahemolytic streptococcus and diphtheroids species. Repeat blood culture is showing no growth after 24 hours. Patient is currently on Zosyn and azithromycin. Continue supportive care. Further recommendations as patient progresses. The above dictated assessment and findings were discussed with Dr. Ramirez. The impression and plan of care have been directed as dictated. Malu Cordova nurse practitioner acting as scribe for Dr. Ramirez.
--- NOTE | 2018-04-01 15:02 | P.PN ---
Subjective Progress Note Date: 04/01/18 This is an 82-year-old male one of my patient with history of advanced COPD with chronic hypoxic respiratory failureon home O2, hypertension and hypertensive cardio vascular disease with left ventricular hypertrophy, chronic atrial fibrillation on chronic anticoagulation therapy in the form of NOAC, hyperlipidemia, diabetes mellitus type 2 with diabetic neuropathy, PAD post left big toe amputation, chronic kidney disease stage II, obesity with obstructive sleep apnea currently on a CPAP patient has been doing fine until recently when he noticed increased jerking movement in both upper and lower extremities specially in the upper extremities that has, and more frequent over the last few days, he went to the office because of his fullness in the stomach and he was prescribed a PPI and [facility] he had forgot his cell phone his received a call come and 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 her has the patient was having significant issues with the breathing and with increased jerking movement on patient checked his oxygen level was around 55% and the patient was driven to the emergency department at [facility] by his and he was found to have an acute kidney injury and top of chronic kidney disease as well as chest x-ray showed possible right middle lobe atelectasis versus infiltrate with a trace right-sided pleural effusion patient was admitted to the hospital for acute exacerbation of chronic obstructive pulmonary disease as well as acute kidney injury would be started on IV antibiotic in the form of Zosyn 3.375 g IV piggyback every 8 hours, DuoNeb 3 mg nebulization 4 times every day as well as pulmonary consultation. 03/31: The patient is feeling much and improved today. He is quite talkative. His blood culture came back positive and repeat are in progress. Solu-Medrol will be decreased to 40 mg every 8 hours. Azithromycin will be added. Patient is seen and followed by pulmonary medicine. Patient has been seen by physical therapy with recommendations for home with home care or subacute rehab. 04/01:Blood culture came back positive for alphahemolytic streptococcus and diphtheroid species. Subsequent blood cultures showing no growth after [address] Ramirez added. The patient's breathing is improving. Solu-Medrol will be decreased to 40 mg every 12 hours and plan for prednisone to start tomorrow. He is on insulin drip which we will discontinue and place him on a higher dose of NPH as well as 5 units of NovoLog scheduled with meals and scale. Anticipate probable discharge Wednesday to [facility]. Review of Systems Constitutional: Reports fatigue, Reports weakness, Denies anorexia, Denies chronic headaches Eyes: denies blurred vision, denies bulging eye, denies decreased vision Ears, nose, mouth and throat: Denies dysphagia, Denies neck lump, Denies sore throat Cardiovascular: Reports decreased exercise tolerance, Reports dyspnea on exertion, Reports high blood pressure, Reports shortness of breath, Denies chest pain, Denies paroxysmal nocturnal dyspnea, Denies phlebitis, Denies rapid heart beat Respiratory: Reports cough, Reports home oxygen, Reports sleep apnea, Reports wheezing, Denies congestion, Denies cough with sputum, Denies snoring Gastrointestinal: Reports bloating, Reports early satiety, Reports excessive gas , Denies abdominal pain, Denies BRBPR, Denies change in bowel habits, Denies heartburn, Denies loss of appetite, Denies melena, Denies nausea, Denies vomiting Genitourinary: Reports nocturia, Denies dysuria Musculoskeletal: Reports gait dysfunction, Reports muscle weakness, Denies myalgias Musculoskeletal: bilateral: ankle swelling, absent: ankle pain, ankle stiffness , elbow pain, elbow stiffness, elbow swelling, foot pain, foot stiffness, foot swelling, hand pain, hand stiffness, hand swelling, hip pain, hip stiffness, hip swelling, knee pain, knee stiffness, knee swelling, shoulder pain, shoulder stiffness, shoulder swelling, wrist pain, wrist stiffness, wrist swelling Integumentary: Denies pruritus, Denies rash Neurological: Reports balance difficulties, Reports burning pain, Reports gait dysfunction, Reports numbness, Reports weakness Psychiatric: Denies anxiety, Denies depression Endocrine: Denies fatigue, Denies weight change, denies weight gain, abnormal blood sugars Objective - Vital Signs Vital signs: Vital Signs Temp 98.2 F 04/01/18 08:00 Pulse 82 04/01/18 09:15 Resp 18 04/01/18 08:00 BP 127/73 04/01/18 08:00 Pulse Ox 90 L 04/01/18 08:00 Intake & Output 03/31/18 04/01/18 04/01/18 18:59 06:59 18:59 Intake Total 1026 29.271 548.483 Output Total 1060 Balance -34 29.271 548.483 Weight 104.3 kg Intake: Intake, IV Titration 29.271 108.483 Amount Insulin Regular 100 unit 29.271 8.483 In Sodium Chloride 0.9% 100 ml @ Titrate IV .Q0M [facility] Rx#:[id number] Piperacillin-Tazobactam 3 100 .375 gm In Sodium Chloride 0.9% 100 ml @ 25 mls/hr IVPB Q8HR [facility] Rx# :[id number] Oral 1026 440 Output: Urine 1060 Other: Voiding Method Urinal Urinal Urinal Diaper Diaper Incontinent Incontinent # Voids 1 1 # Bowel Movements 1 - Exam General appearance: no distress, obese, sitting up in a chair and appears to be comfortable - EENT Eyes: anicteric sclerae, EOMI, PERRLA, no ptosis, no scleral icterus, normal appearance ENT: hearing grossly normal, NA/AT, normal oropharynx, no thrush Ears: bilateral: normal - Neck Neck: no lymphadenopathy, normal ROM, no rigidity, no stridor, no thyromegaly Carotids: bilateral: upstroke delayed Thyroid: bilateral: normal size - Respiratory Respiratory: bilateral: diminished, wheezing, prolonged expiration, negative: dullness, rales, rhonchi - Cardiovascular Rhythm: irregularly irregular Heart sounds: normal: S1, S2 Abnormal Heart Sounds: systolic murmur - Gastrointestinal General gastrointestinal: normal bowel sounds, soft, no tenderness - Integumentary Integumentary: normal, normal turgor - Neurologic Neurologic: CNII-XII intact - Musculoskeletal Musculoskeletal: no gait normal, generalized weakness, strength equal bilaterally (left big toe amputation.) - Psychiatric Psychiatric: A&O x's 3, appropriate affect, intact judgment & insight - Labs CBC & Chem 7: 04/01/18 05:33 04/01/18 05:33 Labs: Abnormal Lab Results - Last 24 Hours (Table) 03/31/18 03/31/18 03/31/18 Range/Units 05:39 11:33 14:23 RBC (4.30-5.90) m/uL Hgb (13.0-17.5) gm/dL Hct (39.0-53.0) % MCV (80.0-100.0) fL MCHC (31.0-37.0) g/dL Plt Count (150-450) k/uL Lymphocytes # (1.0-4.8) k/uL Carbon Dioxide 32 H (22-30) mmol/L BUN 59 H (9-20) mg/dL Creatinine 1.36 H (0.66-1.25) mg/dL Glucose 243 H (74-99) mg/dL POC Glucose (mg/dL) 240 H (75-99) mg/dL Hemoglobin A1c 6.3 H (4.0-6.0) % Magnesium (1.6-2.3) mg/dL ALT 20 L (21-72) U/L 03/31/18 03/31/18 03/31/18 Range/Units 16:45 18:55 21:04 RBC (4.30-5.90) m/uL Hgb (13.0-17.5) gm/dL Hct (39.0-53.0) % MCV (80.0-100.0) fL MCHC (31.0-37.0) g/dL Plt Count (150-450) k/uL Lymphocytes # (1.0-4.8) k/uL Carbon Dioxide (22-30) mmol/L BUN (9-20) mg/dL Creatinine (0.66-1.25) mg/dL Glucose (74-99) mg/dL POC Glucose (mg/dL) 310 H 221 H 140 H (75-99) mg/dL Hemoglobin A1c (4.0-6.0) % Magnesium (1.6-2.3) mg/dL ALT (21-72) U/L 03/31/18 04/01/18 04/01/18 Range/Units 22:59 01:03 03:15 RBC (4.30-5.90) m/uL Hgb (13.0-17.5) gm/dL Hct (39.0-53.0) % MCV (80.0-100.0) fL MCHC (31.0-37.0) g/dL Plt Count (150-450) k/uL Lymphocytes # (1.0-4.8) k/uL Carbon Dioxide (22-30) mmol/L BUN (9-20) mg/dL Creatinine (0.66-1.25) mg/dL Glucose (74-99) mg/dL POC Glucose (mg/dL) 160 H 131 H 146 H (75-99) mg/dL Hemoglobin A1c (4.0-6.0) % Magnesium (1.6-2.3) mg/dL ALT (21-72) U/L 04/01/18 04/01/18 04/01/18 Range/Units 05:10 05:33 05:33 RBC 3.49 L (4.30-5.90) m/uL Hgb 11.1 L (13.0-17.5) gm/dL Hct 35.9 L (39.0-53.0) % MCV 102.8 H (80.0-100.0) fL MCHC 30.8 L (31.0-37.0) g/dL Plt Count 87 L (150-450) k/uL Lymphocytes # 0.3 L (1.0-4.8) k/uL Carbon Dioxide (22-30) mmol/L BUN (9-20) mg/dL Creatinine (0.66-1.25) mg/dL Glucose (74-99) mg/dL POC Glucose (mg/dL) 125 H (75-99) mg/dL Hemoglobin A1c (4.0-6.0) % Magnesium 2.7 H (1.6-2.3) mg/dL ALT (21-72) U/L 04/01/18 04/01/18 04/01/18 Range/Units 05:33 06:15 08:10 RBC (4.30-5.90) m/uL Hgb (13.0-17.5) gm/dL Hct (39.0-53.0) % MCV (80.0-100.0) fL MCHC (31.0-37.0) g/dL Plt Count (150-450) k/uL Lymphocytes # (1.0-4.8) k/uL Carbon Dioxide 33 H (22-30) mmol/L BUN 60 H (9-20) mg/dL Creatinine 1.30 H (0.66-1.25) mg/dL Glucose 123 H (74-99) mg/dL POC Glucose (mg/dL) 137 H 203 H (75-99) mg/dL Hemoglobin A1c (4.0-6.0) % Magnesium (1.6-2.3) mg/dL ALT (21-72) U/L 04/01/18 Range/Units 10:02 RBC (4.30-5.90) m/uL Hgb (13.0-17.5) gm/dL Hct (39.0-53.0) % MCV (80.0-100.0) fL MCHC (31.0-37.0) g/dL Plt Count (150-450) k/uL Lymphocytes # (1.0-4.8) k/uL Carbon Dioxide (22-30) mmol/L BUN (9-20) mg/dL Creatinine (0.66-1.25) mg/dL Glucose (74-99) mg/dL POC Glucose (mg/dL) 161 H (75-99) mg/dL Hemoglobin A1c (4.0-6.0) % Magnesium (1.6-2.3) mg/dL ALT (21-72) U/L Microbiology - Last 24 Hours (Table) 03/30/18 13:02 Blood Culture Gram Stain - Preliminary Blood Blood Culture - Preliminary Alpha Hemolytic Streptococcus Diphtheroid species 03/30/18 15:00 Blood Culture - Preliminary Blood No Growth after 24 hours Assessment and Plan Plan: 1. Acute hypoxemic respiratory failure due to acute exacerbation of COPD with possible right lobe pneumonia. Start the patient on Zosyn 3.375 g IV piggyback every 8 hours, azithromycin, DuoNeb 3 mL nebulization 4 times every day, Pulmicort 1 mg nebulization twice every day, oxygen support, pulmonary consultation appreciated, sputum culture, blood culture. Solu-Medrol decreased to 40 mg IV every 12 hours and prednisone started for tomorrow. 2. Acute kidney injury on top of chronic kidney disease stage II. Patient will be receiving IV fluid resuscitation and transition to saline lock. 3. Involuntary jerking movements of both upper extremities thought to be due to acute kidney injury with the use of gabapentin we will decrease the dose to 300 mg at bedtime. 4. Hypertension and hypertensive cardiovascular disease. Continue patient on losartan 25 mg orally once every day, atenolol 100 mg orally twice every day. 5. Chronic atrial fibrillation. Continue Eliquis 2.5 mg orally twice every day , atenolol 100 mg orally twice every day. 6. Hyperlipemia. Continue low-cholesterol diet as well as pravastatin 80 mg at bedtime. 7. Diabetes mellitus type 2. Continue Humulin 12 units subcutaneously twice every day and as well as Humalog, monitor blood glucose before each meal and at bedtime. 8. Chronic venous stasis with stasis dermatitis. Stable at this time. 11. Bilateral lower extremity neuropathy. Continue gabapentin 300 mg orally at bedtime. 12. PAD post left big toe amputation. 13. Obesity with obstructive sleep apnea. Continue patient on CPAP. 14. Chronic kidney disease stage II. Stable at this time. 15. Anemia of chronic renal disease. Continue iron 325 mg orally twice every day. 16. DVT prophylaxis. Continue Eliquis 2.5 mg orally twice every day. 17. GI prophylaxis. Continue patient on Protonix 40 mg IV push every 24 hours. 18. Blood culture positive for alpha hemolytic streptococcus and diphtheroid species, rule out contamination. Subsequent blood cultures showing no growth after [address] Ramirez Discharge plan: [facility] on Wednesday Impression and plan of care have been directed as dictated by the signing physician. Malu Cordova nurse practitioner acting as scribe for signing physician.
[2018-04-01 17:13] LABS: Glucose,Whole Blood 241 mg/dL (75-99)
[2018-04-01] MEDS: SENNOSIDES-DOCUSATE SODIUM 1 EACH TAB PO SCH (17:53)
[2018-04-01 20:20] LABS: Glucose,Whole Blood 185 mg/dL (75-99)
[2018-04-01] MEDS ORDERED: methylPREDNISolone SOD SUCCI 40 MG/ML 1 ML VIAL IV SCH (21:00)
[2018-04-01] MEDS: GABAPENTIN 300 MG CAP PO SCH (21:20)
[2018-04-01] MEDS: PRAVASTATIN SODIUM 80 MG TAB PO SCH (21:21)
--- NOTE | 2018-04-02 00:29 | P.CON ---
Consult Note - . Consult date: 04/01/18 Assessment/Plan:: This is an 82-year-old male who is well known to Infectious Disease services as he has been seen previously for Pseudomonas bacteremia in 2016. [facility] the first metatarsal status post left great toe amputation and removal of the head of the metatarsal bone by Dr. Jacobson and also treated for MSSA and pseudomonas infection to the right great toe with osteomyelitis. Patient came into [facility] emergency center after being at the [facility] and developed significant shortness of breath with increased jerking movement on patient . His oxygen level was checked and was around 55% and the patient was driven to the emergency department at [facility] by his and he was found to have an acute kidney injury and top of chronic kidney disease as well as chest x -ray showed possible right middle lobe atelectasis versus infiltrate with a trace right-sided pleural effusion. He was admitted to the hospital for acute exacerbation of chronic obstructive pulmonary disease as well as acute kidney injury he is currently on IV Zosyn and oral azithromycin. He is followed by pulmonary medicine. Blood culture came back positive for alpha hemolytic streptococcus and diphtheroid species. Subsequent blood cultures showing no growth after 24 hours. Please see the consult note is dictated by nurse practitioner Mrs. Malu Cordova. 82-year-old male presents to Hospital feeling very poorly. Is evidence of an acute exacerbation of underlying COPD. There was evidence of positive blood cultures however there polymicrobial and there is a diphtheroid species present which makes contamination highly likely. Patient clinically is rapidly improving with treatment of his underlying pulmonary disease. Cultures are in process also the sputum which will further help direct antimicrobial therapy as he improves. Does appear that his acute kidney injury starting to improve, will monitor values on Zosyn therapy. I agree with evaluation, assessment and plan is dictated by nurse practitioner Mrs. Malu Cordova.
[2018-04-02 06:21] LABS: Glucose,Whole Blood 155 mg/dL (75-99)
[2018-04-02] MEDS: INSULIN ASPART 100 UNIT/ML 1 ML 10 ML VIAL SQ SCH ×7 (07:00→21:31)
[2018-04-02] MEDS: PANTOPRAZOLE 40 MG TABLET PO SCH (07:01)
[2018-04-02] MEDS: IPRATROPIUM-ALBUTEROL 3 ML NEB INHALATION SCH ×4 (08:34→19:56)
[2018-04-02] MEDS: BUDESONIDE 1 MG/2 ML NEBU INHALATION SCH ×2 (08:35→19:56)
[2018-04-02] MEDS: predniSONE 20 MG TAB PO SCH (09:19)
[2018-04-02] MEDS: CHOLECALCIFEROL 1,000 UNIT TAB PO SCH (09:19)
[2018-04-02] MEDS: CALCIUM CARBONATE 500 MG CHEWABLE PO SCH (09:19)
[2018-04-02] MEDS: LORATADINE 10 MG TAB PO SCH (09:20)
[2018-04-02] MEDS: APIXABAN 2.5 MG TABLET PO SCH ×2 (09:20→21:30)
[2018-04-02] MEDS: MULTIVITAMINS, THERA 1 EACH TAB PO SCH (09:20)
[2018-04-02] MEDS: NIACIN TR 500 MG CAPSULE.ER PO SCH (09:20)
[2018-04-02] MEDS: ATENOLOL 50 MG TAB PO SCH ×2 (09:20→21:30)
[2018-04-02] MEDS: LOSARTAN 25 MG TAB PO SCH (09:20)
[2018-04-02] MEDS: AZITHROMYCIN 500 MG TAB PO SCH (09:20)
[2018-04-02] MEDS: OXYBUTYNIN CHLORIDE 5 MG TAB PO SCH ×2 (09:20→21:30)
[2018-04-02] MEDS: ASPIRIN 81 MG PO SCH (09:20)
[2018-04-02] MEDS: PIPERACILLIN-TAZOBACTAM 3.375 GM in SODIUM CHLORIDE 0.9% 100 ML IVPB SCH ×4 (09:25→17:59)
[2018-04-02] MEDS: FOLIC ACID 1 MG TAB PO SCH (09:32)
[2018-04-02] MEDS: ESCITALOPRAM 10 MG TAB PO SCH (09:32)
[2018-04-02] MEDS: CYANOCOBALAMIN 500 MCG TAB PO SCH (09:32)
[2018-04-02] MEDS: INSULIN NPH 300 UNIT/3 ML VIAL SQ SCH ×2 (09:33→21:32)
[2018-04-02] MEDS: FERROUS SULFATE 325 MG TAB PO SCH (09:33)
[2018-04-02 11:37] LABS: Glucose,Whole Blood 124 mg/dL (75-99)
--- NOTE | 2018-04-02 13:25 | P.PN ---
Subjective Progress Note Date: 04/02/18 Principal diagnosis: Acute on chronic hypoxic respiratory failure secondary to bilateral pneumonia, advanced COPD with acute exacerbation, and acute systolic congestive heart failure. Acute on chronic hypoxemic respiratory failure secondary to acute exacerbation of chronic congestive heart failure with systolic dysfunction This is a 82-year-old white male patient of Dr. Batista, past medical history of advanced oxygen-dependent COPD, diabetes mellitus, coronary artery disease, hypertension, hyperlipidemia, sleep apnea on CPAP therapy, atrial fibrillation, history of right-sided pneumothorax, and into the emergency department on 2017 for evaluation of difficulty breathing, hypoxemia. Patient was at the [facility] working out, usually goes 3 times a week, he says portable oxygen. His received a call today from the [facility] stating that her is having increased difficulty breathing, his pulse ox was noted to be around 55%. Patient denies any fever or chills, with some increased swelling in his lower extremities, abdominal distention. A little shaky but denied any significant cough, chest congestion chest pain. Follows with Dr. Alarcon in the pulmonary clinic, his last outpatient PFT from 2012 showed a FEV1 of 60% and FVC of 55%. She is on nebulized treatments at home, used to be on Breo-Ellipta. Chest x- ray was taken and showed a new right midlung patchy opacity for developing pneumonia, does trace right pleural effusion and bibasilar atelectasis. Labs showed WBC of 5.0, hemoglobin 11.3, BUN was 63, creatinine was 1.56, there was a mild troponin elevation of 0.071, and proBNP was elevated at 6200. Patient has a history of right diaphragmatic paralysis and secondary pulmonary hypertension. We seen this patient in evaluation for increased shortness of breath, acute on chronic hypoxemic respiratory failure secondary to acute exacerbation of congestive heart failure, COPD exacerbation, and possibility of right lung pneumonia could not be totally excluded, and an area of of atelectasis or developing pneumonia on the left On 03/31/2018 patient seen in follow-up on selective care unit, sitting up in the recliner, in no acute distress, denies any worsening dyspnea, he is currently on 3 L per nasal cannula with a pulse ox of 97%, afebrile, hemodynamically stable, lung sounds are markedly diminished bilaterally with a few bibasilar crackles. The cultures remain negative thus far. Today's blood work has been reviewed, WBC is 2.6, hemoglobin is 10.9, sodium is 145, potassium is 4.9, chloride is 103, CO2 is 34, BUN is 60 and creatinine 1.3. on empiric antibiotics combination of oral Zithromax, and Rocephin, nebulized bronchodilators, steroids, he is breathing easier On 04/01/2018 patient seen in follow-up on selective care unit. Denies any specific complaints, no worsening shortness of breath. he is on 3 L per nasal cannula his pulse ox of 90%, he is afebrile, hemodynamically stable, lung sounds are not significantly changed from previous exams, are markedly diminished to auscultation bilaterally, but no rhonchi or wheezes. There is some improvement in the appearance of bilateral lower extremity swelling, and has chronic venous stasis changes present to his skin and chronic discoloration. Today's chest x-ray was reviewed, and showed improvement in patient's volume status and aeration. His labs have been reviewed, showed a PVC of 5.2, hemoglobin is 11.1, electrolytes were unremarkable, with the exception of CO2 which is chronically elevated suggesting chronic hypercapnic respiratory failure. Renal profile is stable, with a BUN of 60 and creatinine of 1.3. Echo biology has been reviewed, there was a single blood culture from 03/30/2018 showing alphahemolytic streptococcus and diphtheroid species. Other blood culture from the same day showed no growth. Patient has had no fever or chills, clinically he is improving. Obtain follow-up blood cultures today, patient has been covered with a combination of Zithromax and Zosyn. Patient was reevaluated today on 04/02/2018, feeling better, breathing easier, afebrile, has diminished breath sounds at the bases, no rhonchi and no wheezes. Patient is feeling better overall, and he was made aware that his positive blood culture is most likely false-positive because it was likely secondary to skin contamination. Patient is chronically on oxygen, and he will remain on oxygen. No labs were done today except a blood sugar of 124, labs from yesterday were noted, renal functioning is improving creatinine is down to 1.30. Patient was seen by Dr. Ramirez on consultation, and he feels the positive blood culture is related to contamination. Objective - Vital Signs Vital signs: Vital Signs Temp 98.1 F 04/01/18 21:10 Pulse 80 04/02/18 12:15 Resp 16 04/02/18 08:00 BP 152/89 04/02/18 08:00 Pulse Ox 96 04/02/18 08:00 Intake & Output 04/01/18 04/02/18 04/02/18 18:59 06:59 18:59 Intake Total 1728.483 100 120 Output Total 221 1 Balance 1507.483 100 119 Weight 99.4 kg Intake: Intake, IV Titration 208.483 100 Amount Insulin Regular 100 unit 8.483 In Sodium Chloride 0.9% 100 ml @ Titrate IV .Q0M [facility] Rx#:[id number] Piperacillin-Tazobactam 3 200 100 .375 gm In Sodium Chloride 0.9% 100 ml @ 25 mls/hr IVPB Q8HR [facility] Rx# :[id number] Oral 1520 120 Output: Urine 221 Stool 1 Other: Voiding Method Urinal Urinal Urinal Diaper Incontinent # Voids 1 1 1 # Bowel Movements 1 1 - Exam GENERAL EXAM: Revealed a very pleasant 82-year-old white male in no distress. HEENT: Neck is supple no neck masses no thyromegaly, no stridor, PERRLA, EOMI, no icterus. CHEST: No chest wall deformity. Symmetrical expansion. LUNGS: diminished Breath sounds bilaterally CVS: Regular rate and rhythm, normal S1 and S2, no gallops, no murmurs, no rubs ABDOMEN: Soft, nontender. No hepatosplenomegaly, normal bowel sounds, no guarding or rigidity. EXTREMITIES: No clubbing, no cyanosis, 2+ pulses and upper and lower extremities. 1+ bilateral extremity edema worse on the right, with chronic venous stasis changes MUSCULOSKELETAL: Muscle strength and tone normal. SPINE: No scoliosis or deformity SKIN: No rashes CENTRAL NERVOUS SYSTEM: Alert and oriented -3. No focal deficits, tone is normal in all 4 extremities. PSYCHIATRIC: Alert and oriented -3. Appropriate affect. Intact judgment and insight. - Labs CBC & Chem 7: 04/01/18 05:33 04/01/18 05:33 Labs: Abnormal Lab Results - Last 24 Hours (Table) 04/01/18 04/01/18 04/02/18 Range/Units 16:47 20:19 06:19 POC Glucose (mg/dL) 241 H 185 H 155 H (75-99) mg/dL 04/02/18 Range/Units 11:34 POC Glucose (mg/dL) 124 H (75-99) mg/dL Microbiology - Last 24 Hours (Table) 03/30/18 13:02 Blood Culture Gram Stain - Final Blood Blood Culture - Final Alpha Hemolytic Streptococcus Diphtheroid species Micrococcus species 03/30/18 15:00 Blood Culture - Preliminary Blood No Growth after 48 hours Assessment and Plan Assessment: #1. Acute on chronic hypoxemic respiratory failure secondary to acute exacerbation of chronic congestive heart failure and systolic function, acute on chronic COPD exacerbation. And underlying pneumonia as noted on his initial chest x-ray on presentation involving mostly the right lung, although there is some extent of infiltrate in the left lower lobe. Patient also has a left hemidiaphragm paralysis. #2. Suspect pneumonia in the right midlung, could not entirely exclude developing pneumonia in the left lower lobe, community-acquired #3. Severe advanced oxygen-dependent COPD, chronic hypercapnic respiratory failure, secondary pulmonary hypertension #4. Single blood culture positive for alphahemolytic streptococcus and diphtheroid species #5. Obstructive sleep apnea on CPAP therapy #6. Mild troponin elevation #7. Acute kidney injury #8. History of chronic right hemidiaphragmatic paralysis #9. Chronic atrial fibrillation on Eliquis #10. Diabetes mellitus type 2 diabetic neuropathy, hypertension, hyperlipidemia #11. PAD status post left big toe amputation #12. Chronic kidney disease stage II #13. Previous history of pneumothorax requiring chest tube insertion Recommendation: Continue antibiotics, diuretics, bronchodilators, steroids, consider discharge planning in the next 24-48 hours. Must have outpatient follow-up on his chest x-ray with Dr. Alarcon. Time with Patient: Less than 30
[2018-04-02] MEDS ORDERED: FUROSEMIDE 20 MG TAB PO STA (14:35)
[2018-04-02 16:53] LABS: Glucose,Whole Blood 115 mg/dL (75-99)
[2018-04-02] MEDS: SENNOSIDES-DOCUSATE SODIUM 1 EACH TAB PO SCH (18:00)
[2018-04-02 20:05] LABS: Glucose,Whole Blood 141 mg/dL (75-99)
[2018-04-02] MEDS: PRAVASTATIN SODIUM 80 MG TAB PO SCH (21:30)
[2018-04-02] MEDS: GABAPENTIN 300 MG CAP PO SCH (21:31)
--- NOTE | 2018-04-02 23:29 | P.PN ---
Subjective Progress Note Date: 04/02/18 This is an 82-year-old male one of my patient with history of advanced COPD with chronic hypoxic respiratory failureon home O2, hypertension and hypertensive cardio vascular disease with left ventricular hypertrophy, chronic atrial fibrillation on chronic anticoagulation therapy in the form of NOAC, hyperlipidemia, diabetes mellitus type 2 with diabetic neuropathy, PAD post left big toe amputation, chronic kidney disease stage II, obesity with obstructive sleep apnea currently on a CPAP patient has been doing fine until recently when he noticed increased jerking movement in both upper and lower extremities specially in the upper extremities that has, and more frequent over the last few days, he went to the office because of his fullness in the stomach and he was prescribed a PPI and [facility] he had forgot his cell phone his received a call come and filler picker her has the patient was having significant issues with the breathing and with increased jerking movement on patient checked his oxygen level was around 55% and the patient was driven to the emergency department at [facility] by his and he was found to have an acute kidney injury and top of chronic kidney disease as well as chest x-ray showed possible right middle lobe atelectasis versus infiltrate with a trace right-sided pleural effusion patient was admitted to the hospital for acute exacerbation of chronic obstructive pulmonary disease as well as acute kidney injury would be started on IV antibiotic in the form of Zosyn 3.375 g IV piggyback every 8 hours, DuoNeb 3 mg nebulization 4 times every day as well as pulmonary consultation. 03/31: The patient is feeling much and improved today. He is quite talkative. His blood culture came back positive and repeat are in progress. Solu-Medrol will be decreased to 40 mg every 8 hours. Azithromycin will be added. Patient is seen and followed by pulmonary medicine. Patient has been seen by physical therapy with recommendations for home with home care or subacute rehab. 04/01:Blood culture came back positive for alphahemolytic streptococcus and diphtheroid species. Subsequent blood cultures showing no growth after [address] Ramirez added. The patient's breathing is improving. Solu-Medrol will be decreased to 40 mg every 12 hours and plan for prednisone to start tomorrow. He is on insulin drip which we will discontinue and place him on a higher dose of NPH as well as 5 units of NovoLog scheduled with meals and scale. Anticipate probable discharge Wednesday to [facility]. 15 some dyspnea, significant edema, cut in right mccollum old without cellulitis , oral lasix added today for significant LE edema. dr ramirez for bacteremia and counceled it is comensal rather than a pathogen, better with shortness of breath has cough productive. Objective - Vital Signs Vital signs: Vital Signs Temp 98.1 F 04/01/18 21:10 Pulse 80 04/02/18 12:15 Resp 16 04/02/18 08:00 BP 152/89 04/02/18 08:00 Pulse Ox 96 04/02/18 08:00 Intake & Output 04/01/18 04/02/18 04/02/18 18:59 06:59 18:59 Intake Total 1728.483 100 120 Output Total 221 1 Balance 1507.483 100 119 Weight 99.4 kg Intake: Intake, IV Titration 208.483 100 Amount Insulin Regular 100 unit 8.483 In Sodium Chloride 0.9% 100 ml @ Titrate IV .Q0M DIANE Rx#:[id number] Piperacillin-Tazobactam 3 200 100 .375 gm In Sodium Chloride 0.9% 100 ml @ 25 mls/hr IVPB Q8HR DIANE Rx# :[id number] Oral 1520 120 Output: Urine 221 Stool 1 Other: Voiding Method Urinal Urinal Urinal Diaper Incontinent # Voids 1 1 1 # Bowel Movements 1 1 - Constitutional General appearance: Present: cooperative, no acute distress, obese - EENT Eyes: Present: anicteric sclerae, PERRLA ENT: Present: NA/AT, normal oropharynx - Neck Neck: Present: normal ROM - Respiratory Respiratory: bilateral: CTA, diminished, negative: dullness, rales, rhonchi, prolonged expiration, prolonged inspiration - Cardiovascular Rhythm: regular Heart sounds: normal: S1, S2 Abnormal Heart Sounds: Absent: systolic murmur, diastolic murmur, rub, S3 Gallop , S4 Gallop, click, other - Gastrointestinal General gastrointestinal: Present: normal bowel sounds, soft - Integumentary Integumentary: Present: normal, normal turgor - Neurologic Neurologic: Present: CNII-XII intact - Musculoskeletal Musculoskeletal: Present: gait normal, strength equal bilaterally - Psychiatric Psychiatric: Present: A&O x's 3, appropriate affect, intact judgment & insight - Labs CBC & Chem 7: 04/01/18 05:33 04/01/18 05:33 Labs: Abnormal Lab Results - Last 24 Hours (Table) 04/01/18 04/01/18 04/02/18 Range/Units 16:47 20:19 06:19 POC Glucose (mg/dL) 241 H 185 H 155 H (75-99) mg/dL 04/02/18 Range/Units 11:34 POC Glucose (mg/dL) 124 H (75-99) mg/dL Microbiology - Last 24 Hours (Table) 04/01/18 11:09 Blood Culture - Preliminary Blood No Growth after 24 hours 04/01/18 11:01 Blood Culture - Preliminary Blood No Growth after 24 hours 03/30/18 13:02 Blood Culture Gram Stain - Final Blood Blood Culture - Final Alpha Hemolytic Streptococcus Diphtheroid species Micrococcus species 03/30/18 15:00 Blood Culture - Preliminary Blood No Growth after 48 hours Assessment and Plan Plan: 1. Acute hypoxemic respiratory failure due to acute exacerbation of COPD with possible right lobe pneumonia. Start the patient on Zosyn 3.375 g IV piggyback every 8 hours, azithromycin, DuoNeb 3 mL nebulization 4 times every day, Pulmicort 1 mg nebulization twice every day, oxygen support, pulmonary consultation appreciated, sputum culture, blood culture. Solu-Medrol decreased to 40 mg IV every 12 hours and prednisone started for tomorrow. 2. Acute kidney injury on top of chronic kidney disease stage II. Patient will be receiving IV fluid resuscitation and transition to saline lock. 3. Involuntary jerking movements of both upper extremities thought to be due to acute kidney injury with the use of gabapentin we will decrease the dose to 300 mg at bedtime. 4. Hypertension and hypertensive cardiovascular disease. Continue patient on losartan 25 mg orally once every day, atenolol 100 mg orally twice every day. 5. Chronic atrial fibrillation. Continue Eliquis 2.5 mg orally twice every day , atenolol 100 mg orally twice every day. 6. Hyperlipemia. Continue low-cholesterol diet as well as pravastatin 80 mg at bedtime. 7. Diabetes mellitus type 2. Continue Humulin 12 units subcutaneously twice every day and as well as Humalog, monitor blood glucose before each meal and at bedtime. 8. Chronic venous stasis with stasis dermatitis with worsening edema. Stable at this time but will add oral lasix. 11. Bilateral lower extremity neuropathy. Continue gabapentin 300 mg orally at bedtime. 12. PAD post left big toe amputation. 13. Obesity with obstructive sleep apnea. Continue patient on CPAP. 14. Chronic kidney disease stage II. Stable at this time. 15. Anemia of chronic renal disease. Continue iron 325 mg orally twice every day. 16. DVT prophylaxis. Continue Eliquis 2.5 mg orally twice every day. 17. GI prophylaxis. Continue patient on Protonix 40 mg IV push every 24 hours. 18. Blood culture positive for alpha hemolytic streptococcus and diphtheroid species, rule out contamination. Subsequent blood cultures showing no growth after [address] Ramirez Discharge plan: [facility] on Wednesday
[2018-04-03] MEDS: PIPERACILLIN-TAZOBACTAM 3.375 GM in SODIUM CHLORIDE 0.9% 100 ML IVPB SCH ×4 (01:04→22:16)
[2018-04-03 06:21] LABS: Glucose,Whole Blood 35 mg/dL (75-99)
[2018-04-03 06:25] LABS: Glucose,Whole Blood 32 mg/dL (75-99)
[2018-04-03] MEDS ORDERED: DEXTROSE 50%-WATER 50 ML SYRINGE IVP STA (06:26)
[2018-04-03] MEDS: INSULIN ASPART 100 UNIT/ML 1 ML 10 ML VIAL SQ SCH ×7 (06:38→22:12)
[2018-04-03] MEDS: PANTOPRAZOLE 40 MG TABLET PO SCH (06:40)
[2018-04-03 06:48] LABS: Glucose,Whole Blood 191 mg/dL (75-99)
[2018-04-03 06:57] LABS: Glucose,Whole Blood 152 mg/dL (75-99)
[2018-04-03 07:03] LABS: Basophils % (A) 0 %; Eosinophils % (A) 1 %; HCT 38.1 % (39.0-53.0); HGB 11.9 gm/dL (13.0-17.5); Hypochromasia Marked; Lymphocytes # (A) 0.6 k/uL (1.0-4.8); Lymphocytes % (A) 9 %; MCH 32.1 pg (25.0-35.0); MCHC 31.1 g/dL (31.0-37.0); MCV 103.2 fL (80.0-100.0); Macrocytosis Slight; Mean Platelet Volume 8.7; Monocytes # (A) 0.8 k/uL (0-1.0); Monocytes % (A) 12 %; Neutrophils % (A) 76 %; Platelet Count 108 k/uL (150-450); RBC 3.69 m/uL (4.30-5.90); RDW 14.7 % (11.5-15.5); WBC 6.6 k/uL (3.8-10.6)
[2018-04-03] MEDS ORDERED: FUROSEMIDE 10 MG/ML 4 ML VIAL IV STA (07:16)
[2018-04-03 07:17] LABS: ABG HCO3 35 mmol/L (21-25); ABG Oxygen Saturation 82.8 % (94-97); ABG PCO2 69 mmHg (35-45); ABG PH 7.31 (7.35-7.45); ABG TCO2 37 mmol/L (19-24)
[2018-04-03 07:18] LABS: ABG PO2 51 mmHg (83-108)
[2018-04-03 07:20] LABS: Potassium 4.4 mmol/L (3.5-5.1)
--- NOTE | 2018-04-03 07:44 | XR ---
EXAMINATION TYPE: XR chest 1V portable DATE OF EXAM: 04/03/2018 HISTORY: retaining co2? change in mental status, low o2. REFERENCE: Previous study dated 04/01/2018. FINDINGS: There has been a right shoulder hemiarthroplasty. The study is quite lordotic. The heart appears enlarged. There is bibasilar airspace disease. There a re bilateral effusions. The overall appearance has worsened. IMPRESSION: 1. CARDIOMEGALY. 2. BIBASILAR AIRSPACE DISEASE. 3. BILATERAL EFFUSIONS.
[2018-04-03 07:51] LABS: Glucose,Whole Blood 121 mg/dL (75-99)
[2018-04-03] MEDS: IPRATROPIUM-ALBUTEROL 3 ML NEB INHALATION SCH ×4 (07:53→19:39)
[2018-04-03] MEDS: BUDESONIDE 1 MG/2 ML NEBU INHALATION SCH ×2 (07:53→19:39)
--- NOTE | 2018-04-03 07:53 | CT ---
EXAMINATION TYPE: CT brain wo con DATE OF EXAM: 04/03/2018 COMPARISON: NONE HISTORY: Mental status changes CT DLP: 1079.4 mGycm Automated exposure control for dose reduction was used. FINDINGS: There has been a previous aneurysm clipping in the region of the [place]. There are generalized changes of sulcal prominence and ventriculomegaly, compatible with atrophic kip nge. There is diffuse periventricular white matter lucency, compatible with chronic white matter isch emic change. There is no acute focal lesion, mass effect or midline shift identified. I do not see ev idence of intracranial blood. Visualized portions of the paranasal sinuses and mastoids are clear. The bony calvarium is intact. IMPRESSION: 1. NO ACUTE INTRACRANIAL ABNORMALITY. 2. DEGENERATIVE CHANGE. 3. POSTSURGICAL CHANGE.
[2018-04-03] MEDS: CHOLECALCIFEROL 1,000 UNIT TAB PO SCH (11:09)
[2018-04-03] MEDS: OXYBUTYNIN CHLORIDE 5 MG TAB PO SCH ×2 (11:09→20:31)
[2018-04-03] MEDS: ATENOLOL 50 MG TAB PO SCH ×2 (11:09→20:32)
[2018-04-03] MEDS: AZITHROMYCIN 500 MG TAB PO SCH (11:09)
[2018-04-03] MEDS: ASPIRIN 81 MG PO SCH (11:09)
[2018-04-03] MEDS: predniSONE 20 MG TAB PO SCH (11:10)
[2018-04-03] MEDS: CALCIUM CARBONATE 500 MG CHEWABLE PO SCH (11:10)
[2018-04-03] MEDS: APIXABAN 2.5 MG TABLET PO SCH ×2 (11:10→20:32)
[2018-04-03] MEDS: NIACIN TR 500 MG CAPSULE.ER PO SCH (11:11)
[2018-04-03] MEDS: CYANOCOBALAMIN 500 MCG TAB PO SCH (11:14)
[2018-04-03] MEDS: LOSARTAN 25 MG TAB PO SCH (11:15)
[2018-04-03] MEDS: ESCITALOPRAM 10 MG TAB PO SCH (11:15)
[2018-04-03] MEDS: FOLIC ACID 1 MG TAB PO SCH (11:15)
[2018-04-03] MEDS: FERROUS SULFATE 325 MG TAB PO SCH (11:15)
[2018-04-03] MEDS: LORATADINE 10 MG TAB PO SCH (11:15)
[2018-04-03] MEDS: MULTIVITAMINS, THERA 1 EACH TAB PO SCH (11:17)
[2018-04-03] MEDS: FUROSEMIDE 40 MG TAB PO SCH (11:17)
[2018-04-03 11:28] LABS: Glucose,Whole Blood 94 mg/dL (75-99)
--- NOTE | 2018-04-03 12:25 | P.PN ---
Subjective Progress Note Date: 04/03/18 Principal diagnosis: Acute on chronic hypoxemic respiratory failure secondary to acute exacerbation of chronic congestive heart failure with systolic dysfunction This is a 82-year-old white male patient of Dr. Batista, past medical history of advanced oxygen-dependent COPD, diabetes mellitus, coronary artery disease, hypertension, hyperlipidemia, sleep apnea on CPAP therapy, atrial fibrillation, history of right-sided pneumothorax, and into the emergency department on 2017 for evaluation of difficulty breathing, hypoxemia. Patient was at the [facility] working out, usually goes 3 times a week, he says portable oxygen. His received a call today from the [facility] stating that her is having increased difficulty breathing, his pulse ox was noted to be around 55%. Patient denies any fever or chills, with some increased swelling in his lower extremities, abdominal distention. A little shaky but denied any significant cough, chest congestion chest pain. Follows with Dr. Alarcon in the pulmonary clinic, his last outpatient PFT from 2012 showed a FEV1 of 60% and FVC of 55%. She is on nebulized treatments at home, used to be on Breo-Ellipta. Chest x- ray was taken and showed a new right midlung patchy opacity for developing pneumonia, does trace right pleural effusion and bibasilar atelectasis. Labs showed WBC of 5.0, hemoglobin 11.3, BUN was 63, creatinine was 1.56, there was a mild troponin elevation of 0.071, and proBNP was elevated at 6200. Patient has a history of right diaphragmatic paralysis and secondary pulmonary hypertension. We seen this patient in evaluation for increased shortness of breath, acute on chronic hypoxemic respiratory failure secondary to acute exacerbation of congestive heart failure, COPD exacerbation, and possibility of right lung pneumonia could not be totally excluded, and an area of of atelectasis or developing pneumonia on the left On 03/31/2018 patient seen in follow-up on selective care unit, sitting up in the recliner, in no acute distress, denies any worsening dyspnea, he is currently on 3 L per nasal cannula with a pulse ox of 97%, afebrile, hemodynamically stable, lung sounds are markedly diminished bilaterally with a few bibasilar crackles. The cultures remain negative thus far. Today's blood work has been reviewed, WBC is 2.6, hemoglobin is 10.9, sodium is 145, potassium is 4.9, chloride is 103, CO2 is 34, BUN is 60 and creatinine 1.3. on empiric antibiotics combination of oral Zithromax, and Rocephin, nebulized bronchodilators, steroids, he is breathing easier On 04/01/2018 patient seen in follow-up on selective care unit. Denies any specific complaints, no worsening shortness of breath. he is on 3 L per nasal cannula his pulse ox of 90%, he is afebrile, hemodynamically stable, lung sounds are not significantly changed from previous exams, are markedly diminished to auscultation bilaterally, but no rhonchi or wheezes. There is some improvement in the appearance of bilateral lower extremity swelling, and has chronic venous stasis changes present to his skin and chronic discoloration. Today's chest x-ray was reviewed, and showed improvement in patient's volume status and aeration. His labs have been reviewed, showed a PVC of 5.2, hemoglobin is 11.1, electrolytes were unremarkable, with the exception of CO2 which is chronically elevated suggesting chronic hypercapnic respiratory failure. Renal profile is stable, with a BUN of 60 and creatinine of 1.3. Echo biology has been reviewed, there was a single blood culture from 03/30/2018 showing alphahemolytic streptococcus and diphtheroid species. Other blood culture from the same day showed no growth. Patient has had no fever or chills, clinically he is improving. Obtain follow-up blood cultures today, patient has been covered with a combination of Zithromax and Zosyn. On 04/03/2018 patient seen again in follow-up on selective care unit. Apparently early in the morning patient was noted to be more lethargic and having some altered mentation. Brain CT did not show any acute findings. Blood gas was completed and showed pO2 of 51, pCO2 of 69, and pH of 7.31, consistent with acute respiratory acidosis with hypoxemia. Patient was placed on BiPAP support, stat chest x-ray was taken and showed bilateral pleural effusions, small. Patient was given a dose of IV Lasix, currently he is more awake, remains on BiPAP support, but he is oriented 3. No acute distress, no use of accessory muscles, lung sounds are diminished, no rhonchi wheezing or rales appreciated. Afebrile, follow-up cultures were negative. Patient did have a single blood culture from 03/30/2018 that was positive for alpha hemolytic strep, diphtheroids and micrococcus species, which is thought to be a contaminated culture. Objective - Vital Signs Vital signs: Vital Signs Temp 97.5 F L 04/02/18 21:28 Pulse 92 04/03/18 11:45 Resp 16 04/03/18 10:46 BP 127/76 04/03/18 08:00 Pulse Ox 93 L 04/03/18 08:00 Intake & Output 04/02/18 04/03/18 04/03/18 18:59 06:59 18:59 Intake Total 120 120 Output Total 3 4 1 Balance 117 116 -1 Weight 101.2 kg Intake: Oral 120 120 Output: Stool 3 4 1 Other: Voiding Method Urinal Urinal Urinal # Voids 1 1 # Bowel Movements 1 1 - Exam GENERAL EXAM: Alert, active, comfortable in no apparent distress. Currently on BiPAP support with pressures of 12 and 7, and 50% HEAD: Normocephalic/atraumatic. EYES: Normal reaction of pupils, equal size. Conjunctiva pink, sclera white. NOSE: Clear with pink turbinates. THROAT: No erythema or exudates. NECK: No masses, no JVD, no thyroid enlargement, no adenopathy. CHEST: No chest wall deformity. Symmetrical expansion. LUNGS: diminished Breath sounds bilaterally CVS: Regular rate and rhythm, normal S1 and S2, no gallops, no murmurs, no rubs ABDOMEN: Soft, nontender. No hepatosplenomegaly, normal bowel sounds, no guarding or rigidity. EXTREMITIES: No clubbing, no cyanosis, 2+ pulses and upper and lower extremities. 1+ bilateral extremity edema worse on the right, with chronic venous stasis changes MUSCULOSKELETAL: Muscle strength and tone normal. SPINE: No scoliosis or deformity SKIN: No rashes CENTRAL NERVOUS SYSTEM: Alert and oriented -3. No focal deficits, tone is normal in all 4 extremities. PSYCHIATRIC: Alert and oriented -3. Appropriate affect. Intact judgment and insight. - Labs CBC & Chem 7: 04/03/18 05:51 04/03/18 05:51 Labs: Abnormal Lab Results - Last 24 Hours (Table) 04/02/18 04/02/18 04/03/18 Range/Units 16:47 20:04 05:51 RBC 3.69 L (4.30-5.90) m/uL Hgb 11.9 L (13.0-17.5) gm/dL Hct 38.1 L (39.0-53.0) % MCV 103.2 H (80.0-100.0) fL Plt Count 108 L (150-450) k/uL Lymphocytes # 0.6 L (1.0-4.8) k/uL ABG pH (7.35-7.45) ABG pCO2 (35-45) mmHg ABG pO2 (83-108) mmHg ABG HCO3 (21-25) mmol/L ABG Total CO2 (19-24) mmol/L ABG O2 Saturation (94-97) % Sodium (137-145) mmol/L Carbon Dioxide (22-30) mmol/L BUN (9-20) mg/dL Glucose (74-99) mg/dL POC Glucose (mg/dL) 115 H 141 H (75-99) mg/dL 04/03/18 04/03/18 04/03/18 Range/Units 05:51 06:20 06:24 RBC (4.30-5.90) m/uL Hgb (13.0-17.5) gm/dL Hct (39.0-53.0) % MCV (80.0-100.0) fL Plt Count (150-450) k/uL Lymphocytes # (1.0-4.8) k/uL ABG pH (7.35-7.45) ABG pCO2 (35-45) mmHg ABG pO2 (83-108) mmHg ABG HCO3 (21-25) mmol/L ABG Total CO2 (19-24) mmol/L ABG O2 Saturation (94-97) % Sodium 147 H (137-145) mmol/L Carbon Dioxide 34 H (22-30) mmol/L BUN 53 H (9-20) mg/dL Glucose 24 L* (74-99) mg/dL POC Glucose (mg/dL) 35 L 32 L (75-99) mg/dL 04/03/18 04/03/18 04/03/18 Range/Units 06:46 06:56 07:15 RBC (4.30-5.90) m/uL Hgb (13.0-17.5) gm/dL Hct (39.0-53.0) % MCV (80.0-100.0) fL Plt Count (150-450) k/uL Lymphocytes # (1.0-4.8) k/uL ABG pH 7.31 L (7.35-7.45) ABG pCO2 69 H (35-45) mmHg ABG pO2 51 L* (83-108) mmHg ABG HCO3 35 H (21-25) mmol/L ABG Total CO2 37 H (19-24) mmol/L ABG O2 Saturation 82.8 L (94-97) % Sodium (137-145) mmol/L Carbon Dioxide (22-30) mmol/L BUN (9-20) mg/dL Glucose (74-99) mg/dL POC Glucose (mg/dL) 191 H 152 H (75-99) mg/dL 04/03/18 Range/Units 07:50 RBC (4.30-5.90) m/uL Hgb (13.0-17.5) gm/dL Hct (39.0-53.0) % MCV (80.0-100.0) fL Plt Count (150-450) k/uL Lymphocytes # (1.0-4.8) k/uL ABG pH (7.35-7.45) ABG pCO2 (35-45) mmHg ABG pO2 (83-108) mmHg ABG HCO3 (21-25) mmol/L ABG Total CO2 (19-24) mmol/L ABG O2 Saturation (94-97) % Sodium (137-145) mmol/L Carbon Dioxide (22-30) mmol/L BUN (9-20) mg/dL Glucose (74-99) mg/dL POC Glucose (mg/dL) 121 H (75-99) mg/dL Microbiology - Last 24 Hours (Table) 03/30/18 15:00 Blood Culture - Preliminary Blood No Growth after 72 hours 04/01/18 11:09 Blood Culture - Preliminary Blood No Growth after 24 hours 04/01/18 11:01 Blood Culture - Preliminary Blood No Growth after 24 hours Assessment and Plan Plan: Assessment: #1. Acute on chronic hypoxemic and hypercapnic respiratory failure secondary to acute exacerbation of chronic congestive heart failure and systolic function #2. Suspect pneumonia in the right midlung, could not entirely exclude developing pneumonia in the left lower lobe, community-acquired #3. Severe advanced oxygen-dependent COPD, chronic hypercapnic respiratory failure, secondary pulmonary hypertension #4. Single blood culture positive for alphahemolytic streptococcus and diphtheroid species #5. Obstructive sleep apnea on CPAP therapy #6. Mild troponin elevation #7. Acute kidney injury #8. History of chronic right hemidiaphragmatic paralysis #9. Chronic atrial fibrillation on Eliquis #10. Diabetes mellitus type 2 diabetic neuropathy, hypertension, hyperlipidemia #11. PAD status post left big toe amputation #12. Chronic kidney disease stage II #13. Previous history of pneumothorax requiring chest tube insertion Plan: Today's chest x-ray has been reviewed by Dr. Whitten, showed bilateral pleural effusions, and patient did have altered mentation related to acute hypercapnic respiratory failure. He was placed on BiPAP support, and a dose of diuretics was given. His mentation is improving, his back to baseline, currently is quite comfortable on BiPAP support, no use of accessory muscles of breathing, brain CT did not show any acute findings. Monitor urine output, renal profile and electrolytes. Continue with current medical treatment, nebulized bronchodilators and steroids. Antibiotics per ID service, follow-up blood cultures have been negative. We'll continue to follow. I performed a history & physical examination of the patient and discussed their management with my nurse practitioner, Gricel Perkins. I reviewed the nurse practitioner's note and agree with the documented findings and plan of care. Lung sounds are diminished with bibasilar crackles. The findings and the impression was discussed with the patient. I attest to the documentation by the nurse practitioner. Time with Patient: Less than 30
[2018-04-03 17:09] LABS: Glucose,Whole Blood 136 mg/dL (75-99)
[2018-04-03] MEDS: SENNOSIDES-DOCUSATE SODIUM 1 EACH TAB PO SCH (17:27)
[2018-04-03] MEDS: PRAVASTATIN SODIUM 80 MG TAB PO SCH (20:32)
[2018-04-03] MEDS: GABAPENTIN 300 MG CAP PO SCH (20:32)
[2018-04-03 21:11] LABS: Glucose,Whole Blood 201 mg/dL (75-99)
[2018-04-04 06:27] LABS: Basophils % (A) 0 %; Eosinophils # (A) 0.1 k/uL (0-0.7); Eosinophils % (A) 2 %; HCT 33.9 % (39.0-53.0); HGB 10.5 gm/dL (13.0-17.5); Hypochromasia Marked; Lymphocytes # (A) 0.5 k/uL (1.0-4.8); Lymphocytes % (A) 16 %; MCH 31.9 pg (25.0-35.0); MCHC 31.1 g/dL (31.0-37.0); MCV 102.6 fL (80.0-100.0); Macrocytosis Slight; Mean Platelet Volume 8.4; Monocytes # (A) 0.3 k/uL (0-1.0); Monocytes % (A) 8 %; Neutrophils # (A) 2.3 k/uL (1.3-7.7); Neutrophils % (A) 72 %; RDW 14.6 % (11.5-15.5); WBC 3.2 k/uL (3.8-10.6)
[2018-04-04 06:27] LABS: Glucose,Whole Blood 156 mg/dL (75-99)
[2018-04-04 06:39] LABS: Calcium 8.7 mg/dL (8.4-10.2); Potassium 4.3 mmol/L (3.5-5.1)
[2018-04-04 06:40] LABS: Platelet Count 71 k/uL (150-450)
[2018-04-04] MEDS: INSULIN ASPART 100 UNIT/ML 1 ML 10 ML VIAL SQ SCH ×7 (07:16→21:22)
[2018-04-04] MEDS: PANTOPRAZOLE 40 MG TABLET PO SCH (07:17)
[2018-04-04] MEDS: BUDESONIDE 1 MG/2 ML NEBU INHALATION SCH ×2 (07:39→20:13)
[2018-04-04] MEDS: IPRATROPIUM-ALBUTEROL 3 ML NEB INHALATION SCH ×4 (07:39→20:13)
[2018-04-04] MEDS: CALCIUM CARBONATE 500 MG CHEWABLE PO SCH (08:18)
[2018-04-04] MEDS: NIACIN TR 500 MG CAPSULE.ER PO SCH (08:18)
[2018-04-04] MEDS: MULTIVITAMINS, THERA 1 EACH TAB PO SCH (08:18)
[2018-04-04] MEDS: predniSONE 20 MG TAB PO SCH (08:18)
[2018-04-04] MEDS: CYANOCOBALAMIN 500 MCG TAB PO SCH (08:18)
[2018-04-04] MEDS: ATENOLOL 50 MG TAB PO SCH ×2 (08:18→21:22)
[2018-04-04] MEDS: ESCITALOPRAM 10 MG TAB PO SCH (08:18)
[2018-04-04] MEDS: AZITHROMYCIN 500 MG TAB PO SCH (08:18)
[2018-04-04] MEDS: FOLIC ACID 1 MG TAB PO SCH (08:19)
[2018-04-04] MEDS: LORATADINE 10 MG TAB PO SCH (08:19)
[2018-04-04] MEDS: APIXABAN 2.5 MG TABLET PO SCH ×2 (08:19→21:22)
[2018-04-04] MEDS: FERROUS SULFATE 325 MG TAB PO SCH (08:19)
[2018-04-04] MEDS: LOSARTAN 25 MG TAB PO SCH (08:19)
[2018-04-04] MEDS: ASPIRIN 81 MG PO SCH (08:19)
[2018-04-04] MEDS: FUROSEMIDE 40 MG TAB PO SCH (08:19)
[2018-04-04] MEDS: OXYBUTYNIN CHLORIDE 5 MG TAB PO SCH ×2 (08:19→21:22)
[2018-04-04] MEDS: CHOLECALCIFEROL 1,000 UNIT TAB PO SCH (08:22)
[2018-04-04] MEDS: PIPERACILLIN-TAZOBACTAM 3.375 GM in SODIUM CHLORIDE 0.9% 100 ML IVPB SCH ×3 (10:30→23:55)
[2018-04-04 11:49] LABS: Glucose,Whole Blood 154 mg/dL (75-99)
--- NOTE | 2018-04-04 13:44 | P.PN ---
Subjective Progress Note Date: 04/04/18 Principal diagnosis: Acute on chronic hypoxemic respiratory failure secondary to acute exacerbation of chronic congestive heart failure with systolic dysfunction This is a 82-year-old white male patient of Dr. Batista, past medical history of advanced oxygen-dependent COPD, diabetes mellitus, coronary artery disease, hypertension, hyperlipidemia, sleep apnea on CPAP therapy, atrial fibrillation, history of right-sided pneumothorax, and into the emergency department on 2017 for evaluation of difficulty breathing, hypoxemia. Patient was at the [facility] working out, usually goes 3 times a week, he says portable oxygen. His received a call today from the [facility] stating that her is having increased difficulty breathing, his pulse ox was noted to be around 55%. Patient denies any fever or chills, with some increased swelling in his lower extremities, abdominal distention. A little shaky but denied any significant cough, chest congestion chest pain. Follows with Dr. Alarcon in the pulmonary clinic, his last outpatient PFT from 2012 showed a FEV1 of 60% and FVC of 55%. She is on nebulized treatments at home, used to be on Breo-Ellipta. Chest x- ray was taken and showed a new right midlung patchy opacity for developing pneumonia, does trace right pleural effusion and bibasilar atelectasis. Labs showed WBC of 5.0, hemoglobin 11.3, BUN was 63, creatinine was 1.56, there was a mild troponin elevation of 0.071, and proBNP was elevated at 6200. Patient has a history of right diaphragmatic paralysis and secondary pulmonary hypertension. We seen this patient in evaluation for increased shortness of breath, acute on chronic hypoxemic respiratory failure secondary to acute exacerbation of congestive heart failure, COPD exacerbation, and possibility of right lung pneumonia could not be totally excluded, and an area of of atelectasis or developing pneumonia on the left On 03/31/2018 patient seen in follow-up on selective care unit, sitting up in the recliner, in no acute distress, denies any worsening dyspnea, he is currently on 3 L per nasal cannula with a pulse ox of 97%, afebrile, hemodynamically stable, lung sounds are markedly diminished bilaterally with a few bibasilar crackles. The cultures remain negative thus far. Today's blood work has been reviewed, WBC is 2.6, hemoglobin is 10.9, sodium is 145, potassium is 4.9, chloride is 103, CO2 is 34, BUN is 60 and creatinine 1.3. on empiric antibiotics combination of oral Zithromax, and Rocephin, nebulized bronchodilators, steroids, he is breathing easier On 04/01/2018 patient seen in follow-up on selective care unit. Denies any specific complaints, no worsening shortness of breath. he is on 3 L per nasal cannula his pulse ox of 90%, he is afebrile, hemodynamically stable, lung sounds are not significantly changed from previous exams, are markedly diminished to auscultation bilaterally, but no rhonchi or wheezes. There is some improvement in the appearance of bilateral lower extremity swelling, and has chronic venous stasis changes present to his skin and chronic discoloration. Today's chest x-ray was reviewed, and showed improvement in patient's volume status and aeration. His labs have been reviewed, showed a PVC of 5.2, hemoglobin is 11.1, electrolytes were unremarkable, with the exception of CO2 which is chronically elevated suggesting chronic hypercapnic respiratory failure. Renal profile is stable, with a BUN of 60 and creatinine of 1.3. Echo biology has been reviewed, there was a single blood culture from 03/30/2018 showing alphahemolytic streptococcus and diphtheroid species. Other blood culture from the same day showed no growth. Patient has had no fever or chills, clinically he is improving. Obtain follow-up blood cultures today, patient has been covered with a combination of Zithromax and Zosyn. On 04/03/2018 patient seen again in follow-up on selective care unit. Apparently early in the morning patient was noted to be more lethargic and having some altered mentation. Brain CT did not show any acute findings. Blood gas was completed and showed pO2 of 51, pCO2 of 69, and pH of 7.31, consistent with acute respiratory acidosis with hypoxemia. Patient was placed on BiPAP support, stat chest x-ray was taken and showed bilateral pleural effusions, small. Patient was given a dose of IV Lasix, currently he is more awake, remains on BiPAP support, but he is oriented 3. No acute distress, no use of accessory muscles, lung sounds are diminished, no rhonchi wheezing or rales appreciated. Afebrile, follow-up cultures were negative. Patient did have a single blood culture from 03/30/2018 that was positive for alpha hemolytic strep, diphtheroids and micrococcus species, which is thought to be a contaminated culture. On 04/04/2018 patient seen in follow-up on selective care unit, he sitting up in the chair, in no acute distress. He did wear BiPAP last night, he is currently on 3 L per nasal cannula his pulse ox is 94%, he is afebrile, respirations are nonlabored. Today's chest x-ray was reviewed with Dr. Sebastian , shows bibasilar airspace disease, and bilateral pleural effusions. She was given a dose of IV Lasix yesterday, and started on oral diuretics today, he continues on nebulized bronchodilators and antibiotics. Follow-up cultures were negative. We will blood cultures were negative. No fever or chills. Objective - Vital Signs Vital signs: Vital Signs Temp 97.7 F 04/04/18 11:04 Pulse 85 04/04/18 11:41 Resp 18 04/04/18 11:41 BP 122/74 04/04/18 11:04 Pulse Ox 94 L 04/04/18 11:04 Intake & Output 04/03/18 04/04/18 04/04/18 18:59 06:59 18:59 Intake Total 480 100 Output Total 2 1 200 Balance 478 99 -200 Intake: Intake, IV Titration 100 Amount Piperacillin-Tazobactam 3 100 .375 gm In Sodium Chloride 0.9% 100 ml @ 25 mls/hr IVPB Q8HR PENDING SALE TO [facility] Rx# :[id number] Oral 480 Output: Urine 200 Stool 2 1 Other: Voiding Method Urinal Urinal Urinal # Voids 2 - Exam GENERAL EXAM: Alert, active, comfortable in no apparent distress. Currently on 3 L per nasal cannula HEAD: Normocephalic/atraumatic. EYES: Normal reaction of pupils, equal size. Conjunctiva pink, sclera white. NOSE: Clear with pink turbinates. THROAT: No erythema or exudates. NECK: No masses, no JVD, no thyroid enlargement, no adenopathy. CHEST: No chest wall deformity. Symmetrical expansion. LUNGS: diminished breath sounds bilaterally CVS: Regular rate and rhythm, normal S1 and S2, no gallops, no murmurs, no rubs ABDOMEN: Soft, nontender. No hepatosplenomegaly, normal bowel sounds, no guarding or rigidity. EXTREMITIES: No clubbing, no cyanosis, 2+ pulses and upper and lower extremities. 1+ bilateral extremity edema worse on the right, with chronic venous stasis changes MUSCULOSKELETAL: Muscle strength and tone normal. SPINE: No scoliosis or deformity SKIN: No rashes CENTRAL NERVOUS SYSTEM: Alert and oriented -3. No focal deficits, tone is normal in all 4 extremities. PSYCHIATRIC: Alert and oriented -3. Appropriate affect. Intact judgment and insight. - Labs CBC & Chem 7: 04/04/18 06:05 04/04/18 06:05 Labs: Abnormal Lab Results - Last 24 Hours (Table) 04/03/18 04/03/18 04/04/18 Range/Units 17:01 21:09 06:05 WBC 3.2 L (3.8-10.6) k/uL RBC 3.30 L (4.30-5.90) m/uL Hgb 10.5 L (13.0-17.5) gm/dL Hct 33.9 L (39.0-53.0) % MCV 102.6 H (80.0-100.0) fL Plt Count 71 L (150-450) k/uL Lymphocytes # 0.5 L (1.0-4.8) k/uL Carbon Dioxide (22-30) mmol/L BUN (9-20) mg/dL Creatinine (0.66-1.25) mg/dL Glucose (74-99) mg/dL POC Glucose (mg/dL) 136 H 201 H (75-99) mg/dL 04/04/18 04/04/18 04/04/18 Range/Units 06:05 06:26 11:39 WBC (3.8-10.6) k/uL RBC (4.30-5.90) m/uL Hgb (13.0-17.5) gm/dL Hct (39.0-53.0) % MCV (80.0-100.0) fL Plt Count (150-450) k/uL Lymphocytes # (1.0-4.8) k/uL Carbon Dioxide 35 H (22-30) mmol/L BUN 52 H (9-20) mg/dL Creatinine 1.26 H (0.66-1.25) mg/dL Glucose 131 H (74-99) mg/dL POC Glucose (mg/dL) 156 H 154 H (75-99) mg/dL Microbiology - Last 24 Hours (Table) 04/01/18 11:09 Blood Culture - Preliminary Blood No Growth after 72 hours 04/01/18 11:01 Blood Culture - Preliminary Blood No Growth after 72 hours 03/30/18 15:00 Blood Culture - Preliminary Blood No Growth after 96 hours Assessment and Plan Plan: Assessment: #1. Acute on chronic hypoxemic and hypercapnic respiratory failure secondary to acute exacerbation of chronic congestive heart failure and systolic function #2. Suspect pneumonia in the right midlung, could not entirely exclude developing pneumonia in the left lower lobe, community-acquired #3. Severe advanced oxygen-dependent COPD, chronic hypercapnic respiratory failure, secondary pulmonary hypertension #4. Single blood culture positive for alphahemolytic streptococcus and diphtheroid species #5. Obstructive sleep apnea on CPAP therapy #6. Mild troponin elevation #7. Acute kidney injury #8. History of chronic right hemidiaphragmatic paralysis #9. Chronic atrial fibrillation on Eliquis #10. Diabetes mellitus type 2 diabetic neuropathy, hypertension, hyperlipidemia #11. PAD status post left big toe amputation #12. Chronic kidney disease stage II #13. Previous history of pneumothorax requiring chest tube insertion Plan: Continue antibiotic coverage per ID service recommendations, patient is afebrile , follow-up cultures are negative, no worsening dyspnea, today's chest x-ray shows bilateral pleural effusions, patient was started on oral diuretics. BiPAP support at bedtime and as needed. Continue to follow. I performed a history & physical examination of the patient and discussed their management with my nurse practitioner, Gricel Perkins. I reviewed the nurse practitioner's note and agree with the documented findings and plan of care. Lung sounds are diminished. The findings and the impression was discussed with the patient. I attest to the documentation by the nurse practitioner. Time with Patient: Less than 30
--- NOTE | 2018-04-04 16:59 | US ---
EXAMINATION TYPE: US chest DATE OF EXAM: 04/04/2018 COMPARISON: NONE CLINICAL HISTORY: shortness of breath. patient states SOB because O2 was off TECHNIQUE: Targeted ultrasound of the posterior lower bilateral EXAM MEASUREMENTS: Right Pleural Effusion pocket size: 1.9 cm, too small to justine Left Pleural Effusion pocket size: 0 cm Right side NOT marked Left side NOT marked Pulmonologists are able to review the images in the patient?s EMR. IMPRESSIONS: Right pleural effusion is demonstrated that measures up to 1.7 cm in thickness.
[2018-04-04 17:18] LABS: Glucose,Whole Blood 281 mg/dL (75-99)
[2018-04-04] MEDS: SENNOSIDES-DOCUSATE SODIUM 1 EACH TAB PO SCH (17:23)
[2018-04-04 21:15] LABS: Glucose,Whole Blood 199 mg/dL (75-99)
[2018-04-04] MEDS: GABAPENTIN 300 MG CAP PO SCH (21:22)
[2018-04-04] MEDS: PRAVASTATIN SODIUM 80 MG TAB PO SCH (21:22)
[2018-04-05 00:30] VITALS: TEMP 98.3
[2018-04-05 06:55] VITALS: BP 156/87; RESP 18
[2018-04-05] MEDS: IPRATROPIUM-ALBUTEROL 3 ML NEB INHALATION SCH ×2 (07:28→11:23)
[2018-04-05] MEDS: BUDESONIDE 1 MG/2 ML NEBU INHALATION SCH (07:28)
[2018-04-05 07:31] LABS: Glucose,Whole Blood 154 mg/dL (75-99)
[2018-04-05] MEDS: FOLIC ACID 1 MG TAB PO SCH (08:19)
[2018-04-05] MEDS: OXYBUTYNIN CHLORIDE 5 MG TAB PO SCH (08:19)
[2018-04-05] MEDS: FERROUS SULFATE 325 MG TAB PO SCH (08:19)
[2018-04-05] MEDS: CHOLECALCIFEROL 1,000 UNIT TAB PO SCH (08:19)
[2018-04-05] MEDS: ESCITALOPRAM 10 MG TAB PO SCH (08:19)
[2018-04-05] MEDS: MULTIVITAMINS, THERA 1 EACH TAB PO SCH (08:19)
[2018-04-05] MEDS: CALCIUM CARBONATE 500 MG CHEWABLE PO SCH (08:19)
[2018-04-05] MEDS: NIACIN TR 500 MG CAPSULE.ER PO SCH (08:19)
[2018-04-05] MEDS: ASPIRIN 81 MG PO SCH (08:19)
[2018-04-05] MEDS: CYANOCOBALAMIN 500 MCG TAB PO SCH (08:19)
[2018-04-05] MEDS: predniSONE 20 MG TAB PO SCH (08:19)
[2018-04-05] MEDS: LOSARTAN 25 MG TAB PO SCH (08:19)
[2018-04-05] MEDS: FUROSEMIDE 40 MG TAB PO SCH (08:19)
[2018-04-05] MEDS: AZITHROMYCIN 500 MG TAB PO SCH (08:20)
[2018-04-05] MEDS: PANTOPRAZOLE 40 MG TABLET PO SCH (08:20)
[2018-04-05] MEDS: INSULIN ASPART 100 UNIT/ML 1 ML 10 ML VIAL SQ SCH ×4 (08:20→12:50)
[2018-04-05] MEDS: APIXABAN 2.5 MG TABLET PO SCH (08:20)
[2018-04-05] MEDS: ATENOLOL 50 MG TAB PO SCH (08:20)
[2018-04-05] MEDS: LORATADINE 10 MG TAB PO SCH (08:20)
--- NOTE | 2018-04-05 09:18 | P.PN ---
Subjective Progress Note Date: 04/04/18 This is an 82-year-old male who is well known to Infectious Disease services as he has been seen previously for Pseudomonas bacteremia in 2016. He has [facility]omy[facility] of the first metatarsal status post left great toe amputation and removal of the head of the metatarsal bone by Dr. Jacobson and also treated for MSSA and pseudomonas infection to the right great toe with osteomyelitis. Patient came into [facility] emergency center after being at the [facility] and developed significant shortness of breath with increased jerking movement on patient . His oxygen level was checked and was around 55% and the patient was driven to the emergency department at [facility] by his and he was found to have an acute kidney injury and top of chronic kidney disease as well as chest x -ray showed possible right middle lobe atelectasis versus infiltrate with a trace right-sided pleural effusion. He was admitted to the hospital for acute exacerbation of chronic obstructive pulmonary disease as well as acute kidney injury he is currently on IV Zosyn and oral azithromycin. He is followed by pulmonary medicine. Blood culture came back positive for alphahemolytic streptococcus and diphtheroid species. Subsequent blood cultures showing no growth after 24 hours. 04/04/2018 patient is starting to feel somewhat better. Breathing is improved. The March 30 blood cultures reveal evidence of polymicrobial contamination Objective - Vital Signs Vital signs: Vital Signs Temp 98.3 F 04/05/18 06:54 Pulse 83 04/05/18 07:47 Resp 18 04/05/18 06:54 BP 156/87 04/05/18 06:54 Pulse Ox 96 04/05/18 06:54 Intake & Output 04/04/18 04/05/18 04/05/18 18:59 06:59 18:59 Output Total 200 Balance -200 Weight 101.2 kg Output: Urine 200 Other: Voiding Method Urinal Urinal # Voids 1 2 - Exam General appearance: no distress, obese, patient sitting up in a chair at the bedside and appears to be comfortable and in no acute distress. No respiratory distress noted. - EENT Eyes: anicteric sclerae, EOMI, PERRLA, no ptosis, no scleral icterus, normal appearance ENT: hearing grossly normal, NA/AT, normal oropharynx, no thrush Ears: bilateral: normal - Neck Neck: no lymphadenopathy, normal ROM, no rigidity, no stridor, no thyromegaly Carotids: bilateral: upstroke delayed Thyroid: bilateral: normal size - Respiratory Respiratory: bilateral: diminished, wheezing, prolonged expiration, negative: dullness, rales, rhonchi - Cardiovascular Rhythm: irregularly irregular Heart sounds: normal: S1, S2 Abnormal Heart Sounds: systolic murmur - Gastrointestinal General gastrointestinal: normal bowel sounds, soft, no tenderness - Integumentary Integumentary: normal, normal turgor - Neurologic Neurologic: CNII-XII intact - Musculoskeletal Musculoskeletal: no gait normal, generalized weakness, strength equal bilaterally (left big toe amputation.) - Psychiatric Psychiatric: A&O x's 3, appropriate affect, intact judgment & insight - Labs CBC & Chem 7: 04/04/18 06:05 04/04/18 06:05 Labs: Abnormal Lab Results - Last 24 Hours (Table) 04/04/18 04/04/18 04/04/18 Range/Units 11:39 16:38 21:12 POC Glucose (mg/dL) 154 H 281 H 199 H (75-99) mg/dL 04/05/18 Range/Units 07:28 POC Glucose (mg/dL) 154 H (75-99) mg/dL Microbiology - Last 24 Hours (Table) 03/30/18 15:00 Blood Culture - Preliminary Blood No Growth after 120 hours 04/01/18 11:09 Blood Culture - Preliminary Blood No Growth after 72 hours 04/01/18 11:01 Blood Culture - Preliminary Blood No Growth after 72 hours Laboratory Results WBC 3.2 k/uL (3.8-10.6) L 04/04/18 06:05 RBC 3.30 m/uL (4.30-5.90) L 04/04/18 06:05 Hgb 10.5 gm/dL (13.0-17.5) L 04/04/18 06:05 Hct 33.9 % (39.0-53.0) L 04/04/18 06:05 MCV 102.6 fL (80.0-100.0) H 04/04/18 06:05 MCH 31.9 pg (25.0-35.0) 04/04/18 06:05 MCHC 31.1 g/dL (31.0-37.0) 04/04/18 06:05 RDW 14.6 % (11.5-15.5) 04/04/18 06:05 Plt Count 71 k/uL (150-450) L 04/04/18 06:05 Neutrophils % 72 % 04/04/18 06:05 Lymphocytes % 16 % 04/04/18 06:05 Monocytes % 8 % 04/04/18 06:05 Eosinophils % 2 % 04/04/18 06:05 Basophils % 0 % 04/04/18 06:05 Neutrophils # 2.3 k/uL (1.3-7.7) 04/04/18 06:05 Lymphocytes # 0.5 k/uL (1.0-4.8) L 04/04/18 06:05 Monocytes # 0.3 k/uL (0-1.0) 04/04/18 06:05 Eosinophils # 0.1 k/uL (0-0.7) 04/04/18 06:05 Basophils # 0.0 k/uL (0-0.2) 04/04/18 06:05 Manual Slide Review Performed 03/30/18 09:33 Large Platelets Present 03/30/18 09:33 Hypochromasia Marked 04/04/18 06:05 Macrocytosis Slight 04/04/18 06:05 PT 11.6 sec (9.0-12.0) 03/30/18 09:33 INR 1.1 (<1.2) 03/30/18 09:33 APTT 25.3 sec (22.0-30.0) 03/30/18 09:33 Sample Site rrad 04/03/18 07:15 ABG pH 7.31 (7.35-7.45) L 04/03/18 07:15 ABG pCO2 69 mmHg (35-45) H 04/03/18 07:15 ABG pO2 51 mmHg (83-108) L* 04/03/18 07:15 ABG HCO3 35 mmol/L (21-25) H 04/03/18 07:15 ABG Total CO2 37 mmol/L (19-24) H 04/03/18 07:15 ABG O2 Saturation 82.8 % (94-97) L 04/03/18 07:15 ABG Base Excess 9.0 mmol/L 04/03/18 07:15 John Test Yes 04/03/18 07:15 FiO2 40 % 04/03/18 07:15 Sodium 142 mmol/L (137-145) 04/04/18 06:05 Potassium 4.3 mmol/L (3.5-5.1) 04/04/18 06:05 Chloride 102 mmol/L (98-107) 04/04/18 06:05 Carbon Dioxide 35 mmol/L (22-30) H 04/04/18 06:05 Anion Gap 5 mmol/L 04/04/18 06:05 BUN 52 mg/dL (9-20) H 04/04/18 06:05 Creatinine 1.26 mg/dL (0.66-1.25) H 04/04/18 06:05 Est GFR (CKD-EPI)AfAm 61 (>60 ml/min/1.73 sqM) 04/04/18 06:05 Est GFR (CKD-EPI)NonAf 53 (>60 ml/min/1.73 sqM) 04/04/18 06:05 Glucose 131 mg/dL (74-99) H 04/04/18 06:05 POC Glucose (mg/dL) 154 mg/dL (75-99) H 04/05/18 07:28 POC Glu Tosser ID Lynda Toth 04/05/18 07:[address] Glu mg/dL 134 03/31/18 05:39 Hemoglobin A1c 6.3 % (4.0-6.0) H 03/31/18 05:39 Calcium 8.7 mg/dL (8.4-10.2) 04/04/18 06:05 Magnesium 2.7 mg/dL (1.6-2.3) H 04/01/18 05:33 Total Bilirubin 0.6 mg/dL (0.2-1.3) 03/31/18 14:23 AST 18 U/L (17-59) 03/31/18 14:23 ALT 20 U/L (21-72) L 03/31/18 14:23 Alkaline Phosphatase 76 U/L (38-126) 03/31/18 14:23 Total Creatine Kinase 43 U/L (55-170) L 03/30/18 09:33 CK-MB (CK-2) 1.8 ng/mL (0.0-2.4) 03/30/18 09:33 CK-MB (CK-2) Rel Index 4.2 03/30/18 09:33 Troponin I 0.071 ng/mL (0.000-0.034) H* 03/30/18 09:33 NT-Pro-B Natriuret Pep 5850 pg/mL 04/04/18 06:05 Total Protein 6.4 g/dL (6.3-8.2) 03/31/18 14:23 Albumin 3.7 g/dL (3.5-5.0) 03/31/18 14:23 Microbiology 03/30/18 15:00 Blood Blood Culture - Preliminary No Growth after 120 hours 04/01/18 11:09 Blood Blood Culture - Preliminary No Growth after 72 hours 04/01/18 11:01 Blood Blood Culture - Preliminary No Growth after 72 hours 03/30/18 13:02 Blood Blood Culture Gram Stain - Final 03/30/18 13:02 Blood Blood Culture - Final Alpha Hemolytic Streptococcus Diphtheroid species Micrococcus species 03/30/18 13:02 Blood Blood Culture - Final Assessment and Plan (1) Acute exacerbation of chronic obstructive airways disease Current Visit: Yes Status: Acute Code(s): J44.1 - CHRONIC OBSTRUCTIVE PULMONARY DISEASE W (ACUTE) EXACERBATION SNOMED Code(s): 875532362 (2) Gram-positive bacteremia Narrative/Plan: 82-year-old male presents to Hospital feeling very poorly. Is evidence of an acute exacerbation of underlying COPD. There was evidence of positive blood cultures however there polymicrobial and there is a diphtheroid species present which makes contamination highly likely. Patient clinically is rapidly improving with treatment of his underlying pulmonary disease. Cultures are in process also the sputum which will further help direct antimicrobial therapy as he improves. Does appear that his acute kidney injury starting to improve, will monitor values on Zosyn therapy. 04/04/2018 patient is having some improvement this and feel considerably better. It appears the blood cultures are contamination and will not need any ongoing long-term treatment. We'll need completion of antibiotic therapy with exacerbation of his COPD and ongoing treatment for his COPD. Current Visit: Yes Status: Acute Code(s): R78.81 - BACTEREMIA SNOMED Code( s): 046541878919
[2018-04-05] MEDS: PIPERACILLIN-TAZOBACTAM 3.375 GM in SODIUM CHLORIDE 0.9% 100 ML IVPB SCH (09:23)
[2018-04-05 11:25] VITALS: PULSE 76
[2018-04-05 11:26] LABS: Basophils % (A) 0 %; Eosinophils # (A) 0.1 k/uL (0-0.7); Eosinophils % (A) 1 %; HCT 35.5 % (39.0-53.0); HGB 10.9 gm/dL (13.0-17.5); Hypochromasia Marked; Lymphocytes # (A) 0.3 k/uL (1.0-4.8); Lymphocytes % (A) 5 %; MCH 31.4 pg (25.0-35.0); MCHC 30.6 g/dL (31.0-37.0); MCV 102.9 fL (80.0-100.0); Macrocytosis Slight; Mean Platelet Volume 8.8; Monocytes # (A) 0.3 k/uL (0-1.0); Monocytes % (A) 5 %; Neutrophils # (A) 4.7 k/uL (1.3-7.7); Neutrophils % (A) 87 %; RBC 3.45 m/uL (4.30-5.90); RDW 14.5 % (11.5-15.5); WBC 5.4 k/uL (3.8-10.6)
[2018-04-05 11:31] LABS: Platelet Count 84 k/uL (150-450)
[2018-04-05 11:36] LABS: Potassium 4.4 mmol/L (3.5-5.1)
--- NOTE | 2018-04-05 11:51 | P.DS ---
Providers Date of admission: 03/30/18 11:29 Expected date of discharge: 04/05/18 Attending physician: Divina Batista Consults: 03/30/18 11:29 Consult Physician Routine Consulting Provider: Ángel Alarcon Consult Reason/Comments: dyspnea Do you want consulting provider notified?: Yes 04/01/18 13:22 Consult Physician Routine Consulting Provider: Reuben Ramirze Consult Reason/Comments: bacteremia Do you want consulting provider notified?: Yes Primary care physician: Divina Batista Hospital Course: This is an 82-year-old male one of my patient with history of advanced COPD with chronic hypoxic respiratory failureon home O2, hypertension and hypertensive cardio vascular disease with left ventricular hypertrophy, chronic atrial fibrillation on chronic anticoagulation therapy in the form of NOAC, hyperlipidemia, diabetes mellitus type 2 with diabetic neuropathy, PAD post left big toe amputation, chronic kidney disease stage II, obesity with obstructive sleep apnea currently on a CPAP patient has been doing fine until recently when he noticed increased jerking movement in both upper and lower extremities specially in the upper extremities that has, and more frequent over the last few days, he went to the office because of his fullness in the stomach and he was prescribed a PPI and [facility] the morning he had forgot his cell phone his received a call come and car pick up driver her has the patient was having significant issues with the breathing and with increased jerking movement on patient checked his oxygen level was around 55% and the patient was driven to the emergency department at [facility] by his and he was found to have an acute kidney injury and top of chronic kidney disease as well as chest x-ray showed possible right middle lobe atelectasis versus infiltrate with a trace right-sided pleural effusion patient was admitted to the hospital for acute exacerbation of chronic obstructive pulmonary disease as well as acute kidney injury would be started on IV antibiotic in the form of Zosyn 3.375 g IV piggyback every 8 hours, DuoNeb 3 mg nebulization 4 times every day as well as pulmonary consultation. 03/31: The patient is feeling much and improved today. He is quite talkative. His blood culture came back positive and repeat are in progress. Solu-Medrol will be decreased to 40 mg every 8 hours. Azithromycin will be added. Patient is seen and followed by pulmonary medicine. Patient has been seen by physical therapy with recommendations for home with home care or subacute rehab. 04/01:Blood culture came back positive for alphahemolytic streptococcus and diphtheroid species. Subsequent blood cultures showing no growth after [address] Ramirez added. The patient's breathing is improving. Solu-Medrol will be decreased to 40 mg every 12 hours and plan for prednisone to start tomorrow. He is on insulin drip which we will discontinue and place him on a higher dose of NPH as well as 5 units of NovoLog scheduled with meals and scale. Anticipate probable discharge Wednesday to [facility]. some dyspnea, significant edema, cut in right mccollum old without cellulitis , oral lasix added today for significant LE edema. dr ramirez for bacteremia and counceled it is comensal rather than a pathogen, better with shortness of breath has cough productive. 04/04: Patient remains in the cardiac stepdown unit. Patient is currently on oral Lasix. Blood sugars are running between 136 and 201. He is currently on oral prednisone. He is followed by and Dr. Ramirez. Breathing status is stable and we will plan for discharge to [facility] tomorrow. Insurance authorization needs to be obtained. Patient will be transferred to the [facility] floor without telemetry. 04/05: Patient denies any new complaints. He is continued on oral prednisone. He is on azithromycin and Zosyn will be discontinued. [facility] at the [facility]. Patient will bring his own from home and addition of 4 L oxygen. Discharge summary: 1. Acute hypoxemic respiratory failure due to acute exacerbation of COPD with possible right lobe pneumonia. 2. Acute kidney injury on top of chronic kidney disease stage II. 3. Involuntary jerking movements of both upper extremities thought to be due to acute kidney injury with the use of gabapentin 4. Hypertension and hypertensive cardiovascular disease. 5. Chronic atrial fibrillation. 6. Hyperlipemia. 7. Diabetes mellitus type 2. 8. Chronic venous stasis with stasis dermatitis with worsening edema. Stable 11. Bilateral lower extremity neuropathy. 12. PAD post left big toe amputation. 13. Obesity with obstructive sleep apnea. 14. Chronic kidney disease stage II. 15. Anemia of chronic renal disease. 16. Blood culture positive for alpha hemolytic streptococcus and diphtheroid species, contamination. Discharge plan: [facility] under the care of Dr. Batista Impression and plan of care have been directed as dictated by the signing physician. Malu Cordova nurse practitioner acting as scribe for signing physician. Patient Condition at Discharge: Good Plan - Discharge Summary New Discharge Prescriptions: New Azithromycin [Zithromax] 500 mg PO DAILY #3 tab Budesonide [Pulmicort] 1 mg INHALATION RT-BID nebu Furosemide [Lasix] 40 mg PO DAILY tab Gabapentin [Neurontin] 300 mg PO HS cap Insulin Aspart [NovoLOG (formulary)] 5 unit SQ AC-TID vial predniSONE 0 mg PO DIRECTED #30 tab Continue Aspirin 81 mg PO DAILY Ipratropium Nebulized [Atrovent Nebulized] 0.5 mg INHALATION RT-QID PRN PRN Reason: Shortness Of Breath Levalbuterol Nebulized [Xopenex Nebulized] 1.25 mg INHALATION RT-QID PRN PRN Reason: Shortness Of Breath INSULIN LISPRO (humaLOG) [humaLOG] See Protocol SQ ACHS PRN PRN Reason: HIGH SUGAR Hitchcock-3 Fatty Acids/Fish Oil [Fish Oil 1,000 mg Softgel] 1 cap PO DAILY Niacinamide [Niacin] 500 mg PO DAILY Multivitamins, Thera [Multivitamin (formulary)] 1 tab PO DAILY Glucosamine Sulfate 500 mg PO DAILY Ferrous Sulfate [Iron (65 MG Elemental)] 325 mg PO DAILY Cholecalciferol [Vitamin D3] 5,000 unit PO DAILY Atenolol [Tenormin] 100 mg PO BID Apixaban [Eliquis] 2.5 mg PO BID #0 Pravastatin Sodium [Pravachol] 80 mg PO HS Losartan [Cozaar] 25 mg PO DAILY Sennosides-Docusate Sodium [Senokot-S] 1 tab PO DAILY Potassium 595mg 595 mg PO DAILY Folic Acid 0.8 mg PO DAILY Cetirizine HCl [Zyrtec] 10 mg PO DAILY Vitamin E 1,000 unit PO DAILY Turmeric Root Extract [Turmeric] 500 mg PO DAILY Lysine [l-Lysine] 500 mg PO DAILY Calcium Carbonate [Calcium] 600 mg PO DAILY Escitalopram [Lexapro] 10 mg PO DAILY Cyanocobalamin (Vitamin B-12) [Vitamin B-12] 1,000 mcg PO DAILY Loperamide HCl [Imodium A-D] 2 mg PO Q6H Ranitidine HCl [Zantac] 150 mg PO BID Oxybutynin Chloride [Ditropan] 5 mg PO BID HYDROcodone/APAP 5-325MG [[place] 5-325] 1 tab PO Q8HR PRN #9 tab PRN Reason: Pain Discontinued Gabapentin [Neurontin] 300 mg PO TID Insulin NPH Human Isophane [humuLIN N] 12 units SQ BID #0 Meloxicam [Mobic] 15 mg PO DAILY Simvastatin [Zocor] 40 mg PO HS Bisoprol/Hydrochlorothiazide [Bisoprolol-Hctz 5-6.25 mg Tab] 1 tab PO DAILY traMADol HCL [Ultram] 50 mg PO Q6H PRN PRN Reason: Pain Furosemide [Lasix] 20 mg PO DAILY Discharge Medication List Aspirin 81 mg PO DAILY 02/18/14 [History] INSULIN LISPRO (humaLOG) [humaLOG] See Protocol SQ ACHS PRN 05/18/15 [History] Ipratropium Nebulized [Atrovent Nebulized] 0.5 mg INHALATION RT-QID PRN [History] Levalbuterol Nebulized [Xopenex Nebulized] 1.25 mg INHALATION RT-QID PRN [History] Cholecalciferol [Vitamin D3] 5,000 unit PO DAILY 07/29/15 [History] Ferrous Sulfate [Iron (65 MG Elemental)] 325 mg PO DAILY 07/29/15 [History] Glucosamine Sulfate 500 mg PO DAILY 07/29/15 [History] Multivitamins, Thera [Multivitamin (formulary)] 1 tab PO DAILY 07/29/15 [History ] Niacinamide [Niacin] 500 mg PO DAILY 07/29/15 [History] Hitchcock-3 Fatty Acids/Fish Oil [Fish Oil 1,000 mg Softgel] 1 cap PO DAILY [History] Atenolol [Tenormin] 100 mg PO BID 08/25/15 [History] Apixaban [Eliquis] 2.5 mg PO BID #0 09/06/15 [Rx] Losartan [Cozaar] 25 mg PO DAILY 10/24/16 [History] Pravastatin Sodium [Pravachol] 80 mg PO HS 10/24/16 [History] Calcium Carbonate [Calcium] 600 mg PO DAILY 03/30/18 [History] Cetirizine HCl [Zyrtec] 10 mg PO DAILY 03/30/18 [History] Cyanocobalamin (Vitamin B-12) [Vitamin B-12] 1,000 mcg PO DAILY 03/30/18 [ History] Escitalopram [Lexapro] 10 mg PO DAILY 03/30/18 [History] Folic Acid 0.8 mg PO DAILY 03/30/18 [History] Loperamide HCl [Imodium A-D] 2 mg PO Q6H 03/30/18 [History] Lysine [l-Lysine] 500 mg PO DAILY 03/30/18 [History] Oxybutynin Chloride [Ditropan] 5 mg PO BID 03/30/18 [History] Potassium 595mg 595 mg PO DAILY 03/30/18 [History] Ranitidine HCl [Zantac] 150 mg PO BID 03/30/18 [History] Sennosides-Docusate Sodium [Senokot-S] 1 tab PO DAILY 03/30/18 [History] Turmeric Root Extract [Turmeric] 500 mg PO DAILY 03/30/18 [History] Vitamin E 1,000 unit PO DAILY 03/30/18 [History] Azithromycin [Zithromax] 500 mg PO DAILY #3 tab 04/05/18 [Rx] Budesonide [Pulmicort] 1 mg INHALATION RT-BID nebu 04/05/18 [Rx] Furosemide [Lasix] 40 mg PO DAILY tab 04/05/18 [Rx] Gabapentin [Neurontin] 300 mg PO HS cap 04/05/18 [Rx] HYDROcodone/APAP 5-325MG [[place] 5-325] 1 tab PO Q8HR PRN #9 tab 04/05/18 [Rx] Insulin Aspart [NovoLOG (formulary)] 5 unit SQ AC-TID vial 04/05/18 [Rx] predniSONE 0 mg PO DIRECTED #30 tab 04/05/18 [Rx] Follow up Appointment(s)/Referral(s): Divina Batista MD [Primary Care Provider] - 3 Days (at [facility]) [facility], [NON-STAFF] - 1 Week Activity/Diet/Wound Care/Special Instructions: Home CPAP at HS and PRN bleed in 4L O2 NC 3-4L PRN Consistent carb Activity as tolerated Discharge Disposition: TRANSFER TO SNF/ECF
[2018-04-05 12:17] LABS: Glucose,Whole Blood 110 mg/dL (75-99)
--- NOTE | 2018-04-05 13:06 | P.PN ---
Subjective Progress Note Date: 04/05/18 Principal diagnosis: Acute on chronic hypoxemic respiratory failure secondary to an acute exacerbation of chronic congestive heart failure with systolic dysfunction This is a 82-year-old white male patient of Dr. Batista, past medical history of advanced oxygen-dependent COPD, diabetes mellitus, coronary artery disease, hypertension, hyperlipidemia, sleep apnea on CPAP therapy, atrial fibrillation, history of right-sided pneumothorax, and into the emergency department on 2017 for evaluation of difficulty breathing, hypoxemia. Patient was at the [facility] working out, usually goes 3 times a week, he says portable oxygen. His received a call today from the [facility] stating that her is having increased difficulty breathing, his pulse ox was noted to be around 55%. Patient denies any fever or chills, with some increased swelling in his lower extremities, abdominal distention. A little shaky but denied any significant cough, chest congestion chest pain. Follows with Dr. Alarcon in the pulmonary clinic, his last outpatient PFT from 2012 showed a FEV1 of 60% and FVC of 55%. She is on nebulized treatments at home, used to be on Breo-Ellipta. Chest x- ray was taken and showed a new right midlung patchy opacity for developing pneumonia, does trace right pleural effusion and bibasilar atelectasis. Labs showed WBC of 5.0, hemoglobin 11.3, BUN was 63, creatinine was 1.56, there was a mild troponin elevation of 0.071, and proBNP was elevated at 6200. Patient has a history of right diaphragmatic paralysis and secondary pulmonary hypertension. We seen this patient in evaluation for increased shortness of breath, acute on chronic hypoxemic respiratory failure secondary to acute exacerbation of congestive heart failure, COPD exacerbation, and possibility of right lung pneumonia could not be totally excluded, and an area of of atelectasis or developing pneumonia on the left On 03/31/2018 patient seen in follow-up on selective care unit, sitting up in the recliner, in no acute distress, denies any worsening dyspnea, he is currently on 3 L per nasal cannula with a pulse ox of 97%, afebrile, hemodynamically stable, lung sounds are markedly diminished bilaterally with a few bibasilar crackles. The cultures remain negative thus far. Today's blood work has been reviewed, WBC is 2.6, hemoglobin is 10.9, sodium is 145, potassium is 4.9, chloride is 103, CO2 is 34, BUN is 60 and creatinine 1.3. on empiric antibiotics combination of oral Zithromax, and Rocephin, nebulized bronchodilators, steroids, he is breathing easier On 04/01/2018 patient seen in follow-up on selective care unit. Denies any specific complaints, no worsening shortness of breath. he is on 3 L per nasal cannula his pulse ox of 90%, he is afebrile, hemodynamically stable, lung sounds are not significantly changed from previous exams, are markedly diminished to auscultation bilaterally, but no rhonchi or wheezes. There is some improvement in the appearance of bilateral lower extremity swelling, and has chronic venous stasis changes present to his skin and chronic discoloration. Today's chest x-ray was reviewed, and showed improvement in patient's volume status and aeration. His labs have been reviewed, showed a PVC of 5.2, hemoglobin is 11.1, electrolytes were unremarkable, with the exception of CO2 which is chronically elevated suggesting chronic hypercapnic respiratory failure. Renal profile is stable, with a BUN of 60 and creatinine of 1.3. Echo biology has been reviewed, there was a single blood culture from 03/30/2018 showing alphahemolytic streptococcus and diphtheroid species. Other blood culture from the same day showed no growth. Patient has had no fever or chills, clinically he is improving. Obtain follow-up blood cultures today, patient has been covered with a combination of Zithromax and Zosyn. On 04/03/2018 patient seen again in follow-up on selective care unit. Apparently early in the morning patient was noted to be more lethargic and having some altered mentation. Brain CT did not show any acute findings. Blood gas was completed and showed pO2 of 51, pCO2 of 69, and pH of 7.31, consistent with acute respiratory acidosis with hypoxemia. Patient was placed on BiPAP support, stat chest x-ray was taken and showed bilateral pleural effusions, small. Patient was given a dose of IV Lasix, currently he is more awake, remains on BiPAP support, but he is oriented 3. No acute distress, no use of accessory muscles, lung sounds are diminished, no rhonchi wheezing or rales appreciated. Afebrile, follow-up cultures were negative. Patient did have a single blood culture from 03/30/2018 that was positive for alpha hemolytic strep, diphtheroids and micrococcus species, which is thought to be a contaminated culture. On 04/04/2018 patient seen in follow-up on selective care unit, he sitting up in the chair, in no acute distress. He did wear BiPAP last night, he is currently on 3 L per nasal cannula his pulse ox is 94%, he is afebrile, respirations are nonlabored. Today's chest x-ray was reviewed with Dr. Sebastian , shows bibasilar airspace disease, and bilateral pleural effusions. She was given a dose of IV Lasix yesterday, and started on oral diuretics today, he continues on nebulized bronchodilators and antibiotics. Follow-up cultures were negative. We will blood cultures were negative. No fever or chills. Patient is seen again today 04/05/2018 in follow-up on the regular medical floor. He is currently sitting up in a chair at the bedside. He is awake and alert in no acute distress. He did utilize the BiPAP last evening. Otherwise, maintaining good O2 saturations in the 90s on 3 L/m per nasal cannula. His initial blood culture was positive for alphahemolytic streptococcus. Follow-up blood cultures are negative. White count 5.4. Hemoglobin 10.9. Creatinine 1.42. He remains on DuoNeb inhalations, Pulmicort inhalations, azithromycin, prednisone. Objective - Vital Signs Vital signs: Vital Signs Temp 98.3 F 04/05/18 06:54 Pulse 76 04/05/18 11:35 Resp 18 04/05/18 06:54 BP 156/87 04/05/18 06:54 Pulse Ox 96 04/05/18 06:54 Intake & Output 04/04/18 04/05/18 04/05/18 18:59 06:59 18:59 Output Total 200 100 Balance -200 -100 Weight 101.2 kg Output: Urine 200 100 Other: Voiding Method Urinal Urinal # Voids 1 2 - Exam GENERAL EXAM: Alert, active, comfortable in no apparent distress. Currently on 3 L per nasal cannula. Up in a chair at the bedside. HEAD: Normocephalic/atraumatic. EYES: Normal reaction of pupils, equal size. Conjunctiva pink, sclera white. NOSE: Clear with pink turbinates. THROAT: No erythema or exudates. NECK: No masses, no JVD, no thyroid enlargement, no adenopathy. CHEST: No chest wall deformity. Symmetrical expansion. LUNGS: diminished breath sounds bilaterally CVS: Regular rate and rhythm, normal S1 and S2, no gallops, no murmurs, no rubs ABDOMEN: Soft, nontender. No hepatosplenomegaly, normal bowel sounds, no guarding or rigidity. EXTREMITIES: No clubbing, no cyanosis, 2+ pulses and upper and lower extremities. 1+ bilateral extremity edema worse on the right, with chronic venous stasis changes MUSCULOSKELETAL: Muscle strength and tone normal. SPINE: No scoliosis or deformity SKIN: No rashes CENTRAL NERVOUS SYSTEM: Alert and oriented -3. No focal deficits, tone is normal in all 4 extremities. PSYCHIATRIC: Alert and oriented -3. Appropriate affect. Intact judgment and insight. - Labs CBC & Chem 7: 04/05/18 10:51 04/05/18 10:51 Labs: Abnormal Lab Results - Last 24 Hours (Table) 04/04/18 04/04/18 04/05/18 Range/Units 16:38 21:12 07:28 RBC (4.30-5.90) m/uL Hgb (13.0-17.5) gm/dL Hct (39.0-53.0) % MCV (80.0-100.0) fL MCHC (31.0-37.0) g/dL Plt Count (150-450) k/uL Lymphocytes # (1.0-4.8) k/uL Carbon Dioxide (22-30) mmol/L BUN (9-20) mg/dL Creatinine (0.66-1.25) mg/dL POC Glucose (mg/dL) 281 H 199 H 154 H (75-99) mg/dL 04/05/18 04/05/18 04/05/18 Range/Units 10:51 10:51 12:05 RBC 3.45 L (4.30-5.90) m/uL Hgb 10.9 L (13.0-17.5) gm/dL Hct 35.5 L (39.0-53.0) % MCV 102.9 H (80.0-100.0) fL MCHC 30.6 L (31.0-37.0) g/dL Plt Count 84 L (150-450) k/uL Lymphocytes # 0.3 L (1.0-4.8) k/uL Carbon Dioxide 39 H (22-30) mmol/L BUN 45 H (9-20) mg/dL Creatinine 1.42 H (0.66-1.25) mg/dL POC Glucose (mg/dL) 110 H (75-99) mg/dL Microbiology - Last 24 Hours (Table) 03/30/18 15:00 Blood Culture - Preliminary Blood No Growth after 120 hours 04/01/18 11:09 Blood Culture - Preliminary Blood No Growth after 72 hours 04/01/18 11:01 Blood Culture - Preliminary Blood No Growth after 72 hours Assessment and Plan Assessment: Assessment: #1. Acute on chronic hypoxemic and hypercapnic respiratory failure secondary to acute exacerbation of chronic congestive heart failure and systolic function #2. Suspect pneumonia in the right midlung, could not entirely exclude developing pneumonia in the left lower lobe, community-acquired #3. Severe advanced oxygen-dependent COPD, chronic hypercapnic respiratory failure, secondary pulmonary hypertension #4. Single blood culture positive for alphahemolytic streptococcus and diphtheroid species #5. Obstructive sleep apnea on CPAP therapy #6. Mild troponin elevation #7. Acute kidney injury #8. History of chronic right hemidiaphragmatic paralysis #9. Chronic atrial fibrillation on Eliquis #10. Diabetes mellitus type 2 diabetic neuropathy, hypertension, hyperlipidemia #11. PAD status post left big toe amputation #12. Chronic kidney disease stage II #13. Previous history of pneumothorax requiring chest tube insertion Plan: The patient was seen and evaluated by Dr. Lyon. The patient is stable from the pulmonary standpoint. He could be discharged home with his current pulmonary medications. The plan is to go to [facility] for recovery. He will follow-up in our office in 1-2 weeks' time. Sooner with any recurrence of symptoms or other questions or concerns. I, the cosigning physician, performed a history & physical examination of the patient. Lungs sounds diminished. Clear. Maintaining good O2 saturations in the 90s on 3 L/m per nasal cannula. I discussed the assessment and plan of care with my nurse practitioner, Rhea Silverio. I attest to the above note as dictated by her.
--- NOTE | 2018-04-05 14:07 | P.PN ---
Subjective Progress Note Date: 04/04/18 This is an 82-year-old male one of my patient with history of advanced COPD with chronic hypoxic respiratory failureon home O2, hypertension and hypertensive cardio vascular disease with left ventricular hypertrophy, chronic atrial fibrillation on chronic anticoagulation therapy in the form of NOAC, hyperlipidemia, diabetes mellitus type 2 with diabetic neuropathy, PAD post left big toe amputation, chronic kidney disease stage II, obesity with obstructive sleep apnea currently on a CPAP patient has been doing fine until recently when he noticed increased jerking movement in both upper and lower extremities specially in the upper extremities that has, and more frequent over the last few days, he went to the office because of his fullness in the stomach and he was prescribed a PPI and [facility] the morning he had forgot his cell phone his received a call come and 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 her has the patient was having significant issues with the breathing and with increased jerking movement on patient checked his oxygen level was around 55% and the patient was driven to the emergency department at [facility] by his and he was found to have an acute kidney injury and top of chronic kidney disease as well as chest x-ray showed possible right middle lobe atelectasis versus infiltrate with a trace right-sided pleural effusion patient was admitted to the hospital for acute exacerbation of chronic obstructive pulmonary disease as well as acute kidney injury would be started on IV antibiotic in the form of Zosyn 3.375 g IV piggyback every 8 hours, DuoNeb 3 mg nebulization 4 times every day as well as pulmonary consultation. 03/31: The patient is feeling much and improved today. He is quite talkative. His blood culture came back positive and repeat are in progress. Solu-Medrol will be decreased to 40 mg every 8 hours. Azithromycin will be added. Patient is seen and followed by pulmonary medicine. Patient has been seen by physical therapy with recommendations for home with home care or subacute rehab. 04/01:Blood culture came back positive for alphahemolytic streptococcus and diphtheroid species. Subsequent blood cultures showing no growth after [address] Ramirez added. The patient's breathing is improving. Solu-Medrol will be decreased to 40 mg every 12 hours and plan for prednisone to start tomorrow. He is on insulin drip which we will discontinue and place him on a higher dose of NPH as well as 5 units of NovoLog scheduled with meals and scale. Anticipate probable discharge Wednesday to [facility]. some dyspnea, significant edema, cut in right mccollum old without cellulitis , oral lasix added today for significant LE edema. dr ramirez for bacteremia and counceled it is comensal rather than a pathogen, better with shortness of breath has cough productive. 04/04: Patient remains in the cardiac stepdown unit. Patient is currently on oral Lasix. Blood sugars are running between 136 and 201. He is currently on oral prednisone. He is followed by and Dr. Ramirez. Breathing status is stable and we will plan for discharge to [facility] tomorrow. Insurance authorization needs to be obtained. Patient will be transferred to the [facility] floor without telemetry. Review of Systems Constitutional: Reports fatigue, Reports weakness, Denies anorexia, Denies chronic headaches Eyes: denies blurred vision, denies bulging eye, denies decreased vision Ears, nose, mouth and throat: Denies dysphagia, Denies neck lump, Denies sore throat Cardiovascular: Reports decreased exercise tolerance, Reports dyspnea on exertion, Reports high blood pressure, Reports shortness of breath, Denies chest pain, Denies paroxysmal nocturnal dyspnea, Denies phlebitis, Denies rapid heart beat Respiratory: Reports cough, Reports home oxygen, Reports sleep apnea, Reports wheezing, Denies congestion, Denies cough with sputum, Denies snoring Gastrointestinal: Reports bloating, Reports early satiety, Reports excessive gas , Denies abdominal pain, Denies BRBPR, Denies change in bowel habits, Denies heartburn, Denies loss of appetite, Denies melena, Denies nausea, Denies vomiting Genitourinary: Reports nocturia, Denies dysuria Musculoskeletal: Reports gait dysfunction, Reports muscle weakness, Denies myalgias Musculoskeletal: bilateral: ankle swelling, absent: ankle pain, ankle stiffness , elbow pain, elbow stiffness, elbow swelling, foot pain, foot stiffness, foot swelling, hand pain, hand stiffness, hand swelling, hip pain, hip stiffness, hip swelling, knee pain, knee stiffness, knee swelling, shoulder pain, shoulder stiffness, shoulder swelling, wrist pain, wrist stiffness, wrist swelling Integumentary: Denies pruritus, Denies rash Neurological: Reports balance difficulties, Reports burning pain, Reports gait dysfunction, Reports numbness, Reports weakness Psychiatric: Denies anxiety, Denies depression Endocrine: Denies fatigue, Denies weight change, denies weight gain, reports abnormal blood sugars Objective - Vital Signs Vital signs: Vital Signs Temp 97.7 F 04/04/18 11:04 Pulse 85 04/04/18 11:41 Resp 18 04/04/18 11:41 BP 122/74 04/04/18 11:04 Pulse Ox 94 L 04/04/18 11:04 Intake & Output 04/03/18 04/04/18 04/04/18 18:59 06:59 18:59 Intake Total 480 100 Output Total 2 1 200 Balance 478 99 -200 Intake: Intake, IV Titration 100 Amount Piperacillin-Tazobactam 3 100 .375 gm In Sodium Chloride 0.9% 100 ml @ 25 mls/hr IVPB Q8HR [facility] Rx# :[id number] Oral 480 Output: Urine 200 Stool 2 1 Other: Voiding Method Urinal Urinal Urinal # Voids 2 - Exam General appearance: no distress, obese, sitting up in a chair and appears to be comfortable with O2 - EENT Eyes: anicteric sclerae, EOMI, PERRLA, no ptosis, no scleral icterus, normal appearance ENT: hearing grossly normal, NA/AT, normal oropharynx, no thrush Ears: bilateral: normal - Neck Neck: no lymphadenopathy, normal ROM, no rigidity, no stridor, no thyromegaly Carotids: bilateral: upstroke delayed Thyroid: bilateral: normal size - Respiratory Respiratory: bilateral: diminished, wheezing, prolonged expiration, negative: dullness, rales, rhonchi - Cardiovascular Rhythm: irregularly irregular Heart sounds: normal: S1, S2 Abnormal Heart Sounds: systolic murmur - Gastrointestinal General gastrointestinal: normal bowel sounds, soft, no tenderness - Integumentary Integumentary: normal, normal turgor - Neurologic Neurologic: CNII-XII intact - Musculoskeletal Musculoskeletal: no gait normal, generalized weakness, strength equal bilaterally (left big toe amputation.) - Psychiatric Psychiatric: A&O x's 3, appropriate affect, intact judgment & insight - Labs CBC & Chem 7: 04/05/18 10:51 04/05/18 10:51 Labs: Abnormal Lab Results - Last 24 Hours (Table) 04/03/18 04/03/18 04/04/18 Range/Units 17:01 21:09 06:05 WBC 3.2 L (3.8-10.6) k/uL RBC 3.30 L (4.30-5.90) m/uL Hgb 10.5 L (13.0-17.5) gm/dL Hct 33.9 L (39.0-53.0) % MCV 102.6 H (80.0-100.0) fL Plt Count 71 L (150-450) k/uL Lymphocytes # 0.5 L (1.0-4.8) k/uL Carbon Dioxide (22-30) mmol/L BUN (9-20) mg/dL Creatinine (0.66-1.25) mg/dL Glucose (74-99) mg/dL POC Glucose (mg/dL) 136 H 201 H (75-99) mg/dL 04/04/18 04/04/18 04/04/18 Range/Units 06:05 06:26 11:39 WBC (3.8-10.6) k/uL RBC (4.30-5.90) m/uL Hgb (13.0-17.5) gm/dL Hct (39.0-53.0) % MCV (80.0-100.0) fL Plt Count (150-450) k/uL Lymphocytes # (1.0-4.8) k/uL Carbon Dioxide 35 H (22-30) mmol/L BUN 52 H (9-20) mg/dL Creatinine 1.26 H (0.66-1.25) mg/dL Glucose 131 H (74-99) mg/dL POC Glucose (mg/dL) 156 H 154 H (75-99) mg/dL Microbiology - Last 24 Hours (Table) 04/01/18 11:09 Blood Culture - Preliminary Blood No Growth after 72 hours 04/01/18 11:01 Blood Culture - Preliminary Blood No Growth after 72 hours 03/30/18 15:00 Blood Culture - Preliminary Blood No Growth after 96 hours Assessment and Plan Plan: 1. Acute hypoxemic respiratory failure due to acute exacerbation of COPD with possible right lobe pneumonia. Start the patient on Zosyn 3.375 g IV piggyback every 8 hours, azithromycin, DuoNeb 3 mL nebulization 4 times every day, Pulmicort 1 mg nebulization twice every day, oxygen support, pulmonary consultation appreciated, sputum culture, blood culture. Continue prednisone. 2. Acute kidney injury on top of chronic kidney disease stage II. Patient will be receiving IV fluid resuscitation and transition to saline lock. 3. Involuntary jerking movements of both upper extremities thought to be due to acute kidney injury with the use of gabapentin we will decrease the dose to 300 mg at bedtime. 4. Hypertension and hypertensive cardiovascular disease. Continue patient on losartan 25 mg orally once every day, atenolol 100 mg orally twice every day. 5. Chronic atrial fibrillation. Continue Eliquis 2.5 mg orally twice every day , atenolol 100 mg orally twice every day. 6. Hyperlipemia. Continue low-cholesterol diet as well as pravastatin 80 mg at bedtime. 7. Diabetes mellitus type 2. Continue Humulin 12 units subcutaneously twice every day and as well as Humalog, monitor blood glucose before each meal and at bedtime. 8. Chronic venous stasis with stasis dermatitis. Stable at this time. 11. Bilateral lower extremity neuropathy. Continue gabapentin 300 mg orally at bedtime. 12. PAD post left big toe amputation. 13. Obesity with obstructive sleep apnea. Continue patient on CPAP. 14. Chronic kidney disease stage II. Stable at this time. 15. Anemia of chronic renal disease. Continue iron 325 mg orally twice every day. 16. DVT prophylaxis. Continue Eliquis 2.5 mg orally twice every day. 17. GI prophylaxis. Continue patient on Protonix 40 mg IV push every 24 hours. 18. Blood culture positive for alpha hemolytic streptococcus and diphtheroid species, contamination. Subsequent blood cultures showing no growth after [address] Ramirez [facility] Imp[facility] and plan of care have been directed as dictated by the signing physician. Malu Cordova nurse practitioner acting as scribe for signing physician.
--- NOTE | 2018-04-06 00:41 | P.PN ---
Subjective Progress Note Date: 04/05/18 This is an 82-year-old male who is well known to Infectious Disease services as he has been seen previously for Pseudomonas bacteremia in 2016. [facility] the first metatarsal status post left great toe amputation and removal of the head of the metatarsal bone by Dr. Jacobson and also treated for MSSA and pseudomonas infection to the right great toe with osteomyelitis. Patient came into [facility] emergency center after being at the [facility] and developed significant shortness of breath with increased jerking movement on patient . His oxygen level was checked and was around 55% and the patient was driven to the emergency department at [facility] by his and he was found to have an acute kidney injury and top of chronic kidney disease as well as chest x -ray showed possible right middle lobe atelectasis versus infiltrate with a trace right-sided pleural effusion. He was admitted to the hospital for acute exacerbation of chronic obstructive pulmonary disease as well as acute kidney injury he is currently on IV Zosyn and oral azithromycin. He is followed by pulmonary medicine. Blood culture came back positive for alphahemolytic streptococcus and diphtheroid species. Subsequent blood cultures showing no growth after 24 hours. 04/04/2018 patient is starting to feel somewhat better. Breathing is improved. The March 30 blood cultures reveal evidence of polymicrobial contamination 04/05/2018 patient feeling better. Respiratory status improved. Blood culture contaminant. Objective - Vital Signs Vital signs: Vital Signs Temp 98.3 F 04/05/18 06:54 Pulse 76 04/05/18 11:35 Resp 18 04/05/18 15:01 BP 156/87 04/05/18 06:54 Pulse Ox 96 04/05/18 06:54 Intake & Output 04/05/18 04/05/18 04/06/18 06:59 18:59 06:59 Output Total 100 Balance -100 Output: Urine 100 Other: Voiding Method Urinal Urinal # Voids 2 - Exam General appearance: no distress, obese, patient sitting up in a chair at the bedside and appears to be comfortable and in no acute distress. No respiratory distress noted. - EENT Eyes: anicteric sclerae, EOMI, PERRLA, no ptosis, no scleral icterus, normal appearance ENT: hearing grossly normal, NA/AT, normal oropharynx, no thrush Ears: bilateral: normal - Neck Neck: no lymphadenopathy, normal ROM, no rigidity, no stridor, no thyromegaly Carotids: bilateral: upstroke delayed Thyroid: bilateral: normal size - Respiratory Respiratory: bilateral: diminished, wheezing, prolonged expiration, negative: dullness, rales, rhonchi - Cardiovascular Rhythm: irregularly irregular Heart sounds: normal: S1, S2 Abnormal Heart Sounds: systolic murmur - Gastrointestinal General gastrointestinal: normal bowel sounds, soft, no tenderness - Integumentary Integumentary: normal, normal turgor - Neurologic Neurologic: CNII-XII intact - Musculoskeletal Musculoskeletal: no gait normal, generalized weakness, strength equal bilaterally (left big toe amputation.) - Psychiatric Psychiatric: A&O x's 3, appropriate affect, intact judgment & insight - Labs CBC & Chem 7: 04/05/18 10:51 04/05/18 10:51 Labs: Abnormal Lab Results - Last 24 Hours (Table) 04/05/18 04/05/18 04/05/18 Range/Units 07:28 10:51 10:51 RBC 3.45 L (4.30-5.90) m/uL Hgb 10.9 L (13.0-17.5) gm/dL Hct 35.5 L (39.0-53.0) % MCV 102.9 H (80.0-100.0) fL MCHC 30.6 L (31.0-37.0) g/dL Plt Count 84 L (150-450) k/uL Lymphocytes # 0.3 L (1.0-4.8) k/uL Carbon Dioxide 39 H (22-30) mmol/L BUN 45 H (9-20) mg/dL Creatinine 1.42 H (0.66-1.25) mg/dL POC Glucose (mg/dL) 154 H (75-99) mg/dL 04/05/18 Range/Units 12:05 RBC (4.30-5.90) m/uL Hgb (13.0-17.5) gm/dL Hct (39.0-53.0) % MCV (80.0-100.0) fL MCHC (31.0-37.0) g/dL Plt Count (150-450) k/uL Lymphocytes # (1.0-4.8) k/uL Carbon Dioxide (22-30) mmol/L BUN (9-20) mg/dL Creatinine (0.66-1.25) mg/dL POC Glucose (mg/dL) 110 H (75-99) mg/dL Microbiology - Last 24 Hours (Table) 03/30/18 15:00 Blood Culture - Final Blood No Growth after 144 hours 04/01/18 11:09 Blood Culture - Preliminary Blood No Growth after 96 hours 04/01/18 11:01 Blood Culture - Preliminary Blood No Growth after 96 hours Laboratory Results WBC 5.4 k/uL (3.8-10.6) 04/05/18 10:51 RBC 3.45 m/uL (4.30-5.90) L 04/05/18 10:51 Hgb 10.9 gm/dL (13.0-17.5) L 04/05/18 10:51 Hct 35.5 % (39.0-53.0) L 04/05/18 10:51 MCV 102.9 fL (80.0-100.0) H 04/05/18 10:51 MCH 31.4 pg (25.0-35.0) 04/05/18 10:51 MCHC 30.6 g/dL (31.0-37.0) L 04/05/18 10:51 RDW 14.5 % (11.5-15.5) 04/05/18 10:51 Plt Count 84 k/uL (150-450) L 04/05/18 10:51 Neutrophils % 87 % 04/05/18 10:51 Lymphocytes % 5 % 04/05/18 10:51 Monocytes % 5 % 04/05/18 10:51 Eosinophils % 1 % 04/05/18 10:51 Basophils % 0 % 04/05/18 10:51 Neutrophils # 4.7 k/uL (1.3-7.7) 04/05/18 10:51 Lymphocytes # 0.3 k/uL (1.0-4.8) L 04/05/18 10:51 Monocytes # 0.3 k/uL (0-1.0) 04/05/18 10:51 Eosinophils # 0.1 k/uL (0-0.7) 04/05/18 10:51 Basophils # 0.0 k/uL (0-0.2) 04/05/18 10:51 Manual Slide Review Performed 03/30/18 09:33 Large Platelets Present 03/30/18 09:33 Hypochromasia Marked 04/05/18 10:51 Macrocytosis Slight 04/05/18 10:51 PT 11.6 sec (9.0-12.0) 03/30/18 09:33 INR 1.1 (<1.2) 03/30/18 09:33 APTT 25.3 sec (22.0-30.0) 03/30/18 09:33 Sample Site rrad 04/03/18 07:15 ABG pH 7.31 (7.35-7.45) L 04/03/18 07:15 ABG pCO2 69 mmHg (35-45) H 04/03/18 07:15 ABG pO2 51 mmHg (83-108) L* 04/03/18 07:15 ABG HCO3 35 mmol/L (21-25) H 04/03/18 07:15 ABG Total CO2 37 mmol/L (19-24) H 04/03/18 07:15 ABG O2 Saturation 82.8 % (94-97) L 04/03/18 07:15 ABG Base Excess 9.0 mmol/L 04/03/18 07:15 John Test Yes 04/03/18 07:15 FiO2 40 % 04/03/18 07:15 Sodium 142 mmol/L (137-145) 04/05/18 10:51 Potassium 4.4 mmol/L (3.5-5.1) 04/05/18 10:51 Chloride 100 mmol/L (98-107) 04/05/18 10:51 Carbon Dioxide 39 mmol/L (22-30) H 04/05/18 10:51 Anion Gap 3 mmol/L 04/05/18 10:51 BUN 45 mg/dL (9-20) H 04/05/18 10:51 Creatinine 1.42 mg/dL (0.66-1.25) H 04/05/18 10:51 Est GFR (CKD-EPI)AfAm 53 (>60 ml/min/1.73 sqM) 04/05/18 10:51 Est GFR (CKD-EPI)NonAf 46 (>60 ml/min/1.73 sqM) 04/05/18 10:51 Glucose 85 mg/dL (74-99) 04/05/18 10:51 POC Glucose (mg/dL) 110 mg/dL (75-99) H 04/05/18 12:05 POC Glu Candy Puller ID Lynda Toth 04/05/18 12:[address] Glu mg/dL 134 03/31/18 05:39 Hemoglobin A1c 6.3 % (4.0-6.0) H 03/31/18 05:39 Calcium 9.0 mg/dL (8.4-10.2) 04/05/18 10:51 Magnesium 2.7 mg/dL (1.6-2.3) H 04/01/18 05:33 Total Bilirubin 0.6 mg/dL (0.2-1.3) 03/31/18 14:23 AST 18 U/L (17-59) 03/31/18 14:23 ALT 20 U/L (21-72) L 03/31/18 14:23 Alkaline Phosphatase 76 U/L (38-126) 03/31/18 14:23 Total Creatine Kinase 43 U/L (55-170) L 03/30/18 09:33 CK-MB (CK-2) 1.8 ng/mL (0.0-2.4) 03/30/18 09:33 CK-MB (CK-2) Rel Index 4.2 03/30/18 09:33 Troponin I 0.071 ng/mL (0.000-0.034) H* 03/30/18 09:33 NT-Pro-B Natriuret Pep 5850 pg/mL 04/04/18 06:05 Total Protein 6.4 g/dL (6.3-8.2) 03/31/18 14:23 Albumin 3.7 g/dL (3.5-5.0) 03/31/18 14:23 Microbiology 03/30/18 15:00 Blood Blood Culture - Final No Growth after 144 hours 04/01/18 11:09 Blood Blood Culture - Preliminary No Growth after 96 hours 04/01/18 11:01 Blood Blood Culture - Preliminary No Growth after 96 hours 03/30/18 13:02 Blood Blood Culture Gram Stain - Final 03/30/18 13:02 Blood Blood Culture - Final Alpha Hemolytic Streptococcus Diphtheroid species Micrococcus species 03/30/18 13:02 Blood Blood Culture - Final Assessment and Plan (1) Acute exacerbation of chronic obstructive airways disease Status: Acute Code(s): J44.1 - CHRONIC OBSTRUCTIVE PULMONARY DISEASE W (ACUTE ) EXACERBATION SNOMED Code(s): 353898824 (2) Gram-positive bacteremia Narrative/Plan: 82-year-old male presents to Hospital feeling very poorly. Is evidence of an acute exacerbation of underlying COPD. There was evidence of positive blood cultures however there polymicrobial and there is a diphtheroid species present which makes contamination highly likely. Patient clinically is rapidly improving with treatment of his underlying pulmonary disease. Cultures are in process also the sputum which will further help direct antimicrobial therapy as he improves. Does appear that his acute kidney injury starting to improve, will monitor values on Zosyn therapy. 04/04/2018 patient is having some improvement this and feel considerably better. It appears the blood cultures are contamination and will not need any ongoing long-term treatment. We'll need completion of antibiotic therapy with exacerbation of his COPD and ongoing treatment for his COPD. 04/05/2018 patient's improved will be transitioned out of hospital today. Blood culture contamination does not require intravenous antibiotic therapy in the exacerbation of COPD will be treated with oral outpatient antibiotic therapy with azithromycin to complete his course of therapy over the next 3 days. Improved. Follow with pulmonary. Status: Acute Code(s): R78.81 - BACTEREMIA SNOMED Code(s): 237283611172
== END 2018-04-05 15:35 | DRG 190 ==
LOC: EC 09:01 → 3SCARD 11:29 → 4MS4W 04-04 14:59
PROVIDERS: ADMIT Internal Medicine; ATTEND Internal Medicine
DX: J44.1 Chronic obstructive pulmonary disease with (acute) exacerbation (principal); J18.9 Pneumonia, unspecified organism; J96.21 Acute and chronic respiratory failure with hypoxia; J96.22 Acute and chronic respiratory failure with hypercapnia; I50.23 Acute on chronic systolic (congestive) heart failure; E87.2 Acidosis; I13.0 Hypertensive heart and chronic kidney disease with heart failure and stage 1 through stage 4 chronic kidney disease, or unspecified chronic kidney disease; N17.9 Acute kidney failure, unspecified; J44.0 Chronic obstructive pulmonary disease with (acute) lower respiratory infection; D63.1 Anemia in chronic kidney disease; E11.22 Type 2 diabetes mellitus with diabetic chronic kidney disease; E11.41 Type 2 diabetes mellitus with diabetic mononeuropathy; E66.9 Obesity, unspecified; E78.5 Hyperlipidemia, unspecified; G47.33 Obstructive sleep apnea (adult) (pediatric); I25.10 Atherosclerotic heart disease of native coronary artery without angina pectoris; I25.2 Old myocardial infarction; I27.29 Other secondary pulmonary hypertension; I48.2 Chronic atrial fibrillation; I87.2 Venous insufficiency (chronic) (peripheral); I87.8 Other specified disorders of veins; J98.6 Disorders of diaphragm; K21.9 Gastro-esophageal reflux disease without esophagitis; N18.2 Chronic kidney disease, stage 2 (mild); M19.90 Unspecified osteoarthritis, unspecified site; N42.9 Disorder of prostate, unspecified; E11.51 Type 2 diabetes mellitus with diabetic peripheral angiopathy without gangrene; R32 Unspecified urinary incontinence; Z68.33 Body mass index [BMI] 33.0-33.9, adult; Z79.01 Long term (current) use of anticoagulants; Z79.1 Long term (current) use of non-steroidal anti-inflammatories (NSAID); Z79.4 Long term (current) use of insulin; Z79.82 Long term (current) use of aspirin; Z79.899 Other long term (current) drug therapy; Z87.891 Personal history of nicotine dependence; Z89.412 Acquired absence of left great toe; Z96.611 Presence of right artificial shoulder joint; Z96.651 Presence of right artificial knee joint; Z99.81 Dependence on supplemental oxygen; Z88.1 Allergy status to other antibiotic agents; Z88.8 Allergy status to other drugs, medicaments and biological substances; Z90.49 Acquired absence of other specified parts of digestive tract; Z98.42 Cataract extraction status, left eye; Z96.1 Presence of intraocular lens; Z83.3 Family history of diabetes mellitus; Z82.49 Family history of ischemic heart disease and other diseases of the circulatory system; Z80.0 Family history of malignant neoplasm of digestive organs; Z81.1 Family history of alcohol abuse and dependence
CPT/HCPCS: 36415; 36600; 70450; 71045; 71046; 76604; 80048; 80053; 82550; 82553; 82805; 83036; 83735; 83880; 84484; 85025; 85610; 85730; 87040; 87070; 87150; 87205; 93005; 94640; 94660; 94760; 96365; 96366; 96375; 96376; 99285

== ENCOUNTER 2018-11-12 06:00 | Inpatient (IN) | payer MEDICARE ==
[2018-11-12] MEDS ORDERED: SODIUM CHLORIDE 0.9% 1,000 ML IV STA ×2 (06:06)
[2018-11-12 06:12] LABS: Glucose,Whole Blood 259 mg/dL (75-99)
--- NOTE | 2018-11-12 06:31 | XR ---
EXAM: XR Chest, 1 View CLINICAL HISTORY: ITS.REASON XR Reason: Pain TECHNIQUE: Frontal view of the chest. COMPARISON: 04/03/18 IMPRESSION: Cardiomegaly with severe opacification of the right lung, possibly infection or edema. Moderate right pleural effusion. ET tube terminates 3.5 cm from the leidy.
[2018-11-12 06:35] LABS: Anisocytosis Slight; Basophils # (A) 0.1 k/uL (0-0.2); Basophils % (A) 1 %; Eosinophils # (A) 0.3 k/uL (0-0.7); Eosinophils % (A) 3 %; HCT 38.9 % (39.0-53.0); HGB 11.4 gm/dL (13.0-17.5); Hypochromasia Marked; Lymphocytes # (A) 2.1 k/uL (1.0-4.8); Lymphocytes % (A) 26 %; MCH 30.9 pg (25.0-35.0); MCHC 29.3 g/dL (31.0-37.0); MCV 105.5 fL (80.0-100.0); Macrocytosis Moderate; Mean Platelet Volume 9.2; Monocytes # (A) 0.5 k/uL (0-1.0); Monocytes % (A) 6 %; Neutrophils # (A) 5.1 k/uL (1.3-7.7); Neutrophils % (A) 61 %; Platelet Count 155 k/uL (150-450); RBC 3.68 m/uL (4.30-5.90); RDW 16.3 % (11.5-15.5); WBC 8.3 k/uL (3.8-10.6)
--- NOTE | 2018-11-12 06:37 | ED ---
CPR HPI - General Chief Complaint: Cardiac Arrest/CPR Stated Complaint: Unresponsive Time Seen by Provider: 11/12/18 06:05 Source: EMS, RN notes reviewed, old records reviewed Mode of arrival: EMS Limitations: no limitations - History of Present Illness Initial Comments: This is an 81-year-old male the ER for evaluation. Patient sent unable to history secondary severe clinical condition. History obtained by EMS which is also tender over from patient's , found patient unresponsive this morning thought it may be his blood sugar his blood sugar was not low he remained unresponsive unknown how long this was going on for. Patient's brought in by EMS who did start CPR and elevate prior to arrival, later will return spontaneous circulation prior to arrival. Patient has a long and extensive significant medical history. MD Complaint: found unresponsive -: unknown Place: home Bystander CPR Performed: No AED Applied by Bystander/Java Portal Developer: Yes Shock Advised: No Initial Findings in the Field: unresponsive, no pulse, PEA ROSC in the Field: Yes Associated Injuries: No Treatments Prior to Arrival: intubation, chest compressions, epinephrine mgs # - Related Data Home Medications Medication Instructions Recorded Confirmed Aspirin 81 mg PO DAILY 02/18/14 03/30/18 INSULIN LISPRO (humaLOG) [humaLOG] See Protocol SQ ACHS PRN 05/18/15 03/30/18 Ipratropium Nebulized [Atrovent 0.5 mg INHALATION RT-QID PRN 05/18/15 03/30/18 Nebulized 0.2 MG/ML] Levalbuterol Nebulized [Xopenex 1.25 mg INHALATION RT-QID PRN 05/18/15 03/30/18 Nebulized] Cholecalciferol [Vitamin D3 (25 5,000 unit PO DAILY 07/29/15 03/30/18 Mcg = 1000 Iu)] Ferrous Sulfate [Iron (65 MG 325 mg PO DAILY 07/29/15 03/30/18 Elemental)] Glucosamine Sulfate 500 mg PO DAILY 07/29/15 03/30/18 Multivitamins, Thera [Multivitamin 1 tab PO DAILY 07/29/15 03/30/18 (formulary)] Niacinamide [Niacin] 500 mg PO DAILY 07/29/15 03/30/18 [place]-3 Fatty Acids/Fish Oil [Fish 1 cap PO DAILY 07/29/15 03/30/18 Oil 1,000 mg Softgel] Atenolol [Tenormin] 100 mg PO BID 08/25/15 03/30/18 Losartan [Cozaar] 25 mg PO DAILY 10/24/16 03/30/18 Pravastatin Sodium [Pravachol] 80 mg PO HS 10/24/16 03/30/18 Calcium Carbonate [Calcium] 600 mg PO DAILY 03/30/18 03/30/18 Cetirizine HCl [Zyrtec] 10 mg PO DAILY 03/30/18 03/30/18 Cyanocobalamin (Vitamin B-12) 1,000 mcg PO DAILY 03/30/18 03/30/18 [Vitamin B-12] Escitalopram [Lexapro] 10 mg PO DAILY 03/30/18 03/30/18 Folic Acid 0.8 mg PO DAILY 03/30/18 03/30/18 Loperamide HCl [Imodium A-D] 2 mg PO Q6H 03/30/18 03/30/18 Lysine [l-Lysine] 500 mg PO DAILY 03/30/18 03/30/18 Oxybutynin Chloride [Ditropan] 5 mg PO BID 03/30/18 03/30/18 Potassium 595mg 595 mg PO DAILY 03/30/18 03/30/18 Ranitidine HCl [Zantac] 150 mg PO BID 03/30/18 03/30/18 Sennosides-Docusate Sodium 1 tab PO DAILY 03/30/18 03/30/18 [Senokot-S] Turmeric Root Extract [Turmeric] 500 mg PO DAILY 03/30/18 03/30/18 Vitamin E 1,000 unit PO DAILY 03/30/18 03/30/18 Previous Rx's Medication Instructions Recorded Apixaban [Eliquis] 2.5 mg PO BID #0 09/06/15 Azithromycin [Zithromax] 500 mg PO DAILY #3 tab 04/05/18 Budesonide [Pulmicort] 1 mg INHALATION RT-BID nebu 04/05/18 Furosemide [Lasix] 40 mg PO DAILY tab 04/05/18 Gabapentin [Neurontin] 300 mg PO HS cap 04/05/18 HYDROcodone/APAP 5-325MG [[place] 1 tab PO Q8HR PRN #9 tab 04/05/18 5-325] INSULIN ASPART (NovoLOG) [NovoLOG 5 unit SQ AC-TID vial 04/05/18 (formulary)] predniSONE 0 mg PO DIRECTED #30 tab 04/05/18 Allergies Allergy/AdvReac Type Severity Reaction Status Date / Time levofloxacin Allergy Itching Verified 11/12/18 07:30 celecoxib [From Celebrex] AdvReac "hard Verified 11/12/18 07:30 muscle" ibuprofen AdvReac "bloody Verified 11/12/18 07:30 urine" Review of Systems ROS Statement: Those systems with pertinent positive or pertinent negative responses have been documented in the HPI. ROS Other: All systems not noted in ROS Statement are negative. 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, diabetes mellitus, chronic atrial fibrillation, coronary artery disease, COPD, hyperlipidemia, hypertension, recent hospitalization in October 2016 for a right-sided pneumothorax requiring chest tube insertion, left lower extremity wound/stasis ulcers Last Myocardial Infarction Date:: 27 years ago History of Any Multi-Drug Resistant Organisms: None Reported Past Surgical History: Appendectomy, Back Surgery, Cholecystectomy, Orthopedic Surgery Additional Past Surgical History / Comment(s): pilonidal cyst, brain anuerysm 1 clipping, right knee replacement, right shoulder replacement, LT CATARACT, SKIN GRAFT FROM RT THIGH TO RT FINGER, RASHEED 10 years ago, PFO against ASD, last colonoscopy greater than 5 years, 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 Past Anesthesia/Blood Transfusion Reactions: No Reported Reaction Past Psychological History: No Psychological Hx Reported Smoking Status: Former smoker Past Alcohol Use History: None Reported Past Drug Use History: None Reported - Past Family History Father Family Medical History: Diabetes Mellitus, Myocardial Infarction ([place]) Additional Family Medical History / Comment(s): Father at age 55 with history of diabetes and alcoholism. Mother Family Medical History: Cancer, Myocardial Infarction ([place]) Additional Family Medical History / Comment(s): Mother at age 62 from rectal cancer. Brother(s) Additional Family Medical History / Comment(s): Patient had 3 brothers. One in a work related accident. One after having an AK with history of renal problems. Sister(s) Additional Family Medical History / Comment(s): Patient has 2 sisters. One is alive. One has after gallbladder ruptured. Patient has 3 boys and one girl with no major medical problems. General Exam Limitations: altered mental status, physical limitation General appearance: obtunded, in distress Head exam: Present: atraumatic, normocephalic, normal inspection Eye exam: Present: normal appearance, PERRL, EOMI. Absent: scleral icterus, conjunctival injection, periorbital swelling ENT exam: Present: normal exam, mucous membranes moist Neck exam: Present: normal inspection. Absent: tenderness, meningismus, lymphadenopathy Respiratory exam: Present: respiratory distress, wheezes, rales, accessory muscle use, decreased breath sounds, prolonged expiratory. Absent: rhonchi, stridor Cardiovascular Exam: Present: tachycardia, irregular rhythm, normal heart sounds. Absent: systolic murmur, diastolic murmur, rubs, gallop, clicks GI/Abdominal exam: Present: soft, normal bowel sounds. Absent: distended, tenderness, guarding, rebound, rigid Extremities exam: Present: normal inspection, full ROM, normal capillary refill. Absent: tenderness, pedal edema, joint swelling, calf tenderness Back exam: Present: normal inspection Neurological exam: Present: altered Skin exam: Present: warm, dry, intact, normal color. Absent: rash Course Vital Signs 11/12/18 11/12/18 11/12/18 06:02 06:21 06:31 Temperature 98.0 F Pulse Rate 128 H 98 95 Respiratory 12 14 14 Rate Blood Pressure 131/91 125/67 85/46 O2 Sat by Pulse 100 77 L 79 L Oximetry 11/12/18 11/12/18 11/12/18 06:36 06:37 06:47 Temperature Pulse Rate 96 93 105 H Respiratory 14 14 14 Rate Blood Pressure 71/37 67/40 97/61 O2 Sat by Pulse 100 97 90 L Oximetry 11/12/18 11/12/18 06:57 07:10 Temperature Pulse Rate 112 H 95 Respiratory 14 15 Rate Blood Pressure 138/73 159/85 O2 Sat by Pulse 84 L 87 L Oximetry - Reevaluation(s) Reevaluation #1: 11/12/18 06:34 Medical records reviewed Reevaluation #2: 11/12/18 06:34 at bedside has no paperwork was states patient does not want to be CPR, does not want any further CPR if indicated Medical Decision Making - Medical Decision Making The ninth 19-year-old male the ER for evaluation patient brought elevated cardiac arrest likely hypoxic arrest secondary severe CHF and pulmonary edema suspect underlying pneumonia will start antibiotics, patient to be admitted ICU he is elevated on pressors, difficult to maintain pulse ox currently, oxygen some 80s despite 100% with PEEP of 12 currently. Spoke with family at length regarding patient's grave prognosis he understands questions are answered. They would like no further CPR and discontinue current treatment - Lab Data Result diagrams: 11/12/18 06:11 11/12/18 06:11 Lab Results 11/12/18 11/12/18 11/12/18 Range/Units 06:09 06:11 06:11 WBC (3.8-10.6) k/uL RBC (4.30-5.90) m/uL Hgb (13.0-17.5) gm/dL Hct (39.0-53.0) % MCV (80.0-100.0) fL MCH (25.0-35.0) pg MCHC (31.0-37.0) g/dL RDW (11.5-15.5) % Plt Count (150-450) k/uL Neutrophils % % Lymphocytes % % Monocytes % % Eosinophils % % Basophils % % Neutrophils # (1.3-7.7) k/uL Lymphocytes # (1.0-4.8) k/uL Monocytes # (0-1.0) k/uL Eosinophils # (0-0.7) k/uL Basophils # (0-0.2) k/uL Hypochromasia Anisocytosis Macrocytosis PT (9.0-12.0) sec INR (<1.2) APTT (22.0-30.0) sec VBG pH 7.22 L (7.31-7.41) VBG pCO2 64 H (37-51) mmHg VBG HCO3 25 (24-28) mmol/L Sodium 140 (137-145) mmol/L Potassium 4.1 (3.5-5.1) mmol/L Chloride 99 (98-107) mmol/L Carbon Dioxide 26 (22-30) mmol/L Anion Gap 15 mmol/L BUN 56 H (9-20) mg/dL Creatinine 1.64 H (0.66-1.25) mg/dL Est GFR (CKD-EPI)AfAm 44 (>60 ml/min/1.73 sqM) Est GFR (CKD-EPI)NonAf 38 (>60 ml/min/1.73 sqM) Glucose 274 H (74-99) mg/dL POC Glucose (mg/dL) 259 H (75-99) mg/dL POC Glu Certified Alcohol And Drug Counselor ID Ramonita Melendrez Calcium 8.2 L (8.4-10.2) mg/dL Phosphorus 4.9 H (2.5-4.5) mg/dL Magnesium 2.6 H (1.6-2.3) mg/dL Total Bilirubin 0.4 (0.2-1.3) mg/dL AST 28 (17-59) U/L ALT 18 L (21-72) U/L Alkaline Phosphatase 124 (38-126) U/L Creatine Kinase 45 L (55-170) U/L NT-Pro-B Natriuret Pep pg/mL Total Protein 6.4 (6.3-8.2) g/dL Albumin 3.6 (3.5-5.0) g/dL Urine Color Urine Appearance (Clear) Urine pH (5.0-8.0) Ur Specific [place] (1.001-1.035) Urine Protein (Negative) Urine Glucose (UA) (Negative) Urine Ketones (Negative) Urine Blood (Negative) Urine Nitrite (Negative) Urine Bilirubin (Negative) Urine Urobilinogen (<2.0) mg/dL Ur Leukocyte Esterase (Negative) Urine WBC (0-5) /hpf Amorphous Sediment (None) /hpf Urine Mucus (None) /hpf Acetone, Qual Negative (Negative) 11/12/18 11/12/18 11/12/18 Range/Units 06:11 06:11 06:11 WBC 8.3 (3.8-10.6) k/uL RBC 3.68 L (4.30-5.90) m/uL Hgb 11.4 L (13.0-17.5) gm/dL Hct 38.9 L (39.0-53.0) % MCV 105.5 H (80.0-100.0) fL MCH 30.9 (25.0-35.0) pg MCHC 29.3 L (31.0-37.0) g/dL RDW 16.3 H (11.5-15.5) % Plt Count 155 (150-450) k/uL Neutrophils % 61 % Lymphocytes % 26 % Monocytes % 6 % Eosinophils % 3 % Basophils % 1 % Neutrophils # 5.1 (1.3-7.7) k/uL Lymphocytes # 2.1 (1.0-4.8) k/uL Monocytes # 0.5 (0-1.0) k/uL Eosinophils # 0.3 (0-0.7) k/uL Basophils # 0.1 (0-0.2) k/uL Hypochromasia Marked Anisocytosis Slight Macrocytosis Moderate PT 13.1 H (9.0-12.0) sec INR 1.3 H (<1.2) APTT 27.4 (22.0-30.0) sec VBG pH (7.31-7.41) VBG pCO2 (37-51) mmHg VBG HCO3 (24-28) mmol/L Sodium (137-145) mmol/L Potassium (3.5-5.1) mmol/L Chloride (98-107) mmol/L Carbon Dioxide (22-30) mmol/L Anion Gap mmol/L BUN (9-20) mg/dL Creatinine (0.66-1.25) mg/dL Est GFR (CKD-EPI)AfAm (>60 ml/min/1.73 sqM) Est GFR (CKD-EPI)NonAf (>60 ml/min/1.73 sqM) Glucose (74-99) mg/dL POC Glucose (mg/dL) (75-99) mg/dL POC Glu Certified Alcohol And Drug Counselor ID Calcium (8.4-10.2) mg/dL Phosphorus (2.5-4.5) mg/dL Magnesium (1.6-2.3) mg/dL Total Bilirubin (0.2-1.3) mg/dL AST (17-59) U/L ALT (21-72) U/L Alkaline Phosphatase (38-126) U/L Creatine Kinase (55-170) U/L NT-Pro-B Natriuret Pep 39513 pg/mL Total Protein (6.3-8.2) g/dL Albumin (3.5-5.0) g/dL Urine Color Urine Appearance (Clear) Urine pH (5.0-8.0) Ur Specific [place] (1.001-1.035) Urine Protein (Negative) Urine Glucose (UA) (Negative) Urine Ketones (Negative) Urine Blood (Negative) Urine Nitrite (Negative) Urine Bilirubin (Negative) Urine Urobilinogen (<2.0) mg/dL Ur Leukocyte Esterase (Negative) Urine WBC (0-5) /hpf Amorphous Sediment (None) /hpf Urine Mucus (None) /hpf Acetone, Qual (Negative) 11/12/18 Range/Units 06:40 WBC (3.8-10.6) k/uL RBC (4.30-5.90) m/uL Hgb (13.0-17.5) gm/dL Hct (39.0-53.0) % MCV (80.0-100.0) fL MCH (25.0-35.0) pg MCHC (31.0-37.0) g/dL RDW (11.5-15.5) % Plt Count (150-450) k/uL Neutrophils % % Lymphocytes % % Monocytes % % Eosinophils % % Basophils % % Neutrophils # (1.3-7.7) k/uL Lymphocytes # (1.0-4.8) k/uL Monocytes # (0-1.0) k/uL Eosinophils # (0-0.7) k/uL Basophils # (0-0.2) k/uL Hypochromasia Anisocytosis Macrocytosis PT (9.0-12.0) sec INR (<1.2) APTT (22.0-30.0) sec VBG pH (7.31-7.41) VBG pCO2 (37-51) mmHg VBG HCO3 (24-28) mmol/L Sodium (137-145) mmol/L Potassium (3.5-5.1) mmol/L Chloride (98-107) mmol/L Carbon Dioxide (22-30) mmol/L Anion Gap mmol/L BUN (9-20) mg/dL Creatinine (0.66-1.25) mg/dL Est GFR (CKD-EPI)AfAm (>60 ml/min/1.73 sqM) Est GFR (CKD-EPI)NonAf (>60 ml/min/1.73 sqM) Glucose (74-99) mg/dL POC Glucose (mg/dL) (75-99) mg/dL POC Glu Certified Alcohol And Drug Counselor ID Calcium (8.4-10.2) mg/dL Phosphorus (2.5-4.5) mg/dL Magnesium (1.6-2.3) mg/dL Total Bilirubin (0.2-1.3) mg/dL AST (17-59) U/L ALT (21-72) U/L Alkaline Phosphatase (38-126) U/L Creatine Kinase (55-170) U/L NT-Pro-B Natriuret Pep pg/mL Total Protein (6.3-8.2) g/dL Albumin (3.5-5.0) g/dL Urine Color Yellow Urine Appearance Cloudy (Clear) Urine pH 5.0 (5.0-8.0) Ur Specific [place] 1.017 (1.001-1.035) Urine Protein Trace H (Negative) Urine Glucose (UA) Negative (Negative) Urine Ketones Negative (Negative) Urine Blood Negative (Negative) Urine Nitrite Negative (Negative) Urine Bilirubin Negative (Negative) Urine Urobilinogen 2.0 (<2.0) mg/dL Ur Leukocyte Esterase Negative (Negative) Urine WBC <1 (0-5) /hpf Amorphous Sediment Rare H (None) /hpf Urine Mucus Rare H (None) /hpf Acetone, Qual (Negative) - EKG Data -: EKG Interpreted by Me (EKG shows a rhythm undetermined rate of 122, QRS 164, QTC 570) - Radiology Data Radiology results: report reviewed (Chest x-ray shows significant pulmonary edema right-sided pleural effusion), image reviewed Critical Care Time Critical Care Time: Yes Total Critical Care Time: 65 Disposition Clinical Impression: Acute respiratory failure, Cardiac arrest, Hypoxia, CHF (congestive heart failure), Pulmonary edema, Nosocomial pneumonia Disposition: ADMITTED IP TO THIS [facility] Condition: Critical Is patient prescribed a controlled substance at d/c from ED?: No Referrals: Divina Batista MD [Primary Care Provider] - 1-2 days
[2018-11-12] MEDS ORDERED: NOREPINEPHRINE 4 MG in SODIUM CHLORIDE 0.9% 250 ML IV ONE (06:41)
[2018-11-12 06:44] LABS: INR 1.3 (<1.2); Partial Thromboplastin Time 27.4 sec (22.0-30.0); Prothrombin Time 13.1 sec (9.0-12.0)
[2018-11-12 06:57] LABS: VBG PH 7.22 (7.31-7.41)
[2018-11-12 07:07] LABS: Amorphous Sediment,Urine Rare /hpf; Appearance,Urine Cloudy (Clear); Bilirubin,Urine Negative (Negative); Blood,Urine Negative (Negative); Color,Urine Yellow; Glucose,Urine (UA) Negative (Negative); Ketones,Urine Negative (Negative); Leukocyte Esterase,Urine Negative (Negative); Mucus,Urine Rare /hpf; Nitrite,Urine Negative (Negative); Protein,Urine Trace (Negative); Specific Gravity,Urine 1.017 (1.001-1.035); WBC,Urine <1 /hpf (0-5)
[2018-11-12] MEDS ORDERED: NALOXONE 0.4 MG/ML 1 ML VIAL IV PRN (07:09)
[2018-11-12] MEDS ORDERED: PIPERACILLIN-TAZOBACTAM 3.375 GM in SODIUM CHLORIDE 0.9% 100 ML IVPB STA (07:15)
[2018-11-12 07:17] LABS: ALT 18 U/L (21-72); AST 28 U/L (17-59); African American GFR (CKD) 44 (>60 ml/min/1.73 sqM); Albumin 3.6 g/dL (3.5-5.0); Alkaline Phosphatase 124 U/L (38-126); Anion Gap 15 mmol/L; Blood Urea Nitrogen 56 mg/dL (9-20); Calcium 8.2 mg/dL (8.4-10.2); Carbon Dioxide 26 mmol/L (22-30); Chloride 99 mmol/L (98-107); Creatine Kinase 45 U/L (55-170); Glucose 274 mg/dL (74-99); Magnesium 2.6 mg/dL (1.6-2.3); Phosphorus 4.9 mg/dL (2.5-4.5); Potassium 4.1 mmol/L (3.5-5.1); Sodium 140 mmol/L (137-145); Total Bilirubin 0.4 mg/dL (0.2-1.3); Total Protein 6.4 g/dL (6.3-8.2)
[2018-11-12] MEDS ORDERED: IPRATROPIUM 0.5 MG/2.5 ML NEBU INHALATION STA (07:29)
[2018-11-12] MEDS ORDERED: ALBUTEROL NEBULIZED 2.5 MG/3 ML INHALATION STA (07:29)
[2018-11-12 07:40] LABS: Lactic Acid, Venous 6.7 mmol/L (0.7-2.0)
[2018-11-12] MEDS ORDERED: MIDAZOLAM (PF) 2 MG/2 ML VIAL IV STA (07:43)
[2018-11-12] MEDS: HYDROCORTISONE SUCCINATE 100 MG/2 ML VIAL IV SCH ×2 (07:52→16:18)
[2018-11-12] MEDS: SODIUM CHLORIDE 0.9% 1,000 ML IV SCH ×3 (07:53→21:51)
[2018-11-12] MEDS ORDERED: IPRATROPIUM-ALBUTEROL 3 ML NEB INHALATION SCH (08:00)
[2018-11-12 09:20] LABS: Glucose,Whole Blood 214 mg/dL (75-99)
[2018-11-12] MEDS ORDERED: IPRATROPIUM-ALBUTEROL 3 ML NEB INHALATION PRN (09:27)
--- NOTE | 2018-11-12 09:28 | P.CNPUL ---
History of Present Illness Consult date: 11/12/18 Chief complaint: Cardiac arrest History of present illness: 81-year-old male patient, presented to the ED following a cardiac arrest. The patient was found unresponsive by the . Apparently they sleep in separate bedrooms. She came final unresponsive and cardiac arrest. EMS was called to the scene and the patient was intubated in the field. He received CPR. He received ephedrine and within 3 minutes of resuscitation there was return of spontaneous circulation. The exact downtime was not clear. Initial rhythm was PEA. In the ED, the patient had a chest x-ray that showed massive cardiomegaly and pulmonary edema and bilateral pleural effusion. The patient is currently unresponsive and he is having myoclonic jerks. Pupils are equal and reactive around 2 mm in size. He is on pressors and norepinephrine infusion is running a t 10 mics. His cardiac rhythm is atrial fibrillation and he has no urine output. The lactic acid level at time of admission was 6.7. BNP level is 14,400 and the troponin is at 0.028. Underlying cardiac rhythm is wide complex right axis the [facility] should on the right bundle branch block pattern with an underlying it showed fibrillation. Rate is somewhere between 100 and 120. Does have chronic wounds in the lower extremities bilaterally. Remains on a mechanical ventilator. Currently is an assist-control mode at the rate of 14 with tidal volume of 500 and FiO2 of 100% with a PEEP of 5. There is a venous blood gas and an arterial blood gases not been done yet. Pulse ox on the monitor is 89%. He was sent over without a CAT scan of the brain. His body temperature is 97. He has chronic wounds and lower extremities including also myelitis of the first metatarsal and he is post and position of the left great toe and removal of the head of the metatarsal and he was also treated for MSSA and pseudomonal infection and he has had previous pseudomonal bacteremia back in 2016. He had history of right toe osteomyelitis at that time. His last admission of March 2018, he had streptococcal septicemia that was attributed to pneumonia from which she recovered. 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 He had a right ventricular systolic pressure estimated to be 82. Last Myocardial Infarction Date:: 27 years ago History of Any Multi-Drug Resistant Organisms: None Reported Past Surgical History: Appendectomy, Back Surgery, Cholecystectomy, Orthopedic Surgery Additional Past Surgical History / Comment(s): pilonidal cyst, brain anuerysm 1 clipping, right knee replacement, right shoulder replacement, LT CATARACT, SKIN GRAFT FROM RT THIGH TO RT FINGER, RASHEED 10 years ago, PFO against ASD, last colonoscopy greater than 5 years, left great toe amputation july 2015, PICC li ne placement and removal for Pseudomonas bacteremia, PICC line placement for osteomyelitis, right-sided chest tube insertion and removal for pneumothorax. Past Anesthesia/Blood Transfusion Reactions: No Reported Reaction Past Psychological History: No Psychological Hx Reported Smoking Status: Former smoker Past Alcohol Use History: None Reported Past Drug Use History: None Reported - Past Family History Father Family Medical History: Diabetes Mellitus, Myocardial Infarction ([place]) Additional Family Medical History / Comment(s): Father at age 55 with history of diabetes and alcoholism. Mother Family Medical History: Cancer, Myocardial Infarction ([place]) Additional Family Medical History / Comment(s): Mother at age 62 from re ctal cancer. Brother(s) Additional Family Medical History / Comment(s): Patient had 3 brothers. One in a work related accident. One after having an [place] with history of renal problems. Sister(s) Additional Family Medical History / Comment(s): Patient has 2 sisters. One is alive. One has after gallbladder ruptured. Patient has 3 boys and one girl with no major medical problems. Medications and Allergies Home Medications Medication Instructions Recorded Confirmed Type Aspirin 81 mg PO DAILY 02/18/14 11/12/18 History INSULIN LISPRO (humaLOG) [humaLOG] See Protocol SQ ACHS PRN 05/18/15 11/12/18 History Ipratropium Nebulized [Atrovent 0.5 mg INHALATION RT-QID PRN 05/18/15 11/12/18 History Nebulized 0.2 MG/ML] Levalbuterol Nebulized [Xopenex 1.25 mg INHALATION RT-QID PRN 05/18/15 11/12/18 History Nebulized] Cholecalciferol [Vitamin D3 (25 5,000 unit PO DAILY 07/29/15 11/12/18 History Mcg = 1000 Iu)] Ferrous Sulfate [Iron (65 MG 325 mg PO DAILY 07/29/15 11/12/18 History Elemental)] Glucosamine Sulfate 500 mg PO DAILY 07/29/15 11/12/18 History Multivitamins, Thera [Multivitamin 1 tab PO DAILY 07/29/15 11/12/18 History (formulary)] Niacinamide [Niacin] 500 mg PO DAILY 07/29/15 11/12/18 History [place]-3 Fatty Acids/Fish Oil [Fish 1 cap PO DAILY 07/29/15 11/12/18 History Oil 1,000 mg Softgel] Atenolol [Tenormin] 100 mg PO BID 08/25/15 11/12/18 History Apixaban [Eliquis] 2.5 mg PO BID #0 09/06/15 11/12/18 Rx Losartan [Cozaar] 25 mg PO DAILY 10/24/16 11/12/18 History Pravastatin Sodium [Pravachol] 80 mg PO HS 10/24/16 11/12/18 History Calcium Carbonate [Calcium] 600 mg PO DAILY 03/30/18 11/12/18 History Cetirizine HCl [Zyrtec] 10 mg PO DAILY 03/30/18 11/12/18 History Cyanocobalamin (Vitamin B-12) 1,000 mcg PO DAILY 03/30/18 11/12/18 History [Vitamin B-12] Escitalopram [Lexapro] 10 mg PO DAILY 03/30/18 11/12/18 History Folic Acid 0.8 mg PO DAILY 03/30/18 11/12/18 History Loperamide HCl [Imodium A-D] 2 mg PO Q6H 03/30/18 11/12/18 History Lysine [l-Lysine] 500 mg PO DAILY 03/30/18 11/12/18 History Oxybutynin Chloride [Ditropan] 5 mg PO BID 03/30/18 11/12/18 History Ranitidine HCl [Zantac] 150 mg PO BID 03/30/18 11/12/18 History Sennosides-Docusate Sodium 1 tab PO DAILY 03/30/18 11/12/18 History [Senokot-S] Turmeric Root Extract [Turmeric] 500 mg PO DAILY 03/30/18 11/12/18 History Furosemide [Lasix] 40 mg PO DAILY tab 04/05/18 11/12/18 Rx Gabapentin [Neurontin] 300 mg PO HS cap 04/05/18 11/12/18 Rx HYDROcodone/APAP 5-325MG [[place] 1 tab PO Q8HR PRN #9 tab 04/05/18 11/12/18 Rx 5-325] Albuterol Nebulized [Ventolin 2.5 mg INHALATION RT-Q6H PRN 11/12/18 11/12/18 History Nebulized] Ascorbic Acid [Vitamin C] 1,000 mg PO DAILY 11/12/18 11/12/18 History Bisoprol/Hydrochlorothiazide 1 tab PO DAILY 11/12/18 11/12/18 History [Bisoprolol-Hctz 5-6.25 mg Tab] Budesonide-Formot 160-4.5 Mcg 2 puff INHALATION RT-BID 11/12/18 11/12/18 History [Symbicort 160-4.5 Mcg Inhaler] Insulin NPH Human Isophane 12 unit SQ BID 11/12/18 11/12/18 History [humuLIN N] Meloxicam 15 mg PO DAILY 11/12/18 11/12/18 History Omeprazole Magnesium [PriLOSEC OTC] 20 mg PO DAILY 11/12/18 11/12/18 History Potassium Chloride [K-Tab ER] 20 meq PO DAILY 11/12/18 11/12/18 History Simvastatin 40 mg PO DAILY 11/12/18 11/12/18 History Allergies Allergy/AdvReac Type Severity Reaction Status Date / Time levofloxacin Allergy Itching Verified 11/12/18 07:30 celecoxib [From Celebrex] AdvReac "hard Verified 11/12/18 07:30 muscle" ibuprofen AdvReac "bloody Verified 11/12/18 07:30 urine" Physical Exam Vitals: Vital Signs Temp Pulse Resp BP Pulse Ox 11/12/18 09:08 95 14 122/66 97 11/12/18 08:52 84 11/12/18 08:33 82 11/12/18 08:01 86 14 93/57 93 L 11/12/18 08:00 80 11/12/18 07:59 79 14 89/49 95 11/12/18 07:57 80 14 88/41 93 L 11/12/18 07:44 80 11/12/18 07:40 104 H 14 150/74 80 L 11/12/18 07:35 85 14 98/59 74 L 11/12/18 07:32 89 16 61/37 54 L 11/12/18 07:10 95 15 159/85 87 L 11/12/18 06:57 112 H 14 138/73 84 L 11/12/18 06:47 105 H 14 97/61 90 L 11/12/18 06:37 93 14 67/40 97 11/12/18 06:36 96 14 71/37 100 11/12/18 06:31 95 14 85/46 79 L 11/12/18 06:21 98 14 125/67 77 L 11/12/18 06:02 98.0 F 128 H 12 131/91 100 Intake and Output 11/11/18 11/12/18 11/12/18 22:59 06:59 14:59 Intake Total 17.973 Balance 17.973 Intake: Intake, IV Titration 17.973 Amount Norepinephrine 4 mg In 17.973 Sodium Chloride 0.9% 250 ml @ 0.05 MCG/KG/MIN 20. 738 mls/hr IV .[id number] ONE Rx#:[id number] Other: Weight 108.862 kg Appearance, comfortable unresponsive 6 rest of the mechanical ventilator having rapid myoclonic jerks every couple of minutes. No tonic-clonic activity on inspection. Head exam was generally normal. There was no scleral icterus or corneal arcus. Mucous membranes were moist. Neck was supple and without jugular venous distension, thyromegaly, or carotid bruits. Carotids were easily palpable bilaterally. There was no adenopathy. The patient has a right IJ triple lumen catheter in place. Orogastric and orotracheal tube are both in place. Lungs sounds are diminished bilaterally. Breath sounds equal and symmetrical slightly diminished in the right lung base. No wheezes. No rhonchi. Heart sounds are irregular, positive S1-S2, distant, no significant murmurs lorraine reciated. Abdominal exam revealed normal bowel sounds. The abdomen was soft, non-tender, and without masses, organomegaly, or appreciable enlargement of the abdominal aorta. Extremities revealed diminished pulses in all 4 extremities pressure lower extremity bilaterally. There are chronic wounds in the anterior aspect of the legs bilaterally and there is stage I to 2 wounds with some occasional minimal amount of purulent material covering the base of the wound. Neurologically the patient is unresponsive. Not responsive to any painful stimulation. Pupils are 2 mm in size and symmetrical. No nystagmus. No preferential gaze. No facial asymmetry. Motor and sensory function cannot be assessed. Babinski's are not elicited. No clonus. Reflexes are +1 over 4 in all 4 extremities. As mentioned, there are occasional rapid jerky body movements which I assume are presentation of underlying myoclonic jerks. Skin reveals chronic on the lower extremities bilaterally Results - Laboratory Findings CBC and BMP: 11/12/18 06:11 11/12/18 06:11 PT/INR, D-dimer PT 13.1 sec (9.0-12.0) H 11/12/18 06:11 INR 1.3 (<1.2) H 11/12/18 06:11 Abnormal lab findings: Abnormal Labs 11/12/18 11/12/18 11/12/18 06:09 06:11 06:11 RBC Hgb Hct MCV MCHC RDW PT INR VBG pH 7.22 L VBG pCO2 64 H BUN 56 H Creatinine 1.64 H Glucose 274 H POC Glucose (mg/dL) 259 H Plasma Lactic Acid Prakash Calcium 8.2 L Phosphorus 4.9 H Magnesium 2.6 H ALT 18 L Ammonia Creatine Kinase 45 L TSH 5.450 H Urine Protein Amorphous Sediment Urine Mucus 11/12/18 11/12/18 11/12/18 06:11 06:11 06:11 RBC 3.68 L Hgb 11.4 L Hct 38.9 L MCV 105.5 H MCHC 29.3 L RDW 16.3 H PT 13.1 H INR 1.3 H VBG pH VBG pCO2 BUN Creatinine Glucose POC Glucose (mg/dL) Plasma Lactic Acid Prakash 6.7 H* Calcium Phosphorus Magnesium ALT Ammonia 73 H Creatine Kinase TSH Urine Protein Amorphous Sediment Urine Mucus 11/12/18 06:40 RBC Hgb Hct MCV MCHC RDW PT INR VBG pH VBG pCO2 BUN Creatinine Glucose POC Glucose (mg/dL) Plasma Lactic Acid Prakash Calcium Phosphorus Magnesium ALT Ammonia Creatine Kinase TSH Urine Protein Trace H Amorphous Sediment Rare H Urine Mucus Rare H - Diagnostic Findings Chest x-ray: image reviewed Assessment and Plan Plan: 1 acute cardiac arrest. The patient had CPR for a PEA rhythm at home. The cardiac arrest was not witnessed and the exact downtime is not established. The patient return of spontaneous circulation after 3 minutes of CPR at home. The patient was also given epinephrine. Currently intubated on a mechanical ventilator. Chest x-ray showing acute pulmonary edema with bilateral pleural effusion right more than left. The patient is also on pressors for hemodynamic support. Patient is unresponsive. 2 unresponsive secondary to above, rule out underlying hypoxic/anoxic encephalopathy especially the patient is having episodic twitching probably related to underlying myoclonic jerks 3 shock secondary to above currently on pressors. 4 acute kidney injury secondary to above the patient is not producing any urine since arrival to the intensive care unit 5 consider seizure activity/hypoxic encephalopathy, rule out underlying myoclo alistair jerks 6 acute lactic acidosis secondary to above 7 COPD advanced with chronic hypoxic respiratory failure 8 obstructive sleep apnea. 9 diabetes mellitus 10 hypertension 11 hyperlipidemia 12 chronic atrial fibrillation 13 coronary artery disease 14 peripheral vascular disease 15 lower extremity skin wounds involving the legs bilaterally, mainly anterior mainly stage I to 2 without any signs of acute or active infection at this point in time 16 history of chronic wound/stasis ulcer lower extremity is bilaterally with previous infection with MSSA 17 history of brain aneurysm post clipping 18 history of CHF with an ejection fraction of 45% based on echocardiogram from 2006 19 history of pneumothorax 20 previous history of streptococcal septicemia Plan The patient is on mechanical ventilator. He is a PEEP of the 14 as the patient is still hypoxic despite being on 100% with a PEEP of 10. We'll repeat the blood gas. We'll insert an outlying catheter. Continue vent support. His other vent changes will be done based on the blood gases were ordered in 30 minutes. Meanwhile, the patient will need a CAT scan of the brain. The patient with a CAT scan of the chest. The patient will need a stat echocardiogram. The patient will need a stat neurological consultation. The patient will need a stat EEG. We'll continue the IV fluids follow-up. Continue pressors. An tibiotic antibiotic coverage with IV Zosyn. IV Protonix. Subcu heparin. Insulin sliding scale coverage. Hold anticoagulants for now. We'll continue to follow. Cardiology consultation. Prognosis poor baseline above-mentioned comorbidities. The family does not want any further CPR should he want to cardiac arrest and no defibrillation. Time with Patient: Greater than 30
--- NOTE | 2018-11-12 10:04 | OP ---
OPERATIVE REPORT ARTERIAL LINE PLACEMENT: PREOPERATIVE DIAGNOSIS: Cardiac arrest. POSTOPERATIVE DIAGNOSIS: Cardiac arrest. PROCEDURE DESCRIPTION: A time-out was completed verifying correct patient, procedure, site, positioning, and implant(s) or special equipment if applicable. John's test was performed to ensure adequate perfusion. The patient's left wrist was prepped and draped in sterile fashion. Lidocaine 1% was used to anesthetize the area. An 18G Arrow arterial line was introduced into the left radial artery. The catheter was threaded over the guide wire and the needle was removed with appropriate pulsatile blood return. Blood loss was minimal. The catheter was then sutured in place to the skin and a sterile dressing applied. Perfusion to the extremity distal to the point of catheter insertion was checked and found to be adequate. The patient tolerated the procedure well and there were no bedside complications or bleeding. MMODL / IJN: [id number] /
[2018-11-12 10:20] LABS: ABG Base Excess 3.3 mmol/L; ABG HCO3 29 mmol/L (21-25); ABG PCO2 51 mmHg (35-45); ABG PH 7.36 (7.35-7.45); ABG PO2 87 mmHg (83-108); ABG TCO2 30 mmol/L (19-24); Allen Test Performed? Yes
--- NOTE | 2018-11-12 11:19 | CONS ---
CONSULTATION CHIEF COMPLAINT: Cardiac arrest. Mr. Patrick is an 83-year-old gentleman who was admitted to hospital with having had a cardiac arrest. The patient has known chronic atrial fibrillation, hypertension, dyslipidemia, diabetes, coronary artery disease and GERD. He was found unresponsive by his , and EMS was called. He received CPR. Apparently he was resuscitated within 3 minutes of the time the EMS arrived. On admission his chest x-ray shows cardiomegaly and pulmonary edema. At the time of my evaluation, he is intubated on vent, remains in atrial fibrillation with controlled ventricular rate. He has poor urine output. BNP is elevated. He is having tonic clonic movements suggestive of hypoxic encephalopathy. He is currently awaiting an EEG. The patient has peripheral vascular disease and chronic bilateral lower extremity infections. He has had left great toe amputation. PAST MEDICAL HISTORY: Past medical history is significant for: 1. Coronary artery disease. 2. Atrial fibrillation. 3. Brain aneurysm. 4. He had a PFO. PAST SURGICAL HISTORY: Past surgical history is significant for: 1. Appendectomy. 2. Back surgery. 3. Cholecystectomy. 4. Surgery for pilonidal cyst. 5. Surgery for brain aneurysm. MEDICATIONS: Medications at home include: 1. Insulin. 2. Tenormin. 3. Eliquis. 4. Neurontin. 5. Cozaar. 6. Pravachol. 7. Nebulizers. 8. Bisoprolol hydrochlorothiazide. FAMILY HISTORY, SOCIAL HISTORY, REVIEW OF SYSTEMS: I am unable to obtain from the patient. PHYSICAL EXAMINATION: Patient is intubated on vent, is having seizures. Heart rate is 95 beats per minute. Blood pressure is . He is on 100% FiO2, intubated on vent. Chest exam reveals diminished air entry bilaterally. Heart exam reveals first and second heart sounds, irregular rhythm. Abdomen is soft. Examination of the extremities reveals bilateral lower extremity cellulitis and amputation of the toes of the left foot and diminished pulses. EKG shows atrial fibrillation with right bundle branch block. LABS: Hemoglobin 11.4. Potassium is 4.1. BUN is 56, creatinine 1.6. ASSESSMENT: 1. Status post cardiac arrest. 2. Possible hypoxic encephalopathy. 3. Chronic atrial fibrillation with controlled ventricular rate. PLAN: Will obtain a 2D echo. Prognosis is poor. Continue with supportive care. I am not going to resume the anticoagulant at this time. MMODL / IJN: [id number] /
[2018-11-12] MEDS: IPRATROPIUM-ALBUTEROL 3 ML NEB INHALATION SCH ×4 (11:23→23:29)
--- NOTE | 2018-11-12 11:33 | ECHOF ---
Referral Reason:cardiac arrest MEASUREMENTS -------- HEIGHT: 180.3 cm WEIGHT: 108.9 kg BP: 122/59 RVIDd: 3.6 cm (< 3.3) IVSd: 1.4 cm (0.6 - 1.1) LVIDd: 3.4 cm (3.9 - 5.3) LVPWd: 1.4 cm (0.6 - 1.1) IVSs: 1.6 cm LVIDs: 2.3 cm LVPWs: 1.9 cm LA Diam: 4.0 cm (2.7 - 3.8) Ao Diam: 3.2 cm (2.0 - 3.7) AV Cusp: 1.4 cm (1.5 - 2.6) MV EXCURSION: 20.651 mm (> 18.000) MV EF SLOPE: 91 mm/s (70 - 150) EPSS: 0.1 cm RAP: 15.00 mmHg RVSP: 54.27 mmHg FINDINGS -------- Atrial fibrillation. This was a technically difficult study with suboptimal views. The left ventricular size is normal. There is moderate concentric left ventricular hypertrophy. O verall left ventricular systolic function is normal with, an EF between 55 - 60 %. The right ventricle is mildly enlarged. The left atrium is mildly dilated. The right atrium is normal in size. 5.0mg of Lumason was utilized for enhancement of images Interatrial and interventricular septum intact. There is mild to moderate aortic valve sclerosis. Mild mitral annular calcification present. [id number] tricuspid regurgitation present. There is moderate pulmonary hypertension. The r ight ventricular systolic pressure, as measured by Doppler, is 54.27mmHg. The pulmonic valve was not well visualized. The aortic root size is normal. The inferior vena cava is dilated with no significant inspiratory collapse which is consistent estima nereyda right atrial pressure of >15 mmHg. There is no pericardial effusion. CONCLUSIONS -------- 1. Atrial fibrillation. 2. This was a technically difficult study with suboptimal views. 3. The left ventricular size is normal. 4. There is moderate concentric left ventricular hypertrophy. 5. Overall left ventricular systolic function is normal with, an EF between 55 - 60 %. 6. The right ventricle is mildly enlarged. 7. The left atrium is mildly dilated. 8. The right atrium is normal in size. 9. 5.0mg of Lumason was utilized for enhancement of images 10. Interatrial and interventricular septum intact. 11. There is mild to moderate aortic valve sclerosis. 12. Mild mitral annular calcification present. 13. [id number] tricuspid regurgitation present. 14. There is moderate pulmonary hypertension. 15. The right ventricular systolic pressure, as measured by Doppler, is 54.27mmHg. 16. The pulmonic valve was not well visualized. 17. The aortic root size is normal. 18. The inferior vena cava is dilated with no significant inspiratory collapse which is consistent es timated right atrial pressure of >15 mmHg. 19. There is no pericardial effusion. [employer]: Megan Hoyos RDCS
[2018-11-12] MEDS: HEPARIN SODIUM,PORCINE 5,000 UNIT/ML 1 ML VIAL SQ SCH ×2 (11:59→16:36)
[2018-11-12] MEDS: levETIRAcetam IV 1,000 MG in SALINE 1 100ML.BAG IVPB SCH ×2 (11:59→21:51)
[2018-11-12] MEDS: PANTOPRAZOLE 40 MG/10 ML VIAL IV SCH (11:59)
[2018-11-12] MEDS: INSULIN ASPART (NovoLOG) 100 UNIT/ML VIAL SQ SCH ×3 (12:02→21:51)
[2018-11-12 12:04] LABS: Glucose,Whole Blood 232 mg/dL (75-99)
[2018-11-12 12:10] LABS: Anisocytosis Slight; Basophils % (A) 0 %; Eosinophils # (A) 0.1 k/uL (0-0.7); Eosinophils % (A) 1 %; HGB 10.8 gm/dL (13.0-17.5); Hypochromasia Marked; Lymphocytes # (A) 0.3 k/uL (1.0-4.8); Lymphocytes % (A) 3 %; MCHC 30.1 g/dL (31.0-37.0); MCV 103.2 fL (80.0-100.0); Macrocytosis Moderate; Mean Platelet Volume 8.8; Monocytes # (A) 0.5 k/uL (0-1.0); Monocytes % (A) 5 %; Neutrophils # (A) 9.9 k/uL (1.3-7.7); Neutrophils % (A) 91 %; Platelet Count 153 k/uL (150-450); RBC 3.48 m/uL (4.30-5.90); RDW 16.7 % (11.5-15.5); WBC 10.9 k/uL (3.8-10.6)
[2018-11-12] MEDS: PROPOFOL 1,000 MG in EMPTY BAG 1 BAG IV SCH ×3 (12:30→23:30)
--- NOTE | 2018-11-12 12:46 | EEG ---
ELECTROENCEPHALOGRAM REPORT PROCEDURE DATE: 11/12/2018. ELECTROENCEPHALOGRAM (EEG) REPORT: TECHNIQUE: A routine 18-channel EEG was performed with video using the 10-20 international electrode placement system. HISTORY: Patient found unresponsive by his , who called EMS. Patient intubated, CPR started. Exact downtime is unclear. Patient having sudden body jerks in the ICU. CURRENT MEDICATIONS: Keppra, piperacillin, Protonix, insulin, heparin, albuterol. The patient was not on sedation at the time of this test. STUDY DURATION: 24 minutes. FINDINGS: BACKGROUND: A sustained posterior-dominant rhythm was not seen. ACTIVATION Hyperventilation: Not performed. Photic stimulation: No driving seen. Sleep: Distinctive sleep stages not seen. ABNORMALITIES: This EEG demonstrated a burst suppression pattern. The bursts consisted of high-amplitude generalized spikes and polyspikes with a frequency of approximately 4- 5 Hz. These correlated with sudden body jerks. Examples include but are not limited to [id number], [id number], [id number], [id number], [id number]. These continued throughout the entire record. These were by periods of suppression lasting 8-15 seconds. Given the amount of these sudden body jerks that correlated with the generalized spike and wave discharges, these individual events can be considered to be epileptic seizures, particularly myoclonic jerks, but given their amount the patient can be considered to be in primary generalized status epilepticus. IMPRESSION: Markedly abnormal EEG. 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 The generalized paroxysmal bursts of spike wave discharges mentioned above are epileptiform in nature. 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 Given the history, these findings can be considered consistent with anoxic myoclonic jerks. A burst suppression pattern indicates severe diffuse cerebral dysfunction as may be seen in anoxic or hypoxic encephalopathy. These findings were called to the patient's nurse at 12:14 p.m. on 11/12/2018. MMODL / IJN: [id number] /
--- NOTE | 2018-11-12 14:38 | CT ---
EXAMINATION TYPE: CT brain wo con DATE OF EXAM: 11/12/2018 COMPARISON: 04/03/2018 HISTORY: 83-year-old male Cardiac arrest TECHNIQUE: Examination was done in axial plane without intravenous contrast. Coronal and sagittal r econstructions performed. CT DLP: 1103.6 mGycm Automated exposure control for dose reduction was used. FINDINGS: There is no evidence of acute intracranial hemorrhage, acute ischemic changes, mass, mass-effect, or extra-axial fluid collection. There is no effacement of cerebral sulci or basal subarachnoid cister ns. There is no hydrocephalus. There is no midline shift. Pryor-white matter distinction is preserv ed. [id number] generalized supratentorial volume loss. 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 Atelectatic calcifications in the carotid siphons. Large polyps or mucosal retention cysts in the right vertebral and left maxillary sinuses. Mild mucos al thickening ethmoid air cells. The lungs IMPRESSION: [id number] generalized cerebral atrophy. No acute intracranial abnormality seen. 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
[2018-11-12 16:04] LABS: Glucose,Whole Blood 231 mg/dL (75-99)
--- NOTE | 2018-11-12 16:12 | CT ---
EXAMINATION TYPE: CT chest wo con DATE OF EXAM: 11/12/2018 COMPARISON: Radiograph 11/12/2018 HISTORY: 83-year-old male Cardiac arrest TECHNIQUE: Contiguous axial scanning of the chest without IV contrast. Coronal and sagittal reconstru ctions performed. CT DLP: 606.7 mGycm Automated exposure control for dose reduction was used. FINDINGS: ET tube tip 2.2 cm from the leidy. NG tube courses below the diaphragm. Heart borderline enlarged. Coronary vessel calcifications are present. Marker for coronary artery dis ease. Borderline aneurysmal ascending aorta at 4.0 cm. Mild to moderate arthritic arch calcifications with conventional branching anatomy. Mildly enlarged caliber to the main right and left pulmonary arteries measuring up to 2.8 cm suggesti ng underlying pulmonary arterial hypertension. No definite thoracic lymphadenopathy identified. Right total shoulder arthroplasty with advanced degenerative change of the left shoulder. Moderate right and small left pleural effusions with prominent consolidation throughout the posterior half of the right lung and extensive throughout the left lower lobe. Artifact from the patient's arm s being down in the scanner. Further limitation in assessment due to lack of IV contrast. Mild perihepatic ascites. Mild gallbladder wall thickening likely due to fluid overload state. Graft moderate generalized anasarca type changes. Bones: Advanced degenerative disc disease thoracolumbar junction with vertebral compression deformiti es especially of L1 likely chronic. Nondisplaced fractures of the bilateral lateral, anterolateral fourth through seventh ribs on both si sujey. IMPRESSION: 1. NONDISPLACED FRACTURES OF THE LATERAL, ANTEROLATERAL FOURTH THROUGH SEVENTH RIBS ON BOTH SIDES. QU [place] IF CPR WAS GIVEN TO THIS PATIENT 2. 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 MODERATE RIGHT AND SMALL LEFT PLEURA L EFFUSIONS. ANASARCA TYPE CHANGES. CORRELATE FOR CHF. 3. PROMINENT DEPENDENT CONSOLIDATION IN THE RIGHT GREATER THAN LEFT LUNGS PROBABLY DEPENDENT PULMONAR Y EDEMA. FOLLOW-UP TO ENSURE CLEARANCE AND EXCLUDE UNDERLYING INFILTRATES. 4. MILD UPPER ABDOMINAL ASCITES LIKELY DUE TO FLUID OVERLOAD STATE.
[2018-11-12] MEDS: PIPERACILLIN-TAZOBACTAM 3.375 GM in SODIUM CHLORIDE 0.9% 100 ML IVPB SCH (16:16)
[2018-11-12] MEDS: NOREPINEPHRINE 32 MG in SODIUM CHLORIDE 0.9% 218 ML IV SCH (16:18)
--- NOTE | 2018-11-12 19:35 | P.HPIM ---
History of Present Illness H&P Date: 11/12/18 Chief Complaint: Cardiac arrest This is an 83-year-old male one of Dr Batista with history of advanced COPD with chronic hypoxic respiratory failureon home O2 3l /, , hypertension and hypertensive cardio vascular disease with left ventricular hypertrophy, chronic atrial fibrillation on chronic anticoagulation therapy in the form of NOAC, hyperlipidemia, diabetes mellitus type 2 with diabetic neuropathy, PAD post left big toe amputation, chronic kidney disease stage II, obesity with obstructive sleep apnea currently on a CPAP chronic wounds on the leg with a mputation of the great toe and second toe left foot, bilateral shins 1, treated for MSSA and Pseudomonas infection, he had Pseudomonas bacteremia in 2016 and streptococcal septicemia from pneumonia in March 2018. patient has been doing fine until the has found him unresponsive, the arm spouse believe in separate bedrooms, and when she went to the 's room, patient was not responding to any verbal stimuli and physical stimuli. She thought that she has low sugars, EMS was called into the scene, and has arrived within 5 minutes per the patient. Patient was checked by around 5:10 AM, EMS thereafter arrived, and they were asking for papers for resuscitation, left the room, and upon her return, the patient was oriented being resuscitated with CPR and electrical cardioversion. He was on a PEA mechanism. The exact downtime was not clear, patient was intubated on the scene, approximately 3 minutes was spent for the entire CPR process, patient denies any previous injuries, he was given ephedrine. X-rays in the ER showed massive cardiomegaly and pulmonary edema and bilateral pleural effusion, patient was unresponsive in the emergency room, with myoclonic jerks, pupils are equal and reactive, he requires pressor agents norepinephrine, he has urine output that is diminished, pleasant 20 mL an hour, lactic acid on admission was 6.7, BNP of 14,000, troponin of 0.08. He has wide complex right axis with arm bundle block pattern underlying atrial fibrillation. Rate between 100-120, he was transferred to ICU with manic mechanical ventilator, PEEP off 5, total volume of 500, FiO2 100, assist control mode sedated. 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 The burst suppression pattern indicates severe diffuse cerebral dysfunction as may be seen in anoxic or hypoxic encephalopathy based on the EEG interpretation by environmental maintenance worker EEG reader. Patient was given Keppra initially loaded with 1000 every 12 hr IV dosing, family is aware that there is no neurology on board, we will going to repeat the EEG for tomorrow, oncology would be back on Wednesday. 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 and left maxillary sinuses computed tomography scan of the chest shows moderate right small left pleural effusion with prominent consultation throughout the posterior half of the right lung and extensive throughout the left lower lobe, there is underlying pulmonary arterial hypertension, there is borderline aneurysmal ascending aorta at 4 cm, with calcifications, nondisplaced fractures of the lateral anterolateral fourth through seventh rib on both sides, correlated to possibly the CPR that was given to the patient,, mild upper abdominal ascites likely secondary to fluid overload state patient currently is on norepinephrine, Zosyn, propofol, Keppra 1000 every 12, heparin subcu, no oral anticoagulation and liquids s as it was held by cardiology Review of Systems ROS unobtainable: due to endotracheal tube, due to mental status Past Medical History Past Medical History: Atrial Fibrillation, Coronary Artery Disease (CAD), COPD, Diabetes Mellitus, GERD/Reflux, Hyperlipidemia, Hypertension, Neurologic Disorder, Osteoarthritis (OA), Prostate Disorder, Respiratory Disorder, Sleep Apnea/CPAP/BIPAP, Vascular Disorder Additional Past Medical History / Comment(s): Obstructive sleep apnea on cpap at night, home 02 with chronic hypoxic respiratory failure, constipation, 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 He had a right ventricular systolic pressure estimated to be 82. Last Myocardial Infarction Date:: 27 years ago History of Any Multi-Drug Resistant Organisms: None Reported Past Surgical History: Appendectomy, Back Surgery, Cholecystectomy, Orthopedic Surgery Additional Past Surgical History / Comment(s): pilonidal cyst, brain anuerysm 1 clipping, right knee replacement, right shoulder replacement, LT CATARACT, SKIN GRAFT FROM RT THIGH TO RT FINGER, RASHEED 10 years ago, PFO against ASD, last colonoscopy greater than 5 years, 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 Past Anesthesia/Blood Transfusion Reactions: No Reported Reaction Past Psychological History: No Psychological Hx Reported Smoking Status: Former smoker Past Alcohol Use History: None Reported Past Drug Use History: None Reported - Past Family History Father Family Medical History: Diabetes Mellitus, Myocardial Infarction ([place]) Additional Family Medical History / Comment(s): Father at age 55 with history of diabetes and alcoholism. Mother Family Medical History: Cancer, Myocardial Infarction ([place]) Additional Family Medical History / Comment(s): Mother at age 62 from rectal cancer. Brother(s) Additional Family Medical History / Comment(s): Patient had 3 brothers. One in a work related accident. One after having an [place] with history of renal problems. Sister(s) Additional Family Medical History / Comment(s): Patient has 2 sisters. One is alive. One has after gallbladder ruptured. Patient has 3 boys and one girl with no major medical problems. Medications and Allergies Home Medications Medication Instructions Recorded Confirmed Type Aspirin 81 mg PO DAILY 02/18/14 11/12/18 History INSULIN LISPRO (humaLOG) [humaLOG] See Protocol SQ ACHS PRN 05/18/15 11/12/18 History Ipratropium Nebulized [Atrovent 0.5 mg INHALATION RT-QID PRN 05/18/15 11/12/18 History Nebulized 0.2 MG/ML] Levalbuterol Nebulized [Xopenex 1.25 mg INHALATION RT-QID PRN 05/18/15 11/12/18 History Nebulized] Cholecalciferol [Vitamin D3 (25 5,000 unit PO DAILY 07/29/15 11/12/18 History Mcg = 1000 Iu)] Ferrous Sulfate [Iron (65 MG 325 mg PO DAILY 07/29/15 11/12/18 History Elemental)] Glucosamine Sulfate 500 mg PO DAILY 07/29/15 11/12/18 History Multivitamins, Thera [Multivitamin 1 tab PO DAILY 07/29/15 11/12/18 History (formulary)] Niacinamide [Niacin] 500 mg PO DAILY 07/29/15 11/12/18 History [place]-3 Fatty Acids/Fish Oil [Fish 1 cap PO DAILY 07/29/15 11/12/18 History Oil 1,000 mg Softgel] Atenolol [Tenormin] 100 mg PO BID 08/25/15 11/12/18 History Apixaban [Eliquis] 2.5 mg PO BID #0 09/06/15 11/12/18 Rx Losartan [Cozaar] 25 mg PO DAILY 10/24/16 11/12/18 History Pravastatin Sodium [Pravachol] 80 mg PO HS 10/24/16 11/12/18 History Calcium Carbonate [Calcium] 600 mg PO DAILY 03/30/18 11/12/18 History Cetirizine HCl [Zyrtec] 10 mg PO DAILY 03/30/18 11/12/18 History Cyanocobalamin (Vitamin B-12) 1,000 mcg PO DAILY 03/30/18 11/12/18 History [Vitamin B-12] Escitalopram [Lexapro] 10 mg PO DAILY 03/30/18 11/12/18 History Folic Acid 0.8 mg PO DAILY 03/30/18 11/12/18 History Loperamide HCl [Imodium A-D] 2 mg PO Q6H 03/30/18 11/12/18 History Lysine [l-Lysine] 500 mg PO DAILY 03/30/18 11/12/18 History Oxybutynin Chloride [Ditropan] 5 mg PO BID 03/30/18 11/12/18 History Ranitidine HCl [Zantac] 150 mg PO BID 03/30/18 11/12/18 History Sennosides-Docusate Sodium 1 tab PO DAILY 03/30/18 11/12/18 History [Senokot-S] Turmeric Root Extract [Turmeric] 500 mg PO DAILY 03/30/18 11/12/18 History Furosemide [Lasix] 40 mg PO DAILY tab 04/05/18 11/12/18 Rx Gabapentin [Neurontin] 300 mg PO HS cap 04/05/18 11/12/18 Rx HYDROcodone/APAP 5-325MG [[place] 1 tab PO Q8HR PRN #9 tab 04/05/18 11/12/18 Rx 5-325] Albuterol Nebulized [Ventolin 2.5 mg INHALATION RT-Q6H PRN 11/12/18 11/12/18 History Nebulized] Ascorbic Acid [Vitamin C] 1,000 mg PO DAILY 11/12/18 11/12/18 History Bisoprol/Hydrochlorothiazide 1 tab PO DAILY 11/12/18 11/12/18 History [Bisoprolol-Hctz 5-6.25 mg Tab] Budesonide-Formot 160-4.5 Mcg 2 puff INHALATION RT-BID 11/12/18 11/12/18 History [Symbicort 160-4.5 Mcg Inhaler] Insulin NPH Human Isophane 12 unit SQ BID 11/12/18 11/12/18 History [humuLIN N] Meloxicam 15 mg PO DAILY 11/12/18 11/12/18 History Omeprazole Magnesium [PriLOSEC OTC] 20 mg PO DAILY 11/12/18 11/12/18 History Potassium Chloride [K-Tab ER] 20 meq PO DAILY 11/12/18 11/12/18 History Simvastatin 40 mg PO DAILY 11/12/18 11/12/18 History Allergies Allergy/AdvReac Type Severity Reaction Status Date / Time levofloxacin Allergy Itching Verified 11/12/18 07:30 celecoxib [From Celebrex] AdvReac "hard Verified 11/12/18 07:30 muscle" ibuprofen AdvReac "bloody Verified 11/12/18 07:30 urine" Physical Exam Vitals: Vital Signs Temp Pulse Resp BP Pulse Ox 11/12/18 13:15 89 14 99 11/12/18 13:00 89 14 100 11/12/18 12:45 103 H 14 100 11/12/18 12:30 101 H 11 L 99 11/12/18 12:15 99 8 L 99 11/12/18 12:00 97 F L 93 14 117/62 99 11/12/18 11:50 96 11/12/18 11:45 95 14 99 11/12/18 11:36 102 H 11/12/18 11:30 101 H 14 99 11/12/18 11:21 14 11/12/18 11:15 99 14 99 11/12/18 11:00 100 14 99 11/12/18 10:45 96 14 98 11/12/18 10:30 116 H 14 97 11/12/18 10:15 89 14 97 11/12/18 10:00 95 14 119/65 100 11/12/18 09:45 87 14 100 11/12/18 09:30 98.9 F 95 14 94 L 11/12/18 09:15 90 14 92 L 11/12/18 09:08 95 14 122/66 97 11/12/18 09:06 92 10 L 89 L 11/12/18 08:52 84 11/12/18 08:33 82 11/12/18 08:30 84 14 117/70 97 11/12/18 08:01 86 14 93/57 93 L 11/12/18 08:00 80 11/12/18 07:59 79 14 89/49 95 11/12/18 07:57 80 14 88/41 93 L 11/12/18 07:44 80 11/12/18 07:40 104 H 14 150/74 80 L 11/12/18 07:35 85 14 98/59 74 L 11/12/18 07:32 89 16 61/37 54 L 11/12/18 07:10 95 15 159/85 87 L 11/12/18 06:57 112 H 14 138/73 84 L 11/12/18 06:47 105 H 14 97/61 90 L 11/12/18 06:37 93 14 67/40 97 11/12/18 06:36 96 14 71/37 100 11/12/18 06:31 95 14 85/46 79 L 11/12/18 06:21 98 14 125/67 77 L 11/12/18 06:02 98.0 F 128 H 12 131/91 100 Intake and Output 11/11/18 11/12/18 11/12/18 22:59 06:59 14:59 Intake Total 1019.888 Output Total 15 Balance 1004.888 Intake: IV 800 Sodium Chloride 0.9% 1, 700 000 ml @ 150 mls/hr IV . Q6H40M [facility] Rx#:[id number] levETIRAcetam IV 1,000 mg 100 In Saline 1 100ml.bag @ 400 mls/hr IVPB Q12HR [facility] Rx#:[id number] Intake, IV Titration 219.888 Amount Norepinephrine 4 mg In 217.058 Sodium Chloride 0.9% 250 ml @ 0.05 MCG/KG/MIN 20. 738 mls/hr IV .[id number] [facility] Rx#:[id number] Propofol 1,000 mg In 2.83 Empty Bag 1 bag @ Titrate IV .Q0M [facility] Rx#: [id number] Output: Urine 15 Other: Voiding Method Indwelling Catheter Weight 108.862 kg ABP, PAP, CO, CI - Last 8 Hours Arterial Blood Pressure 119/58 Arterial Blood Pressure 116/57 Arterial Blood Pressure 109/52 Arterial Blood Pressure 127/66 Arterial Blood Pressure 128/60 Arterial Blood Pressure 136/65 Arterial Blood Pressure 139/63 Arterial Blood Pressure 138/64 Arterial Blood Pressure 131/63 Arterial Blood Pressure 131/63 Arterial Blood Pressure 128/62 Arterial Blood Pressure 128/61 Arterial Blood Pressure 121/59 Arterial Blood Pressure 127/62 Arterial Blood Pressure 127/57 Arterial Blood Pressure 125/65 intubation sedated on vent - Constitutional General appearance: morbidly obese, no acute distress - EENT Eyes: normal appearance - Neck Neck: normal ROM - Respiratory Respiratory: bilateral: diminished - Cardiovascular Rhythm: regular Heart sounds: normal: S1, S2 - Gastrointestinal General gastrointestinal: normal bowel sounds, soft - Integumentary Integumentary: normal - Neurologic obtundednot withdrawing no pain - Psychiatric obtunded/comatose Results CBC & Chem 7: 11/12/18 11:48 11/12/18 11:48 Labs: Abnormal Lab Results - Last 24 Hours (Table) 11/12/18 11/12/18 11/12/18 Range/Units 06:09 06:11 06:11 WBC (3.8-10.6) k/uL RBC (4.30-5.90) m/uL Hgb (13.0-17.5) gm/dL Hct (39.0-53.0) % MCV (80.0-100.0) fL MCHC (31.0-37.0) g/dL RDW (11.5-15.5) % Neutrophils # (1.3-7.7) k/uL Lymphocytes # (1.0-4.8) k/uL PT (9.0-12.0) sec INR (<1.2) ABG pCO2 (35-45) mmHg ABG HCO3 (21-25) mmol/L ABG Total CO2 (19-24) mmol/L VBG pH 7.22 L (7.31-7.41) VBG pCO2 64 H (37-51) mmHg BUN 56 H (9-20) mg/dL Creatinine 1.64 H (0.66-1.25) mg/dL Glucose 274 H (74-99) mg/dL POC Glucose (mg/dL) 259 H (75-99) mg/dL Plasma Lactic Acid Prakash (0.7-2.0) mmol/L Calcium 8.2 L (8.4-10.2) mg/dL Phosphorus 4.9 H (2.5-4.5) mg/dL Magnesium 2.6 H (1.6-2.3) mg/dL ALT 18 L (21-72) U/L Ammonia (<30) umol/L Creatine Kinase 45 L (55-170) U/L TSH 5.450 H (0.465-4.680) mIU/L Urine Protein (Negative) Amorphous Sediment (None) /hpf Urine Mucus (None) /hpf 11/12/18 11/12/18 11/12/18 Range/Units 06:11 06:11 06:11 WBC (3.8-10.6) k/uL RBC 3.68 L (4.30-5.90) m/uL Hgb 11.4 L (13.0-17.5) gm/dL Hct 38.9 L (39.0-53.0) % MCV 105.5 H (80.0-100.0) fL MCHC 29.3 L (31.0-37.0) g/dL RDW 16.3 H (11.5-15.5) % Neutrophils # (1.3-7.7) k/uL Lymphocytes # (1.0-4.8) k/uL PT 13.1 H (9.0-12.0) sec INR 1.3 H (<1.2) ABG pCO2 (35-45) mmHg ABG HCO3 (21-25) mmol/L ABG Total CO2 (19-24) mmol/L VBG pH (7.31-7.41) VBG pCO2 (37-51) mmHg BUN (9-20) mg/dL Creatinine (0.66-1.25) mg/dL Glucose (74-99) mg/dL POC Glucose (mg/dL) (75-99) mg/dL Plasma Lactic Acid Prakash 6.7 H* (0.7-2.0) mmol/L Calcium (8.4-10.2) mg/dL Phosphorus (2.5-4.5) mg/dL Magnesium (1.6-2.3) mg/dL ALT (21-72) U/L Ammonia 73 H (<30) umol/L Creatine Kinase (55-170) U/L TSH (0.465-4.680) mIU/L Urine Protein (Negative) Amorphous Sediment (None) /hpf Urine Mucus (None) /hpf 11/12/18 11/12/18 11/12/18 Range/Units 06:40 09:08 10:17 WBC (3.8-10.6) k/uL RBC (4.30-5.90) m/uL Hgb (13.0-17.5) gm/dL Hct (39.0-53.0) % MCV (80.0-100.0) fL MCHC (31.0-37.0) g/dL RDW (11.5-15.5) % Neutrophils # (1.3-7.7) k/uL Lymphocytes # (1.0-4.8) k/uL PT (9.0-12.0) sec INR (<1.2) ABG pCO2 51 H (35-45) mmHg ABG HCO3 29 H (21-25) mmol/L ABG Total CO2 30 H (19-24) mmol/L VBG pH (7.31-7.41) VBG pCO2 (37-51) mmHg BUN (9-20) mg/dL Creatinine (0.66-1.25) mg/dL Glucose (74-99) mg/dL POC Glucose (mg/dL) 214 H (75-99) mg/dL Plasma Lactic Acid Prakash (0.7-2.0) mmol/L Calcium (8.4-10.2) mg/dL Phosphorus (2.5-4.5) mg/dL Magnesium (1.6-2.3) mg/dL ALT (21-72) U/L Ammonia (<30) umol/L Creatine Kinase (55-170) U/L TSH (0.465-4.680) mIU/L Urine Protein Trace H (Negative) Amorphous Sediment Rare H (None) /hpf Urine Mucus Rare H (None) /hpf 11/12/18 11/12/18 11/12/18 Range/Units 11:48 11:48 11:48 WBC 10.9 H (3.8-10.6) k/uL RBC 3.48 L (4.30-5.90) m/uL Hgb 10.8 L (13.0-17.5) gm/dL Hct 36.0 L (39.0-53.0) % MCV 103.2 H (80.0-100.0) fL MCHC 30.1 L (31.0-37.0) g/dL RDW 16.7 H (11.5-15.5) % Neutrophils # 9.9 H (1.3-7.7) k/uL Lymphocytes # 0.3 L (1.0-4.8) k/uL PT (9.0-12.0) sec INR (<1.2) ABG pCO2 (35-45) mmHg ABG HCO3 (21-25) mmol/L ABG Total CO2 (19-24) mmol/L VBG pH (7.31-7.41) VBG pCO2 (37-51) mmHg BUN 57 H (9-20) mg/dL Creatinine 1.69 H (0.66-1.25) mg/dL Glucose 249 H (74-99) mg/dL POC Glucose (mg/dL) (75-99) mg/dL Plasma Lactic Acid Prakash 2.8 H* (0.7-2.0) mmol/L Calcium 8.0 L (8.4-10.2) mg/dL Phosphorus (2.5-4.5) mg/dL Magnesium (1.6-2.3) mg/dL ALT (21-72) U/L Ammonia (<30) umol/L Creatine Kinase (55-170) U/L TSH (0.465-4.680) mIU/L Urine Protein (Negative) Amorphous Sediment (None) /hpf Urine Mucus (None) /hpf 11/12/18 Range/Units 11:52 WBC (3.8-10.6) k/uL RBC (4.30-5.90) m/uL Hgb (13.0-17.5) gm/dL Hct (39.0-53.0) % MCV (80.0-100.0) fL MCHC (31.0-37.0) g/dL RDW (11.5-15.5) % Neutrophils # (1.3-7.7) k/uL Lymphocytes # (1.0-4.8) k/uL PT (9.0-12.0) sec INR (<1.2) ABG pCO2 (35-45) mmHg ABG HCO3 (21-25) mmol/L ABG Total CO2 (19-24) mmol/L VBG pH (7.31-7.41) VBG pCO2 (37-51) mmHg BUN (9-20) mg/dL Creatinine (0.66-1.25) mg/dL Glucose (74-99) mg/dL POC Glucose (mg/dL) 232 H (75-99) mg/dL Plasma Lactic Acid Prakash (0.7-2.0) mmol/L Calcium (8.4-10.2) mg/dL Phosphorus (2.5-4.5) mg/dL Magnesium (1.6-2.3) mg/dL ALT (21-72) U/L Ammonia (<30) umol/L Creatine Kinase (55-170) U/L TSH (0.465-4.680) mIU/L Urine Protein (Negative) Amorphous Sediment (None) /hpf Urine Mucus (None) /hpf Microbiology - Last 24 Hours (Table) 11/12/18 06:40 Urine Culture - Preliminary Urine,Catheterized Laboratory Results WBC 10.9 k/uL (3.8-10.6) H 11/12/18 11:48 RBC 3.48 m/uL (4.30-5.90) L 11/12/18 11:48 Hgb 10.8 gm/dL (13.0-17.5) L 11/12/18 11:48 Hct 36.0 % (39.0-53.0) L 11/12/18 11:48 MCV 103.2 fL (80.0-100.0) H 11/12/18 11:48 MCH 31.0 pg (25.0-35.0) 11/12/18 11:48 MCHC 30.1 g/dL (31.0-37.0) L 11/12/18 11:48 RDW 16.7 % (11.5-15.5) H 11/12/18 11:48 Plt Count 153 k/uL (150-450) 11/12/18 11:48 Neutrophils % 91 % 11/12/18 11:48 Lymphocytes % 3 % 11/12/18 11:48 Monocytes % 5 % 11/12/18 11:48 Eosinophils % 1 % 11/12/18 11:48 Basophils % 0 % 11/12/18 11:48 Neutrophils # 9.9 k/uL (1.3-7.7) H 11/12/18 11:48 Lymphocytes # 0.3 k/uL (1.0-4.8) L 11/12/18 11:48 Monocytes # 0.5 k/uL (0-1.0) 11/12/18 11:48 Eosinophils # 0.1 k/uL (0-0.7) 11/12/18 11:48 Basophils # 0.0 k/uL (0-0.2) 11/12/18 11:48 Hypochromasia Marked 11/12/18 11:48 Anisocytosis Slight 11/12/18 11:48 Macrocytosis Moderate 11/12/18 11:48 PT 13.1 sec (9.0-12.0) H 11/12/18 06:11 INR 1.3 (<1.2) H 11/12/18 06:11 APTT 27.4 sec (22.0-30.0) 11/12/18 06:11 Sample Site [place] 11/12/18 10:17 ABG pH 7.36 (7.35-7.45) 11/12/18 10:17 ABG pCO2 51 mmHg (35-45) H 11/12/18 10:17 ABG pO2 87 mmHg (83-108) 11/12/18 10:17 ABG HCO3 29 mmol/L (21-25) H 11/12/18 10:17 ABG Total CO2 30 mmol/L (19-24) H 11/12/18 10:17 ABG O2 Saturation 97.0 % (94-97) 11/12/18 10:17 ABG Base Excess 3.3 mmol/L 11/12/18 10:17 John Test Yes 11/12/18 10:17 VBG pH 7.22 (7.31-7.41) L 11/12/18 06:11 VBG pCO2 64 mmHg (37-51) H 11/12/18 06:11 VBG HCO3 25 mmol/L (24-28) 11/12/18 06:11 FiO2 100 % 11/12/18 10:17 Sodium 140 mmol/L (137-145) 11/12/18 11:48 Potassium 4.0 mmol/L (3.5-5.1) 11/12/18 11:48 Chloride 104 mmol/L (98-107) 11/12/18 11:48 Carbon Dioxide 25 mmol/L (22-30) 11/12/18 11:48 Anion Gap 11 mmol/L 11/12/18 11:48 BUN 57 mg/dL (9-20) H 11/12/18 11:48 Creatinine 1.69 mg/dL (0.66-1.25) H 11/12/18 11:48 Est GFR (CKD-EPI)AfAm 43 (>60 ml/min/1.73 sqM) 11/12/18 11:48 Est GFR (CKD-EPI)NonAf 37 (>60 ml/min/1.73 sqM) 11/12/18 11:48 Glucose 249 mg/dL (74-99) H 11/12/18 11:48 POC Glucose (mg/dL) 231 mg/dL (75-99) H 11/12/18 15:52 POC Glu Bean [employer]aster ID Nubia Childress 11/12/18 15:52 Lactic Ac Sepsis Rflx Y 11/12/18 12:46 Plasma Lactic Acid Prakash 2.4 mmol/L (0.7-2.0) H* 11/12/18 15:51 Calcium 8.0 mg/dL (8.4-10.2) L 11/12/18 11:48 Phosphorus 4.9 mg/dL (2.5-4.5) H 11/12/18 06:11 Magnesium 2.6 mg/dL (1.6-2.3) H 11/12/18 06:11 Total Bilirubin 0.4 mg/dL (0.2-1.3) 11/12/18 06:11 AST 28 U/L (17-59) 11/12/18 06:11 ALT 18 U/L (21-72) L 11/12/18 06:11 Alkaline Phosphatase 124 U/L (38-126) 11/12/18 06:11 Ammonia 73 umol/L (<30) H 11/12/18 06:11 Creatine Kinase 45 U/L (55-170) L 11/12/18 06:11 Troponin I 0.028 ng/mL (0.000-0.034) 11/12/18 06:11 NT-Pro-B Natriuret Pep 68334 pg/mL 11/12/18 06:11 Total Protein 6.4 g/dL (6.3-8.2) 11/12/18 06:11 Albumin 3.6 g/dL (3.5-5.0) 11/12/18 06:11 TSH 5.450 mIU/L (0.465-4.680) H 11/12/18 06:11 Urine Color Yellow 11/12/18 06:40 Urine Appearance Cloudy (Clear) 11/12/18 06:40 Urine pH 5.0 (5.0-8.0) 11/12/18 06:40 Ur Specific [place] 1.017 (1.001-1.035) 11/12/18 06:40 Urine Protein Trace (Negative) H 11/12/18 06:40 Urine Glucose (UA) Negative (Negative) 11/12/18 06:40 Urine Ketones Negative (Negative) 11/12/18 06:40 Urine Blood Negative (Negative) 11/12/18 06:40 Urine Nitrite Negative (Negative) 11/12/18 06:40 Urine Bilirubin Negative (Negative) 11/12/18 06:40 Urine Urobilinogen 2.0 mg/dL (<2.0) 11/12/18 06:40 Ur Leukocyte Esterase Negative (Negative) 11/12/18 06:40 Urine WBC <1 /hpf (0-5) 11/12/18 06:40 Amorphous Sediment Rare /hpf (None) H 11/12/18 06:40 Urine Mucus Rare /hpf (None) H 11/12/18 06:40 Acetone, Qual Negative (Negative) 11/12/18 06:11 Blood Type A Positive 11/12/18 06:11 Blood Type Recheck No 11/12/18 06:11 Antibody Screen NEGATIVE 11/12/18 06:11 Spec Expiration Date 11/15/2018 - 231011/12/18 06:11 Thrombosis Risk Factor Assmnt - DVT/VTE Prophylaxis DVT/VTE Prophylaxis: Mechanical Prophylaxis ordered - Choose All That Apply Any of the Below Risk Factors Present?: Yes Other Risk Factors: Yes Each Risk Factor Represents 3 Points: Age 75 years or older Thrombosis Risk Factor Assessment Total Risk Factor Score: 3 Thrombosis Risk Factor Assessment Level: Moderate Risk Assessment and Plan Plan: 1. Cardiac arrest Acute hypoxemic respiratory failure requiring ventilatory support, CHF with pulmonary edema, diuretics are held at this time secondary to hypovolemic shock, cardiology is on consult, critical care medicine is on consult 2. Generalized status epilepticus, possibly suggestive of hypoxic encephalopathy against primary generalized seizures, patient's on Keppra, IV every 12 hours, EEG would be done in 24 hours for repeat, no on-call neurology for this weekend, the family refused transfer to [facility] for continuous EEG monitoring and treatment 3. Pulmonary edema with pleural effusion and anasarca, diuretics are on hold secondary to hypovolemic shock IV Lasix would be initiated once stabilized 4. Suspected aspiration pneumonia and left side, patient is on Zosyn IV 3.375 every 8 hours 5. Acute kidney failure with oliguria, underlying CK D stage II possibly related to shock, IV fluid for hydration, patient would need IV frusemide once stabilized CMP to be followed, consult Dr. Gay nephrology 6. Hypovolemic shock, multifactorial, most likely secondary to cardiogenic shock, septic shock troponins are being "closely followed IV hydration requires Levophed 7 Chronic atrial fibrillation. Held Eliquis 2.5 mg orally twice every day, atenolol 100 mg orally twice every day. 8. Bilateral rib fractures fourth to seventh rib bilateral most likely sec ondary to CPR 9. Hyperlipemia. On hold pravastatin 80 mg at bedtime. 10 Diabetes mellitus type 2. Continue NovoLog to scale monitor blood glucose NPH 12 units twice a day on hold 11. Chronic venous stasis with stasis dermatitis. Stable at this time. 12 Bilateral lower extremity neuropathy. Continue gabapentin 300 mg orally at bedtime. 13 Bilateral lower leg ulcers, present prior to admission, chronic wounds followed by [facility] 14 Hypertension and hypertensive cardiovascular disease. Continue patient on losartan 25 mg orally once every day, atenolol 100 mg orally twice every day. 15. PAD post left big toe amputation. 16 Obesity with obstructive sleep apnea. Continue patient on CPAP. 17 Anemia of chronic renal disease. 18 DVT prophylaxis. Heparin subcu 17. GI prophylaxis. Continue patient on Protonix 40 mg IV push every 24 hours. 18. Full code. 19. Admit to inpatient. Estimate a length of stay over 3 midnights. Prognosis guarded
[2018-11-12 20:11] LABS: Glucose,Whole Blood 199 mg/dL (75-99)
[2018-11-13 00:07] LABS: Glucose,Whole Blood 182 mg/dL (75-99)
[2018-11-13 00:28] VITALS: TEMP 97.4
[2018-11-13] MEDS: HYDROCORTISONE SUCCINATE 100 MG/2 ML VIAL IV SCH ×2 (00:36→07:54)
[2018-11-13] MEDS: HEPARIN SODIUM,PORCINE 5,000 UNIT/ML 1 ML VIAL SQ SCH ×2 (00:37→07:55)
[2018-11-13] MEDS: INSULIN ASPART (NovoLOG) 100 UNIT/ML VIAL SQ SCH ×4 (00:38→13:13)
[2018-11-13] MEDS: PIPERACILLIN-TAZOBACTAM 3.375 GM in SODIUM CHLORIDE 0.9% 100 ML IVPB SCH ×2 (00:39→07:54)
[2018-11-13] MEDS: IPRATROPIUM-ALBUTEROL 3 ML NEB INHALATION SCH ×3 (03:10→10:46)
[2018-11-13] MEDS: PROPOFOL 1,000 MG in EMPTY BAG 1 BAG IV SCH ×2 (03:15→07:55)
[2018-11-13 04:11] LABS: Glucose,Whole Blood 148 mg/dL (75-99)
[2018-11-13] MEDS: SODIUM CHLORIDE 0.9% 1,000 ML IV SCH ×2 (04:22→10:48)
[2018-11-13 04:29] LABS: ABG PCO2 38 mmHg (35-45); ABG PH 7.45 (7.35-7.45); ABG PO2 245 mmHg (83-108); Allen Test Performed? no
[2018-11-13 04:30] LABS: ABG Base Excess 2.5 mmol/L; ABG HCO3 27 mmol/L (21-25); ABG TCO2 28 mmol/L (19-24)
[2018-11-13 04:35] LABS: Calcium 8.2 mg/dL (8.4-10.2); Magnesium 2.4 mg/dL (1.6-2.3); Phosphorus 3.1 mg/dL (2.5-4.5); Potassium 3.6 mmol/L (3.5-5.1); Total Bilirubin 0.6 mg/dL (0.2-1.3); Total Protein 5.7 g/dL (6.3-8.2)
[2018-11-13 05:14] VITALS: BP 109/71
[2018-11-13 05:46] LABS: Anisocytosis Slight; Basophils % (A) 0 %; Eosinophils % (A) 0 %; HCT 34.3 % (39.0-53.0); HGB 10.8 gm/dL (13.0-17.5); Hypochromasia Marked; Lymphocytes # (A) 0.4 k/uL (1.0-4.8); Lymphocytes % (A) 4 %; MCH 31.5 pg (25.0-35.0); MCHC 31.4 g/dL (31.0-37.0); MCV 100.2 fL (80.0-100.0); Macrocytosis Slight; Mean Platelet Volume 9.5; Monocytes # (A) 0.4 k/uL (0-1.0); Monocytes % (A) 3 %; Neutrophils # (A) 10.3 k/uL (1.3-7.7); Neutrophils % (A) 92 %; Platelet Count 138 k/uL (150-450); RBC 3.43 m/uL (4.30-5.90); RDW 16.9 % (11.5-15.5); WBC 11.2 k/uL (3.8-10.6)
--- NOTE | 2018-11-13 07:17 | XR ---
EXAMINATION TYPE: XR chest 1V portable DATE OF EXAM: 11/13/2018 HISTORY: Tube placement. REFERENCE: Previous study dated 11/12/2018. FINDINGS: There is a right shoulder arthroplasty in place. The patient is NG tube and NG tube as well as right internal jugular catheter remain in place, unchanged in appearance. The heart remains enlarged. The study is rotated. This gives increased opacity of the right hemithora x. I could not exclude some right basilar infiltrate. There is a left basilar infiltrate. I suspect s mall effusions. IMPRESSION: 1. SUBOPTIMAL STUDY. 2. CARDIOMEGALY. 3. BIBASILAR INFILTRATES. 4. SMALL, BILATERAL EFFUSIONS.
[2018-11-13] MEDS: levETIRAcetam IV 1,000 MG in SALINE 1 100ML.BAG IVPB SCH (07:54)
[2018-11-13] MEDS: PANTOPRAZOLE 40 MG/10 ML VIAL IV SCH (07:54)
[2018-11-13 07:55] LABS: Glucose,Whole Blood 148 mg/dL (75-99)
--- NOTE | 2018-11-13 09:22 | P.PN ---
Subjective Progress Note Date: 11/13/18 81-year-old male patient, presented to the ED following a cardiac arrest. The patient was found unresponsive by the . Apparently they sleep in separate bedrooms. She came final unresponsive and cardiac arrest. EMS was called to the scene and the patient was intubated in the field. He received CPR. He received ephedrine and within 3 minutes of resuscitation there was return of spontaneous circulation. The exact downtime was not clear. Initial rhythm was PEA. In the ED, the patient had a chest x-ray that showed massive cardiomegaly and pulmonary edema and bilateral pleural effusion. The patient is currently unresponsive and he is having myoclonic jerks. Pupils are equal and reactive around 2 mm in size. He is on pressors and norepinephrine infusion is running at 10 mics. His cardiac rhythm is atrial fibrillation and he has no urine output. The lactic acid level at time of admission was 6.7. BNP level is 14,400 and the troponin is at 0.028. Underlying cardiac rhythm is wide complex right axis the [facility] should on the right bundle branch block pattern with an underlying it showed fibrillation. Rate is somewhere between 100 and 120. Does have chronic wounds in the lower extremities bilaterally. Remains on a mechanical ventilator. Currently is an assist-control mode at the rate of 14 with tidal volume of 500 and FiO2 of 100% with a PEEP of 5. There is a venous blood gas and an arterial blood gases not been done yet. Pulse ox on the monitor is 89%. He was sent over without a CAT scan of the brain. His body temperature is 97. He has chronic wounds and lower extremities including also myelitis of the first metatarsal and he is post and position of the left great toe and removal of the head of the metatarsal and he was also treated for MSSA and pseudomonal infection and he has had previous pseudomonal bacteremia back in 2016. He had history of right toe osteomyelitis at that time. His last admission of March 2018, he had streptococcal septicemia that was attributed to pneumonia from which she recovered. On 11/05/2018 and seeing this patient for a follow-up. As mentioned and noted in the earlier evaluation, the patient came in with a cardiac arrest. He remains intubated on a mechanical ventilator. He was having active seizure. EEG was obtained and the patient was found to have markedly abnormal EEG. He demonstrated generalized primarily status epilepticus and generalized paroxysmal bursts of spike wave discharges. This was suggestive of severe diffuse cerebral dysfunction consistent with anoxic encephalopathy. The patient was started on propofol and the dose was titrated 30 g per KG per minute. The patient was started on Keppra. Clinically is not having any seizure. I discussed the findings with the family. I offered transfer [facility] where they have continuous EEG monitoring. The family approached me and they told that they don't want any transfers normally wanted any repeat EEGs done. In terms of his progress, the patient remains on norepinephrine infusion at 0.1 g per KG per minute. Normal saline is running at 1 50 mL an hour. Creatinine is up to 2.0. His white cell count is at 11.2. The patient remains on a mechanical ventilator on assist control mode with tidal volume of 500 and FiO2 of 50% with a PEEP of 5 and a respiratory rate of 14. Chest x-ray shows cardiac milligram bibasilar pulmonary infiltrates. No fever. No active myoclonic movements or jerking body movements for now. Objective - Vital Signs Vital signs: Vital Signs Temp 97.4 F L 11/13/18 04:00 Pulse 73 11/13/18 07:00 Resp 14 11/13/18 07:00 BP 109/71 11/13/18 05:00 Pulse Ox 100 11/13/18 07:00 Intake & Output 11/12/18 11/13/18 11/13/18 18:59 06:59 18:59 Intake Total 8706.232 7145.247 591.443 Output Total 20 85 41 Balance 0750.070 9233.247 550.443 Weight 108.862 kg 105.6 kg Intake: IV 1650 1900 500 Piperacillin-Tazobactam 3 100 100 .375 gm In Sodium Chloride 0.9% 100 ml @ 25 mls/hr IVPB Q8HR [facility] Rx# :[id number] Sodium Chloride 0.9% 1, 1450 1800 300 000 ml @ 150 mls/hr IV . Q6H40M [facility] Rx#:[id number] levETIRAcetam IV 1,000 mg 100 100 100 In Saline 1 100ml.bag @ 400 mls/hr IVPB Q12HR [facility] Rx#:[id number] Intake, IV Titration 295.247 330.247 91.443 Amount Norepinephrine 32 mg In 1.225 32.271 Sodium Chloride 0.9% 218 ml @ 0.08 MCG/KG/MIN 4. 082 mls/hr IV .Q24H [facility] Rx#:[id number] Norepinephrine 4 mg In 217.058 Sodium Chloride 0.9% 250 ml @ 0.05 MCG/KG/MIN 20. 738 mls/hr IV .[id number] [facility] Rx#:[id number] Piperacillin-Tazobactam 3 100 .375 gm In Sodium Chloride 0.9% 100 ml @ 25 mls/hr IVPB Q8HR [facility] Rx# :[id number] Propofol 1,000 mg In 76.964 197.976 91.443 Empty Bag 1 bag @ Titrate IV .Q0M [facility] Rx#: [id number] Output: Urine 20 85 41 Other: Voiding Method Indwelling Catheter Indwelling Catheter Indwelling Catheter ABP, PAP, CO, CI - Last Documented Arterial Blood Pressure 119/60 - Exam Appearance, comfortable unresponsive Head exam was generally normal. There was no scleral icterus or corneal arcus. Mucous membranes were moist. Neck was supple and without jugular venous distension, thyromegaly, or carotid bruits. Carotids were easily palpable bilaterally. There was no adenopathy. The patient has a right IJ triple lumen catheter in place. Orogastric and orotracheal tube are both in place. Lungs sounds are diminished bilaterally. Breath sounds equal and symmetrical slightly diminished in the right lung base. No wheezes. No rhonchi. Heart sounds are irregular, positive S1-S2, distant, no significant murmurs appreciated. Abdominal exam revealed normal bowel sounds. The abdomen was soft, non-tender, and without masses, organomegaly, or appreciable enlargement of the abdominal aorta. Extremities revealed diminished pulses in all 4 extremities pressure lower extremity bilaterally. There are chronic wounds in the anterior aspect of the legs bilaterally and there is stage I to 2 wounds with some occasional minimal amount of purulent material covering the base of the wound. Neurologically the patient is unresponsive. Not responsive to any painful stimulation. Pupils are 2 mm in size and symmetrical. No nystagmus. No preferential gaze. No facial asymmetry. Motor and sensory function cannot be assessed. Babinski's are not elicited. No clonus. Reflexes are +1 over 4 in all 4 extremities. As mentioned, there are occasional rapid jerky body movements which I assume are presentation of underlying myoclonic jerks. Skin reveals chronic on the lower extremities bilaterally - Labs CBC & Chem 7: 11/13/18 04:05 11/13/18 04:05 Labs: Abnormal Lab Results - Last 24 Hours (Table) 11/12/18 11/12/18 11/12/18 Range/Units 09:08 10:17 11:48 WBC 10.9 H (3.8-10.6) k/uL RBC 3.48 L (4.30-5.90) m/uL Hgb 10.8 L (13.0-17.5) gm/dL Hct 36.0 L (39.0-53.0) % MCV 103.2 H (80.0-100.0) fL MCHC 30.1 L (31.0-37.0) g/dL RDW 16.7 H (11.5-15.5) % Plt Count (150-450) k/uL Neutrophils # 9.9 H (1.3-7.7) k/uL Lymphocytes # 0.3 L (1.0-4.8) k/uL ABG pCO2 51 H (35-45) mmHg ABG pO2 (83-108) mmHg ABG HCO3 29 H (21-25) mmol/L ABG Total CO2 30 H (19-24) mmol/L ABG O2 Saturation (94-97) % BUN (9-20) mg/dL Creatinine (0.66-1.25) mg/dL Glucose (74-99) mg/dL POC Glucose (mg/dL) 214 H (75-99) mg/dL Plasma Lactic Acid Prakash (0.7-2.0) mmol/L Calcium (8.4-10.2) mg/dL Magnesium (1.6-2.3) mg/dL Total Protein (6.3-8.2) g/dL Albumin (3.5-5.0) g/dL 11/12/18 11/12/18 11/12/18 Range/Units 11:48 11:48 11:52 WBC (3.8-10.6) k/uL RBC (4.30-5.90) m/uL Hgb (13.0-17.5) gm/dL Hct (39.0-53.0) % MCV (80.0-100.0) fL MCHC (31.0-37.0) g/dL RDW (11.5-15.5) % Plt Count (150-450) k/uL Neutrophils # (1.3-7.7) k/uL Lymphocytes # (1.0-4.8) k/uL ABG pCO2 (35-45) mmHg ABG pO2 (83-108) mmHg ABG HCO3 (21-25) mmol/L ABG Total CO2 (19-24) mmol/L ABG O2 Saturation (94-97) % BUN 57 H (9-20) mg/dL Creatinine 1.69 H (0.66-1.25) mg/dL Glucose 249 H (74-99) mg/dL POC Glucose (mg/dL) 232 H (75-99) mg/dL Plasma Lactic Acid Prakash 2.8 H* (0.7-2.0) mmol/L Calcium 8.0 L (8.4-10.2) mg/dL Magnesium (1.6-2.3) mg/dL Total Protein (6.3-8.2) g/dL Albumin (3.5-5.0) g/dL 11/12/18 11/12/18 11/12/18 Range/Units 15:51 15:52 19:59 WBC (3.8-10.6) k/uL RBC (4.30-5.90) m/uL Hgb (13.0-17.5) gm/dL Hct (39.0-53.0) % MCV (80.0-100.0) fL MCHC (31.0-37.0) g/dL RDW (11.5-15.5) % Plt Count (150-450) k/uL Neutrophils # (1.3-7.7) k/uL Lymphocytes # (1.0-4.8) k/uL ABG pCO2 (35-45) mmHg ABG pO2 (83-108) mmHg ABG HCO3 (21-25) mmol/L ABG Total CO2 (19-24) mmol/L ABG O2 Saturation (94-97) % BUN (9-20) mg/dL Creatinine (0.66-1.25) mg/dL Glucose (74-99) mg/dL POC Glucose (mg/dL) 231 H 199 H (75-99) mg/dL Plasma Lactic Acid Prakash 2.4 H* (0.7-2.0) mmol/L Calcium (8.4-10.2) mg/dL Magnesium (1.6-2.3) mg/dL Total Protein (6.3-8.2) g/dL Albumin (3.5-5.0) g/dL 11/12/18 11/13/18 11/13/18 Range/Units 23:44 04:00 04:05 WBC 11.2 H (3.8-10.6) k/uL RBC 3.43 L (4.30-5.90) m/uL Hgb 10.8 L (13.0-17.5) gm/dL Hct 34.3 L (39.0-53.0) % MCV 100.2 H (80.0-100.0) fL MCHC (31.0-37.0) g/dL RDW 16.9 H (11.5-15.5) % Plt Count 138 L (150-450) k/uL Neutrophils # 10.3 H (1.3-7.7) k/uL Lymphocytes # 0.4 L (1.0-4.8) k/uL ABG pCO2 (35-45) mmHg ABG pO2 (83-108) mmHg ABG HCO3 (21-25) mmol/L ABG Total CO2 (19-24) mmol/L ABG O2 Saturation (94-97) % BUN (9-20) mg/dL Creatinine (0.66-1.25) mg/dL Glucose (74-99) mg/dL POC Glucose (mg/dL) 182 H 148 H (75-99) mg/dL Plasma Lactic Acid Prakash (0.7-2.0) mmol/L Calcium (8.4-10.2) mg/dL Magnesium (1.6-2.3) mg/dL Total Protein (6.3-8.2) g/dL Albumin (3.5-5.0) g/dL 11/13/18 11/13/18 11/13/18 Range/Units 04:05 04:22 07:43 WBC (3.8-10.6) k/uL RBC (4.30-5.90) m/uL Hgb (13.0-17.5) gm/dL Hct (39.0-53.0) % MCV (80.0-100.0) fL MCHC (31.0-37.0) g/dL RDW (11.5-15.5) % Plt Count (150-450) k/uL Neutrophils # (1.3-7.7) k/uL Lymphocytes # (1.0-4.8) k/uL ABG pCO2 (35-45) mmHg ABG pO2 245 H (83-108) mmHg ABG HCO3 27 H (21-25) mmol/L ABG Total CO2 28 H (19-24) mmol/L ABG O2 Saturation 100.0 H (94-97) % BUN 56 H (9-20) mg/dL Creatinine 2.04 H (0.66-1.25) mg/dL Glucose 164 H (74-99) mg/dL POC Glucose (mg/dL) 148 H (75-99) mg/dL Plasma Lactic Acid Prakash (0.7-2.0) mmol/L Calcium 8.2 L (8.4-10.2) mg/dL Magnesium 2.4 H (1.6-2.3) mg/dL Total Protein 5.7 L (6.3-8.2) g/dL Albumin 3.0 L (3.5-5.0) g/dL Microbiology - Last 24 Hours (Table) 11/12/18 06:26 Blood Culture - Preliminary Blood No Growth after 24 hours 11/12/18 06:40 Urine Culture - Preliminary Urine,Catheterized Assessment and Plan Plan: 1 acute cardiac arrest. The patient had CPR for a PEA rhythm at home. The cardiac arrest was not witnessed and the exact downtime is not established. The patient return of spontaneous circulation after 3 minutes of CPR at home. The patient was also given epinephrine. Currently intubated on a mechanical ventilator. Chest x-ray showing acute pulmonary edema with bilateral pleural effusion right more than left. The patient is also on pressors for hemodynamic support. Patient is unresponsive. 2 unresponsive secondary to above, rule out underlying hypoxic/anoxic encephalopathy especially the patient is having episodic twitching probably related to underlying myoclonic jerks 3 shock secondary to above currently on pressors. 4 acute kidney injury secondary to above the patient is not producing any urine since arrival to the intensive care unit 5 the patient is having status epilepticus. The patient's EEG shows primary generalized status and the patient was also having anoxic myoclonic jerks. This was suggestive of severe anoxic/hypoxic encephalopathy and currently the patient on a combination of propofol and Keppra. 6 acute lactic acidosis secondary to above 7 COPD advanced with chronic hypoxic respiratory failure 8 obstructive sleep apnea. 9 diabetes mellitus 10 hypertension 11 hyperlipidemia 12 chronic atrial fibrillation 13 coronary artery disease 14 peripheral vascular disease 15 lower extremity skin wounds involving the legs bilaterally, mainly anterior mainly stage I to 2 without any signs of acute or active infection at this point in time 16 history of chronic wound/stasis ulcer lower extremity is bilaterally with previous infection with MSSA 17 history of brain aneurysm post clipping 18 history of CHF with an ejection fraction of 45% based on echocardiogram from 2006 19 history of pneumothorax 20 previous history of streptococcal septicemia Plan This morning, I came to evaluate the patient. I reviewed all the labs and examined the patient. I discussed the findings with the family again. His sons , daughter and are all present. I was approached and the family requested comfort care [id number] care measures. I have known this patient for many years. His baseline performance status is extremely poor. A massive life- changing cardiac event and currently showing signs of anoxic encephalopathy. Apparently this type of medical care including vent support and long-term care was again bases wishes. For all this reasons, the family opted to proceed with comfort care measures. I think is quite reasonable. We'll facilitate comfort care measures per our protocol here in the ICU. Acid the family's question altered his satisfaction. Further recommendations are to follow. This is a critically care evaluation that was on a more than 30 minutes. Time with Patient: Greater than 30
--- NOTE | 2018-11-13 10:52 | PN ---
PROGRESS NOTE This is an 83-year-old gentleman who was admitted to hospital following cardiac arrest that we were consulted because of atrial fibrillation. He suffered from hypoxic encephalopathy and currently measures are in the way to make him comfort care. On exam, patient is intubated on vent and sedated. Heart rate is 70 beats per minute. Blood pressure is 130/70, respirations 14. Chest exam reveals diminished air entry at the bases. Heart exam reveals first and second heart sounds, irregular rhythm and a systolic murmur at the left lower sternal border. Abdomen is soft. Exam of the extremities reveals 1+ edema. Peripheral pulses are felt. LAB: Show a BUN of 56, creatinine of 2, hemoglobin is 10.8. ASSESSMENT: 1. Status post cardiac arrest. 2. Hypoxic encephalopathy. 3. Atrial fibrillation. PLAN: Patient's prognosis is poor. No further cardiac interventions. We will see the patient on an as-needed basis. MMODL / IJN: [id number] /
[2018-11-13 11:33] VITALS: BMI 32.4
[2018-11-13] MEDS ORDERED: MORPHINE SULFATE 4 MG/ML SYRINGE IVP ONE (14:26)
[2018-11-13] MEDS ORDERED: MORPHINE SULFATE 100 MG in SODIUM CHLORIDE 0.9% 90 ML IV SCH (14:45)
[2018-11-13] MEDS ORDERED: MORPHINE SULFATE (100 MG/2 ML) 100 MG in SODIUM CHLORIDE 0.9% 100 ML IV SCH (15:00)
[2018-11-13] MEDS: NOREPINEPHRINE 32 MG in SODIUM CHLORIDE 0.9% 218 ML IV SCH (15:51)
[2018-11-13 16:32] VITALS: RESP 18
[2018-11-13] MEDS ORDERED: LORazepam 0.5 MG TAB PO PRN (16:37)
[2018-11-13 17:14] VITALS: PULSE 48
--- NOTE | 2018-11-13 17:24 | P.PN ---
Subjective Progress Note Date: 11/13/18 This is an 83-year-old male one of Dr Batista with history of advanced COPD with chronic hypoxic respiratory failureon home O2 3l 09/11, , hypertension and hypertensive cardio vascular disease with left ventricular hypertrophy, chronic atrial fibrillation on chronic anticoagulation therapy in the form of NOAC, hyperlipidemia, diabetes mellitus type 2 with diabetic neuropathy, PAD post left big toe amputation, chronic kidney disease stage II, obesity with obstructive sleep apnea currently on a CPAP chronic wounds on the leg with amputation of the great toe and second toe left foot, bilateral shins 1, treated for MSSA and Pseudomonas infection, he had Pseudomonas bacteremia in 2016 and streptococcal septicemia from pneumonia in March 2018. patient has been doing fine until the has found him unresponsive, the arm spouse believe in separate bedrooms, and when she went to the 's room, patient was not responding to any verbal stimuli and physical stimuli. She thought that she has low sugars, EMS was called into the scene, and has arrived within 5 minutes per the patient. Patient was checked by around 5:10 AM, EMS thereafter arrived, and they were asking for papers for resuscitation, left the room, and upon her return, the patient was oriented being resuscitated with CPR and electrical cardioversion. He was on a PEA mechanism. The exact downtime was n ot clear, patient was intubated on the scene, approximately 3 minutes was spent for the entire CPR process, patient denies any previous injuries, he was given ephedrine. X-rays in the ER showed massive cardiomegaly and pulmonary edema and bilateral pleural effusion, patient was unresponsive in the emergency room, with myoclonic jerks, pupils are equal and reactive, he requires pressor agents nore pinephrine, he has urine output that is diminished, pleasant 20 mL an hour, lactic acid on admission was 6.7, BNP of 14,000, troponin of 0.08. He has wide complex right axis with arm bundle block pattern underlying atrial fibrillation. Rate between 100-120, he was transferred to ICU with manic mechanical ventilator, PEEP off 5, total volume of 500, FiO2 100, assist control mode sedated. 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 The burst suppression pattern indicates severe diffuse cerebral dysfunction as may be seen in anoxic or hypoxic encephalopathy based on the EEG interpretation by marketing operations specialist EEG reader. Patient was given Keppra initially loaded with 1000 every 12 hr IV dosing, family is aware that there is no neurology on board, we will going to repeat the EEG for tomorrow, oncology would be back on Wednesday. 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 and left maxillary sinuses computed tomography scan of the chest shows moderate right small left pleural effusion with prominent consultation throughout the posterior half of the right lung and extensive throughout the left lower lobe, there is underlying pulmonary arterial hypertension, there is borderline aneurysmal ascending aorta at 4 cm, with calcifications, nondisplaced fractures of the lateral anterolateral fourth through seventh rib on both sides, correlated to possibly the CPR that was given to the patient,, mild upper abdominal ascites likely secondary to fluid overload state patient currently is on norepinephrine, Zosyn, propofol, Keppra 1000 every 12, heparin subcu, no oral anticoagulation and liquids s as it was held by [facility] 11/13: Patient remains in ICU, Dr. Alarcon and has discussed with family members fully the prognosis regarding the EEG of the brain, anoxic encephalopathy is highly differential, they have decided in unison that the patient will be made hospice, patient was extubated at 343 today, morphine IV at 1 mg per hour was started for comfort care measures, Ativan IV at 0.5 mg every 6 hours scheduled. Lots of family at bedside Objective - Vital Signs Vital signs: Vital Signs Temp 97.4 F L 11/13/18 04:00 Pulse 48 L 11/13/18 17:00 Resp 18 11/13/18 16:00 BP 109/71 11/13/18 05:00 Pulse Ox 100 11/13/18 15:00 Intake & Output 11/12/18 11/13/18 11/13/18 18:59 06:59 18:59 Intake Total 6552.558 7277.247 1191.443 Output Total 20 85 116 Balance 2438.594 8574.247 1075.443 Weight 108.862 kg 105.6 kg 105.6 kg Intake: IV 1650 1900 800 Piperacillin-Tazobactam 3 100 100 .375 gm In Sodium Chloride 0.9% 100 ml @ 25 mls/hr IVPB Q8HR [facility] Rx# :[id number] Sodium Chloride 0.9% 1, 1450 1800 600 000 ml @ 150 mls/hr IV . Q6H40M [facility] Rx#:[id number] levETIRAcetam IV 1,000 mg 100 100 100 In Saline 1 100ml.bag @ 400 mls/hr IVPB Q12HR [facility] Rx#:[id number] Intake, IV Titration 295.247 330.247 391.443 Amount Norepinephrine 32 mg In 1.225 32.271 Sodium Chloride 0.9% 218 ml @ 0.08 MCG/KG/MIN 4. 082 mls/hr IV .Q24H [facility] Rx#:[id number] Norepinephrine 4 mg In 217.058 Sodium Chloride 0.9% 250 ml @ 0.05 MCG/KG/MIN 20. 738 mls/hr IV .[id number] [facility] Rx#:[id number] Piperacillin-Tazobactam 3 100 .375 gm In Sodium Chloride 0.9% 100 ml @ 25 mls/hr IVPB Q8HR [facility] Rx# :[id number] Propofol 1,000 mg In 76.964 197.976 91.443 Empty Bag 1 bag @ Titrate IV .Q0M [facility] Rx#: [id number] Sodium Chloride 0.9% 1, 300 000 ml @ 150 mls/hr IV . Q6H40M [facility] Rx#:[id number] Output: Urine 20 85 116 Other: Voiding Method Indwelling Catheter Indwelling Catheter Indwelling Catheter ABP, PAP, CO, CI - Last Documented Arterial Blood Pressure 98/46 - Exam Comatose - Respiratory Details: RR 12 Respiratory: bilateral: diminished - Cardiovascular Heart sounds: normal: S1, S2 Abnormal Heart Sounds: Absent: systolic murmur, diastolic murmur, rub, S3 Gallop, S4 Gallop, click, other - Gastrointestinal General gastrointestinal: Present: normal bowel sounds, soft - Neurologic Neurologic Comment(s): Unresponsive - Labs CBC & Chem 7: 11/13/18 04:05 11/13/18 04:05 Labs: Abnormal Lab Results - Last 24 Hours (Table) 11/12/18 11/12/18 11/13/18 Range/Units 19:59 23:44 04:00 WBC (3.8-10.6) k/uL RBC (4.30-5.90) m/uL Hgb (13.0-17.5) gm/dL Hct (39.0-53.0) % MCV (80.0-100.0) fL RDW (11.5-15.5) % Plt Count (150-450) k/uL Neutrophils # (1.3-7.7) k/uL Lymphocytes # (1.0-4.8) k/uL ABG pO2 (83-108) mmHg ABG HCO3 (21-25) mmol/L ABG Total CO2 (19-24) mmol/L ABG O2 Saturation (94-97) % BUN (9-20) mg/dL Creatinine (0.66-1.25) mg/dL Glucose (74-99) mg/dL POC Glucose (mg/dL) 199 H 182 H 148 H (75-99) mg/dL Calcium (8.4-10.2) mg/dL Magnesium (1.6-2.3) mg/dL Total Protein (6.3-8.2) g/dL Albumin (3.5-5.0) g/dL 11/13/18 11/13/18 11/13/18 Range/Units 04:05 04:05 04:22 WBC 11.2 H (3.8-10.6) k/uL RBC 3.43 L (4.30-5.90) m/uL Hgb 10.8 L (13.0-17.5) gm/dL Hct 34.3 L (39.0-53.0) % MCV 100.2 H (80.0-100.0) fL RDW 16.9 H (11.5-15.5) % Plt Count 138 L (150-450) k/uL Neutrophils # 10.3 H (1.3-7.7) k/uL Lymphocytes # 0.4 L (1.0-4.8) k/uL ABG pO2 245 H (83-108) mmHg ABG HCO3 27 H (21-25) mmol/L ABG Total CO2 28 H (19-24) mmol/L ABG O2 Saturation 100.0 H (94-97) % BUN 56 H (9-20) mg/dL Creatinine 2.04 H (0.66-1.25) mg/dL Glucose 164 H (74-99) mg/dL POC Glucose (mg/dL) (75-99) mg/dL Calcium 8.2 L (8.4-10.2) mg/dL Magnesium 2.4 H (1.6-2.3) mg/dL Total Protein 5.7 L (6.3-8.2) g/dL Albumin 3.0 L (3.5-5.0) g/dL 11/13/18 Range/Units 07:43 WBC (3.8-10.6) k/uL RBC (4.30-5.90) m/uL Hgb (13.0-17.5) gm/dL Hct (39.0-53.0) % MCV (80.0-100.0) fL RDW (11.5-15.5) % Plt Count (150-450) k/uL Neutrophils # (1.3-7.7) k/uL Lymphocytes # (1.0-4.8) k/uL ABG pO2 (83-108) mmHg ABG HCO3 (21-25) mmol/L ABG Total CO2 (19-24) mmol/L ABG O2 Saturation (94-97) % BUN (9-20) mg/dL Creatinine (0.66-1.25) mg/dL Glucose (74-99) mg/dL POC Glucose (mg/dL) 148 H (75-99) mg/dL Calcium (8.4-10.2) mg/dL Magnesium (1.6-2.3) mg/dL Total Protein (6.3-8.2) g/dL Albumin (3.5-5.0) g/dL Microbiology - Last 24 Hours (Table) 11/12/18 06:40 Urine Culture - Final Urine,Catheterized 11/12/18 06:26 Blood Culture - Preliminary Blood No Growth after 24 hours Assessment and Plan Plan: 1. Cardiac arrest Acute hypoxemic respiratory failure requiring ventilatory support, CHF with pulmonary edema, diuretics are held at this time secondary to hypovolemic shock, cardiology is on consult, critical care medicine is on consult, prognosis is very poor, family's decision today November 13 is for comfort care measures. Initiate IV morphine, and IV Ativan off antiseizure medication off life support at 3:43 PM November 13 2. Generalized status epilepticus, possibly suggestive of hypoxic encephalopathy against primary generalized seizures, patient's on Keppra, IV every 12 hours, EEG would be done in 24 hours for repeat, no on-call neurology for this weekend, the family refused transfer to tertiary hospital for continuous EEG monitoring and treatment 3. Pulmonary edema with pleural effusion and anasarca, diuretics are on hold secondary to hypovolemic shock IV Lasix would be initiated once stabilized 4. Suspected aspiration pneumonia and left side, patient is on Zosyn IV 3.375 every 8 hours 5. Acute kidney failure with oliguria, underlying CK D stage II possibly related to shock, IV fluid for hydration, patient would need IV frusemide once stabilized CMP to be followed, consult Dr. Gay nephrology 6. Hypovolemic shock, multifactorial, most likely secondary to cardiogenic shock, septic shock troponins are being "closely followed IV hydration requires Levophed 7 Chronic atrial fibrillation. Held Eliquis 2.5 mg orally twice every day, atenolol 100 mg orally twice every day. 8. Bilateral rib fractures fourth to seventh rib bilateral most likely secondary to CPR 9. Hyperlipemia. On hold pravastatin 80 mg at bedtime. 10 Diabetes mellitus type 2. Continue NovoLog to scale monitor blood glucose NPH 12 units twice a day on hold 11. Chronic venous stasis with stasis dermatitis. Stable at this time. 12 Bilateral lower extremity neuropathy. Continue gabapentin 300 mg orally at bedtime. 13 Bilateral lower leg ulcers, present prior to admission, chronic wounds f [facility]llowed by [facility] 14 Hypertension and hypertensive cardiovascular disease. Continue patient on losartan 25 mg orally once every day, atenolol 100 mg orally twice every day. 15. PAD post left big toe amputation. 16 Obesity with obstructive sleep apnea. Continue patient on CPAP. 17 Anemia of chronic renal disease. 18 DVT prophylaxis. Heparin subcu 17. GI prophylaxis. Continue patient on Protonix 40 mg IV push every 24 hours. 18. Full code. 19. Admit to inpatient. Estimate a length of stay over 3 midnights. Prognosis guarded
--- NOTE | 2018-11-14 10:55 | P.DS ---
Providers Date of admission: 11/12/18 07:09 Expected date of discharge: 11/14/18 Attending physician: Maria Del Carmen Medel Consults: 11/12/18 07:09 Consult Physician Routine Consulting Provider: Foster Lyon Consult Reason/Comments: icu Do you want consulting provider notified?: Yes Consult Physician Routine Consulting Provider: Chai Echols Consult Reason/Comments: cpa Do you want consulting provider notified?: Yes 11/12/18 19:35 Consult Physician Routine Consulting Provider: Chantal Gay Consult Reason/Comments: oliguria, cardiogenic shock Do you want consulting provider notified?: Yes Primary care physician: Divina Batista [facility] Course: This is an 83-year-old male one of Dr Batista with history of advanced COPD with chronic hypoxic respiratory failureon home O2 3l /, , hypertension and hypertensive cardio vascular disease with left ventricular hypertrophy, chronic atrial fibrillation on chronic anticoagulation therapy in the form of NOAC, hyperlipidemia, diabetes mellitus type 2 with diabetic neuropathy, PAD post left big toe amputation, chronic kidney disease stage II, obesity with obstructive sleep apnea currently on a CPAP chronic wounds on the leg with amputation of the great toe and second toe left foot, bilateral shins 1, treated for MSSA and Pseudomonas infection, he had Pseudomonas bacteremia in 2016 and streptococcal septicemia from pneumonia in March 2018. patient has been doing fine until the has found him unresponsive, the arm spouse believe in separate bedrooms, and when she went to the 's room, patient was not responding to any verbal stimuli and physical stimuli. She thought that she has low sugars, EMS was called into the scene, and has arrived within 5 minutes per the patient. Patient was checked by around 5:10 AM, EMS thereafter arrived, and they were asking for papers for resuscitation, left the room, and upon her return, the patient was oriented being resuscitated with CPR and electrical cardioversion. He was on a PEA mechanism. The exact downtime was not clear, patient was intubated on the scene, approximately 3 minutes was spent for the entire CPR process, patient denies any previous injuries, he was given ephedrine. X-rays in the ER showed massive cardiomegaly and pulmonary edema and bilateral pleural effusion, patient was unresponsive in the emergency room, with myoclonic jerks, pupils are equal and reactive, he requires pressor agents norepinephrine, he has urine output that is diminished, pleasant 20 mL an hour, lactic acid on admission was 6.7, BNP of 14,000, troponin of 0.08. He has wide complex right axis with arm bundle block pattern underlying atrial fibrillation. Rate between 100-120, he was transferred to ICU with manic mechanical ventilator, PEEP off 5, total volume of 500, FiO2 100, assist control mode sedated. 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 The burst suppression pattern indicates severe diffuse cerebral dysfunction as may be seen in anoxic or hypoxic encephalopathy based on the EEG interpretation by irrigation worker EEG reader. Patient was given Keppra initially loaded with 1000 every 12 hr IV dosing, family is aware that there is no neurology on board, we will going to repeat the EEG for tomorrow, oncology would be back on Wednesday. 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 and left maxillary sinuses computed tomography scan of the chest shows moderate right small left pleural effusion with prominent consultation throughout the posterior half of the right lung and extensive throughout the left lower lobe, there is underlying pulmonary arterial hypertension, there is borderline aneurysmal ascending aorta at 4 cm, with calcifications, nondisplaced fractures of the lateral anterolateral fourth through seventh rib on both sides, correlated to possibly the CPR that was given to the patient,, mild upper abdominal ascites likely secondary to fluid overload state patient currently is on norepinephrine, Zosyn, propofol, Keppra 1000 every 12, heparin subcu, no oral anticoagulation and liquids s as it was held by cardiology 11/13: Patient remains in ICU, Dr. Alarcon and has discussed with family members fully the prognosis regarding the EEG of the brain, anoxic encephalopathy is highly differential, they have decided in unison that the patient will be made hospice, patient was extubated at 343 today, morphine IV at [address] arted for comfort care measures, Ativan IV at 0.5 mg every 6 hours scheduled. Lots of family at bedside Patient on the evening of November 13. Please see nursing documentation for details. Discharge diagnoses: 1. Cardiac arrest with acute hypoxemic respiratory failure requiring intubation and mechanical ventilation secondary to acute pulmonary edema and bilateral pleural effusions, acute on chronic diastolic heart failure, cardiogenic and septic shock 2. 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 Pulmonary edema with pleural effusion and anasarca 4. Suspected aspiration pneumonia and left side and septic shock 5. Acute kidney failure with oliguria secondary to shock 6. CKD stage II 7. Cardiogenic and septic shock with multiorgan failure 8. Acute lactic acidosis secondary to shock 9. Advanced COPD and chronic hypoxic respiratory failure 10. History of coronary artery disease 11. Chronic atrial fibrillation. 12. Bilateral rib fractures fourth to seventh rib bilateral most likely secondary to CPR 13. Hyperlipemia. 14 Diabetes mellitus type 2. 15. Chronic venous stasis with stasis dermatitis. 16. Bilateral lower extremity neuropathy. 17. Bilateral lower leg ulcers, present prior to admission, chronic wounds [facility] by [facility] 18. Hypertension and hypertensive cardiovascular disease. 19. PAD post left big toe amputation. 20. Obesity with obstructive sleep apnea. 21. Anemia of chronic renal disease. Impression and plan of care have been directed as dictated by the signing physician. Malu Cordova nurse practitioner acting as scribe for signing physician. Patient Condition at Discharge: Undetermined Plan - Discharge Summary New Discharge Prescriptions: No Action Aspirin 81 mg PO DAILY Ipratropium Nebulized [Atrovent Nebulized 0.2 MG/ML] 0.5 mg INHALATION RT-QID PRN PRN Reason: Shortness Of Breath Levalbuterol Nebulized [Xopenex Nebulized] 1.25 mg INHALATION RT-QID PRN PRN Reason: Shortness Of Breath INSULIN LISPRO (humaLOG) [humaLOG] See Protocol SQ ACHS PRN PRN Reason: HIGH SUGAR [place]-3 Fatty Acids/Fish Oil [Fish Oil 1,000 mg Softgel] 1 cap PO DAILY Niacinamide [Niacin] 500 mg PO DAILY Multivitamins, Thera [Multivitamin (formulary)] 1 tab PO DAILY Glucosamine Sulfate 500 mg PO DAILY Ferrous Sulfate [Iron (65 MG Elemental)] 325 mg PO DAILY Cholecalciferol [Vitamin D3 (25 Mcg = 1000 Iu)] 5,000 unit PO DAILY Atenolol [Tenormin] 100 mg PO BID Apixaban [Eliquis] 2.5 mg PO BID #0 Pravastatin Sodium [Pravachol] 80 mg PO HS Losartan [Cozaar] 25 mg PO DAILY Sennosides-Docusate Sodium [Senokot-S] 1 tab PO DAILY Folic Acid 0.8 mg PO DAILY Cetirizine HCl [Zyrtec] 10 mg PO DAILY Turmeric Root Extract [Turmeric] 500 mg PO DAILY Lysine [l-Lysine] 500 mg PO DAILY Calcium Carbonate [Calcium] 600 mg PO DAILY Escitalopram [Lexapro] 10 mg PO DAILY Cyanocobalamin (Vitamin B-12) [Vitamin B-12] 1,000 mcg PO DAILY Loperamide HCl [Imodium A-D] 2 mg PO Q6H Ranitidine HCl [Zantac] 150 mg PO BID Oxybutynin Chloride [Ditropan] 5 mg PO BID Furosemide [Lasix] 40 mg PO DAILY tab Gabapentin [Neurontin] 300 mg PO HS cap HYDROcodone/APAP 5-325MG [[place] 5-325] 1 tab PO Q8HR PRN #9 tab PRN Reason: Pain Simvastatin 40 mg PO DAILY Meloxicam 15 mg PO DAILY Bisoprol/Hydrochlorothiazide [Bisoprolol-Hctz 5-6.25 mg Tab] 1 tab PO DAILY Potassium Chloride [K-Tab ER] 20 meq PO DAILY Omeprazole Magnesium [PriLOSEC OTC] 20 mg PO DAILY Ascorbic Acid [Vitamin C] 1,000 mg PO DAILY Albuterol Nebulized [Ventolin Nebulized] 2.5 mg INHALATION RT-Q6H PRN PRN Reason: Shortness Of Breath Budesonide-Formot 160-4.5 Mcg [Symbicort 160-4.5 Mcg Inhaler] 2 puff INHALATION RT-BID Insulin NPH Human Isophane [humuLIN N] 12 unit SQ BID Discharge Medication List Aspirin 81 mg PO DAILY 02/18/14 [History] INSULIN LISPRO (humaLOG) [humaLOG] See Protocol SQ ACHS PRN 05/18/15 [History] Ipratropium Nebulized [Atrovent Nebulized 0.2 MG/ML] 0.5 mg INHALATION RT-QID PRN 05/18/15 [History] Levalbuterol Nebulized [Xopenex Nebulized] 1.25 mg INHALATION RT-QID PRN 05/18/15 [History] Cholecalciferol [Vitamin D3 (25 Mcg = 1000 Iu)] 5,000 unit PO DAILY 07/29/15 [History] Ferrous Sulfate [Iron (65 MG Elemental)] 325 mg PO DAILY 07/29/15 [History] Glucosamine Sulfate 500 mg PO DAILY 07/29/15 [History] Multivitamins, Thera [Multivitamin (formulary)] 1 tab PO DAILY 07/29/15 [History] Niacinamide [Niacin] 500 mg PO DAILY 07/29/15 [History] [place]-3 Fatty Acids/Fish Oil [Fish Oil 1,000 mg Softgel] 1 cap PO DAILY 07/29/15 [History] Atenolol [Tenormin] 100 mg PO BID 08/25/15 [History] Apixaban [Eliquis] 2.5 mg PO BID #0 09/06/15 [Rx] Losartan [Cozaar] 25 mg PO DAILY 10/24/16 [History] Pravastatin Sodium [Pravachol] 80 mg PO HS 10/24/16 [History] Calcium Carbonate [Calcium] 600 mg PO DAILY 03/30/18 [History] Cetirizine HCl [Zyrtec] 10 mg PO DAILY 03/30/18 [History] Cyanocobalamin (Vitamin B-12) [Vitamin B-12] 1,000 mcg PO DAILY 03/30/18 [H istory] Escitalopram [Lexapro] 10 mg PO DAILY 03/30/18 [History] Folic Acid 0.8 mg PO DAILY 03/30/18 [History] Loperamide HCl [Imodium A-D] 2 mg PO Q6H 03/30/18 [History] Lysine [l-Lysine] 500 mg PO DAILY 03/30/18 [History] Oxybutynin Chloride [Ditropan] 5 mg PO BID 03/30/18 [History] Ranitidine HCl [Zantac] 150 mg PO BID 03/30/18 [History] Sennosides-Docusate Sodium [Senokot-S] 1 tab PO DAILY 03/30/18 [History] Turmeric Root Extract [Turmeric] 500 mg PO DAILY 03/30/18 [History] Furosemide [Lasix] 40 mg PO DAILY tab 04/05/18 [Rx] Gabapentin [Neurontin] 300 mg PO HS cap 04/05/18 [Rx] HYDROcodone/APAP 5-325MG [[place] 5-325] 1 tab PO Q8HR PRN #9 tab 04/05/18 [Rx] Albuterol Nebulized [Ventolin Nebulized] 2.5 mg INHALATION RT-Q6H PRN 11/12/18 [History] Ascorbic Acid [Vitamin C] 1,000 mg PO DAILY 11/12/18 [History] Bisoprol/Hydrochlorothiazide [Bisoprolol-Hctz 5-6.25 mg Tab] 1 tab PO DAILY 11/12/18 [History] Budesonide-Formot 160-4.5 Mcg [Symbicort 160-4.5 Mcg Inhaler] 2 puff INHALATION RT-BID 11/12/18 [History] Insulin NPH Human Isophane [humuLIN N] 12 unit SQ BID 11/12/18 [History] Meloxicam 15 mg PO DAILY 11/12/18 [History] Omeprazole Magnesium [PriLOSEC OTC] 20 mg PO DAILY 11/12/18 [History] Potassium Chloride [K-Tab ER] 20 meq PO DAILY 11/12/18 [History] Simvastatin 40 mg PO DAILY 11/12/18 [History] Follow up Appointment(s)/Referral(s): Divina Batista MD [Primary Care Provider] - 1-2 days Discharge Disposition: - Preliminary Cause of Preliminary Cause of : Cardiogenic and septic shock with multiorgan failure
== END 2018-11-13 18:38 | disposition expired | DRG 871 ==
LOC: EC 06:00 → SUPCPDRO 06:00 → 2SICU 07:09
PROVIDERS: ADMIT Family Medicine; ATTEND Family Medicine
PROC: 5A1935Z Respiratory Ventilation, Less than 24 Consecutive Hours (ICD-10-PCS; principal; 2018-11-12)
PROC: 0BH17EZ Insertion of Endotracheal Airway into Trachea, Via Natural or Artificial Opening (ICD-10-PCS; 2018-11-12)
PROC: 03HC33Z Insertion of Infusion Device into Left Radial Artery, Percutaneous Approach (ICD-10-PCS; 2018-11-12)
DX: A41.9 Sepsis, unspecified organism (principal); I50.33 Acute on chronic diastolic (congestive) heart failure; J96.21 Acute and chronic respiratory failure with hypoxia; R65.21 Severe sepsis with septic shock; J69.0 Pneumonitis due to inhalation of food and vomit; R40.20 Unspecified coma; R40.2312 Coma scale, best motor response, none, at arrival to emergency department; R40.2112 Coma scale, eyes open, never, at arrival to emergency department; R40.2212 Coma scale, best verbal response, none, at arrival to emergency department; S22.43XA Multiple fractures of ribs, bilateral, initial encounter for closed fracture; I13.0 Hypertensive heart and chronic kidney disease with heart failure and stage 1 through stage 4 chronic kidney disease, or unspecified chronic kidney disease; J44.0 Chronic obstructive pulmonary disease with (acute) lower respiratory infection; N17.9 Acute kidney failure, unspecified; G93.1 Anoxic brain damage, not elsewhere classified; R18.8 Other ascites; Z66 Do not resuscitate; Z51.5 Encounter for palliative care; I46.9 Cardiac arrest, cause unspecified; R57.0 Cardiogenic shock; E11.22 Type 2 diabetes mellitus with diabetic chronic kidney disease; I48.2 Chronic atrial fibrillation; E11.42 Type 2 diabetes mellitus with diabetic polyneuropathy; I71.2 Thoracic aortic aneurysm, without rupture; I27.21 Secondary pulmonary arterial hypertension; E11.51 Type 2 diabetes mellitus with diabetic peripheral angiopathy without gangrene; G40.401 Other generalized epilepsy and epileptic syndromes, not intractable, with status epilepticus; E66.01 Morbid (severe) obesity due to excess calories; D63.1 Anemia in chronic kidney disease; I45.10 Unspecified right bundle-branch block; E78.5 Hyperlipidemia, unspecified; I25.10 Atherosclerotic heart disease of native coronary artery without angina pectoris; I25.2 Old myocardial infarction; K21.9 Gastro-esophageal reflux disease without esophagitis; N18.2 Chronic kidney disease, stage 2 (mild); M19.90 Unspecified osteoarthritis, unspecified site; R01.1 Cardiac murmur, unspecified; N42.9 Disorder of prostate, unspecified; X58.XXXA Exposure to other specified factors, initial encounter; Z68.32 Body mass index [BMI] 32.0-32.9, adult; I87.2 Venous insufficiency (chronic) (peripheral); G47.33 Obstructive sleep apnea (adult) (pediatric); Z79.82 Long term (current) use of aspirin; Z79.01 Long term (current) use of anticoagulants; Z79.1 Long term (current) use of non-steroidal anti-inflammatories (NSAID); Z79.4 Long term (current) use of insulin; Z79.51 Long term (current) use of inhaled steroids; Z79.899 Other long term (current) drug therapy; Z96.651 Presence of right artificial knee joint; Z96.611 Presence of right artificial shoulder joint; Z89.429 Acquired absence of other toe(s), unspecified side; Z89.412 Acquired absence of left great toe; Z87.891 Personal history of nicotine dependence; Z87.01 Personal history of pneumonia (recurrent); Z86.79 Personal history of other diseases of the circulatory system; Z88.6 Allergy status to analgesic agent; Z88.1 Allergy status to other antibiotic agents; Z90.49 Acquired absence of other specified parts of digestive tract; Z98.42 Cataract extraction status, left eye; Z96.1 Presence of intraocular lens; Z80.0 Family history of malignant neoplasm of digestive organs; Z82.49 Family history of ischemic heart disease and other diseases of the circulatory system; Z83.3 Family history of diabetes mellitus
CPT/HCPCS: 36415; 70450; 71045; 71250; 80048; 80053; 81001; 82009; 82140; 82550; 82803; 82805; 83605; 83735; 83880; 84100; 84443; 84484; 85025; 85610; 85730; 86850; 86900; 86901; 87040; 87086; 92950; 93005; 93306; 94002; 94003; 94640; 94644; 95816; 96361; 96365; 96375; 99291